=== PATIENT | male | born 1930 | race Hispanic/Latino ===

== ENCOUNTER 2017-10-14 19:28 | Emergency (ER) | payer MEDICARE ==
[2017-10-14 19:34] VITALS: BMI 31.3
[2017-10-14 19:59] VITALS: BP 98/59; PULSE 87; RESP 18; TEMP 98.4
--- NOTE | 2017-10-14 20:02 | ED PDOC ---
Arrival/HPI - General Historian: Patient - History of Present Illness Time/Duration: < week Symptom Course: Unchanged Activities at Onset: Light Context: Walking - General Chief Complaint: Altered Mental Status Time Seen by Provider: 10/14/17 19:31 - History of Present Illness Narrative History of Present Illness (Text): 10/14/17 19:58 This is a 87 year old male with PMH of HT, dyslipidemia, alcohol abuse, depression, alzheimer's, dementia, and severe aortic stenosis presenting to the ER by ambulance for AMS. Patient is confused at this time and cannot provide a history. Patient denies and complaints or pain at this time. Will attempt to contact son. (Danay Ji) Past Medical History - Provider Review Nursing Documentation Reviewed: Yes - Infectious Disease Hx of Infectious Diseases: None - Tetanus Immunization Tetanus Immunization: Unknown - Cardiac Hx Hypertension: Yes - HEENT Hx HEENT Disorder: Yes (wears glasses) - Hematological/Oncological Hx Anemia: Yes (normocytic) - Musculoskeletal/Rheumatological Hx Musculoskeletal Disorders: Yes Hx Arthritis: Yes Hx Degenerative Joint Disease: Yes Hx Falls: No Hx Unsteady Gait: Yes - Genitourinary/Gynecological Hx Incontinence: Yes - Psychiatric Hx Psychophysiologic Disorder: Yes Hx Depression: Yes Hx Substance Use: No - Surgical History Hx Cholecystectomy: Yes Family/Social History - Physician Review Nursing Documentation Reviewed: Yes Family/Social History: Unknown Family HX Smoking Status: Smoker Currrent Status Unknown Hx Alcohol Use: Yes Hx Substance Use: No Allergies/Home Meds Allergies/Adverse Reactions: Allergies No Known Allergies Allergy (Verified 10/14/17 19:39) Review of Systems - Physician Review All systems were reviewed & negative as marked: Yes - Review of Systems Constitutional: Normal. absent: Fevers Eyes: Normal ENT: Normal Respiratory: Normal. absent: SOB, Cough Cardiovascular: Normal. absent: Chest Pain Gastrointestinal: Normal Genitourinary Male: Normal Musculoskeletal: Normal Skin: Normal Neurological: Normal. absent: Headache, Dizziness Endocrine: Normal Physical Exam Vital Signs Reviewed: Yes Temperature: Afebrile Blood Pressure: Normal Pulse: Regular Respiratory Rate: Normal Appearance: Positive for: Well-Appearing, Non-Toxic, Comfortable Pain Distress: None Mental Status: Positive for: Confused. No: Alert and Oriented X 3 Finger Stick Blood Glucose: 84 - Systems Exam Head: Present: Atraumatic, Normocephalic Pupils: Present: PERRL Extroacular Muscles: Present: EOMI Conjunctiva: Present: Normal Mouth: Present: Moist Mucous Membranes Neck: Present: Normal Range of Motion Respiratory/Chest: Present: Clear to Auscultation, Good Air Exchange. No: Respiratory Distress, Accessory Muscle Use Cardiovascular: Present: Regular Rate and Rhythm, Normal S1, S2. No: Murmurs Abdomen: No: Tenderness, Distention, Peritoneal Signs Back: Present: Normal Inspection Upper Extremity: Present: Normal Inspection. No: Cyanosis, Edema Lower Extremity: Present: Normal Inspection. No: Edema Neurological: Present: Motor Func Grossly Intact, Normal Sensory Function Skin: Present: Warm, Dry, Normal Color. No: Rashes Psychiatric: Present: Alert, Normal Concentration. No: Oriented x 3, Normal Insight Vital Signs Temp Pulse Resp BP Pulse Ox 10/14/17 19:57 98.4 F 87 18 98/59 L 100 Medical Decision Making ED Course and Treatment: Impression: Pt seen and evaluated with health care / medical job titles. Aware and agree with HPI, clinical findings, plan, and management. Pt, whose past medical history includes hypertension, dyslipidemia, alcohol abuse, depression, ALzheimer's dementia, and severe aortic stenosis, presented for altered mental status. Plan: -- EKG -- Labs -- Reassess and disposition (Ivan Hummel) 10/14/17 20:03 Impression: This is a 87 year old male with PMH significant for alzheimer's and dementia presenting to the ED via ambulance for AMS. Plan: -CBC, CMP -EKG Progress: 10/14/17 21:45 Son came, states patient is at his baseline. Will take home. (Danay Ji) - Lab Interpretations Lab Results: 10/14/17 20:08 10/14/17 20:08 Lab Results 10/14/17 20:08: Sodium 139, Potassium 4.8, Chloride 104, Carbon Dioxide 26, Anion Gap 14, BUN 40 H, Creatinine 1.0, Est GFR ( Amer) > 60, Est GFR ( Non-Af Amer) > 60, Random Glucose 90, Calcium 9.1, Total Bilirubin 0.7, AST 30, ALT 31, Alkaline Phosphatase 45, Total Protein 7.1, Albumin 3.9, Globulin 3.2, Albumin/Globulin Ratio 1.2 10/14/17 20:08: WBC 8.4 D, RBC 3.96, Hgb 11.8 L, Hct 34.5 L, MCV 87.1, MCH 29.8 , MCHC 34.2, RDW 14.3, Plt Count 137, MPV 10.4, Gran % 71.0 H, Lymph % (Auto) 21.5 L, [place] % (Auto) 6.0, Eos % (Auto) 1.3 L, Baso % (Auto) 0.2, Gran # 5.95, Lymph # (Auto) 1.8, [place] # (Auto) 0.5, Eos # (Auto) 0.1, Baso # (Auto) 0.02 - PA / TRIM CREW SUPERVISOR / Resident Statement MD/DO has reviewed & agrees with the documentation as recorded. MD/DO has examined the patient and agrees with the treatment plan. Disposition/Present on Arrival - Present on Arrival Any Indicators Present on Arrival: Yes History of DVT/PE: No History of Uncontrolled Diabetes: No Urinary Catheter: Yes History of Decub. Ulcer: No History Surgical Site Infection Following: None - Disposition Have Diagnosis and Disposition been Completed?: Yes Disposition Time: 22:00 Patient Plan: Discharge - Disposition Diagnosis: Dementia Disposition: HOME/ ROUTINE Patient Problems: Current Active Problems Problem Status Onset Dementia Acute Condition: FAIR Discharge Instructions (ExitCare): Dementia (Including Alzheimer Disease) Referrals: Rito Menezes [Primary Care Provider] - Follow up with primary Forms: [employer] (Mongolian)
[2017-10-14 20:21] LABS: BASO # 0.02 K/mm3 (0.0-2.0); BASO % 0.2 % (0.0-3.0); EOS # 0.1 (0.0-0.7); EOS % 1.3 % (1.5-5.0); GRAN # 5.95 (1.4-6.5); HEMOGLOBIN 11.8 g/dL (14.0-18.0); LYMPH # 1.8 (1.2-3.4); LYMPH % 21.5 % (22.0-35.0); MEAN CELL VOLUME 87.1 fl (80.0-105.0); MEAN CORPUSCULAR HEMOGLOBIN 29.8 pg (25.0-35.0); MEAN CORPUSCULAR HGB CONC 34.2 g/dl (31.0-37.0); MEAN PLATELET VOLUME 10.4 fl (7.0-11.0); MONO # 0.5 (0.1-0.6); RBC 3.96 10^6/uL (3.5-6.1); RED CELL DISTRIBUTION WIDTH 14.3 % (11.5-14.5); WHITE BLOOD COUNT 8.4 10^3/ul (4.5-11.0)
[2017-10-14 20:27] LABS: ALB/GLOB RATIO 1.2 (1.1-1.8); ALBUMIN 3.9 g/dL (3.0-4.8); ALT/SGPT 31 U/L (7-56); AST/SGOT 30 U/L (17-59); BLOOD UREA NITROGEN 40 mg/dL (7-21); CALCIUM 9.1 mg/dL (8.4-10.5); GFR AFRICAN-AMERICAN > 60; GFR NON-AFRICAN AMERICAN > 60
[2017-10-14 22:17] VITALS: O2SAT 99
--- NOTE | 2017-10-15 08:29 | CARD ---
APPROVED REPORT EKG Measurement Heart [id number] MA [id number] <Conclusion> Sinus rhythm with 1st degree AV block with 1 premature supraventricular complex No change
== END 2017-10-14 22:16 | disposition home or self-care (01) ==
LOC: ED 19:28
DX: F02.80 Dementia in other diseases classified elsewhere, unspecified severity, without behavioral disturbance, psychotic disturbance, mood disturbance, and anxiety (principal); G30.9 Alzheimer's disease, unspecified; E78.5 Hyperlipidemia, unspecified; I10 Essential (primary) hypertension

== ENCOUNTER 2017-12-26 22:02 | Inpatient (IN) | payer MEDICARE ==
--- NOTE | 2017-12-26 22:36 | ED PDOC ---
Arrival/HPI <Franko Del Castillo - Last Filed: 12/27/17 00:05> - General Historian: Patient <Debbie De La Garza - Last Filed: 12/27/17 02:19> - General Time Seen by Provider: 12/26/17 22:32 - History of Present Illness Narrative History of Present Illness (Text): 12/26/17 22:33 87yo male with pmhx of hypertension, dyslipdemia, alcohol abuse, depression, Alzheimer's, dementia, severe aortic stenosis who was bib the EMS for near syncope. Patient states he suddenly became dizzy while walking and fell backwards, hitting his posterior head on the ground. States a couple nearby called EMS. Denies LOC. Denies any current somatic pain, focal weakness, back pain, nausea, vomiting, visual changes, headache, chest pain, SOB, any other complaint. (Debbie De La Garza A) Past Medical History - Provider Review Nursing Documentation Reviewed: Yes - Infectious Disease Hx of Infectious Diseases: None - Tetanus Immunization Tetanus Immunization: Unknown - Cardiac Hx Hypertension: Yes - HEENT Hx HEENT Disorder: Yes (wears glasses) - Hematological/Oncological Hx Anemia: Yes (normocytic) - Musculoskeletal/Rheumatological Hx Musculoskeletal Disorders: Yes Hx Arthritis: Yes Hx Degenerative Joint Disease: Yes Hx Falls: No Hx Unsteady Gait: Yes - Genitourinary/Gynecological Hx Incontinence: Yes - Psychiatric Hx Psychophysiologic Disorder: Yes Hx Depression: Yes Hx Substance Use: No - Surgical History Hx Cholecystectomy: Yes <Debbie De La Garza - Last Filed: 12/27/17 02:19> Family/Social History - Physician Review Nursing Documentation Reviewed: Yes Family/Social History: Unknown Family HX Smoking Status: Smoker Currrent Status Unknown Hx Alcohol Use: Yes Hx Substance Use: No <Debbie De La Garza A - Last Filed: 12/27/17 02:19> Allergies/Home Meds <Franko Del Castillo - Last Filed: 12/27/17 00:05> <Debbie De La Garza A - Last Filed: 12/27/17 02:19> Allergies/Adverse Reactions: Allergies No Known Allergies Allergy (Verified 10/14/17 19:39) Review of Systems - Physician Review All systems were reviewed & negative as marked: Yes - Review of Systems Constitutional: Normal Eyes: Normal ENT: Normal Respiratory: Normal Cardiovascular: Normal Gastrointestinal: Normal Genitourinary Male: Normal Musculoskeletal: Normal Skin: Normal Neurological: Other (syncope) Endocrine: Normal Hemo/Lymphatic: Normal Psychiatric: Normal <Debbie De La Garza - Last Filed: 12/27/17 02:19> Physical Exam Vital Signs Reviewed: Yes Temperature: Afebrile Blood Pressure: Normal Pulse: Regular Respiratory Rate: Normal Appearance: Positive for: Well-Appearing, Non-Toxic, Comfortable Pain Distress: None Mental Status: Positive for: Alert and Oriented X 3 - Systems Exam Head: Present: Atraumatic, Normocephalic Pupils: Present: PERRL Extroacular Muscles: Present: EOMI Conjunctiva: Present: Normal Mouth: Present: Moist Mucous Membranes Neck: Present: Normal Range of Motion Respiratory/Chest: Present: Clear to Auscultation, Good Air Exchange. No: Respiratory Distress, Accessory Muscle Use Cardiovascular: Present: Regular Rate and Rhythm, Normal S1, S2. No: Murmurs Abdomen: No: Tenderness, Distention, Peritoneal Signs Back: Present: Normal Inspection Upper Extremity: Present: Normal Inspection. No: Cyanosis, Edema Lower Extremity: Present: Normal Inspection. No: Edema Neurological: Present: GCS=15, CN II-XII Intact, Speech Normal, Motor Func Grossly Intact, Normal Sensory Function, Normal Cerebellar Funct, Norm Deep Tendon Reflexes, Memory Normal, Normal 2Pt Descrimination, Other (No focal neurological deficit) Skin: Present: Warm, Dry, Normal Color. No: Rashes Psychiatric: Present: Alert, Oriented x 3, Normal Insight, Normal Concentration <Debbie De La Garza A - Last Filed: 12/27/17 02:19> Vital Signs Temp Pulse Resp BP Pulse Ox 12/27/17 01:04 98.4 F 97 H 18 141/74 99 12/26/17 22:10 98.5 F 77 18 103/49 L 96 Medical Decision Making <Franko Del Castillo - Last Filed: 12/27/17 00:05> <Debbie De La Garza - Last Filed: 12/27/17 02:19> ED Course and Treatment: 12/27/17 02:02 87yo male bib EMS for near syncopal episode. Pt was neurologically intact in ED. small contusion noted on the posterior scalp. Labs EKG Head CT CXR Lab was nonspecific. Pt will be admitted for possible carotid US and MRI. Head CT IMPRESSION: No evidence of acute intracranial hemorrhage. No midline shift or hydrocephalus. Age-appropriate atrophy. Areas of diminished density in the periventricular and subcortical white matter bilaterally, nonspecific however likely represent chronic small vessel ischemic change. Result and plan was DW the pt and he agreed Case was DW Dr. Ruvalcaba and pt was admitted to his service. He requested Dr. Brice and Alvaro consult. (Debbie De La Garza) - Lab Interpretations Lab Results: 12/27/17 00:08 12/27/17 00:08 Lab Results 12/27/17 00:08: Sodium 138, Potassium 4.3, Chloride 101, Carbon Dioxide 27, Anion Gap 13, BUN 31 H, Creatinine 1.0, Est GFR ( Amer) > 60, Est GFR ( Non-Af Amer) > 60, Random Glucose 90, Calcium 9.2, Magnesium 2.2, Total Bilirubin 1.0, AST 28, ALT 20, Alkaline Phosphatase 63, Lactate Dehydrogenase 431, Total Creatine Kinase 127, Troponin I < 0.01 D, Total Protein 7.5, Albumin 4.1, Globulin 3.4, Albumin/Globulin Ratio 1.2 12/27/17 00:08: PT 14.2 H, INR 1.24, APTT 33.1 12/27/17 00:08: WBC 7.9, RBC 3.94, Hgb 11.9 L, Hct 35.8 L, MCV 90.9 D, MCH 30.2 , MCHC 33.2, RDW 14.2, Plt Count 117 L, MPV 9.9, Gran % 78.9 H, Lymph % (Auto) 11.3 L, [place] % (Auto) 8.7 H, Eos % (Auto) 1.0 L, Baso % (Auto) 0.1, Gran # 6.20 , Lymph # (Auto) 0.9 L, [place] # (Auto) 0.7 H, Eos # (Auto) 0.1, Baso # (Auto) 0.01 - RAD Interpretation Radiology Orders: 12/26/17 23:40 HEAD W/O CONTRAST [CT] Stat CHEST ONE VIEW [RAD] Stat - PA / ROUTE SALES SPECIALIST / Resident Statement / has reviewed & agrees with the documentation as recorded. / has examined the patient and agrees with the treatment plan. <Franko Del Castillo - Last Filed: 12/27/17 00:05> Disposition/Present on Arrival <Franko Del Castillo - Last Filed: 12/27/17 00:05> - Present on Arrival Any Indicators Present on Arrival: No History of DVT/PE: No History of Uncontrolled Diabetes: No Urinary Catheter: Yes History Surgical Site Infection Following: None - Disposition Have Diagnosis and Disposition been Completed?: Yes Disposition Time: 02:00 Patient Plan: Admission <Debbie De La Garza - Last Filed: 12/27/17 02:19> - Disposition Diagnosis: Near syncope Disposition: HOSPITALIZED Patient Problems: Current Active Problems Problem Status Onset Near syncope Acute Condition: STABLE
[2017-12-26 22:41] VITALS: BMI 27.0
[2017-12-27 00:42] LABS: BASO # 0.01 K/mm3 (0.0-2.0); BASO % 0.1 % (0.0-3.0); EOS # 0.1 (0.0-0.7); GRAN # 6.2 (1.4-6.5); GRAN % 78.9 % (50.0-68.0); HEMOGLOBIN 11.9 g/dL (14.0-18.0); LYMPH # 0.9 (1.2-3.4); LYMPH % 11.3 % (22.0-35.0); MEAN CORPUSCULAR HEMOGLOBIN 30.2 pg (25.0-35.0); MEAN CORPUSCULAR HGB CONC 33.2 g/dl (31.0-37.0); MEAN PLATELET VOLUME 9.9 fl (7.0-11.0); MONO # 0.7 (0.1-0.6); MONO % 8.7 % (1.0-6.0); RBC 3.94 10^6/uL (3.5-6.1); RED CELL DISTRIBUTION WIDTH 14.2 % (11.5-14.5); WHITE BLOOD COUNT 7.9 10^3/ul (4.5-11.0)
[2017-12-27 00:46] LABS: INR 1.24; PARTIAL THROMBOPLASTIN TIME 33.1 Seconds (25.1-36.5); PROTHROMBIN TIME 14.2 SECONDS (9.4-12.5)
[2017-12-27 00:47] LABS: ALB/GLOB RATIO 1.2 (1.1-1.8); ALBUMIN 4.1 g/dL (3.0-4.8); ALT/SGPT 20 U/L (7-56); AST/SGOT 28 U/L (17-59); BLOOD UREA NITROGEN 31 mg/dL (7-21); CALCIUM 9.2 mg/dL (8.4-10.5); GFR NON-AFRICAN AMERICAN > 60; MEAN CELL VOLUME 90.9 fl (80.0-105.0)
[2017-12-27 00:58] LABS: TROPONIN I < 0.01 ng/mL
--- NOTE | 2017-12-27 03:02 | CP.PCM.HP ---
<Jose Moran - Last Filed: 12/27/17 03:40> History of Present Illness - History of Present Illness History of Present Illness: Jose Moran DO PGY-1, H&P for Dr. Ruvalcaba CC: syncopal episode, head trauma This is a 87-year-old male with past medical history of severe aortic stenosis, hypertension, dyslipidemia, alcohol abuse, depression, Alzheimer's dementia, who was brought in [facility] due to a syncopal episode. Patient is a poor historian, as he is pleasantly demented. As per triage note, pt was found on the [place] [address] in [place]. Patient reports that he fell backwards while walking with a Woman earlier tonight. Patient states that he felt dizzy prior to the fall, as if he was spinning. Patient denies fever, chills, chest pain, shortness of breath, abdominal pain, nausea, vomiting, diarrhea, weakness, numbness or tingling. ROS is limited as patient is an unreliable historian and often tangential when answering questions. PMD: MELI PMH: severe aortic stenosis, hypertension, dyslipidemia, alcohol abuse, depression, Alzheimers disease, rheumatic heart disease as a child PSH: unable to be provided by pt Medications: as per MAR Allergies: NKDA Family history: patient is unable to answer this question Social history: patient states that he lives at home alone in [place], does not drink alcohol anymore. Unable to answer further questions reliably. Present on Admission - Present on Admission Any Indicators Present on Admission: No Review of Systems - Review of Systems Systems not reviewed;Unavailable: Uncooperative (pleasantly demented) All systems: reviewed and no additional remarkable complaints except (as per HPI ) Past Patient History - Infectious Disease Hx of Infectious Diseases: None - Tetanus Immunizations Tetanus Immunization: Unknown - Past Medical History & Family History Past Medical History?: Yes - Past Social History Smoking Status: Smoker Currrent Status Unknown - CARDIAC Hx Hypertension: Yes - PULMONARY Hx Respiratory Disorders: No - NEUROLOGICAL Hx Neurological Disorder: No - HEENT Hx HEENT Problems: Yes (wears glasses) - RENAL Hx Chronic Kidney Disease: No - ENDOCRINE/METABOLIC Hx Endocrine Disorders: No - HEMATOLOGICAL/ONCOLOGICAL Hx Anemia: Yes (normocytic) - INTEGUMENTARY Hx Dermatological Problems: No - MUSCULOSKELETAL/RHEUMATOLOGICAL Hx Musculoskeletal Disorders: Yes Hx Arthritis: Yes Hx Degenerative Joint Disease: Yes Hx Falls: No Hx Unsteady Gait: Yes - GASTROINTESTINAL Hx Gastrointestinal Disorders: No - GENITOURINARY/GYNECOLOGICAL Hx Incontinence: Yes - PSYCHIATRIC Hx Psychophysiologic Disorder: Yes Hx Depression: Yes Hx Substance Use: No - SURGICAL HISTORY Hx Cholecystectomy: Yes Meds Allergies/Adverse Reactions: Allergies Allergy/AdvReac Type Severity Reaction Status Date / Time No Known Allergies Allergy Verified 10/14/17 19:39 Physical Exam - Constitutional Appears: Well, No Acute Distress Additional comments: (+) pleasantly demented - Head Exam Additional comments: (+) tender, erythematous, 2 cm by 2 cm hematoma to posterior scalp, with superficial abrasion, (-) deformity, (-) active bleeding - Eye Exam Eye Exam: EOMI Additional comments: (+) right pupil is sluggish - ENT Exam ENT Exam: Mucous Membranes Dry - Neck Exam Neck exam: Positive for: Normal Inspection Additional comments: (-) bruit - Respiratory Exam Respiratory Exam: Clear to Auscultation Bilateral. absent: Rales, Rhonchi, Wheezes, Respiratory Distress - Cardiovascular Exam Cardiovascular Exam: REGULAR RHYTHM, Systolic Murmur (3/6 systolic murmur heard loudest at the aortic valve, 3/6 systolic murmur heard at the mitral valve) Additional comments: (+) 3+ bilateral radial pulses - GI/Abdominal Exam GI & Abdominal Exam: Normal Bowel Sounds, Soft. absent: Distended, Firm, Hernia , Rigid, Tenderness - Extremities Exam Extremities exam: Positive for: pedal edema ((+) 1+ pitting edema bilateral lower extremities), pedal pulses present (2+ DPs). Negative for: calf tenderness - Back Exam Back exam: NORMAL INSPECTION - Neurological Exam Neurological exam: Alert ((+) oriented to person and place, but not time. ), CN II-XII Intact ((+) unable to assess sensory CN5 as pt is pleasantly demented; GCS 15) Additional comments: (+) 5/5 strength in bilateral upper and lower extremities - Psychiatric Exam Psychiatric exam: Normal Affect, Normal Mood - Skin Skin Exam: Intact, Normal Color, Warm Results - Vital Signs Recent Vital Signs: Last Vital Signs Temp 98.4 F 12/27/17 01:04 Pulse 97 H 12/27/17 01:04 Resp 18 12/27/17 01:04 BP 141/74 12/27/17 01:04 Pulse Ox 99 12/27/17 01:04 - Labs Result Diagrams: 12/27/17 00:08 12/27/17 00:08 Labs: Laboratory Results - last 24 hr 12/27/17 12/27/17 12/27/17 00:08 00:08 00:08 WBC 7.9 RBC 3.94 Hgb 11.9 L Hct 35.8 L MCV 90.9 D MCH 30.2 MCHC 33.2 RDW 14.2 Plt Count 117 L MPV 9.9 Gran % 78.9 H Lymph % (Auto) 11.3 L [place] % (Auto) 8.7 H Eos % (Auto) 1.0 L Baso % (Auto) 0.1 Gran # 6.20 Lymph # (Auto) 0.9 L [place] # (Auto) 0.7 H Eos # (Auto) 0.1 Baso # (Auto) 0.01 PT 14.2 H INR 1.24 APTT 33.1 Sodium 138 Potassium 4.3 Chloride 101 Carbon Dioxide 27 Anion Gap 13 BUN 31 H Creatinine 1.0 Est GFR ( Amer) > 60 Est GFR (Non-Af Amer) > 60 Random Glucose 90 Calcium 9.2 Magnesium 2.2 Total Bilirubin 1.0 AST 28 ALT 20 Alkaline Phosphatase 63 Lactate Dehydrogenase 431 Total Creatine Kinase 127 Troponin I < 0.01 D Total Protein 7.5 Albumin 4.1 Globulin 3.4 Albumin/Globulin Ratio 1.2 Assessment & Plan - Assessment and Plan (Free Text) Assessment: This is a 87-year-old male with past medical history of severe aortic stenosis, hypertension, dyslipidemia, alcohol abuse, depression, Alzheimer's dementia, who was brought in [facility] due to a syncopal episode. Plan: Syncope; likely due to severe aortic stenosis - Head CT shows No evidence of acute intracranial hemorrhage. No midline shift or hydrocephalus. Age-appropriate atrophy. Areas of diminished density in the periventricular and subcortical white matter bilaterally, nonspecific however likely represent chronic small vessel ischemic change. - troponin is negative x 1 - BNP is normal - will get carotid doppler to evaluate for atherosclerotic vessels due to history of htn, dyslipidemia - will get echocardiogram to evaluate valvular abnormalities - orthostatic vital signs - Cardiology consulted, recs appreciated - Neurology consulted, recs appreciated - fall precautions Alzheimer's dementia - continue home Namenda, Aricept - licensed social worker consulted - PT/OT Hx of Depression - continue home Prozac Hx of BPH - continue home Flomax - UA is pending PPX/Diet - Protonix for GI, SCDs for DVT - HHD Case was reviewed and discussed with attending physician, Dr. Ruvalcaba <Gaurav Ruvalcaba U - Last Filed: 12/29/17 13:58> Results - Vital Signs Recent Vital Signs: Last Vital Signs Temp 98.7 F 12/29/17 12:00 Pulse 61 12/29/17 12:00 Resp 19 12/29/17 12:00 BP 100/59 L 12/29/17 12:00 Pulse Ox 95 12/28/17 16:58 - Labs Result Diagrams: 12/28/17 05:30 12/28/17 05:30 Attending/Attestation - Attestation I have personally seen and examined this patient.: Yes I have fully participated in the care of the patient.: Yes I have reviewed all pertinent clinical information: Yes Notes (Text): Please see/read my dictated notes.
[2017-12-27] MEDS: Sodium Chloride 0.9% 1,000 ML IV SCH ×2 (05:54→20:25)
[2017-12-27] MEDS: Pantoprazole 40 mg EC Tab PO SCH (05:54)
[2017-12-27 06:29] LABS: BASO # 0.01 K/mm3 (0.0-2.0); BASO % 0.1 % (0.0-3.0); EOS # 0.1 (0.0-0.7); EOS % 1.2 % (1.5-5.0); GRAN # 5.41 (1.4-6.5); GRAN % 69.4 % (50.0-68.0); HEMOGLOBIN 11.6 g/dL (14.0-18.0); LYMPH # 1.5 (1.2-3.4); LYMPH % 18.7 % (22.0-35.0); MEAN CELL VOLUME 90.2 fl (80.0-105.0); MEAN CORPUSCULAR HEMOGLOBIN 29.9 pg (25.0-35.0); MEAN CORPUSCULAR HGB CONC 33.1 g/dl (31.0-37.0); MEAN PLATELET VOLUME 9.9 fl (7.0-11.0); MONO # 0.8 (0.1-0.6); MONO % 10.6 % (1.0-6.0); RBC 3.88 10^6/uL (3.5-6.1); RED CELL DISTRIBUTION WIDTH 14.1 % (11.5-14.5); WHITE BLOOD COUNT 7.8 10^3/ul (4.5-11.0)
[2017-12-27 06:51] LABS: ALB/GLOB RATIO 1.2 (1.1-1.8); ALBUMIN 3.8 g/dL (3.0-4.8); ALT/SGPT 18 U/L (7-56); AST/SGOT 35 U/L (17-59); BLOOD UREA NITROGEN 27 mg/dL (7-21); CALCIUM 8.9 mg/dL (8.4-10.5); GFR NON-AFRICAN AMERICAN > 60
[2017-12-27 07:48] LABS: FREE T4 0.96 ng/dL (0.78-2.19); T4 5.8 ug/dL (5.5-11.0)
[2017-12-27] MEDS: Ergocalciferol 50,000 Intl Units Cap PO SCH (08:00)
--- NOTE | 2017-12-27 08:13 | CT ---
Date of service: 12/27/2017 PROCEDURE: CT HEAD WITHOUT CONTRAST. HISTORY: syncope COMPARISON: 02/08/2016 TECHNIQUE: Axial computed tomography images were obtained through the head/brain without intravenous contrast. Radiation dose: Total exam DLP = 859 mGy-cm. This CT exam was performed using one or more of the following dose reduction techniques: Automated exposure control, adjustment of the mA and/or kV according to patient size, and/or use of iterative reconstruction technique. FINDINGS: HEMORRHAGE: No intracranial hemorrhage. BRAIN: No mass effect or edema. There is moderate atrophy. Chronic microvascular changes are seen VENTRICLES: Unremarkable. No hydrocephalus. CALVARIUM: Unremarkable. PARANASAL SINUSES: Unremarkable as visualized. No significant inflammatory changes. MASTOID AIR CELLS: Unremarkable as visualized. No inflammatory changes. OTHER FINDINGS: The report concurs with the preliminary [facility] report IMPRESSION: No acute findings
--- NOTE | 2017-12-27 08:48 | RAD ---
Date of service: 12/27/2017 PROCEDURE: CHEST RADIOGRAPH, 1 VIEW HISTORY: admission COMPARISON: 02/11/2016. FINDINGS: LUNGS: The lungs are well inflated and clear. PLEURA: No pneumothorax or pleural fluid seen. CARDIOVASCULAR: Normal. OSSEOUS STRUCTURES: No significant abnormalities. VISUALIZED UPPER ABDOMEN: Normal. OTHER FINDINGS: None. IMPRESSION: No active pulmonary disease.
[2017-12-27] MEDS ORDERED: Lactobacillus Acidophilus 500 MU Cap PO SCH (10:00)
--- NOTE | 2017-12-27 10:31 | CON ---
DATE: 12/27/2017 CARDIOLOGY CONSULTATION HISTORY: The patient is an 87-year-old male who had a syncopal episode. The patient does not recall much of it. The patient's past medical history includes a history of documented aortic stenosis, which the family decided not to pursue catheterization and possible TAVR. During the previous hospitalization, the patient had marked anemia, which he was treated. The patient denies chest pain, denies shortness of breath now. SOCIAL HISTORY: The patient is a former smoker, which stopped years ago. No diabetes mellitus. No hypertension. REVIEW OF SYSTEMS: A 14-point review of systems is reviewed in detail. He denies angina, denies shortness of breath. Denies edema in THE lower extremities. No dizziness noted. PHYSICAL EXAMINATION: VITAL SIGNS: Blood pressure is 136/73, the heart rate is in the 60s with atrial fibrillation. NECK: Negative JVD. LUNGS: Without rales. HEART: Reveals S1 and S2 with a III/ systolic ejection murmur. EXTREMITIES: Without edema. EKG shows atrial fibrillation with nonspecific ST-T changes. LABORATORY DATA: Hemoglobin is 11.6. Chemistries: BUN and creatinine are unremarkable. Troponin is negative x1. Cholesterol is 115. IMPRESSION: 1. Syncope. 2. Critical aortic stenosis. 3. History of anemia. 4. Questionable gastrointestinal bleed in the past. PLAN: Given these findings, we will repeat an echocardiogram. I have called the patient's family (son) to re-look at the possibility of TAVR, especially given the fact that the patient is now symptomatic from his aortic stenosis. Deion John MD
[2017-12-27] MEDS: Enoxaparin 40 mg Syringe SC SCH (12:09)
[2017-12-27] MEDS: Cholecalciferol 1,000 INTLU TAB PO SCH (12:11)
[2017-12-27] MEDS: POLYETHYLENE GLYCOL 3350 17 GM/Dose PACKET PO SCH ×2 (12:11→17:54)
--- NOTE | 2017-12-27 12:22 | US ---
PROCEDURE: Bilateral carotid artery duplex ultrasound HISTORY: Carotid stenosis syncope PHYSICIAN(S): Deion Harris MD. TECHNIQUE: Duplex sonography and color-flow Doppler were used to evaluate the carotid bifurcations and limited segments of the vertebral arteries bilaterally. FINDINGS: There is mild to moderate focal heterogeneous echogenic plaque noted at the carotid bifurcations bilaterally. The peak systolic velocity in the proximal right internal carotid artery is 41 cm/sec. This corresponds to a 20 to 39% proximal right ICA stenosis. Normal systolic velocities are noted in the proximal right external carotid artery. There is blunted antegrade flow in the right vertebral artery. The peak systolic velocity in the proximal left internal carotid artery is 45 cm/sec. This corresponds to a 20 to 39% proximal left ICA stenosis. Normal systolic velocities are noted in the proximal left external carotid artery. There is antegrade flow in the left vertebral artery. IMPRESSION: 1. Bilateral 20-39% proximal ICA stenoses. 2. Antegrade flow in both vertebral arteries.
--- NOTE | 2017-12-27 12:48 | HP ---
HISTORY OF PRESENT ILLNESS: The patient is an 87-year-old male who presented to the emergency room. According to the triage notes, the patient presented to the emergency room in the late night hours of 12/26/2017, brought into the emergency room by the [facility] ambulance. The patient was found by the EMS. The patient was found on [address] in [place] on the floor. According to the triage note, the patient states that he lost his balance and fell, but did not report loss of consciousness, but on our investigation today and taking history, the patient stated that he did lose consciousness and developed a lump on back of the head. According to the EMS reports, the patient was found to be confused and the patient was stating that tomorrow's Thanksgiving" and the patient was found to be confused. According to the ER staff evaluation and ER physician evaluation, the patient stated that he became dizzy while walking, fell backward hitting the back of his head and the people on the street called EMS. But the patient did report to us that he did lose consciousness. CODE STATUS: Full code. LIVING WILL/ADVANCE DIRECTIVE: None. ALLERGIES: NONE. Height is 5 feet 8 inches. Weight is 178. BMI is 27. HOME MEDICATIONS: Flomax 0.4 mg at bedtime, MiraLax 17 g at bedtime, Protonix 40 mg daily, ProAmatine 5 mg twice a day, Namenda 5 mg daily, Bacid 1 capsule twice a day, Prozac 10 mg daily, Aricept 5 mg at bedtime, vitamin D 2000 international units daily. SOCIAL HISTORY: Reported by the [employer] as positive for alcohol use. Questionable former smoker. OCCUPATIONAL HISTORY: Disabled male. SOCIAL HISTORY: Positive former smoker. Positive for alcohol. PAST MEDICAL AND SURGICAL HISTORY: History of dementia, history of hypertension, history of hyperlipidemia, history of questionable depression, history of gastrointestinal bleeding, history of cholecystectomy, history of degenerative joint disease, history of alcohol abuse, history of former smoker, history of arthritis, history of gait dysfunction, history of anemia, dyslipidemia. The patient's past medical history is significant for massive lower gastrointestinal bleeding with acute blood loss anemia and hypotension, history of poor compliance, history of uyfqds-oa-qfwrvknr aortic stenosis, history of Alzheimer's and vascular dementia, history of constipation, history of systemic inflammatory response syndrome, history of urinary retention with possible bladder outlet obstruction, history of behavioral disturbances secondary to dementia, history of hypovitaminosis D, history of packed red blood cell transfusion, history of major neurocognitive impairment, history of cognitive impairment and memory dysfunction with mixed Alzheimer's and multi-infarct dementia, history of methicillin-sensitive coagulase-negative Staphylococcus bacteremia, history of lower gastrointestinal bleeding and hemorrhage with bleeding hemorrhoids, history of fecal impaction, retention, stasis and constipation, history of rectal stercoral ulcers, history of bilateral hydronephrosis with urinary retention, history of acute kidney injury, history of multiple large-mouthed diverticulosis of the sigmoid and descending colon, history of non-thrombosed external hemorrhoids, history of electrolyte abnormalities with hyponatremia, hypophosphatemia, hypomagnesemia, hypokalemia, history of iron-deficiency anemia, history of protein malnutrition and hypoalbuminemia, history of concentric left ventricular hypertrophy with septal hypokinesis, history of pulmonary hypertension with right ventricular systolic pressure of 47 mmHg, history of borderline right ventricular hypertrophy with dilated right ventricle, history of moderately calcified aortic valve, history of moderate aortic regurgitation, history of deconditioning, 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, history of rectosigmoid colon active bleeding, history of small vessel ischemic disease of the brain and the microvascular ischemic disease of the brain with cerebral cortical atrophy of the brain, history of acute blood loss anemia with severe symptomatic anemia secondary to massive lower gastrointestinal bleeding, history of episodic confusion, history of severe symptomatic hyponatremia, history of hypertensive cardiovascular disease, history of tricuspid regurgitation, history of colonoscopy showing a large-mouthed diverticulosis of sigmoid and descending colon, history of solitary nonbleeding stercoral distal rectal ulcer, history of dhdyud-yc-oncisdxy aortic stenosis and aortic regurgitation with moderately calcified aortic valve, history of depression, history of alcohol and nicotine dependence, history of questionable bladder outlet obstruction with urinary retention and distended urinary bladder, history of colonic fecal stasis and rectal fecal impaction, history of hypotension. PHYSICAL EXAMINATION: GENERAL: The patient was seen and examined. The patient is seen lying in the bed in room 262, bed 2. VITAL SIGNS: T-max 98.5-98.4. Telemetry shows sinus rhythm, heart rate 97, 67, 69, 67, blood pressure 136/73, 141/74, respiration 18-19, O2 sat 97%. HEADL Normocephalic, atraumatic. HEENT examination shows pinkish pale conjunctivae. Anicteric sclerae. No oropharyngeal lesion. No neck rigidity. CHEST: Kyphosis. LUNGS: Shows no rales, crackles or wheezing. CARDIOVASCULAR: Shows S1, S2, regular rhythm. Positive systolic murmur at left sternal border, left second intercostal space and right second intercostal space. ABDOMEN: Soft. Positive bowel sound. No hepatosplenomegaly noted. GENITALIA: Male. RECTAL: Deferred. EXTREMITIES: Shows no pitting edema, no calf tenderness, No Homans' sign. NEUROLOGIC: The patient is alert, awake, oriented to the place, to his name and disoriented to year, date, month. The patient is able to follow simple command. Gait examination is not tested. VASCULAR: Palpable pulses. CRANIAL NERVES: Limited. MUSCULOSKELETAL: Shows a body mass index of 27. DIAGNOSTICS: CBC shows hemoglobin/hematocrit of 11.6/35 and 11.9/35.8, platelets 117-112,000. Granulocytes 79%. Chemistry significant for BUN of 27 and 31, LFTs and troponin is negative. Cholesterol is 115. Thyroid panel is negative.. PT/PTT is 14.2/33.1. IMAGING: EKG report, ER evaluation noted. The patient had a CT of the chest and a chest x-ray done, the results were reviewed. The patient had an EKG done in the emergency room which was reviewed. The patient was seen and evaluated in the emergency room by the ER physician and the medical billing coder. The patient was advised to be admitted to [facility]. IMPRESSION AND PLAN: 1. Status post syncope, etiology undetermined. 2. Status post fall. 3. Gcoxgv-kz-zqsflaqg aortic stenosis. 4. Questionable second-degree atrioventricular block, exact type undetermined. 5. Age-indeterminate inferior infarct. 6. Advanced dementia. 7. Cerebral cortical atrophy of the brain. 8. Chronic microvascular ischemic disease of the brain. 9. Syncope probably secondary to lqemdo-yq-wjualedp aortic stenosis. 10. History of hypotension. 11. History of questionable prostatic hypertrophy with possible bladder outlet obstruction and urinary retention and prostatic hypertrophy. 12. History of constipation. 13. History of dementia. 14. History of depression. 15. History of hypovitaminosis D. PLAN: At this time, the patient will be admitted to [facility].. The patient has been admitted to telemetry. The patient is put on neuro checks.. The patient has been ordered hemoglobin A1c, lipid panel, magnesium, B12, folate. Repeat CMP, LFTs, magnesium, phosphorus, Lyme titer, manual platelet CBC ordered. Consultation, Neurology and Cardiology. TCU evaluation ordered. Lyme titer, RPR ordered. Patient's Aricept is increased to 10 mg daily from 5 mg. The patient is on Bacid 1 capsule twice a day, Colace 100 mg 3 times a day. Bacid will be discontinued. The patient is on Drisdol 50,000 weekly, Ecotrin 81 mg daily, Flomax 0.4 mg daily, Lipitor 40 mg daily, Lovenox 40 subcu daily, MiraLax 17 g twice a day, Namenda increased to 5 mg twice a day from 5 mg once a day. The patient is on ProAmatine 5 mg twice a day, Protonix 40 mg daily, Prozac 10 mg daily, IV fluid has been ordered, Tylenol p.r.n., Zofran 4 mg IV every 4 hours p.r.n. has been ordered. At present, the patient will be continued on the above therapeutic intervention. The patient has been ordered. Neurology, Cardiology evaluation. The patient has been ordered carotid Doppler, MRI, MRA of the brain, echocardiogram, EEG has been ordered. The patient has been ordered seizure precautions. Occupational therapy, physical therapy, SCDs, JACY stockings, out of bed ordered. At present, the patient will be continued on the above treatment plan. At present, the patient's case was discussed with Cardiology. Cardiology has attempted to contact the family regarding evaluation of the syncope and possible need for cardiac catheterization as the patient has cmjnit-zc-xzhewxkp aortic stenosis which needs further investigation as the patient has been admitted with syncopal episode. At present. we will await for further evaluation and recommendation. The patient is admitted to 262, bed 2. The patient's further management will be dependent upon the patient's clinical condition, hemodynamic status and as per the patient response to therapeutic intervention as per the patient's diagnostic test results and as per recommendation by all the physicians involved in the care of the patient. Dictated and electronically signed, not read. Gaurav Ruvalcaba MD [facility] # [id number] VERA
[2017-12-27 13:34] LABS: FOLATE 16.9 ng/mL
--- NOTE | 2017-12-27 13:53 | CARD ---
APPROVED REPORT Date of service: 12/27/2017 EXAM: Two-dimensional and M-mode echocardiogram with Doppler and color Doppler. INDICATION Aortic Valve Disease Syncope 2D DIMENSIONS Left Atrium (2D)4.3 (1.6-4.0cm)IVSd1.3 (0.7-1.1cm) LVDd5.3 (3.9-5.9cm)LVOT Diameter2.0 (1.8-2.4cm) PWd1.3 (0.7-1.1cm)LVDs3.6 (2.5-4.0cm) FS (%) 31.9 %LVEF (%)59.5 (>50%) M-Mode DIMENSIONS Aortic Root3.90 (2.2-3.7cm)Aortic Cusp Exc.0.70 (1.5-2.0cm) Aortic Valve AoV Peak Oigbfpca791.0cm/sAoV VTI91.9cmAO Peak GR.58mmHg LVOT Peak Dyxmfrys37.2cm/sLVOT VTI20.50cmAO Mean GR.33mmHg LIA (VMAX)0.09kh8LZD (VTI)0.70cm2 Mitral Valve E/A ratio0.0 TDI E/Lateral E'0.0E/Medial E'0.0 Tricuspid Valve TR Peak Twslovkw652rm/sRAP HWMGIMVT30rnJnRS Peak Gr.26mmHg XMEV95nePs LEFT VENTRICLE There is moderate concentric left ventricular hypertrophy. RIGHT VENTRICLE The right ventricle is normal size. ATRIA The left atrium is mildly dilated. The right atrium size is normal. AORTIC VALVE The aortic valve is calcified and displays decreased opening. There is mild aortic regurgitation. There is moderate to severe valvular aortic stenosis. MITRAL VALVE The mitral valve is calcified but opens well. TRICUSPID VALVE The tricuspid valve leaflets are thickened , but open well. There is mild tricuspid regurgitation. There is no pulmonary hypertension. PULMONIC VALVE The pulmonic valve is not well visualized. <Conclusion> LVH with good LV function Critical AoV stenosis Dilated LA Mild AI and TR No pulmonary hypertension
--- NOTE | 2017-12-27 18:09 | CON ---
DATE: 12/27/2017 NEUROLOGY CONSULTATION CHIEF COMPLAINT: Fall, near syncope. HISTORY OF PRESENT ILLNESS: This is an 87-year-old man with past medical history of dementia, moderate cognitive impairment, on Namenda and Aricept, history of hypertension, history of hyperlipidemia, history of degenerative arthritis, cholecystectomy, former smoker who presented to the ER because the patient was found in [address] on the floor in [place]. According to the triage note, the patient states that he lost his balance and fell, but did not report any loss of consciousness. But on taking further history, the patient stated lose consciousness and develop lump on the back of his head. Patient is alert and oriented to person and place, not much of month or year. Recall after 5 minutes is 0/3. Poor attention span. Slow thought process. He was slightly dizzy and when he was walking, he fell backwards and hit his head. His CAT scan of the head showed no acute intracranial abnormalities, chronic ischemic changes. His carotid Doppler showed 20%-39% proximal ICA stenosis and antegrade flow in the vertebral arteries. Echocardiogram shows severe critical aortic stenosis and does have a 3/6 ejection systolic murmur in the aortic area, radiating to carotids. Cardiology is on board. Currently moves all extremities equally. He is deconditioned as well. He has poxnisbl-wh-assieo cognitive impairment. HOME MEDICATIONS: Reviewed by nurse per reconciliation sheet. PAST MEDICAL HISTORY: As above. SOCIAL HISTORY: No illicit drug use, smoking, or EtOH abuse. He was a former smoker. REVIEW OF SYSTEMS: A 14-point review of systems is negative except in the HPI. PHYSICAL EXAMINATION: GENERAL: Patient is sitting up in bed, in no acute distress. VITAL SIGNS: Temperature 98.6, pulse rate 67 , blood pressure 136/73, respiratory rate 19, O2 saturation 97% via room air. HEENT: Atraumatic, normocephalic. PERRLA. Extraocular muscles intact. NECK: Supple. No JVD. No adenopathy noted. LUNGS: Clear to auscultation. No adventitious sounds. HEART: S1, S2. Regular rate and rhythm. Positive systolic murmur in the left sternal border, left second intercostal space and right intercostal space. ABDOMEN: Soft, nontender and nondistended. Bowel sounds are present. EXTREMITIES: No clubbing. No cyanosis. Peripheral pulses are 2+ felt bilaterally. NEUROLOGIC: Patient is alert and oriented to person, place and year. Recall after 5 minutes is 0/3. Poor attention span and slow thought process. Has poor judgement and poor insight. Cannot do proverbs. Cannot spell the word world backwards. Speech is fluent without any errors. Cranial nerves II through XII intact. Motor exam: Slightly increased tone throughout. Moves all extremities equally. No pronator seen. No tremors seen. Sensory: Decreased light touch and pinprick up to the calves bilaterally. Decreased vibration of the toes. DTRs are 2+ throughout, 1 at both knees and ankles. Coordination: Kpfbxb-ci-wegw intact. No dysmetria noted. LABORATORY DATA: Sodium is 139, potassium is 4, chloride 102, carbon dioxide 26, BUN of 27, creatinine 0.9. Random glucose of 83. ASSESSMENT AND PLAN: His syncopal event etiology is undetermined but his dizziness is more likely secondary to severe critical aortic stenosis. His confusion is most likely secondary to mncezvve-op-gyvret cognitive impairment and I feel that he lacks some competency also to the decision making regarding his necessity for aortic valve placement for his critical aortic stenosis. His carotid Doppler showed 20%-39% proximal internal carotid artery stenosis with antegrade flow in the vertebral arteries. There is no motor weakness besides deconditioned state on neurology exam. At this time, we will recommend; 1. Cardiology followup in regards to his severe critical aortic stenosis and possible recommendation for aortic valve replacement. 2. Recommend Psychiatric consult for evaluation and competency. 3. Continue Namenda 10 mg daily and Aricept 10 mg p.o. at bedtime. for cognitive impairment. Recommend attention and concentration exercises. 4. Monitor electrolytes and correct accordingly. 5. Orthostatic vital signs and continue present medical management. Physical therapy and Occupational therapy evaluation. Yayo Thompson MD
[2017-12-27 21:17] LABS: LYME IGM NEGATIVE (NEGATIVE)
[2017-12-27 21:20] LABS: LYME IGG NEGATIVE (NEGATIVE)
--- NOTE | 2017-12-27 21:29 | CARD ---
APPROVED REPORT Date of service: 12/26/2017 EKG Measurement Heart [id number] <Conclusion> Sinus rhythm with 1st degree AV block with premature supraventricular complexes Abnormal ECG
[2017-12-27] MEDS ORDERED: POLYETHYLENE GLYCOL 3350 17 GM/Dose PACKET PO SCH (22:00)
[2017-12-27 23:31] LABS: URINE BILIRUBIN NEGATIVE (NEGATIVE); URINE BLOOD TRACE-INTACT (NEGATIVE); URINE GLUCOSE (UA) NEGATIVE (NEGATIVE); URINE LEUKOCYTE ESTERASE MODERATE Leu/uL (NEGATIVE); URINE PROTEIN NEGATIVE mg/dL (<30 mg/dL)
[2017-12-27 23:33] LABS: URINE APPEARANCE SL CLOUDY (CLEAR); URINE COLOR YELLOW (YELLOW)
[2017-12-27 23:54] LABS: URINE BACTERIA MANY (NEG); URINE EPITHELIAL CELLS 0 - 2 /hpf (0-5); URINE RBC 0 - 2 /hpf (0-2); URINE WBC 15 - 20 /hpf (0-6)
[2017-12-28 00:02] LABS: BARBITURATES, UR NEGATIVE (NEGATIVE); BENZODIAZEPINES, UR NEGATIVE (NEGATIVE); OPIATES, UR NEGATIVE (NEGATIVE); PHENCYCLIDINE, UR NEGATIVE (NEGATIVE)
[2017-12-28] MEDS: Pantoprazole 40 mg EC Tab PO SCH (06:08)
[2017-12-28 06:30] LABS: BASO # 0.01 K/mm3 (0.0-2.0); BASO % 0.1 % (0.0-3.0); EOS # 0.1 (0.0-0.7); EOS % 1.1 % (1.5-5.0); GRAN # 5.64 (1.4-6.5); GRAN % 72.1 % (50.0-68.0); LYMPH # 1.1 (1.2-3.4); LYMPH % 14.2 % (22.0-35.0); MEAN CELL VOLUME 89.9 fl (80.0-105.0); MEAN CORPUSCULAR HEMOGLOBIN 29.6 pg (25.0-35.0); MEAN PLATELET VOLUME 10.2 fl (7.0-11.0); MONO % 12.5 % (1.0-6.0); RBC 4.05 10^6/uL (3.5-6.1); WHITE BLOOD COUNT 7.8 10^3/ul (4.5-11.0)
[2017-12-28 07:13] LABS: ALB/GLOB RATIO 1.1 (1.1-1.8); ALBUMIN 3.6 g/dL (3.0-4.8); ALT/SGPT 21 U/L (7-56); AST/SGOT 28 U/L (17-59); BILIRUBIN,DIRECT 0.1 mg/dL (0.0-0.4); BLOOD UREA NITROGEN 17 mg/dL (7-21); CALCIUM 8.9 mg/dL (8.4-10.5); GFR NON-AFRICAN AMERICAN > 60
[2017-12-28] MEDS: cefTRIAXone 1 gm 1 GM/100 ML BAG IVPB SCH (11:01)
[2017-12-28] MEDS: POLYETHYLENE GLYCOL 3350 17 GM/Dose PACKET PO SCH ×2 (11:02→17:52)
[2017-12-28] MEDS: Cholecalciferol 1,000 INTLU TAB PO SCH (11:02)
[2017-12-28] MEDS: Enoxaparin 40 mg Syringe SC SCH (11:02)
--- NOTE | 2017-12-28 11:06 | CP.PCM.PN ---
<Aakash Rodgers - Last Filed: 12/28/17 17:04> Subjective - Date & Time of Evaluation Date of Evaluation: 12/28/17 Time of Evaluation: 09:26 - Subjective Subjective: Aakash Rodgers PGY2 IM Progress Note for Dr. Ruvalcaba Patient was seen and examined at bedside. A friend is visiting him. The patient states that overnight he had an episode of urinary incontinence. There were no other overnight events. The patient remains altered, but is at baseline of dementia. He endorses no other complaints. Objective - Vital Signs/Intake and Output Vital Signs (last 24 hours): Temp Pulse Resp BP Pulse Ox 98.5 F 63 18 124/66 96 12/28/17 06:00 12/28/17 06:00 12/28/17 06:00 12/28/17 06:00 12/28/17 06:00 Intake and Output: 12/28/17 12/28/17 06:59 18:59 Intake Total 840 0 Output Total 200 Balance 840 -200 - Medications Medications: Current Medications Acetaminophen (Tylenol 325mg Tab) 650 mg PO Q6 PRN PRN Reason: TEMP>=99.5F Acetaminophen (Tylenol 650 Mg Supp) 650 mg RC Q6H PRN PRN Reason: TEMP>=99.5F Aspirin (Ecotrin) 81 mg PO DAILY [facility] Last Admin: 12/27/17 12:11 Dose: 81 mg Atorvastatin Calcium (Lipitor) 40 mg PO DIN [facility] Last Admin: 12/27/17 17:52 Dose: 40 mg Cholecalciferol (Vitamin D) 2,000 intlu PO DAILY [facility] Last Admin: 12/27/17 12:11 Dose: 2,000 intlu Docusate Sodium (Colace) 100 mg PO TID [facility] Last Admin: 12/27/17 17:52 Dose: 100 mg Donepezil HCl (Aricept) 10 mg PO HS [facility] Last Admin: 12/27/17 21:01 Dose: 10 mg Enoxaparin Sodium (Lovenox) 40 mg SC DAILY [facility] PRN Reason: Protocol Last Admin: 12/27/17 12:09 Dose: 40 mg Ergocalciferol (Drisdol 50,000 Intl Units Cap) 1 cap PO Q7D [facility] Last Admin: 12/27/17 08:00 Dose: 1 cap Fluoxetine HCl (Prozac) 10 mg PO DAILY [facility] Last Admin: 12/27/17 12:11 Dose: 10 mg Ceftriaxone Sodium (Rocephin 1 Gram Ivpb) 1 gm in 100 mls @ 100 mls/hr IVPB DAILY [facility] PRN Reason: Protocol Memantine (Namenda) 5 mg PO BID [facility] Last Admin: 12/27/17 17:54 Dose: 5 mg Ondansetron HCl (Zofran Inj) 4 mg IVP Q4H PRN PRN Reason: Nausea/Vomiting Pantoprazole Sodium (Protonix Ec Tab) 40 mg PO 0630 [facility] Last Admin: 12/28/17 06:08 Dose: 40 mg Polyethylene Glycol (Miralax) 17 gm PO BID [facility] Last Admin: 12/27/17 17:54 Dose: 17 gm Tamsulosin HCl (Flomax) 0.4 mg PO HS [facility] Last Admin: 12/27/17 21:01 Dose: 0.4 mg - Labs Labs: 12/28/17 05:30 12/28/17 05:30 PT 14.2 SECONDS (9.4-12.5) H 12/27/17 00:08 INR 1.24 12/27/17 00:08 APTT 33.1 Seconds (25.1-36.5) 12/27/17 00:08 - Constitutional Appears: Well, Non-toxic, No Acute Distress - Head Exam Head Exam: NORMAL INSPECTION, NORMOCEPHALIC. absent: ATRAUMATIC - Eye Exam Eye Exam: EOMI, Normal appearance - ENT Exam ENT Exam: Mucous Membranes Dry - Neck Exam Neck Exam: Normal Inspection - Respiratory Exam Respiratory Exam: NORMAL BREATHING PATTERN. absent: Rales, Rhonchi, Wheezes - Cardiovascular Exam Cardiovascular Exam: RRR, +S1, +S2, Murmur - GI/Abdominal Exam GI & Abdominal Exam: Soft. absent: Distended, Tenderness Additional comments: no bladder distention noted - Extremities Exam Extremities Exam: Normal Inspection. absent: Pedal Edema, Tenderness - Back Exam Back Exam: NORMAL INSPECTION - Neurological Exam Neurological Exam: Altered, Awake - Psychiatric Exam Psychiatric exam: Normal Mood - Skin Skin Exam: Warm Assessment and Plan - Assessment and Plan (Free Text) Assessment: 87-year-old male with past medical history of severe aortic stenosis, hypertension, dyslipidemia, alcohol abuse, depression, Alzheimer's dementia, who BIBA due to a syncopal episode. Syncope likely due to symptomatic severe aortic stenosis. Cardiology is following the case and making recommendations. UA also positive for leukocyte esterase with WBCs. Urinary incontinence could be multifactorial due to baseline dementia and likely BPH. Plan: Syncope; likely due to severe aortic stenosis - Cardiology consulted, recommending TAVR strongly due critical AV stenosis, family still deciding - MRI brain and MRA head pending - Neurology consulted, recs appreciated - fall precautions Alzheimer's dementia - increased dose of home Namenda, Aricept - social media strategist consulted - PT/OT Hx of Depression - continue home Prozac Hx of BPH - continue home Flomax - Given UA results, ucx ordered and started empirically on Rocephin - bladder scan > 300cc; ellis catheter ordered PPX/Diet - Protonix for GI, SCDs for DVT - HHD Case was reviewed and discussed with attending physician, Dr. Ruvalcaba <Gaurav Ruvalcaba - Last Filed: 12/29/17 13:58> Objective - Vital Signs/Intake and Output Vital Signs (last 24 hours): Temp Pulse Resp BP Pulse Ox 98.7 F 61 19 100/59 L 95 12/29/17 12:00 12/29/17 12:00 12/29/17 12:00 12/29/17 12:00 12/28/17 16:58 Intake and Output: 12/29/17 12/29/17 06:59 18:59 Intake Total 0 Output Total 500 Balance -500 - Medications Medications: Current Medications Acetaminophen (Tylenol 325mg Tab) 650 mg PO Q6 PRN PRN Reason: TEMP>=99.5F Acetaminophen (Tylenol 650 Mg Supp) 650 mg RC Q6H PRN PRN Reason: TEMP>=99.5F Aspirin (Ecotrin) 81 mg PO DAILY [facility] Last Admin: 12/29/17 10:08 Dose: 81 mg Atorvastatin Calcium (Lipitor) 40 mg PO DIN [facility] Last Admin: 12/28/17 17:52 Dose: 40 mg Cholecalciferol (Vitamin D) 2,000 intlu PO DAILY [facility] Last Admin: 12/29/17 10:08 Dose: 2,000 intlu Docusate Sodium (Colace) 100 mg PO TID [facility] Last Admin: 12/29/17 10:07 Dose: 100 mg Donepezil HCl (Aricept) 10 mg PO HS [facility] Last Admin: 12/28/17 22:29 Dose: 10 mg Enoxaparin Sodium (Lovenox) 40 mg SC DAILY [facility] PRN Reason: Protocol Last Admin: 12/29/17 10:08 Dose: 40 mg Ergocalciferol (Drisdol 50,000 Intl Units Cap) 1 cap PO Q7D [facility] Last Admin: 12/27/17 08:00 Dose: 1 cap Fluoxetine HCl (Prozac) 10 mg PO DAILY [facility] Last Admin: 12/29/17 10:07 Dose: 10 mg Ceftriaxone Sodium (Rocephin 1 Gram Ivpb) 1 gm in 100 mls @ 100 mls/hr IVPB DAILY [facility] PRN Reason: Protocol Last Admin: 12/29/17 10:19 Dose: 100 mls/hr Memantine (Namenda) 5 mg PO BID [facility] Last Admin: 12/29/17 10:07 Dose: 5 mg Ondansetron HCl (Zofran Inj) 4 mg IVP Q4H PRN PRN Reason: Nausea/Vomiting Pantoprazole Sodium (Protonix Ec Tab) 40 mg PO 0630 [facility] Last Admin: 12/29/17 05:53 Dose: 40 mg Polyethylene Glycol (Miralax) 17 gm PO BID [facility] Last Admin: 12/29/17 10:08 Dose: 17 gm Tamsulosin HCl (Flomax) 0.4 mg PO [facility] Last Admin: 12/28/17 22:29 Dose: 0.4 mg - Labs Labs: PT 14.2 SECONDS (9.4-12.5) H 12/27/17 00:08 INR 1.24 12/27/17 00:08 APTT 33.1 Seconds (25.1-36.5) 12/27/17 00:08 Attending/Attestation - Attestation I have personally seen and examined this patient.: Yes I have fully participated in the care of the patient.: Yes I have reviewed all pertinent clinical information, including history, physical exam and plan: Yes Notes (Text): Please see/read my dictated notes.
--- NOTE | 2017-12-28 13:25 | PN ---
Copied To: Deion John MD Attending MD: Deion John MD DATE: 12/28/2017 CARDIOLOGY FOLLOWUP SUBJECTIVE: The patient is sitting in bed without shortness of breath, without chest pain. PHYSICAL EXAMINATION: VITAL SIGNS: Blood pressure is 124/66, heart rates in the 60s. NECK: Negative JVD. LUNGS: Without rales. HEART: Reveals a 3/6 systolic ejection murmur. EXTREMITIES: Without edema. LABORATORY DATA: Hemoglobin is 12. Chemistries: BUN and creatinine are unremarkable. IMPRESSION: 1. Syncope. 2. Critical aortic stenosis. 3. Mild pulmonary hypertension. 4. Questionable history of gastrointestinal bleed in the past. Given these findings, the patient's syncope is secondary to his critical aortic stenosis. I had a discussion with the son yesterday as well an extensive discussion with the patient and son today. The son has been able to thoroughly investigate and educate himself on TAVR. I have had a discussion with the patient and son about the probability and risk of repeat syncope, dyspnea, CHF as well as sudden with aortic stenosis. I have offered them TAVR for his aortic valve replacement. At this time, they are unable to make a decision and we will not proceed with any invasive procedure at this time. There is no other therapy for critical aortic stenosis other than TAVR at this time. Deion John MD
--- NOTE | 2017-12-28 23:30 | PN ---
DATE: 12/28/2017 SUBJECTIVE: The patient is in room 262, bed 1. Overnight nurse's notes were reviewed. PHYSICAL EXAMINATION: VITAL SIGNS: T-max 98.6. Telemetry shows sinus rhythm, heart rate 69, 82, 65, 73; blood pressure 108/64, 105/67, 124/66, 144/82; respirations 18; O2 sat 95%. The patient was seen and examined by Cardiology, Neurology, and Psychiatry. The patient's MRI is still pending. IMPRESSION: 1. Syncope, etiology undetermined. 2. Dementia. 3. Disorientation. 4. Confabulation and confusion. 5. Severe to critical aortic stenosis. 6. Alzheimer dementia. 7. Hypertension. 8. Mild normocytic anemia and mild thrombocytopenia with granulocytosis. 9. Mild prerenal kidney injury (resolved). 10. Microscopic hematuria, pyuria, bacteriuria. 11. Bilateral 20%-39% proximal internal carotid artery stenosis. 12. Left ventricular ejection fraction of 59%. 13. Concentric left ventricular hypertrophy. 14. Pgmprpga-mr-rgfmzy valvular aortic stenosis with critical aortic stenosis with decreased aortic valve opening and calcified aortic valve. 15. Mild aortic regurgitation. 16. Mitral valve calcification. 17. Mild tricuspid regurgitation. 18. Ofoeiqzu-xg-gadame cognitive impairment. 19. Lack of competency. 1. Status post syncope, etiology undetermined. 2. Status post fall. 3. Pitbpr-et-riiyltkh aortic stenosis. 4. Questionable second-degree atrioventricular block, exact type undetermined. 5. Age-indeterminate inferior infarct. 6. Advanced dementia. 7. Cerebral cortical atrophy of the brain. 8. Chronic microvascular ischemic disease of the brain. 9. Syncope probably secondary to pygqhf-ht-ipqsmxfx aortic stenosis. 10. History of hypotension. 11. History of questionable prostatic hypertrophy with possible bladder outlet obstruction and urinary retention and prostatic hypertrophy. 12. History of constipation. 13. History of dementia. 14. History of depression. 15. History of hypovitaminosis D. PLAN: At this time, the patient seen by Cardiology who has discussed the patient's condition with the patient's son and also had an extensive discussion with the patient and the patient's son. The patient and the patient's son were explained about the complications and consequences of wwykdr-dk-xpxqgitg aortic stenosis including syncope, leading sudden etc. The patient and the patient's son were offered the treatment option for the treatment of critical aortic stenosis including the TAVR. The patient and the patient's son were unable to make that decision about treatment options as per Cardiology. At present, the patient is to be continued on telemetry. Current consultation: Cardiology, Neurology, Psychiatry. Current medications: Aricept 10 mg at bedtime, Colace 100 mg three times a day, Drisdol 50,000 weekly, Ecotrin 81 mg daily, Flomax 0.4 mg daily, Lipitor 40 mg daily, Lovenox 40 mg subcu daily, MiraLax 17 g twice a day, Namenda 5 mg twice a day, Protonix 40 mg daily, Prozac 10 mg daily. The patient is started on Rocephin 1 g IV daily for possible urinary tract infection. Urine culture ordered. Tylenol p.r.n., vitamin D3 2000 International Units daily, Zofran 4 mg IV every 4 hours p.r.n. MRI, MRA of the brain pending. EEG pending. Heart-healthy diet ordered. Out of bed ordered. Neuro checks, occupational therapy, physical therapy, speech therapy all ordered. The patient was noted by the speech therapy to have moderate receptive and fluid expressive aphasia. At present, the patient will be continued on above therapeutic intervention with close followup. Dictated and electronically signed, not read. Gaurav Ruvalcaba MD MTDKarl
--- NOTE | 2017-12-29 04:22 | CON ---
DATE: 12/28/2017 HISTORY OF PRESENT ILLNESS: In short, the patient is an 87-year-old male with reported history of Alzheimer's dementia, possible delirium. The patient had major medical issues including severe aortic stenosis, hypertension, dyslipidemia, history of alcohol abuse as per medical team. The patient was admitted on the medical site, status post syncopal episode. Psych consultation was called for evaluation of capacity to make decisions for himself. The patient was seen and examined. The patient was oriented only to self. The patient knows that he is in the hospital but had no clue what is the hospital name. The patient had no idea what year, month and date it is. The patient's majority of the interview was confabulating, referring this communications writer as "woman of the day." The patient has difficulty to stay focused and concentrate during the interview. The patient was not able to repeat 3 objects right after this communications writer offered the patient to memorize the 3 objects. Within 1 minute of recall, the patient was not able to recall none of the objects. The patient had constructive apraxia. The patient was not able to draw a clock and the patient was drawing something on the hospital sheet. The patient denied being depressed. The patient had no idea was he ever depressed in his life but denied any thoughts of killing himself or others. The patient has no idea why Prozac was ordered by medical team. The patient was able to remember that his uncle and he was upset over that. The patient does not want to point anyone to make decision for himself as of now. As per report, the patient had a relative as well as son, but the patient said to this communications writer that he is not giving permission to talk to nobody and he will address that issue through the counter stacker. No meaningful conversation possible. Vital signs are stable. Temperature 98.6, pulse is 79, blood pressure 105/69, respirations 18, oxygen saturation is 96. Medications reviewed. Tylenol, aspirin, Lipitor. The patient is on Rocephin, vitamin D, Colace, Aricept, Lovenox, Drisdol, Prozac 10 mg daily, Zofran, MiraLax and Flomax. Labs reviewed. Hemoglobin and hematocrit 12 and 36.4. Coagulation reviewed. Chemistry reviewed. Urinalysis reviewed. Leukocyte esterase moderate. Toxicology negative for any substances. Serology pending. Medical records reviewed. As per the records, the patient was seen by Dr. Mccormack in 02/2016. Impression was mixed Alzheimer's and vascular dementia and back then, the patient was offered to be followed up with Dr. Mccormack as outpatient. Back then, the patient was alert and oriented, but the patient already had dementia 2 years back. MENTAL STATUS EXAMINATION: As this communications writer described above, the patient presented to be alert. The patient was oriented only to self. Intermittent eye contact. Mood described as "you are woman of the day." The patient was answered with random statements which is not related to the questions being asked. Thought process circumstantial and tangential. Thought content, the patient had difficulty to stay focused and concentrate. Mildly paranoid. The patient denies hearing voices or seeing things. Insight and judgment seems to be impaired. Impulses are well controlled. The patient seems to be comfortable. As per staff, the patient is compliant with the medication, has episodes of irritability but no aggression. 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 This communications writer cannot exclude that the patient's presentation was complicated with delirium. The patient has no basic understanding of his diagnosis as well as offered procedures as well as discharge planning. The patient lacks capacity to make decisions for his medical issues as well as disposition as of now. PLAN: Continue current management. Continue current medication. As of now, the patient lacks capacity to point power of contract attorney because the patient has altered mental status. Family should be involved. Family should be educated about guardianship process by surgical services tech. No agitation, no aggression. Discussed with Dr. Ruvalcaba. Should you have any questions, give me a call back. No acute psychiatric issues. This communications writer will sign off. Neurology needs to be involved, but it is up to the medical team. Thank you very much for letting me participate in care of your patient. Selin Garcia MD VERA
[2017-12-29] MEDS: Pantoprazole 40 mg EC Tab PO SCH (05:53)
--- NOTE | 2017-12-29 09:10 | PCM.EEG ---
Electroencephalogram Report - Electroencephalogram Report Procedure Date: 12/28/17 Interpretation: Clinical Information: Dementia and seizures. Technical Information: This was a 21 -channel EEG, 1-channel EKG routine EEG performed using an [employer] machine. Electrodes were applied using the 10/20 international placement system. EEG Detail: During active states, the EEG contained symmetric 10-20 Hz,20-30 uV activity seen bi-frontally. . During resting wakefulness there was a symmetric posterior dominant rhythm at 7.5 Hz, 30-50 uV , which was reactive to eye opening and closing. . Drowsiness was associated with fragmentation of the posterior dominant rhythm and with slow roving eye movements. There was intermittent bi frontal slowing. Hyperventilation was performed and there were no changes in the record. Photic stimulation was performed and there were no changes on the record. Interictal activity; none. Focal abnormality; none. ECG was associated with a normal sinus rhythm. Impression: This is an abnormal EEG record that demonstrate the presence of a mild non specific diffuse disturbance of cortical activity, this is keeping with a diffuse soto matter dysfunction, these findings are not specific.
[2017-12-29] MEDS: Cholecalciferol 1,000 INTLU TAB PO SCH (10:08)
[2017-12-29] MEDS: Enoxaparin 40 mg Syringe SC SCH (10:08)
[2017-12-29] MEDS: POLYETHYLENE GLYCOL 3350 17 GM/Dose PACKET PO SCH ×2 (10:08→17:10)
[2017-12-29] MEDS: cefTRIAXone 1 gm 1 GM/100 ML BAG IVPB SCH (10:19)
[2017-12-29 11:16] LABS: 23 KD (IGG) BAND Reactive
--- NOTE | 2017-12-29 11:57 | CP.PCM.PN ---
Subjective - Date & Time of Evaluation Date of Evaluation: 12/29/17 Time of Evaluation: 10:00 - Subjective Subjective: COVERING DR. LEYVA Awake,alert, no distress Reason for consultation and follow up: Cardiac evaluation of syncopal episode, history of severe aortic stenosis Seen and examined by me and Dr. Bennett Objective - Vital Signs/Intake and Output Vital Signs (last 24 hours): Temp Pulse Resp BP Pulse Ox 98.9 F 65 18 108/64 95 12/29/17 06:00 12/29/17 06:00 12/29/17 00:01 12/28/17 16:58 12/28/17 16:58 Intake and Output: 12/29/17 12/29/17 06:59 18:59 Intake Total 0 Output Total 500 Balance -500 - Medications Medications: Current Medications Acetaminophen (Tylenol 325mg Tab) 650 mg PO Q6 PRN PRN Reason: TEMP>=99.5F Acetaminophen (Tylenol 650 Mg Supp) 650 mg RC Q6H PRN PRN Reason: TEMP>=99.5F Aspirin (Ecotrin) 81 mg PO DAILY [facility] Last Admin: 12/29/17 10:08 Dose: 81 mg Atorvastatin Calcium (Lipitor) 40 mg PO DIN [facility] Last Admin: 12/28/17 17:52 Dose: 40 mg Cholecalciferol (Vitamin D) 2,000 intlu PO DAILY [facility] Last Admin: 12/29/17 10:08 Dose: 2,000 intlu Docusate Sodium (Colace) 100 mg PO TID [facility] Last Admin: 12/29/17 10:07 Dose: 100 mg Donepezil HCl (Aricept) 10 mg PO HS [facility] Last Admin: 12/28/17 22:29 Dose: 10 mg Enoxaparin Sodium (Lovenox) 40 mg SC DAILY [facility] PRN Reason: Protocol Last Admin: 12/29/17 10:08 Dose: 40 mg Ergocalciferol (Drisdol 50,000 Intl Units Cap) 1 cap PO Q7D [facility] Last Admin: 12/27/17 08:00 Dose: 1 cap Fluoxetine HCl (Prozac) 10 mg PO DAILY [facility] Last Admin: 12/29/17 10:07 Dose: 10 mg Ceftriaxone Sodium (Rocephin 1 Gram Ivpb) 1 gm in 100 mls @ 100 mls/hr IVPB DAILY [facility] PRN Reason: Protocol Last Admin: 12/29/17 10:19 Dose: 100 mls/hr Memantine (Namenda) 5 mg PO BID [facility] Last Admin: 12/29/17 10:07 Dose: 5 mg Ondansetron HCl (Zofran Inj) 4 mg IVP Q4H PRN PRN Reason: Nausea/Vomiting Pantoprazole Sodium (Protonix Ec Tab) 40 mg PO 0630 [facility] Last Admin: 12/29/17 05:53 Dose: 40 mg Polyethylene Glycol (Miralax) 17 gm PO BID [facility] Last Admin: 12/29/17 10:08 Dose: 17 gm Tamsulosin HCl (Flomax) 0.4 mg PO HS [facility] Last Admin: 12/28/17 22:29 Dose: 0.4 mg - Labs Labs: PT 14.2 SECONDS (9.4-12.5) H 12/27/17 00:08 INR 1.24 12/27/17 00:08 APTT 33.1 Seconds (25.1-36.5) 12/27/17 00:08 - Constitutional Appears: No Acute Distress - Eye Exam Eye Exam: Normal appearance - ENT Exam ENT Exam: Mucous Membranes Moist - Respiratory Exam Respiratory Exam: Clear to Ausculation Bilateral, NORMAL BREATHING PATTERN - Cardiovascular Exam Cardiovascular Exam: +S1, +S2 - GI/Abdominal Exam GI & Abdominal Exam: Soft, Normal Bowel Sounds - Exam Additional comments: ellis catheter - Extremities Exam Extremities Exam: Normal Capillary Refill - Neurological Exam Neurological Exam: Alert, Awake - Skin Skin Exam: Dry, Warm Assessment and Plan - Assessment and Plan (Free Text) Assessment: An 87 year old male who was brought to the ER due to syncopal episode, post fall. History of severe aortic stenosis, hypertension, dyslipidemia, alcohol abuse, depression, Alzheimer's dementia. Syncopal episode due to severe aortic stenosis. Dr. Leyva discussed with family TAVR. Family undecided. Plan: Denies chest pain, no dizziness Telemetry NSR 60's Heart rate stable Blood pressure controlled Continue telemetry, monitor arrythmias Awaiting decision of family about TAVR procedure Further recommendation during hospital course Continue current treatment Continue current medications Will follow up Plan and treatment discussed with Dr. Bennett
--- NOTE | 2017-12-30 01:01 | PN ---
DATE: 12/29/2017 SUBJECTIVE: The patient is seen lying in the bed in room 262, bed 1. The patient is alert, awake, responsive, confused, disoriented. PHYSICAL EXAMINATION: VITAL SIGNS: T-max 98.7. Telemetry shows sinus rhythm, heart rate 61, 77, 60, 73; blood pressure is 108/64, 105/67, 124/66. Respirations 19, O2 sat is 96% to 95%. HEAD: Normocephalic, atraumatic. HEENT: Shows pink conjunctivae. Anicteric sclerae. No oropharyngeal lesion. No neck rigidity. CHEST: Kyphosis. LUNGS: Shows no rales, crackles or wheezing. CARDIOVASCULAR: S1, S2. Positive systolic murmur, left second intercostal space, left sternal border. ABDOMEN: Soft. Positive bowel sounds. GENITALIA: Male. RECTAL: Deferred. EXTREMITIES: Shows no pitting edema, no calf tenderness, no Homans' sign. NEUROLOGIC: The patient is alert, awake, oriented x1. The patient is episodically confused, disoriented to place, year, date, month. IMPRESSION AND PLAN: 1. Syncope, etiology undetermined. 2. Delirium. 3. Pbexku-ya-jkcdqsve aortic stenosis. 4. Hyperlipidemia. 5. History of alcohol use. 6. Chronic atrial fibrillation. 7. Constructive apraxia. 8. Circumstantial tangential thought process. 9. Mild paranoia. 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 11. Neurosis. 12. 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 13. Calcified aortic valve with ettmur-em-gcsoquqr aortic stenosis. 14. Mildly dilated left atrium. 15. Mild aortic regurgitation. 16. Mild tricuspid regurgitation. 17. Calcified mitral valve. 18. Abnormal EEG with nonspecific diffuse disturbance of cortical activity with diffuse soto matter dysfunction. 19. Normocytic anemia. 20. Granulocytosis. 21. Prerenal kidney injury. 22. Hypotension. 23. Constipation. 24. Dementia. 25. Hypovitaminosis D. 26. Prostatic hypertrophy. 27. Questionable urinary tract infection. 1. Syncope, etiology undetermined. 2. Dementia. 3. Disorientation. 4. Confabulation and confusion. 5. Severe to critical aortic stenosis. 6. Alzheimer dementia. 7. Hypertension. 8. Mild normocytic anemia and mild thrombocytopenia with granulocytosis. 9. Mild prerenal kidney injury (resolved). 10. Microscopic hematuria, pyuria, bacteriuria. 11. Bilateral 20%-39% proximal internal carotid artery stenosis. 12. Left ventricular ejection fraction of 59%. 13. Concentric left ventricular hypertrophy. 14. Tfoofiev-kb-dlmwqt valvular aortic stenosis with critical aortic stenosis with decreased aortic valve opening and calcified aortic valve. 15. Mild aortic regurgitation. 16. Mitral valve calcification. 17. Mild tricuspid regurgitation. 18. Chyjloni-be-ovwqjn cognitive impairment. 19. Lack of competency. 1. Status post syncope, etiology undetermined. 2. Status post fall. 3. Thlvyv-fl-iaurlsti aortic stenosis. 4. Questionable second-degree atrioventricular block, exact type undetermined. 5. Age-indeterminate inferior infarct. 6. Advanced dementia. 7. Cerebral cortical atrophy of the brain. 8. Chronic microvascular ischemic disease of the brain. 9. Syncope probably secondary to yrrcpv-gz-quhhdjih aortic stenosis. 10. History of hypotension. 11. History of questionable prostatic hypertrophy with possible bladder outlet obstruction and urinary retention and prostatic hypertrophy. 12. History of constipation. 13. History of dementia. 14. History of depression. 15. History of hypovitaminosis D. The patient's MRI, MRA of the brain is still pending. The patient seen by Cardiology, Neurology, Psychiatry, their recommendations noted. The patient is seen by rn social work. The patient was evaluated by Psychiatry. Recommendation is appointment of legal guardianship, as the patient does not have any capacity. The case is referred to family for legal guardianship through [employer]. CURRENT MEDICATIONS: Aricept 10 mg at bedtime; Colace 100 mg three times a day; Drisdol 50;000 units weekly; Ecotrin 81 mg daily; Flomax 0.4 daily; Lipitor 40 daily; Lovenox 40 subcu daily; MiraLax 17 g twice a day; Namenda 5 mg twice a day; Protonix 40 mg daily; Prozac 10 mg daily; Rocephin 1 g IV daily; Tylenol 650 p.r.n. every 6 hours; vitamin D3 2000 international units daily, which will be stopped as the patient is already on weekly vitamin D supplementation. The patient is on Zofran 4 mg IV every 4 hours p.r.n. At this time due to the patient's medical condition and neurological status, and psychiatric evaluation, the patient and the family needs to arrange for legal guardianship for further management and treatment options and further medical care. The patient is seen by physical therapist, their recommendation was that the patient refused because the patient is confused and the patient refused therapy. At this time, the patient will also be considered to be resumption of his midodrine, which he was taking at home, which will be resumed. Dictated and electronically signed, not read. Gaurav Ruvalcaba MD MTDD
[2017-12-30] MEDS: Pantoprazole 40 mg EC Tab PO SCH (05:48)
--- NOTE | 2017-12-30 08:22 | CP.PCM.PN ---
Subjective - Date & Time of Evaluation Date of Evaluation: 12/30/17 Time of Evaluation: 06:05 - Subjective Subjective: COVERING DR. LEYVA Lying in bed,Awake,alert, no distress Reason for consultation and follow up: Cardiac evaluation of syncopal episode, history of severe aortic stenosis Seen and examined by me and Dr. Bennett Objective - Vital Signs/Intake and Output Vital Signs (last 24 hours): Temp Pulse Resp BP Pulse Ox 97.3 F L 61 18 118/66 96 12/30/17 00:01 12/30/17 00:01 12/30/17 00:01 12/30/17 00:01 12/30/17 00:01 Intake and Output: 12/30/17 12/30/17 06:59 18:59 Intake Total 440 Output Total 900 Balance -460 - Medications Medications: Current Medications Acetaminophen (Tylenol 325mg Tab) 650 mg PO Q6 PRN PRN Reason: TEMP>=99.5F Acetaminophen (Tylenol 650 Mg Supp) 650 mg RC Q6H PRN PRN Reason: TEMP>=99.5F Aspirin (Ecotrin) 81 mg PO DAILY [facility] Last Admin: 12/29/17 10:08 Dose: 81 mg Atorvastatin Calcium (Lipitor) 40 mg PO DIN [facility] Last Admin: 12/29/17 17:10 Dose: 40 mg Docusate Sodium (Colace) 100 mg PO TID [facility] Last Admin: 12/29/17 17:09 Dose: 100 mg Donepezil HCl (Aricept) 10 mg PO HS [facility] Last Admin: 12/29/17 22:07 Dose: 10 mg Enoxaparin Sodium (Lovenox) 40 mg SC DAILY [facility] PRN Reason: Protocol Last Admin: 12/29/17 10:08 Dose: 40 mg Ergocalciferol (Drisdol 50,000 Intl Units Cap) 1 cap PO Q7D [facility] Last Admin: 12/27/17 08:00 Dose: 1 cap Fluoxetine HCl (Prozac) 10 mg PO DAILY [facility] Last Admin: 12/29/17 10:07 Dose: 10 mg Ceftriaxone Sodium (Rocephin 1 Gram Ivpb) 1 gm in 100 mls @ 100 mls/hr IVPB DAILY [facility] PRN Reason: Protocol Last Admin: 12/29/17 10:19 Dose: 100 mls/hr Memantine (Namenda) 5 mg PO BID [facility] Last Admin: 12/29/17 17:09 Dose: 5 mg Midodrine (Proamatine) 2.5 mg PO TID [facility] Last Admin: 12/29/17 18:37 Dose: 2.5 mg Ondansetron HCl (Zofran Inj) 4 mg IVP Q4H PRN PRN Reason: Nausea/Vomiting Pantoprazole Sodium (Protonix Ec Tab) 40 mg PO 0630 [facility] Last Admin: 12/30/17 05:48 Dose: 40 mg Polyethylene Glycol (Miralax) 17 gm PO BID [facility] Last Admin: 12/29/17 17:10 Dose: 17 gm Tamsulosin HCl (Flomax) 0.4 mg PO HS [facility] Last Admin: 12/29/17 22:07 Dose: 0.4 mg - Labs Labs: PT 14.2 SECONDS (9.4-12.5) H 12/27/17 00:08 INR 1.24 12/27/17 00:08 APTT 33.1 Seconds (25.1-36.5) 12/27/17 00:08 - Constitutional Appears: No Acute Distress - Eye Exam Eye Exam: Normal appearance - ENT Exam ENT Exam: Mucous Membranes Moist - Respiratory Exam Respiratory Exam: Clear to Ausculation Bilateral, NORMAL BREATHING PATTERN - Cardiovascular Exam Cardiovascular Exam: +S1, +S2 Additional comments: NSR 1st degree block 60's-Telemetry - GI/Abdominal Exam GI & Abdominal Exam: Soft, Normal Bowel Sounds - Exam Additional comments: ellis catheter - Extremities Exam Extremities Exam: Normal Capillary Refill - Neurological Exam Neurological Exam: Alert, Awake Additional comments: confuse - Skin Skin Exam: Dry, Warm Assessment and Plan - Assessment and Plan (Free Text) Assessment: An 87 year old male who was brought to the ER due to syncopal episode, post fall. History of severe aortic stenosis, hypertension, dyslipidemia, alcohol abuse, depression, Alzheimer's dementia. Syncopal episode due to severe aortic stenosis. Dr. Leyva discussed with family TAVR. Family undecided. Clinically stable, confuse. Plan: Awake,alert,but confuse, with remote telesitter monitor Denies chest pain, no dizziness Telemetry NSR 60's 1st degree block Blood pressure controlled Continue telemetry, monitor arrythmias Awaiting decision of family about TAVR procedure Further recommendation pending family decision regarding TAVR Continue current treatment Continue current medications Will follow up Plan and treatment discussed with Dr. Bennett
[2017-12-30] MEDS: cefTRIAXone 1 gm 1 GM/100 ML BAG IVPB SCH (10:29)
[2017-12-30] MEDS: POLYETHYLENE GLYCOL 3350 17 GM/Dose PACKET PO SCH ×2 (10:30→17:50)
[2017-12-30] MEDS: Enoxaparin 40 mg Syringe SC SCH (10:30)
--- NOTE | 2017-12-31 02:09 | PN ---
DATE: 12/30/2017 SUBJECTIVE: The patient is seen lying in the bed in room 262, bed 1. The patient is lying in the bed. Patient is alert, awake, responsive, oriented to person and place, and disoriented to year, date, month, time. Disoriented to other areas of neurological examination. Telemetry shows sinus rhythm with intermittent first-degree AV block. PHYSICAL EXAMINATION: VITAL SIGNS: Blood pressure 135/78, 118/66, 102/66, 100/59, 108/64; respiration 18 to 20; O2 sat 96%. HEENT: Head examination, normocephalic, atraumatic. HEENT examination shows pinkish conjunctivae. Anicteric sclerae. No oropharyngeal lesion. No neck rigidity. CHEST: Kyphosis. LUNGS: Examination shows no rales, crackles or wheezing. CARDIOVASCULAR: S1, S2, regular rhythm. Positive systolic murmur at left second intercostal space, left sternal border. ABDOMEN: Soft. Positive bowel sound. GENITALIA: Male. Positive Cleveland catheter. EXTREMITIES: Shows no pitting, no calf tenderness, no Homans' sign. NEUROLOGICALLY: As mentioned above. IMPRESSION: 1. Syncope. 2. Severe to critical aortic stenosis. 3. Vascular and Alzheimer's dementia. 4. Chronic atrial fibrillation. 5. History of hypotension. 6. Transient hypertension. 7. Normocytic anemia. 8. Granulocytosis. 9. Transient thrombocytopenia probably secondary to alcohol use. 10. Deconditioning. 11. Microscopic hematuria, pyuria, bacteriuria with negative urine culture. 12. Bilateral 20% to 39% proximal internal carotid artery stenosis. 13. Left ventricular ejection fraction of 60%. 14. Moderate concentric left ventricular hypertrophy. 15. Severe to critical aortic valve stenosis with mild aortic regurgitation. 16. Questionable voiding dysfunction. 17. Dementia. 18. Constipation. 19. Hypovitaminosis D. 20. Prostatic hypertrophy. 21. History of depression. 22. Receptive and fluent expressive aphasia. 1. Syncope, etiology undetermined. 2. Delirium. 3. Nzsyzi-nd-udvzuwrr aortic stenosis. 4. Hyperlipidemia. 5. History of alcohol use. 6. Chronic atrial fibrillation. 7. Constructive apraxia. 8. Circumstantial tangential thought process. 9. Mild paranoia. 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 11. Neurosis. 12. 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 13. Calcified aortic valve with rexmai-fk-oktylshs aortic stenosis. 14. Mildly dilated left atrium. 15. Mild aortic regurgitation. 16. Mild tricuspid regurgitation. 17. Calcified mitral valve. 18. Abnormal EEG with nonspecific diffuse disturbance of cortical activity with diffuse soto matter dysfunction. 19. Normocytic anemia. 20. Granulocytosis. 21. Prerenal kidney injury. 22. Hypotension. 23. Constipation. 24. Dementia. 25. Hypovitaminosis D. 26. Prostatic hypertrophy. 27. Questionable urinary tract infection. 1. Syncope, etiology undetermined. 2. Dementia. 3. Disorientation. 4. Confabulation and confusion. 5. Severe to critical aortic stenosis. 6. Alzheimer dementia. 7. Hypertension. 8. Mild normocytic anemia and mild thrombocytopenia with granulocytosis. 9. Mild prerenal kidney injury (resolved). 10. Microscopic hematuria, pyuria, bacteriuria. 11. Bilateral 20%-39% proximal internal carotid artery stenosis. 12. Left ventricular ejection fraction of 59%. 13. Concentric left ventricular hypertrophy. 14. Argkppyw-nw-wkvhkg valvular aortic stenosis with critical aortic stenosis with decreased aortic valve opening and calcified aortic valve. 15. Mild aortic regurgitation. 16. Mitral valve calcification. 17. Mild tricuspid regurgitation. 18. Vzojdkwo-eq-etrliv cognitive impairment. 19. Lack of competency. 1. Status post syncope, etiology undetermined. 2. Status post fall. 3. Mcxknb-xj-cutxctia aortic stenosis. 4. Questionable second-degree atrioventricular block, exact type undetermined. 5. Age-indeterminate inferior infarct. 6. Advanced dementia. 7. Cerebral cortical atrophy of the brain. 8. Chronic microvascular ischemic disease of the brain. 9. Syncope probably secondary to zumwaq-im-drwvjgja aortic stenosis. 10. History of hypotension. 11. History of questionable prostatic hypertrophy with possible bladder outlet obstruction and urinary retention and prostatic hypertrophy. 12. History of constipation. 13. History of dementia. 14. History of depression. 15. History of hypovitaminosis D. PLAN: At this time, the patient's telemetry has been discontinued. The patient has been ordered voiding trial and discontinuation of the Cleveland. CURRENT CONSULTATIONS: Cardiology, Neurology, Psychiatry. CURRENT MEDICATIONS: Aricept 10 mg at bedtime, Colace 100 mg three times a day, Drisdol 50,000 units weekly, Ecotrin 81 mg daily, Flomax 0.4 mg, Lipitor 40 mg daily, Lovenox 40 mg subcu daily, MiraLax 17 g twice a day, Namenda 5 mg twice a day, ProAmatine 2.5 three times a day, Protonix 40 mg daily, Prozac 10 mg daily, Rocephin 1 g IV daily which will be discontinued after today's dose if urine culture is negative, Tylenol p.r.n., Zofran 4 mg IV every 4 p.r.n. The patient's MRI and MRA of the brain pending. Plan at this time, the patient will be attempted to remove the Cleveland as the patient was in urinary retention few days ago with retention of more than almost 400 mL. We will try a voiding trial. The patient has been ordered out of bed, JACY stockings, physical therapy, occupational therapy, ambulation therapy, speech therapy. Dictated and electronically signed, not read. Gaurav Ruvalcaba MD MTDD
[2017-12-31] MEDS: Pantoprazole 40 mg EC Tab PO SCH (05:30)
--- NOTE | 2017-12-31 08:45 | PN ---
DATE: 12/29/2017 Addendum to the progress note which has been already done by Zeinab Acosta APN. LOCATION: The patient in room 262, bed 1. This is a progress note addendum on behalf of Dr. John whom I am covering. SUBJECTIVE: The patient admitted with syncope from the severe critical aortic stenosis. The patient is now lying flat in bed without any dizziness, chest pain, shortness of breath, or palpitation. I had extensive discussion with Dr. John and the patient's son as well and the patient offered TAVR therapy and they are still thinking about it. They are not sure whether they want to do at this moment or not. They are still in the process of thinking and in the meantime, the patient is on aspirin 81 mg daily, Lovenox 40 mg subcutaneously daily, atorvastatin 40 daily, and Protonix 40 daily. PLAN: Waiting for the patient to communicate to . In the meantime, we will continue present therapy. Mellisa Bennett MD
--- NOTE | 2017-12-31 08:55 | PN ---
DATE: 12/30/2017 Addendum on progress note, which is already dictated today by Zeinab Acosta APN. LOCATION: The patient is in room 262, bed 1. The patient is conscious, alert and today he says that he is attending for valve replacement, but I saw Dr. Ruvalcaba's notes that the patient sometime is confused and Dr. Ruvalcaba has mentioned about the family guardianship. So, in the meantime, clinically, the patient is not complaining any chest pain, shortness of breath or palpitation. We will continue present therapy and Dr. John will be following the patient from tomorrow. The patient is already on aspirin 81 mg daily, Lovenox 40 subcu daily, Namenda 5 mg b.i.d., midodrine 2.5 mg t.i.d., Protonix 40 daily. Mellisa Bennett MD
[2017-12-31] MEDS: Enoxaparin 40 mg Syringe SC SCH (10:18)
[2017-12-31] MEDS: POLYETHYLENE GLYCOL 3350 17 GM/Dose PACKET PO SCH ×2 (10:18→17:25)
[2017-12-31] MEDS: cefTRIAXone 1 gm 1 GM/100 ML BAG IVPB SCH (10:20)
--- NOTE | 2017-12-31 10:33 | MRI ---
Date of service: 12/31/2017 PROCEDURE: MRI BRAIN WITHOUT CONTRAST HISTORY: SYNCOPE COMPARISON: Comparison made with concurrent MRA brain as well as prior CT scan brain 12/27/2017. TECHNIQUE: Multiplanar, multisequence MR images of the brain were obtained without intravenous contrast enhancement. Note that this study is limited by motion artifact. FINDINGS: HEMORRHAGE: No acute parenchymal, subarachnoid nor extra-axial hemorrhage. No evidence of hemosiderin deposition identified on gradient echo weighted sequence. DWI: No evidence of an acute or early subacute infarction seen on diffusion imaging. BRAIN PARENCHYMA: Mild to moderate diffuse/confluent chronic periventricular white matter ischemic changes are seen extending peripherally into the deep and subcortical white matter both cerebral hemispheres. In addition, there are a few scattered chronic bilateral basal nuclei lacunar type infarcts at minor brainstem ischemic changes. Moderate generalized volume loss. VENTRICLES: No obstructive hydrocephalus. Re demonstrated is a cavum septum pellucidum and vergae. CRANIUM: Unremarkable. ORBITS: Changes of bilateral cataract surgery. Findings consistent with mild bilateral exophthalmos however correlation with ophthalmologic examination recommended PARANASAL SINUSES/MASTOIDS: Clear VASCULAR SYSTEM: Visualized major vascular flow voids at skull base patent. OTHER FINDINGS: None. IMPRESSION: Limited motion degraded study. No evidence of acute intracranial hemorrhage or infarction. Moderate chronic white matter ischemic changes. Additionally, there are a few scattered chronic appearing bilateral basal nuclei lacunar type infarcts and minor brainstem ischemic changes.. Moderate generalized volume loss. Findings consistent with mild bilateral exophthalmos however correlation with ophthalmologic examination recommended
--- NOTE | 2017-12-31 15:43 | MRI ---
Date of service: 2017-12-31 09:36:50 PROCEDURE: Magnetic Resonance Angiography Brain HISTORY: SYNCOPE COMPARISON: None available. TECHNIQUE: 3D time of flight MR angiography of the intracranial arteries was performed. Rotating maximum intensity projection images were generated. FINDINGS: INTERNAL CAROTID ARTERIES: Unremarkable. The skull base, petrous, cavernous and supraclinoid segments are bilaterally widely patient. ANTERIOR CEREBRAL ARTERIES: No evidence of occlusion. A1 and A2 segments are patent. Smaller distal branches unremarkable, as visualized. MIDDLE CEREBRAL ARTERIES: No evidence of occlusion. Mild irregular narrowing of the distal right M1 segment which could be secondary to some mild atherosclerotic disease with exacerbated by slow flow.. M2 segments are patent. Perisylvian branches grossly symmetric. POSTERIOR CIRCULATION: Basilar Artery: Unremarkable. Distal Vertebral Arteries: There is asymmetry of the distal vertebral arteries left-sided which is larger in caliber/more dominant than the right side.. Posterior Cerebral Arteries: Unremarkable. Posterior Inferior Cerebellar Arteries: Unremarkable. 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 Followup CTA of the brain recommended for further evaluation. OTHER FINDINGS: None. 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 Followup CTA of the brain recommended for further evaluation. No evidence of occlusion. There appears to be mild irregular narrowing of the distal right M1 segment possibly due to atherosclerotic disease. Dominant distal left vertebral artery.
--- NOTE | 2017-12-31 16:27 | PN ---
DATE: 12/31/2017 CARDIOLOGY FOLLOWUP SUBJECTIVE: The patient is awake, alert without shortness of breath at rest. PHYSICAL EXAMINATION: VITAL SIGNS: Blood pressure is 110/69, heart rate is in the 70s. NECK: Negative JVD. LUNGS: Without rales. HEART: Reveals S1, S2 with III/ systolic ejection murmur. EXTREMITIES: Without edema. LABORATORY DATA: Hemoglobin is 12. BUN and creatinine unremarkable. The glucose is 128. IMPRESSION: 1. Status post syncope. 2. Critical aortic stenosis. 3. Mild pulmonary hypertension. 4. Borderline diabetes mellitus. PLAN: Given these findings, the patient and his son still are not willing to undergo TAVR. They understand the high probability of recurrence of his symptoms and the poor prognosis with untreated aortic stenosis. Deion John MD
--- NOTE | 2017-12-31 22:12 | CP.PCM.PN ---
<Jose Guadalupe Garibay R - Last Filed: 12/31/17 22:09> Subjective - Date & Time of Evaluation Date of Evaluation: 12/31/17 Time of Evaluation: 10:00 - Subjective Subjective: PGY-[address] Ruvalcaba No acute events noted overnight. Patient resting in chair watching TV in no distress. Had trouble finding words at times. Stated his family will be in later. Was confused as to why he was in the hospital. Objective - Vital Signs/Intake and Output Vital Signs (last 24 hours): Temp Pulse Resp BP Pulse Ox 97.8 F 71 20 110/69 96 12/31/17 14:00 12/31/17 14:00 12/31/17 14:00 12/31/17 14:00 12/31/17 14:00 Intake and Output: 12/31/17 01/01/18 18:59 06:59 Intake Total 600 Output Total 2 Balance 598 - Medications Medications: Current Medications Acetaminophen (Tylenol 325mg Tab) 650 mg PO Q6 PRN PRN Reason: TEMP>=99.5F Acetaminophen (Tylenol 650 Mg Supp) 650 mg RC Q6H PRN PRN Reason: TEMP>=99.5F Aspirin (Ecotrin) 81 mg PO DAILY [facility] Last Admin: 12/31/17 10:17 Dose: 81 mg Atorvastatin Calcium (Lipitor) 40 mg PO DIN [facility] Last Admin: 12/31/17 17:25 Dose: 40 mg Docusate Sodium (Colace) 100 mg PO TID [facility] Last Admin: 12/31/17 17:33 Dose: Not Given Donepezil HCl (Aricept) 10 mg PO HS [facility] Last Admin: 12/31/17 21:42 Dose: 10 mg Enoxaparin Sodium (Lovenox) 40 mg SC DAILY [facility] PRN Reason: Protocol Last Admin: 12/31/17 10:18 Dose: 40 mg Ergocalciferol (Drisdol 50,000 Intl Units Cap) 1 cap PO Q7D [facility] Last Admin: 12/27/17 08:00 Dose: 1 cap Fluoxetine HCl (Prozac) 10 mg PO DAILY [facility] Last Admin: 12/31/17 10:20 Dose: 10 mg Memantine (Namenda) 5 mg PO BID [facility] Last Admin: 12/31/17 17:26 Dose: 5 mg Midodrine (Proamatine) 2.5 mg PO TID [facility] Last Admin: 12/31/17 17:13 Dose: Not Given Ondansetron HCl (Zofran Inj) 4 mg IVP Q4H PRN PRN Reason: Nausea/Vomiting Pantoprazole Sodium (Protonix Ec Tab) 40 mg PO 0630 [facility] Last Admin: 12/31/17 05:30 Dose: 40 mg Polyethylene Glycol (Miralax) 17 gm PO BID [facility] Last Admin: 12/31/17 17:25 Dose: 17 gm Tamsulosin HCl (Flomax) 0.4 mg PO HS [facility] Last Admin: 12/31/17 21:42 Dose: 0.4 mg - Labs Labs: PT 14.2 SECONDS (9.4-12.5) H 12/27/17 00:08 INR 1.24 12/27/17 00:08 APTT 33.1 Seconds (25.1-36.5) 12/27/17 00:08 - Additional Findings Additional findings: - Constitutional Appears: Well, Non-toxic, No Acute Distress - Head Exam Head Exam: NORMAL INSPECTION, NORMOCEPHALIC. absent: ATRAUMATIC - Eye Exam Eye Exam: EOMI, Normal appearance - ENT Exam ENT Exam: Mucous Membranes Dry - Neck Exam Neck Exam: Normal Inspection - Respiratory Exam Respiratory Exam: NORMAL BREATHING PATTERN. absent: Rales, Rhonchi, Wheezes - Cardiovascular Exam Cardiovascular Exam: RRR, +S1, +S2, Murmur - GI/Abdominal Exam GI & Abdominal Exam: Soft. absent: Distended, Tenderness Additional comments: no bladder distention noted - Extremities Exam Extremities Exam: Normal Inspection. absent: Pedal Edema, Tenderness - Back Exam Back Exam: NORMAL INSPECTION - Neurological Exam Neurological Exam: Altered, Awake - Psychiatric Exam Psychiatric exam: Normal Mood - Skin Skin Exam: Warm Assessment and Plan - Assessment and Plan (Free Text) Plan: 87-year-old male with past medical history of severe aortic stenosis, hypertension, dyslipidemia, alcohol abuse, depression, Alzheimer's dementia, who BIBA due to a syncopal episode. Syncope likely due to symptomatic severe aortic stenosis. Cardiology is following the case and making recommendations. UA also positive for leukocyte esterase with WBCs. Urinary incontinence could be multifactorial due to baseline dementia and likely BPH. Syncope; likely due to severe aortic stenosis - Cardiology consulted, recommending TAVR strongly due critical AV stenosis, family still deciding - MRI brain and MRA head pending - Neurology consulted, recs appreciated - fall precautions Alzheimer's dementia - increased dose of home Namenda, Aricept - addiction social worker consulted - PT/OT Hx of Depression - continue home Prozac Hx of BPH - continue home Flomax - Given UA results, ucx ordered and started empirically on Rocephin - bladder scan > 300cc; ellis catheter ordered PPX/Diet - Protonix for GI, SCDs for DVT - HHD Case was reviewed and discussed with attending physician, Dr. Ruvalcaba <Gaurav Ruvalcaba - Last Filed: 01/08/18 22:07> Objective - Vital Signs/Intake and Output Vital Signs (last 24 hours): Temp Pulse Resp BP Pulse Ox 97.7 F 58 L 18 128/62 93 L 01/04/18 18:26 01/04/18 18:26 01/04/18 18:26 01/04/18 18:26 01/03/18 21:42 - Labs Labs: 01/04/18 06:20 01/04/18 06:20 PT 13.9 SECONDS (9.4-12.5) H 01/04/18 06:20 INR 1.20 01/04/18 06:20 APTT 32.1 Seconds (25.1-36.5) 01/04/18 06:20 Attending/Attestation - Attestation I have personally seen and examined this patient.: Yes I have fully participated in the care of the patient.: Yes I have reviewed all pertinent clinical information, including history, physical exam and plan: Yes Notes (Text): Please see/read my dictated notes.
--- NOTE | 2018-01-01 02:45 | PN ---
DATE: 12/31/2017 SUBJECTIVE: The patient is now seen in room 567, bed 1. The patient is out of bed to chair today. The patient is alert. The patient is alert, awake, responsive, oriented to person, disoriented to year, date, month. The patient's overnight nurse's notes were reviewed. The patient was not reported to have any constipation but positive bowel movement. The patient's [place] catheter was removed after voiding trial. PHYSICAL EXAMINATION: VITAL SIGNS: T-max 98.5; pulse 65, 64; blood pressure 125/65, 113/75; respiration 19 to 20; O2 sat 96 to 97%. LABORATORY DATA: Blood, urine cultures negative. The patient's MRI and MRA of the brain is finally done, EEG is finally done. The patient seen by Cardiology. The patient and the patient's family has declined TAVR. IMPRESSION: 1. Status post syncope. 2. Cruuxa-pt-ygcfimid aortic stenosis. 3. Syncope. 4. Vascular and Alzheimer's dementia. 5. Mild irregular narrowing of the distal right M1 segment secondary to atherosclerotic disease. 6. Asymmetrical distal vertebral artery, left side larger than the right. 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 8. Chronic microvascular ischemic disease of the brain, of the subcortical white matter and bilateral cerebral hemisphere. 9. Bilateral basal nuclear lacunar infarct and brainstem ischemic changes. 10. Cerebral cortical atrophy of the brain. 11. Bilateral cataract surgery. 12. Mild bilateral exophthalmos. 13. Diffuse cerebral cortical activity on the EEG with diffuse soto matter dysfunction. 1. Syncope. 2. Severe to critical aortic stenosis. 3. Vascular and Alzheimer's dementia. 4. Chronic atrial fibrillation. 5. History of hypotension. 6. Transient hypertension. 7. Normocytic anemia. 8. Granulocytosis. 9. Transient thrombocytopenia probably secondary to alcohol use. 10. Deconditioning. 11. Microscopic hematuria, pyuria, bacteriuria with negative urine culture. 12. Bilateral 20% to 39% proximal internal carotid artery stenosis. 13. Left ventricular ejection fraction of 60%. 14. Moderate concentric left ventricular hypertrophy. 15. Severe to critical aortic valve stenosis with mild aortic regurgitation. 16. Questionable voiding dysfunction. 17. Dementia. 18. Constipation. 19. Hypovitaminosis D. 20. Prostatic hypertrophy. 21. History of depression. 22. Receptive and fluent expressive aphasia. 1. Syncope, etiology undetermined. 2. Delirium. 3. Ymowgx-hw-ggzxesiv aortic stenosis. 4. Hyperlipidemia. 5. History of alcohol use. 6. Chronic atrial fibrillation. 7. Constructive apraxia. 8. Circumstantial tangential thought process. 9. Mild paranoia. 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 11. Neurosis. 12. 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 13. Calcified aortic valve with iuijip-rq-zxkeerma aortic stenosis. 14. Mildly dilated left atrium. 15. Mild aortic regurgitation. 16. Mild tricuspid regurgitation. 17. Calcified mitral valve. 18. Abnormal EEG with nonspecific diffuse disturbance of cortical activity with diffuse soto matter dysfunction. 19. Normocytic anemia. 20. Granulocytosis. 21. Prerenal kidney injury. 22. Hypotension. 23. Constipation. 24. Dementia. 25. Hypovitaminosis D. 26. Prostatic hypertrophy. 27. Questionable urinary tract infection. 1. Syncope, etiology undetermined. 2. Dementia. 3. Disorientation. 4. Confabulation and confusion. 5. Severe to critical aortic stenosis. 6. Alzheimer dementia. 7. Hypertension. 8. Mild normocytic anemia and mild thrombocytopenia with granulocytosis. 9. Mild prerenal kidney injury (resolved). 10. Microscopic hematuria, pyuria, bacteriuria. 11. Bilateral 20%-39% proximal internal carotid artery stenosis. 12. Left ventricular ejection fraction of 59%. 13. Concentric left ventricular hypertrophy. 14. Vyrhfhsm-ys-mragjf valvular aortic stenosis with critical aortic stenosis with decreased aortic valve opening and calcified aortic valve. 15. Mild aortic regurgitation. 16. Mitral valve calcification. 17. Mild tricuspid regurgitation. 18. Twyeztfb-qv-dqskky cognitive impairment. 19. Lack of competency. 1. Status post syncope, etiology undetermined. 2. Status post fall. 3. Raxhkx-mq-ghxafdpf aortic stenosis. 4. Questionable second-degree atrioventricular block, exact type undetermined. 5. Age-indeterminate inferior infarct. 6. Advanced dementia. 7. Cerebral cortical atrophy of the brain. 8. Chronic microvascular ischemic disease of the brain. 9. Syncope probably secondary to wspabq-sd-ckkptkow aortic stenosis. 10. History of hypotension. 11. History of questionable prostatic hypertrophy with possible bladder outlet obstruction and urinary retention and prostatic hypertrophy. 12. History of constipation. 13. History of dementia. 14. History of depression. 15. History of hypovitaminosis D. PLAN: The patient at present is continued on present care. The patient's case was referred to the patient's advocate regarding legal guardianship appointment. As the patient does not have a POA and healthcare proxy. The patient's case was referred to Unit Secretary who are in contact with the patient's son at present regarding the legal guardianship arrangement. CURRENT MEDICATIONS: Aricept 10 mg at bedtime, Colace 100 mg three times a day, Drisdol 50,000 weekly, aspirin 81 mg daily, Flomax 0.4 mg daily, Lipitor 40 mg daily, Lovenox 40 mg subcu daily, MiraLax 17 g twice a day, Namenda 5 mg twice a day, ProAmatine 2.5 three times a day, Protonix 40 mg daily, Prozac 10 mg daily, Tylenol p.r.n., Zofran 4 mg IV every 4 p.r.n. Dictated and electronically signed, not read. Gaurav Ruvalcaba MD MTDD
[2018-01-01] MEDS: Enoxaparin 40 mg Syringe SC SCH (10:44)
[2018-01-01] MEDS: POLYETHYLENE GLYCOL 3350 17 GM/Dose PACKET PO SCH ×2 (10:44→17:36)
--- NOTE | 2018-01-01 11:01 | US ---
Date of service: 01/01/2018 HISTORY: EXOPTHALMOS?? TECHNIQUE: Sonographic evaluation of the thyroid gland. COMPARISON: Not available FINDINGS: RIGHT LOBE: Measures 4.9 x 1.5 x 2.0 . Cm. Heterogeneous echotexture. Normal flow. Nodules: lower pole hypoechoic solid nodule, 2 x 3 x 3 mm. Lower pole isoechoic solid nodule, 4 x 7 x 7 mm. LEFT LOBE: Measures 3.7 x 1.5 x 2.2 cm. Heterogeneous echotexture. Normal flow. Nodules: Mid left lobe hypoechoic solid nodule, 3 x 4 x 5 mm. ISTHMUS: Measures 0.4 cm. Normal echotexture and flow. Nodules: None OTHER FINDINGS: None . IMPRESSION: Multinodular thyroid. No suspicious masses.
--- NOTE | 2018-01-01 11:38 | PN ---
DATE: 01/01/2018 CARDIOLOGY FOLLOWUP SUBJECTIVE: The patient is without shortness of breath at rest. PHYSICAL EXAMINATION: VITAL SIGNS: Blood pressure is 138/74, the heart rate is in the 60s. NECK: Negative JVD. LUNGS: Without rales. HEART: Reveals a III/ systolic ejection murmur. EXTREMITIES: Without edema. LABORATORY DATA: Laboratories were not drawn. IMPRESSION: 1. Critical aortic stenosis. 2. Status post syncope. 3. Mild pulmonary hypertension. 4. Borderline diabetes mellitus. PLAN: Given these findings, the patient and family do not want any intervention relative to his aortic stenosis. We will need to care for his blood pressure carefully given his critical aortic stenosis. They understand the poor implications to their decision. Deion John MD
[2018-01-01] MEDS: Pantoprazole 40 mg EC Tab PO SCH (13:50)
--- NOTE | 2018-01-01 14:52 | CT ---
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 TECHNIQUE: Initial noncontrast head CT was performed. Subsequently, CT angiogram of the head and neck were performed after the intravenous administration of 80 mL of Omnipaque 350. Contiguous 1.5mm thick images were obtained in the axial plane of the neck. 2-D coronal and sagittal MPR images were obtained. Imaging postprocessing was performed with 3-D images also obtained. A delayed contrast head CT was also obtained. This CT exam was performed using one or more of the following dose reduction techniques: Automated exposure control, adjustment of the mA and/or kV according to patient size, and/or use of iterative reconstruction technique. Contrast dose: 150 mL Omnipaque 350 Radiation dose: Total exam DLP = 1057.80 mGy-cm. FINDINGS: HEAD: Right: The intracranial internal carotid artery, and anterior and middle cerebral arteries are widely patent. 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 Left: The intracranial internal carotid artery, and anterior and middle cerebral arteries are widely patent. There is a 4 mm saccular aneurysm at the MCA bifurcation. There is a 3 mm focal dilatation in the distal A1 segment at its junction with the ACOM. Posterior circulation: The visualized intracranial vertebral arteries, basilar artery and posterior cerebral arteries are widely patent. There is no endoluminal filling defect to suggest thrombus. NECK: There is a three vessel aortic arch. There is no stenosis at the origins of the great vessels at the level of the aortic arch. There are coarse atherosclerotic calcifications in the carotid bulbs and proximal internal carotid arteries without evidence for hemodynamically significant stenosis. Right Carotid: On the right, the common carotid, internal carotid and external carotid arteries are widely patent. There is no hemodynamically significant stenosis in the internal carotid artery by NASCET criteria. Left Carotid: On the left, the common carotid, internal carotid and external carotid arteries are widely patent. There is no hemodynamically significant stenosis in the internal carotid artery by NASCET criteria. The vertebral arteries are widely patent. The right vertebral artery is hypoplastic, an anatomic variant. IMPRESSION: 1. 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 3 mm focal dilatation in the left distal A1 segment at its junction to the ACOM also suspicious for an aneurysm. 2. No evidence of endoluminal thrombus,occlusion or definite significant stenosis in the intracranial arteries. 3. No evidence of hemodynamically significant stenosis in the internal carotid arteries. 4. Patent bilateral vertebral arteries.
--- NOTE | 2018-01-01 22:33 | PN ---
DATE: 01/01/2018 SUBJECTIVE: The patient was seen in room 567, bed 1. The patient is seen sitting up in the bed having breakfast. The patient is alert, awake, oriented x1 to 2. The patient does not appear to be in any distress. Overnight nurse's notes were reviewed. The patient was found to be confused. PHYSICAL EXAMINATION: VITAL SIGNS: T-max 97.8; pulse 71, 68; blood pressure 110/69, 138/74; respirations 20; O2 sat 97%. HEENT: Head: Examination normocephalic, atraumatic. HEENT examination shows pink conjunctivae. Anicteric sclerae. No oropharyngeal lesion. No neck rigidity. CHEST: Kyphosis. LUNGS: Examination shows no rales, crackles or wheezing. CARDIOVASCULAR: S1, S2, regular rhythm. Positive systolic murmur at left second intercostal space, left sternal border. ABDOMEN: Soft. Positive bowel sounds. GENITALIA: Male. Rectal examination is deferred. [place] is removed. EXTREMITIES: Shows no pitting edema, no calf tenderness, no Homans' sign. NEUROLOGIC: The patient is alert, awake, oriented x1 to 2. Motor strength is 5/5. The patient is able to follow simple commands, able to move upper and lower extremities without assistance. Gait examination could not be tested. VASCULAR: Palpable pulses. DIAGNOSTIC DATA: Patient's thyroid ultrasound and CTA of the head and neck was reviewed. The results were reviewed. IMPRESSION: 1. Syncope. 2. Npkxhc-sf-simzyseb aortic stenosis. 3. 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 4. Left middle cerebral artery 4 mm saccular aneurysm at the bifurcation with a 3 mm focal dilatation in the distal A1 segment at its junction with the anterior communicating artery. 5. 5 mm saccular aneurysm at the right middle cerebral artery bifurcation and 4-mm saccular aneurysm at the left middle cerebral artery bifurcation with 3 mm focal dilatation in the left distal A1 segment at its junction to the anterior communicating artery suspicious for aneurysm. 6. Heterogeneous thyroid texture with multinodular subcentimeter thyroid nodule and multinodular thyroid. 7. Severe advanced vascular versus Alzheimer's dementia. 8. Abnormal EEG with nonspecific diffuse disturbance of the cortical activity with diffuse soto matter dysfunction. 9. History of hypotension. 10. Normocytic anemia. 11. Mild aortic and tricuspid regurgitation. 12. Concentric left ventricular hypertrophy with left ventricular ejection fraction of 60%. 13. Receptive and fluent expressive aphasia with history of advanced vascular and Alzheimer's dementia. 14. History of alcohol abuse. 1. Status post syncope. 2. Adnzff-hk-ygscegdv aortic stenosis. 3. Syncope. 4. Vascular and Alzheimer's dementia. 5. Mild irregular narrowing of the distal right M1 segment secondary to atherosclerotic disease. 6. Asymmetrical distal vertebral artery, left side larger than the right. 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 8. Chronic microvascular ischemic disease of the brain, of the subcortical white matter and bilateral cerebral hemisphere. 9. Bilateral basal nuclear lacunar infarct and brainstem ischemic changes. 10. Cerebral cortical atrophy of the brain. 11. Bilateral cataract surgery. 12. Mild bilateral exophthalmos. 13. Diffuse cerebral cortical activity on the EEG with diffuse soto matter dysfunction. 1. Syncope. 2. Severe to critical aortic stenosis. 3. Vascular and Alzheimer's dementia. 4. Chronic atrial fibrillation. 5. History of hypotension. 6. Transient hypertension. 7. Normocytic anemia. 8. Granulocytosis. 9. Transient thrombocytopenia probably secondary to alcohol use. 10. Deconditioning. 11. Microscopic hematuria, pyuria, bacteriuria with negative urine culture. 12. Bilateral 20% to 39% proximal internal carotid artery stenosis. 13. Left ventricular ejection fraction of 60%. 14. Moderate concentric left ventricular hypertrophy. 15. Severe to critical aortic valve stenosis with mild aortic regurgitation. 16. Questionable voiding dysfunction. 17. Dementia. 18. Constipation. 19. Hypovitaminosis D. 20. Prostatic hypertrophy. 21. History of depression. 22. Receptive and fluent expressive aphasia. 1. Syncope, etiology undetermined. 2. Delirium. 3. Piefgm-ev-rtjmxnam aortic stenosis. 4. Hyperlipidemia. 5. History of alcohol use. 6. Chronic atrial fibrillation. 7. Constructive apraxia. 8. Circumstantial tangential thought process. 9. Mild paranoia. 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 11. Neurosis. 12. 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 13. Calcified aortic valve with xpqmcj-nv-tqfzjykh aortic stenosis. 14. Mildly dilated left atrium. 15. Mild aortic regurgitation. 16. Mild tricuspid regurgitation. 17. Calcified mitral valve. 18. Abnormal EEG with nonspecific diffuse disturbance of cortical activity with diffuse soto matter dysfunction. 19. Normocytic anemia. 20. Granulocytosis. 21. Prerenal kidney injury. 22. Hypotension. 23. Constipation. 24. Dementia. 25. Hypovitaminosis D. 26. Prostatic hypertrophy. 27. Questionable urinary tract infection. 1. Syncope, etiology undetermined. 2. Dementia. 3. Disorientation. 4. Confabulation and confusion. 5. Severe to critical aortic stenosis. 6. Alzheimer dementia. 7. Hypertension. 8. Mild normocytic anemia and mild thrombocytopenia with granulocytosis. 9. Mild prerenal kidney injury (resolved). 10. Microscopic hematuria, pyuria, bacteriuria. 11. Bilateral 20%-39% proximal internal carotid artery stenosis. 12. Left ventricular ejection fraction of 59%. 13. Concentric left ventricular hypertrophy. 14. Vdazocwn-lz-titbwv valvular aortic stenosis with critical aortic stenosis with decreased aortic valve opening and calcified aortic valve. 15. Mild aortic regurgitation. 16. Mitral valve calcification. 17. Mild tricuspid regurgitation. 18. Ixxucerm-xs-dtwvno cognitive impairment. 19. Lack of competency. 1. Status post syncope, etiology undetermined. 2. Status post fall. 3. Pglfxk-ll-fredlzim aortic stenosis. 4. Questionable second-degree atrioventricular block, exact type undetermined. 5. Age-indeterminate inferior infarct. 6. Advanced dementia. 7. Cerebral cortical atrophy of the brain. 8. Chronic microvascular ischemic disease of the brain. 9. Syncope probably secondary to eyusem-tj-sjsjnjhr aortic stenosis. 10. History of hypotension. 11. History of questionable prostatic hypertrophy with possible bladder outlet obstruction and urinary retention and prostatic hypertrophy. 12. History of constipation. 13. History of dementia. 14. History of depression. 15. History of hypovitaminosis D. PLAN: At this time, the patient's case is referred to [employer] for legal guardianship issues. The patient's son has been contacted by the [employer]. The patient's current medications are Aricept 10 mg at bedtime, Colace 100 mg three times a day, Drisdol 50,000 weekly, Ecotrin 81 mg daily, Flomax 0.4 mg daily, Lipitor 40 mg daily, Lovenox 40 mg subcu daily, MiraLax 17 g twice a day, Namenda 5 mg twice a day, midodrine 2.5 three times a day, Protonix 40 mg daily, Prozac 10 mg daily, Tylenol p.r.n., Zofran 4 IV every 4 p.r.n. At present, the patient will be continued on above therapeutic intervention. We are awaiting for the patient's legal guardianship. The patient was seen by Physical Therapy. Recommend continue PT home with services. The patient seen by speech language pathologist, their recommendations were noted. The patient was recommended speech and language evaluation for moderate receptive and fluent expressive aphasia. The patient will be continued on out of bed to chair, JACY stockings, SCDs. Dictated and electronically signed, not read. Gaurav Ruvalcaba MD [facility]
[2018-01-02] MEDS: Enoxaparin 40 mg Syringe SC SCH (11:05)
[2018-01-02] MEDS: POLYETHYLENE GLYCOL 3350 17 GM/Dose PACKET PO SCH ×2 (11:05→17:24)
[2018-01-02] MEDS: Pantoprazole 40 mg EC Tab PO SCH (11:07)
--- NOTE | 2018-01-02 23:55 | PN ---
DATE: 01/02/2018 SUBJECTIVE: The patient is seen in room 567 bed 1. The patient is lying in the bed, being cleaned up by the PCP. Patient is alert, awake, oriented x1. Overnight nurse's notes were reviewed. The patient was found to be comfortable without any distress. No behavior disorders were noted, but the patient was found to be confused and AAO x1 to 2. PHYSICAL EXAMINATION: VITAL SIGNS: In the last 24 hours, T-max 98.8; pulse 68, 71; blood pressure 104/63, 153/80, 107/82; respirations 18 to 20, O2 sat 95% to 96%. HEAD: Normocephalic, atraumatic. HEENT: Shows pink conjunctivae. Anicteric sclerae. No oropharyngeal lesion. NECK: No neck rigidity. CHEST: Kyphosis. LUNGS: Shows no rales, crackles or wheezing. CARDIOVASCULAR: S1, S2, regular rhythm. Positive systolic murmur at left sternal border, left second intercostal space and right second intercostal space. ABDOMEN: Soft. Protuberant. Positive bowel sounds. GENITALIA: Male. RECTAL: Deferred. EXTREMITIES: Shows no pitting edema, no calf tenderness, No Homans' sign. NEUROLOGIC: The patient is alert, awake, oriented x1. MUSCULOSKELETAL: Shows a body mass index of 25.8. DIAGNOSTICS: None from today. The patient's all diagnostics were reviewed. I have requested reevaluation by Neurology for aneurysm evaluation, which I have not seen a Neurology followup after that. IMPRESSION AND PLAN: 1. Syncope. 2. Zzbhxe-xx-jljetrem aortic stenosis. 3. Vascular and Alzheimer's dementia. 4. Transient hypertension with history of hypotension. 5. Alcohol dependence. 6. Normocytic anemia with granulocytosis. 7. Mild prerenal kidney injury. 8. Microscopic hematuria, pyuria, bacteriuria. 9. Deconditioning. 10. Heterogeneous echotexture thyroid gland with multi nodular thyroid without suspicious masses. 11. A 5-mm saccular aneurysm at the right middle cerebral artery bifurcation and 4-mm saccular aneurysm at the left middle cerebral artery bifurcation and 3-mm focal dilatation in the left distal A1 segment at its junction to the anterior communicating artery, suspicious for aneurysm. 12. Abnormal electroencephalogram with presence of nonspecific diffuse disturbance of cortical activity with diffuse soto matter dysfunction. 13. Receptive and fluent expressive aphasia. 1. Syncope. 2. Nxxcqy-fr-tgtmelto aortic stenosis. 3. 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 4. Left middle cerebral artery 4 mm saccular aneurysm at the bifurcation with a 3 mm focal dilatation in the distal A1 segment at its junction with the anterior communicating artery. 5. 5 mm saccular aneurysm at the right middle cerebral artery bifurcation and 4-mm saccular aneurysm at the left middle cerebral artery bifurcation with 3 mm focal dilatation in the left distal A1 segment at its junction to the anterior communicating artery suspicious for aneurysm. 6. Heterogeneous thyroid texture with multinodular subcentimeter thyroid nodule and multinodular thyroid. 7. Severe advanced vascular versus Alzheimer's dementia. 8. Abnormal EEG with nonspecific diffuse disturbance of the cortical activity with diffuse soto matter dysfunction. 9. History of hypotension. 10. Normocytic anemia. 11. Mild aortic and tricuspid regurgitation. 12. Concentric left ventricular hypertrophy with left ventricular ejection fraction of 60%. 13. Receptive and fluent expressive aphasia with history of advanced vascular and Alzheimer's dementia. 14. History of alcohol abuse. 1. Status post syncope. 2. Wxxvmq-wl-stzklyea aortic stenosis. 3. Syncope. 4. Vascular and Alzheimer's dementia. 5. Mild irregular narrowing of the distal right M1 segment secondary to atherosclerotic disease. 6. Asymmetrical distal vertebral artery, left side larger than the right. 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 8. Chronic microvascular ischemic disease of the brain, of the subcortical white matter and bilateral cerebral hemisphere. 9. Bilateral basal nuclear lacunar infarct and brainstem ischemic changes. 10. Cerebral cortical atrophy of the brain. 11. Bilateral cataract surgery. 12. Mild bilateral exophthalmos. 13. Diffuse cerebral cortical activity on the EEG with diffuse soto matter dysfunction. 1. Syncope. 2. Severe to critical aortic stenosis. 3. Vascular and Alzheimer's dementia. 4. Chronic atrial fibrillation. 5. History of hypotension. 6. Transient hypertension. 7. Normocytic anemia. 8. Granulocytosis. 9. Transient thrombocytopenia probably secondary to alcohol use. 10. Deconditioning. 11. Microscopic hematuria, pyuria, bacteriuria with negative urine culture. 12. Bilateral 20% to 39% proximal internal carotid artery stenosis. 13. Left ventricular ejection fraction of 60%. 14. Moderate concentric left ventricular hypertrophy. 15. Severe to critical aortic valve stenosis with mild aortic regurgitation. 16. Questionable voiding dysfunction. 17. Dementia. 18. Constipation. 19. Hypovitaminosis D. 20. Prostatic hypertrophy. 21. History of depression. 22. Receptive and fluent expressive aphasia. 1. Syncope, etiology undetermined. 2. Delirium. 3. Sicnho-mb-empsiuji aortic stenosis. 4. Hyperlipidemia. 5. History of alcohol use. 6. Chronic atrial fibrillation. 7. Constructive apraxia. 8. Circumstantial tangential thought process. 9. Mild paranoia. 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 11. Neurosis. 12. 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 13. Calcified aortic valve with wvitcx-tv-tuawtoht aortic stenosis. 14. Mildly dilated left atrium. 15. Mild aortic regurgitation. 16. Mild tricuspid regurgitation. 17. Calcified mitral valve. 18. Abnormal EEG with nonspecific diffuse disturbance of cortical activity with diffuse soto matter dysfunction. 19. Normocytic anemia. 20. Granulocytosis. 21. Prerenal kidney injury. 22. Hypotension. 23. Constipation. 24. Dementia. 25. Hypovitaminosis D. 26. Prostatic hypertrophy. 27. Questionable urinary tract infection. 1. Syncope, etiology undetermined. 2. Dementia. 3. Disorientation. 4. Confabulation and confusion. 5. Severe to critical aortic stenosis. 6. Alzheimer dementia. 7. Hypertension. 8. Mild normocytic anemia and mild thrombocytopenia with granulocytosis. 9. Mild prerenal kidney injury (resolved). 10. Microscopic hematuria, pyuria, bacteriuria. 11. Bilateral 20%-39% proximal internal carotid artery stenosis. 12. Left ventricular ejection fraction of 59%. 13. Concentric left ventricular hypertrophy. 14. Qoifplue-le-hpdchf valvular aortic stenosis with critical aortic stenosis with decreased aortic valve opening and calcified aortic valve. 15. Mild aortic regurgitation. 16. Mitral valve calcification. 17. Mild tricuspid regurgitation. 18. Yxjawuqa-sz-yfkmyz cognitive impairment. 19. Lack of competency. 1. Status post syncope, etiology undetermined. 2. Status post fall. 3. Zatahn-zv-posrrzzz aortic stenosis. 4. Questionable second-degree atrioventricular block, exact type undetermined. 5. Age-indeterminate inferior infarct. 6. Advanced dementia. 7. Cerebral cortical atrophy of the brain. 8. Chronic microvascular ischemic disease of the brain. 9. Syncope probably secondary to spykct-xd-kwragirg aortic stenosis. 10. History of hypotension. 11. History of questionable prostatic hypertrophy with possible bladder outlet obstruction and urinary retention and prostatic hypertrophy. 12. History of constipation. 13. History of dementia. 14. History of depression. 15. History of hypovitaminosis D. PLAN: At this time, the patient's family has been in contact with the Manager regarding the patient's management, treatment plan. The patient's son has been in contact with the social services manager case management as I have advised the patient's son to contact Social Service for further the patient's other issues assistance. According to the message I received from the medical fee clerk, the patient's son is agreeable for the patient to proceed with TAVR. The patient's family including the son is in the process of completing power of ip technology transactions attorney proxy versus legal guardianship issues. At present, the patient will be continued with other treatment options. The patient's son has stated that they would like to proceed with TAVR after discussing with Cardiology. CURRENT MEDICATIONS: Aricept 10 mg at bedtime, Colace 100 mg three times a day, Drisdol 50,000 weekly, Ecotrin 81 mg daily, Flomax 0.4 mg daily, Lipitor 40 mg daily, Lovenox 40 mg subcu daily, MiraLax 17 g twice a day, Namenda 5 mg twice a day, ProAmatine 2.5 mg three times a day, Protonix 40 mg daily, Prozac 10 mg daily, Tylenol 650 every 6 p.r.n., Zofran 4 mg IV every 4 p.r.n. The patient will continue to be monitored as above. The patient has been seen by physical therapist, recommend home with services. Dictated and electronically signed, not read. Gaurav Ruvalcaba MD [facility]
[2018-01-03 08:13] VITALS: RESP 18
[2018-01-03] MEDS: Enoxaparin 40 mg Syringe SC SCH (09:36)
[2018-01-03] MEDS: POLYETHYLENE GLYCOL 3350 17 GM/Dose PACKET PO SCH ×2 (09:36→17:09)
[2018-01-03] MEDS: Ergocalciferol 50,000 Intl Units Cap PO SCH (09:37)
--- NOTE | 2018-01-03 14:19 | PN ---
DATE: 01/02/2018 CARDIOLOGY FOLLOWUP SUBJECTIVE: The patient after extensive discussion and thought with his son, has decided that they want to pursue therapy for his aortic stenosis. OBJECTIVE: VITAL SIGNS: Currently, the blood pressure is 143/87, heart rate is in the 60s. NECK: Negative JVD. LUNGS: Without rales. HEART: S1, S2 with a 3/6 systolic ejection murmur. EXTREMITIES: Without edema. DATA: Hemoglobin is 12. BUN and creatinine are unremarkable. IMPRESSION: 1. Syncope. 2. Critical aortic stenosis. 3. History of hypertension. 4. Mild pulmonary hypertension. 5. Borderline diabetes mellitus. Given these findings, I have discussed with the patient about the need for cardiac catheterization to rule out coronary artery disease and to measure his aortic valve. Once we are able to do that, we will make arrangements for transfer for potential TAVR. Deion John MD
[2018-01-03 21:42] VITALS: O2SAT 93
--- NOTE | 2018-01-04 01:14 | PN ---
DATE: 01/03/2018 SUBJECTIVE: The patient is seen lying in the bed in room 567, bed 1. The patient is comfortable. The patient is alert, awake, oriented x1. The patient's overnight nurse's notes were reviewed. No adverse events were documented. PHYSICAL EXAMINATION: VITAL SIGNS: T-max 98.7; heart rate 68, 74, 86; blood pressure 98/60, 140/87, 122/78; respiration 18-20; O2 sat 95%-98%. HEENT: Head: Normocephalic, atraumatic. HEENT examination shows pink conjunctivae. Anicteric sclerae. No oropharyngeal lesion. No neck rigidity. CHEST: Symmetrical. LUNGS: Examination shows no rales, crackles or wheezing. CARDIOVASCULAR: S1, S2, regular rhythm. Positive systolic murmur at left second intercostal space, left sternal border. ABDOMEN: Soft, protuberant. Positive bowel sounds. Hepatosplenomegaly. GENITALIA: Male. RECTAL: Examination is deferred. EXTREMITIES: Shows no pitting edema, no calf tenderness, no Homans' sign. NEUROLOGIC: The patient is alert, awake, oriented x1. Motor strength is 5/5 in upper and lower extremities. Gait examination not tested. Cranial nerves II-XII intact and limited. VASCULAR: Palpable pulses. DIAGNOSTICS: None from today. IMPRESSION: 1. Syncope. 2. Daaeuh-ju-drdeigri aortic stenosis. 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 5. History of hypotension. 6. Severe vascular and Alzheimer's dementia. 7. Encephalopathy. 8. Dementia. 9. Prostatic hypertrophy. 10. History of alcohol use and dependence. 11. Status post fall. 1. Syncope. 2. Piiexx-im-nliccaya aortic stenosis. 3. Vascular and Alzheimer's dementia. 4. Transient hypertension with history of hypotension. 5. Alcohol dependence. 6. Normocytic anemia with granulocytosis. 7. Mild prerenal kidney injury. 8. Microscopic hematuria, pyuria, bacteriuria. 9. Deconditioning. 10. Heterogeneous echotexture thyroid gland with multi nodular thyroid without suspicious masses. 11. A 5-mm saccular aneurysm at the right middle cerebral artery bifurcation and 4-mm saccular aneurysm at the left middle cerebral artery bifurcation and 3-mm focal dilatation in the left distal A1 segment at its junction to the anterior communicating artery, suspicious for aneurysm. 12. Abnormal electroencephalogram with presence of nonspecific diffuse disturbance of cortical activity with diffuse soto matter dysfunction. 13. Receptive and fluent expressive aphasia. 1. Syncope. 2. Tpylyu-op-ldayyiwj aortic stenosis. 3. 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 4. Left middle cerebral artery 4 mm saccular aneurysm at the bifurcation with a 3 mm focal dilatation in the distal A1 segment at its junction with the anterior communicating artery. 5. 5 mm saccular aneurysm at the right middle cerebral artery bifurcation and 4-mm saccular aneurysm at the left middle cerebral artery bifurcation with 3 mm focal dilatation in the left distal A1 segment at its junction to the anterior communicating artery suspicious for aneurysm. 6. Heterogeneous thyroid texture with multinodular subcentimeter thyroid nodule and multinodular thyroid. 7. Severe advanced vascular versus Alzheimer's dementia. 8. Abnormal EEG with nonspecific diffuse disturbance of the cortical activity with diffuse soto matter dysfunction. 9. History of hypotension. 10. Normocytic anemia. 11. Mild aortic and tricuspid regurgitation. 12. Concentric left ventricular hypertrophy with left ventricular ejection fraction of 60%. 13. Receptive and fluent expressive aphasia with history of advanced vascular and Alzheimer's dementia. 14. History of alcohol abuse. 1. Status post syncope. 2. Ngfxnf-gc-mdsigdua aortic stenosis. 3. Syncope. 4. Vascular and Alzheimer's dementia. 5. Mild irregular narrowing of the distal right M1 segment secondary to atherosclerotic disease. 6. Asymmetrical distal vertebral artery, left side larger than the right. 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 8. Chronic microvascular ischemic disease of the brain, of the subcortical white matter and bilateral cerebral hemisphere. 9. Bilateral basal nuclear lacunar infarct and brainstem ischemic changes. 10. Cerebral cortical atrophy of the brain. 11. Bilateral cataract surgery. 12. Mild bilateral exophthalmos. 13. Diffuse cerebral cortical activity on the EEG with diffuse soto matter dysfunction. 1. Syncope. 2. Severe to critical aortic stenosis. 3. Vascular and Alzheimer's dementia. 4. Chronic atrial fibrillation. 5. History of hypotension. 6. Transient hypertension. 7. Normocytic anemia. 8. Granulocytosis. 9. Transient thrombocytopenia probably secondary to alcohol use. 10. Deconditioning. 11. Microscopic hematuria, pyuria, bacteriuria with negative urine culture. 12. Bilateral 20% to 39% proximal internal carotid artery stenosis. 13. Left ventricular ejection fraction of 60%. 14. Moderate concentric left ventricular hypertrophy. 15. Severe to critical aortic valve stenosis with mild aortic regurgitation. 16. Questionable voiding dysfunction. 17. Dementia. 18. Constipation. 19. Hypovitaminosis D. 20. Prostatic hypertrophy. 21. History of depression. 22. Receptive and fluent expressive aphasia. 1. Syncope, etiology undetermined. 2. Delirium. 3. Xzsfji-oc-dpfgkmid aortic stenosis. 4. Hyperlipidemia. 5. History of alcohol use. 6. Chronic atrial fibrillation. 7. Constructive apraxia. 8. Circumstantial tangential thought process. 9. Mild paranoia. 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 11. Neurosis. 12. 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 13. Calcified aortic valve with xjxoft-mt-jdewnjmh aortic stenosis. 14. Mildly dilated left atrium. 15. Mild aortic regurgitation. 16. Mild tricuspid regurgitation. 17. Calcified mitral valve. 18. Abnormal EEG with nonspecific diffuse disturbance of cortical activity with diffuse soto matter dysfunction. 19. Normocytic anemia. 20. Granulocytosis. 21. Prerenal kidney injury. 22. Hypotension. 23. Constipation. 24. Dementia. 25. Hypovitaminosis D. 26. Prostatic hypertrophy. 27. Questionable urinary tract infection. 1. Syncope, etiology undetermined. 2. Dementia. 3. Disorientation. 4. Confabulation and confusion. 5. Severe to critical aortic stenosis. 6. Alzheimer dementia. 7. Hypertension. 8. Mild normocytic anemia and mild thrombocytopenia with granulocytosis. 9. Mild prerenal kidney injury (resolved). 10. Microscopic hematuria, pyuria, bacteriuria. 11. Bilateral 20%-39% proximal internal carotid artery stenosis. 12. Left ventricular ejection fraction of 59%. 13. Concentric left ventricular hypertrophy. 14. Cwnjuzik-lx-aedkdc valvular aortic stenosis with critical aortic stenosis with decreased aortic valve opening and calcified aortic valve. 15. Mild aortic regurgitation. 16. Mitral valve calcification. 17. Mild tricuspid regurgitation. 18. Zzamzhts-bz-bjnvff cognitive impairment. 19. Lack of competency. 1. Status post syncope, etiology undetermined. 2. Status post fall. 3. Qooyrq-qf-bunessdt aortic stenosis. 4. Questionable second-degree atrioventricular block, exact type undetermined. 5. Age-indeterminate inferior infarct. 6. Advanced dementia. 7. Cerebral cortical atrophy of the brain. 8. Chronic microvascular ischemic disease of the brain. 9. Syncope probably secondary to uaopxk-tl-relqurvd aortic stenosis. 10. History of hypotension. 11. History of questionable prostatic hypertrophy with possible bladder outlet obstruction and urinary retention and prostatic hypertrophy. 12. History of constipation. 13. History of dementia. 14. History of depression. 15. History of hypovitaminosis D. PLAN: At this time, the patient is still awaiting legal guardianship process. The patient's family wishes the patient to proceed with TAVR. The decision about that has not been finalized. We are awaiting further evaluation and recommendation by Cardiology if the family is ready and wishes to proceed with the TAVR which they initially declined. At this time, the patient will be continued to be treated with medications and interventions as per the MAR and as per multiple recruiting operations consultant followups. In view of the patient's multiple comorbidities and declining neurological and medical condition, at present it seems that the patient requires 24x7 supervision with activities of daily living which has been explained to the patient's son on my last conversation with the patient's son. I have also advised the patient's son to contact [employer], Case Management for discharge planning options. Dictated and electronically signed, not read. Gaurav Ruvalcaba MD MTDKarl
[2018-01-04] MEDS: Pantoprazole 40 mg EC Tab PO SCH (05:29)
[2018-01-04 07:07] LABS: HEMOGLOBIN 11.4 g/dL (14.0-18.0); MEAN CELL VOLUME 90.4 fl (80.0-105.0); MEAN CORPUSCULAR HEMOGLOBIN 29.5 pg (25.0-35.0); MEAN CORPUSCULAR HGB CONC 32.7 g/dl (31.0-37.0); MEAN PLATELET VOLUME 10.2 fl (7.0-11.0); RBC 3.86 10^6/uL (3.5-6.1); RED CELL DISTRIBUTION WIDTH 14.1 % (11.5-14.5); WHITE BLOOD COUNT 7.3 10^3/ul (4.5-11.0)
[2018-01-04 07:09] LABS: INR 1.2; PARTIAL THROMBOPLASTIN TIME 32.1 Seconds (25.1-36.5); PROTHROMBIN TIME 13.9 SECONDS (9.4-12.5)
[2018-01-04 07:30] LABS: ALB/GLOB RATIO 1.1 (1.1-1.8); ALBUMIN 3.4 g/dL (3.0-4.8); ALT/SGPT 21 U/L (7-56); AST/SGOT 22 U/L (17-59); BLOOD UREA NITROGEN 27 mg/dL (7-21); CALCIUM 8.9 mg/dL (8.4-10.5); GFR NON-AFRICAN AMERICAN > 60
[2018-01-04] MEDS ORDERED: Lidocaine PF 2% (5 ml) Inj (For Cardiac Arrhy) ONE (07:33)
[2018-01-04] MEDS ORDERED: Phenylephrine 10 mg/ml Inj ONE (07:33)
[2018-01-04] MEDS ORDERED: Iohexol 350mgl/ml 50 ML ONE (07:34)
[2018-01-04] MEDS ORDERED: Iodixanol 320 MG/ML 100 ML BOTTLE IV ONE (07:34)
[2018-01-04] MEDS ORDERED: Nitroglycerin 50mg in D5W 0 MG/0 ML BOTTLE IV ONE (07:35)
[2018-01-04] MEDS ORDERED: Iodixanol 320 MG/ML 200 ML BOTTLE IV ONE (07:35)
[2018-01-04] MEDS ORDERED: Heparin 2,000 ML IV ONE (07:36)
[2018-01-04] MEDS ORDERED: Midazolam 2 MG/2 ML VIAL ONE ×2 (08:14→08:40)
[2018-01-04] MEDS ORDERED: Sodium Chloride 0.9% 1,000 ML IV SCH (09:45)
[2018-01-04] MEDS: POLYETHYLENE GLYCOL 3350 17 GM/Dose PACKET PO SCH ×2 (10:59→18:10)
[2018-01-04] MEDS: Enoxaparin 40 mg Syringe SC SCH (10:59)
--- NOTE | 2018-01-04 12:48 | CARDCATH ---
PROCEDURE DATE: 01/04/2018 HISTORY: The patient is an 87-year-old male who presents with recurrent syncope. He was diagnosed with aortic stenosis several months ago in which the patient had refused any therapy. He presented with another episode of syncope. After extensive discussion with the patient and family, they are agreeable to potential TAVR as therapy for his aortic valve. PROCEDURE: The right and left heart catheterization with coronary arteriography, left ventriculogram and supra-aortic valvular injection. The right femoral artery was cannulated with a 6-Macanese sheath. The right femoral vein was cannulated with a 7-Macanese sheath. There were no complications. I performed moderate sedation, which included the presence of an independent trained observer that assisted in monitoring the patient's level of consciousness and physiologic status. After administration of Versed and fentanyl, my intra-service time was 30 minutes. The findings on catheterization revealed right atrial mean pressure of less than 5. The pulmonary artery pressure was 22/4 mmHg. The PA pressure was not measured. Simultaneous LV and aortic pressure revealed a peak gradient of 37 mmHg. Angiographic studies included supra-aortic valvular injection which revealed 2-3+ aortic insufficiency. The ascending aorta was dilated. The patient had a left dominant circulation. The RCA was a small vessel with mild intimal irregularities without significant stenosis. The left main artery was unremarkable. The LAD and diagonal vessels revealed diffuse atherosclerosis without critical lesions. The circumflex artery was a dominant vessel and revealed diffuse atherosclerosis without critical lesions. The Mynx system was used to close the right femoral artery. The manual compression was used to obtain hemostasis in the right femoral vein. The patient tolerated the procedure well. In summary, the procedure revealed critical aortic stenosis with combined aortic insufficiency. Normal LV function with an EF of 60%. The left dominant coronary artery disease with diffuse intimal irregularities without critical lesions. Given these findings, we will refer the patient to [facility] for TAVR of the aortic valve. Deion John MD
[2018-01-04 18:27] VITALS: BP 128/62; PULSE 58; TEMP 97.7
--- NOTE | 2018-01-04 21:59 | DS ---
FINAL PROGRESS NOTE AND DISCHARGE SUMMARY DATE: 01/04/2018 SUBJECTIVE: The patient was seen today in room 274, bed 1. The patient is seen after undergoing cardiac catheterization. The patient is on bedrest at present. The patient is alert, awake, responsive. The patient is on bedrest right now. PHYSICAL EXAMINATION: VITAL SIGNS: T-max 97.8. Telemetry shows sinus rhythm with first-degree AV block; heart rate 73, 68, 74; blood pressure is 128/55, 142/71, 147/61; respiration 18; O2 sat was noted to be 99%, 95%, 98%, 99%. HEENT: Head: Normocephalic, atraumatic. HEENT examination shows pink conjunctivae. Anicteric sclerae. No oropharyngeal lesion. No neck rigidity. CHEST: Kyphosis. LUNGS: Examination shows no rales, crackles or wheezing. CARDIOVASCULAR: S1, S2. Positive systolic murmur at left second intercostal space, right second intercostal space, left sternal border. ABDOMEN: Soft, slightly protuberant. No palpable hepatomegaly noted. No organomegaly noted. GENITALIA: Male. RECTAL: Examination is deferred. EXTREMITIES: Showed no pitting edema, no calf tenderness, no Homans' sign. The patient has a right groin dressing and Angio-Seal. Pulses at present are palpable of the right and left lower extremities. MUSCULOSKELETAL: Examination shows a body mass index of 26. Gait examination is not tested as the patient is lying bedrest post cardiac cath. DIAGNOSTICS: 01/04, WBC 7.2, hemoglobin/hematocrit 11.4/35, platelets 143. PT/PTT 13.9/32.1. Sodium 138, potassium 4.3, chloride 102, CO2 29, BUN 27, creatinine 0.8, GFR greater than 60, glucose 92, calcium 8.9, phosphorus 3.9, magnesium 2.1. LFTs are normal. The patient underwent a cardiac catheterization, report of which was reviewed. FINAL IMPRESSIONND PLAN & DISCHARGE DIAGNOSES: 1. Syncope. 2. Critical aortic stenosis. 3. 2 to 3+ aortic regurgitation. 4. Intimal irregularities of the right coronary artery, left anterior descending artery and diagonal vessel and diffuse atherosclerosis of the left circumflex artery. 5. Critical aortic stenosis with combined aortic regurgitation with left ventricular ejection fraction of 60%. 6. History of hypotension. 7. First-degree AV block. 8. History of alcohol use. 9. Normocytic anemia. 10. Transient thrombocytopenia secondary to alcoholism. 11. Granulocytosis. 12. Vascular and Alzheimer's dementia. 13. Microscopic hematuria, pyuria, bacteriuria with negative urine culture. 14. Multinodular thyroid gland without suspicious masses and heterogeneous thyroid echoes texture. 15. 5-mm saccular aneurysm of the right middle cerebral artery bifurcation and 4-mm saccular aneurysm at the left middle cerebral artery bifurcation with 3 mm focal dilatation of the left distal A1 segment at its junction to the anterior communicating suspicious for aneurysm. 16. Status post fall. 17. Microvascular ischemic disease of the brain extending peripherally into the deep and subcortical white matter of bilateral cerebral hemisphere with chronic bilateral basal nuclear lacunar infarct with brainstem ischemic changes. 18. Cerebral cortical atrophy of the brain. 19. Bilateral cataract surgery. 20. Questionable bilateral exophthalmos. 21. Abnormal EEG with presence of mild nonspecific diffuse disturbance of cortical activity with diffuse soto matter dysfunction. 1. Syncope. 2. Kkngxt-fp-mgmsyonp aortic stenosis. 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 5. History of hypotension. 6. Severe vascular and Alzheimer's dementia. 7. Encephalopathy. 8. Dementia. 9. Prostatic hypertrophy. 10. History of alcohol use and dependence. 11. Status post fall. 1. Syncope. 2. Tzchfb-tu-axuzkrba aortic stenosis. 3. Vascular and Alzheimer's dementia. 4. Transient hypertension with history of hypotension. 5. Alcohol dependence. 6. Normocytic anemia with granulocytosis. 7. Mild prerenal kidney injury. 8. Microscopic hematuria, pyuria, bacteriuria. 9. Deconditioning. 10. Heterogeneous echotexture thyroid gland with multi nodular thyroid without suspicious masses. 11. A 5-mm saccular aneurysm at the right middle cerebral artery bifurcation and 4-mm saccular aneurysm at the left middle cerebral artery bifurcation and 3-mm focal dilatation in the left distal A1 segment at its junction to the anterior communicating artery, suspicious for aneurysm. 12. Abnormal electroencephalogram with presence of nonspecific diffuse disturbance of cortical activity with diffuse soto matter dysfunction. 13. Receptive and fluent expressive aphasia. 1. Syncope. 2. Bdlleq-yy-zlhjegzx aortic stenosis. 3. 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 4. Left middle cerebral artery 4 mm saccular aneurysm at the bifurcation with a 3 mm focal dilatation in the distal A1 segment at its junction with the anterior communicating artery. 5. 5 mm saccular aneurysm at the right middle cerebral artery bifurcation and 4-mm saccular aneurysm at the left middle cerebral artery bifurcation with 3 mm focal dilatation in the left distal A1 segment at its junction to the anterior communicating artery suspicious for aneurysm. 6. Heterogeneous thyroid texture with multinodular subcentimeter thyroid nodule and multinodular thyroid. 7. Severe advanced vascular versus Alzheimer's dementia. 8. Abnormal EEG with nonspecific diffuse disturbance of the cortical activity with diffuse soto matter dysfunction. 9. History of hypotension. 10. Normocytic anemia. 11. Mild aortic and tricuspid regurgitation. 12. Concentric left ventricular hypertrophy with left ventricular ejection fraction of 60%. 13. Receptive and fluent expressive aphasia with history of advanced vascular and Alzheimer's dementia. 14. History of alcohol abuse. 1. Status post syncope. 2. [place]edool-il-bjxvknco aortic stenosis. 3. Syncope. 4. Vascular and Alzheimer's dementia. 5. Mild irregular narrowing of the distal right M1 segment secondary to atherosclerotic disease. 6. Asymmetrical distal vertebral artery, left side larger than the right. 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 8. Chronic microvascular ischemic disease of the brain, of the subcortical white matter and bilateral cerebral hemisphere. 9. Bilateral basal nuclear lacunar infarct and brainstem ischemic changes. 10. Cerebral cortical atrophy of the brain. 11. Bilateral cataract surgery. 12. Mild bilateral exophthalmos. 13. Diffuse cerebral cortical activity on the EEG with diffuse soto matter dysfunction. 1. Syncope. 2. Severe to critical aortic stenosis. 3. Vascular and Alzheimer's dementia. 4. Chronic atrial fibrillation. 5. History of hypotension. 6. Transient hypertension. 7. Normocytic anemia. 8. Granulocytosis. 9. Transient thrombocytopenia probably secondary to alcohol use. 10. Deconditioning. 11. Microscopic hematuria, pyuria, bacteriuria with negative urine culture. 12. Bilateral 20% to 39% proximal internal carotid artery stenosis. 13. Left ventricular ejection fraction of 60%. 14. Moderate concentric left ventricular hypertrophy. 15. Severe to critical aortic valve stenosis with mild aortic regurgitation. 16. Questionable voiding dysfunction. 17. Dementia. 18. Constipation. 19. Hypovitaminosis D. 20. Prostatic hypertrophy. 21. History of depression. 22. Receptive and fluent expressive aphasia. 1. Syncope, etiology undetermined. 2. Delirium. 3. Chvvln-bz-awmpkfhi aortic stenosis. 4. Hyperlipidemia. 5. History of alcohol use. 6. Chronic atrial fibrillation. 7. Constructive apraxia. 8. Circumstantial tangential thought process. 9. Mild paranoia. 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 11. Neurosis. 12. 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 13. Calcified aortic valve with ewpljb-er-bqdnobvw aortic stenosis. 14. Mildly dilated left atrium. 15. Mild aortic regurgitation. 16. Mild tricuspid regurgitation. 17. Calcified mitral valve. 18. Abnormal EEG with nonspecific diffuse disturbance of cortical activity with diffuse soto matter dysfunction. 19. Normocytic anemia. 20. Granulocytosis. 21. Prerenal kidney injury. 22. Hypotension. 23. Constipation. 24. Dementia. 25. Hypovitaminosis D. 26. Prostatic hypertrophy. 27. Questionable urinary tract infection. 1. Syncope, etiology undetermined. 2. Dementia. 3. Disorientation. 4. Confabulation and confusion. 5. Severe to critical aortic stenosis. 6. Alzheimer dementia. 7. Hypertension. 8. Mild normocytic anemia and mild thrombocytopenia with granulocytosis. 9. Mild prerenal kidney injury (resolved). 10. Microscopic hematuria, pyuria, bacteriuria. 11. Bilateral 20%-39% proximal internal carotid artery stenosis. 12. Left ventricular ejection fraction of 59%. 13. Concentric left ventricular hypertrophy. 14. Majjapdy-ri-bscxef valvular aortic stenosis with critical aortic stenosis with decreased aortic valve opening and calcified aortic valve. 15. Mild aortic regurgitation. 16. Mitral valve calcification. 17. Mild tricuspid regurgitation. 18. Iqfqxkil-bw-zfsdlk cognitive impairment. 19. Lack of competency. 1. Status post syncope, etiology undetermined. 2. Status post fall. 3. Qttisp-ft-oijzdswq aortic stenosis. 4. Questionable second-degree atrioventricular block, exact type undetermined. 5. Age-indeterminate inferior infarct. 6. Advanced dementia. 7. Cerebral cortical atrophy of the brain. 8. Chronic microvascular ischemic disease of the brain. 9. Syncope probably secondary to rscvrk-tq-hoyynvrj aortic stenosis. 10. History of hypotension. 11. History of questionable prostatic hypertrophy with possible bladder outlet obstruction and urinary retention and prostatic hypertrophy. 12. History of constipation. 13. History of dementia. 14. History of depression. 15. History of hypovitaminosis D. PLAN: At this time, the patient is seen by inspector toys. The recommendation is that the patient will be transferred to [facility] for TAVR of the aortic valve. The patient's son was notified and the family was updated by the inspector toys regarding further treatment plan and transfer of the patient to [facility] to Dr. Warren's service. At present, the patient will be observed on telemetry post cardiac catheterization. Current medications are; Aricept 10 mg at bedtime, Colace 100 mg three times a day, Drisdol 50,000 weekly, Ecotrin 81 mg daily, Flomax 0.4 mg daily, Lipitor 40 mg daily, Lovenox 40 mg subcu daily, MiraLax 17 g twice a day, Namenda 5 mg twice a day, ProAmatine 2.5 three times a day, Protonix 40 mg daily, Prozac 10 mg daily, Tylenol 650 mg p.o. suppository every 6 p.r.n., Zofran 4 mg IV every 4 p.r.n. At present, the patient is to be continued on telemetry for post cardiac catheterizationmonitoring. The patient is awaiting transfer to [facility] for TAVR under Dr. Warren's service. PATIENT TRANSFERRED/DISCHARGED TO [facility] IN [place] PER NURSE NOTES. Dictated and electronically signed, not read. Gaurav Ruvalcaba MD VERA
== END 2018-01-04 20:29 | disposition short-term general hospital (02) | DRG 307 ==
LOC: ED 22:02 → ERH 12-27 02:00 → 2RNO 12-27 02:57 → OBSVTOIN 12-28 16:09 → 5RNO 12-30 23:01 → 2RSO 01-04 09:40
PROVIDERS: ADMIT Internal Medicine; ATTEND Internal Medicine
PROC: 0T9B70Z Drainage of Bladder with Drainage Device, Via Natural or Artificial Opening (ICD-10-PCS; principal; 2017-12-29)
DX: I35.0 Nonrheumatic aortic (valve) stenosis (principal); R47.01 Aphasia; N39.0 Urinary tract infection, site not specified; N13.8 Other obstructive and reflux uropathy; G30.9 Alzheimer's disease, unspecified; F02.80 Dementia in other diseases classified elsewhere, unspecified severity, without behavioral disturbance, psychotic disturbance, mood disturbance, and anxiety; F01.50 Vascular dementia, unspecified severity, without behavioral disturbance, psychotic disturbance, mood disturbance, and anxiety; I07.1 Rheumatic tricuspid insufficiency; I44.0 Atrioventricular block, first degree; I48.2 Chronic atrial fibrillation; I11.9 Hypertensive heart disease without heart failure; S09.90XA Unspecified injury of head, initial encounter; I27.20 Pulmonary hypertension, unspecified; I67.1 Cerebral aneurysm, nonruptured; D69.59 Other secondary thrombocytopenia; F10.20 Alcohol dependence, uncomplicated; I65.23 Occlusion and stenosis of bilateral carotid arteries; R31.29 Other microscopic hematuria; E78.5 Hyperlipidemia, unspecified; K59.00 Constipation, unspecified; E55.9 Vitamin D deficiency, unspecified; E04.2 Nontoxic multinodular goiter; D64.9 Anemia, unspecified; H05.20 Unspecified exophthalmos; I44.1 Atrioventricular block, second degree; N40.1 Benign prostatic hyperplasia with lower urinary tract symptoms; R33.8 Other retention of urine; R73.03 Prediabetes; F32.9 Major depressive disorder, single episode, unspecified; W01.0XXA Fall on same level from slipping, tripping and stumbling without subsequent striking against object, initial encounter; Y93.01 Activity, walking, marching and hiking; Y92.480 Sidewalk as the place of occurrence of the external cause; Z79.82 Long term (current) use of aspirin; Z87.891 Personal history of nicotine dependence; Z79.899 Other long term (current) drug therapy

== ENCOUNTER 2018-04-11 14:06 | Outpatient (CLI) | payer MEDICARE | END 2018-04-11 14:07 | disposition home or self-care (01) | LOC: RAD 14:06 ==

== ENCOUNTER 2018-04-15 12:47 | Outpatient (CLI) | payer MEDICARE | END 2018-04-15 12:48 | disposition home or self-care (01) | LOC: CARDIO 12:47 ==

== ENCOUNTER 2018-05-23 18:23 | Inpatient (IN) | payer MEDICARE ==
[2018-05-23 18:26] VITALS: BMI 23.5
--- NOTE | 2018-05-23 19:40 | ED PDOC ---
Arrival/HPI - General Chief Complaint: Trauma Time Seen by Provider: 05/23/18 19:10 Historian: Family EM Caveat: Dementia - History of Present Illness Narrative History of Present Illness (Text): 05/23/18 19:25 Patient is a 87 year old male whose past medical history includes hyperlipidemia, who presents to the Emergency department s/p fall. Patient has a history of dementia with baseline confusion and is noncompliant with his medications. Patient lives by himself, and comes in from his home reportedly found on the floor by his son. it is unclear how the patient got to the floor. Pt is baseline demented and unable to provide further history. Son is at bedside and made patient DNI and DNR. Patient denies fevers or complaints of pain. Limited HPI and ROS due to patient's dementia. 05/23/18 22:37 Past Medical History - Provider Review Nursing Documentation Reviewed: Yes - Infectious Disease Hx of Infectious Diseases: None - Tetanus Immunization Tetanus Immunization: Unknown - Cardiac Hx Cardiac Disorders: Yes (severe stenosis;) Hx Atrial Fibrillation: Yes Hx Hypertension: Yes Hx Hypotension: Yes Other/Comment: S/P TAVR. 2nd Degree AV block. Severe Aortic stenosis s/p TAVR - Pulmonary Hx Respiratory Disorders: No - Neurological Hx Alzheimer's Disease: Yes Hx Dementia: Yes Other/Comment: Aneurysm - HEENT Hx HEENT Disorder: Yes (wears glasses) Hx Deafness: Yes ([place]) - Renal Hx Renal Disorder: No - Endocrine/Metabolic Hx Endocrine Disorders: No - Hematological/Oncological Hx Anemia: Yes (normocytic) - Integumentary Hx Dermatological Disorder: No - Musculoskeletal/Rheumatological Hx Arthritis: Yes Other/Comment: H/O Falls - Gastrointestinal Hx Gastrointestinal Disorders: No - Genitourinary/Gynecological Hx Incontinence: Yes - Psychiatric Hx Psychophysiologic Disorder: Yes Hx Depression: Yes Hx Substance Use: No Other/Comment: H/O ETOH USE - Surgical History Hx Cholecystectomy: Yes Other/Comment: TAVR in 2018 - Anesthesia Hx Anesthesia: Yes Hx Anesthesia Reactions: No Hx Malignant Hyperthermia: No Family/Social History - Physician Review Nursing Documentation Reviewed: Yes Family/Social History: No Known Family HX Smoking Status: Smoker Currrent Status Unknown Hx Alcohol Use: Yes Hx Substance Use: No Allergies/Home Meds Allergies/Adverse Reactions: Allergies No Known Allergies Allergy (Verified 10/14/17 19:39) Home Medications: Home Meds Medication Instructions Recorded Confirmed RX: Aspirin [Aspirin Chewable] 1 tab PO DAILY 05/23/18 05/23/18 RX: Atorvastatin [Lipitor] 1 tab PO HS 05/23/18 05/23/18 RX: Memantine [Namenda] 10 mg PO DAILY 05/23/18 05/23/18 RX: Midodrine [Proamatine] 2.5 mg PO TID 05/23/18 05/23/18 Solifenacin Succinate [Vesicare] 1 tab PO DAILY 05/23/18 05/23/18 Review of Systems - Review of Systems Systems not reviewed;Unavailable: Dementia Constitutional: absent: Fevers Gastrointestinal: absent: Abdominal Pain Physical Exam Vital Signs Reviewed: Yes Vital Signs Temp Pulse Resp BP Pulse Ox 05/23/18 18:24 97.1 F L 101 H 17 122/72 98 Temperature: Afebrile Blood Pressure: Normal Pulse: Tachycardic Respiratory Rate: Normal Appearance: Positive for: Ill-Appearing (chronically) Mental Status: Positive for: Confused Finger Stick Blood Glucose: 95 - Systems Exam Head: Present: Atraumatic, Normocephalic Pupils: Present: PERRL Extroacular Muscles: Present: EOMI Conjunctiva: Present: Normal Mouth: Present: Moist Mucous Membranes Neck: Present: Normal Range of Motion Respiratory/Chest: Present: Clear to Auscultation, Good Air Exchange. No: Respiratory Distress, Accessory Muscle Use Cardiovascular: Present: Regular Rate and Rhythm, Normal S1, S2. No: Murmurs Abdomen: No: Tenderness, Distention, Peritoneal Signs Back: Present: Normal Inspection Upper Extremity: Present: Normal Inspection. No: Cyanosis, Edema Lower Extremity: Present: Normal Inspection. No: Edema Neurological: Present: GCS=15, CN II-XII Intact, Speech Normal Skin: Present: Warm, Dry, Normal Color. No: Rashes Psychiatric: Present: Alert, Oriented x 3, Normal Insight, Normal Concentration Medical Decision Making ED Course and Treatment: 05/23/18 19:42 Impression: 87 year old male who is brought to the Emergency department for evaluation after being found on the floor at his home. ro rhabdo infectious cardiac etiology Differential Diagnosis included but are not limited to: Plan: -- Head CT without contrast -- Pelvis X-ray -- EKG -- Cardiac enzymes -- Blood work -- Labs -- Chest X-ray -- Urinalsysis -- Reassess and disposition Prior Visits: Notes and results from previous visits were reviewed. Progress Notes: 05/23/18 19:23 noted new lbbb, Discussed case with who states patient is not a code heart candidate at this time, scarbossa neg 05/23/18 21:59 CT Abdomen and Pelvis without IV contrast CLINICAL HISTORY: LEUKOCYTOSIS / AMS TECHNIQUE: Axial computed tomography images of the abdomen and pelvis without intravenous contrast. 859.26 mGy-cm CONTRAST: Without COMPARISON: None provided. FINDINGS: LUNG BASES: There is air space opacity at the inferior right middle lobe with air bronchograms most consistent with early pneumonic infiltrate. There is also scattered atelectasis near both bases. 4.5 cm. The heart is borderline in size. LIVER: Unremarkable. GALLBLADDER AND BILE DUCTS: The gallbladder is surgically absent. PANCREAS: The pancreas is atrophic and slightly fatty replaced. SPLEEN: Unremarkable. ADRENAL GLANDS: Unremarkable. KIDNEYS, URETERS, AND BLADDER: Mild parapelvic cysts of the left kidney. Bladder is decompressed. STOMACH AND BOWEL: Stomach is decompressed. There is fecal impaction at the rectum measuring 9 cm in greatest dimension on series 2, image 84. There is moderate diverticulosis without evidence for acute diverticulitis. APPENDIX: Normal appendix. PERITONEUM: No pneumoperitoneum. No ascites. LYMPH NODES: No lymphadenopathy. REPRODUCTIVE: Unremarkable as visualized. VASCULATURE: There is a prosthetic aortic valve or aortic valve repair present. There is coronary artery calcification. 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 Descending aorta at the same level measures 3.3 cm. Aortic root measures 4.5 cm. The abdominal aorta is densely atherosclerotic and tortuous without aneurysm. BONES: There are severe multilevel degenerative spine changes. IMPRESSION: 1. There is air space opacity at the inferior right middle lobe with air bronchograms most consistent with early pneumonic infiltrate. 2. 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 Descending aorta at the same level measures 3.3 cm. Aortic root measures 4.5 cm. 3. There is fecal impaction at the rectum measuring 9 cm in greatest dimension on series 2, image 84. 4. There are severe multilevel degenerative spine changes. 5. The abdominal aorta is densely atherosclerotic and tortuous without aneurysm. 6. There is moderate diverticulosis without evidence for acute diverticulitis. 05/23/18 22:00 CT Head without Intravenous Contrast. CLINICAL HISTORY: FALL TECHNIQUE: Axial computed tomography images of the head/brain without intravenous contrast. 1733.69 mGy-cm COMPARISON: None provided. FINDINGS: BRAIN There is moderate periventricular, deep and subcortical white matter hypodensity bilaterally, compatible with moderate microvascular angiopathy. No evidence of intracranial hemorrhage. VENTRICLES: There is moderate prominence of ventricles and sulci compatible with moderate atrophy. ORBITS: The orbits are unremarkable. SINUSES AND MASTOIDS: The paranasal sinuses and mastoid air cells are clear. BONES: No evidence for displaced calvarial fracture. SOFT TISSUES: Extracranial soft tissues appear unremarkable. MISCELLANEOUS: The study is somewhat limited by motion artifact despite multiple attempts at scanning. No convincing evidence for acute territorial infarction. IMPRESSION: 1. The study is somewhat limited by motion artifact despite multiple attempts at scanning. 2. There is moderate prominence of ventricles and sulci compatible with moderate atrophy. 3. There is moderate periventricular, deep and subcortical white matter hypodensity bilaterally, compatible with moderate microvascular angiopathy. 4. No convincing evidence for acute territorial infarction. 5. No evidence of intracranial hemorrhage. 6. No evidence for displaced calvarial fracture. 7. Extracranial soft tissues appear unremarkable. 05/23/18 22:[address] head neg. noted prerenal azotemia, ivf iniated. suspect dehyrdation. cxr neg. mimnimal bnp elevation, clincally dehydrated. accpeted dr arana. - Lab Interpretations I have reviewed the lab results: Yes - RAD Interpretation Radiology Orders: 05/23/18 19:17 CHEST PORTABLE [RAD] Stat 05/23/18 19:18 HEAD W/O CONTRAST [CT] Stat PELVIS ONE VIEW [RAD] Stat - EKG Interpretation EKG Interpretation (Text): 05/23/18 19:21 EKG shows sinus tachycardia at 101 BPM with LBBB. Interpreted by me. Interpreted by ED Physician: Yes Type: 12 lead EKG - Scribe Statement The provider has reviewed the documentation as recorded by the Richaibangie Ambrocio Provider Scribe Attestation: All medical record entries made by the Scribe were at my direction and personally dictated by me. I have reviewed the chart and agree that the record accurately reflects my personal performance of the history, physical exam, medical decision making, and the department course for this patient. I have also personally directed, reviewed, and agree with the discharge instructions and disposition. Disposition/Present on Arrival - Present on Arrival Any Indicators Present on Arrival: No History of DVT/PE: No History of Uncontrolled Diabetes: No Urinary Catheter: No History of Decub. Ulcer: No History Surgical Site Infection Following: None - Disposition Have Diagnosis and Disposition been Completed?: Yes Diagnosis: Fall, Left bundle branch block, Dehydration, UTI (urinary tract infection), Pneumonia Disposition: HOSPITALIZED Disposition Time: 21:00 Condition: FAIR
[2018-05-23 19:43] LABS: BASO # 0.02 K/mm3 (0.0-2.0); BASO % 0.1 % (0.0-3.0); EOS % 0.3 % (1.5-5.0); HEMOGLOBIN 16.5 g/dL (14.0-18.0); LYMPH # 0.9 (1.2-3.4); LYMPH % 6.4 % (22.0-35.0); MEAN CELL VOLUME 88.1 fl (80.0-105.0); MEAN CORPUSCULAR HEMOGLOBIN 29.8 pg (25.0-35.0); MEAN CORPUSCULAR HGB CONC 33.9 g/dl (31.0-37.0); MEAN PLATELET VOLUME 10.9 fl (7.0-11.0); MONO # 1.3 (0.1-0.6); MONO % 9.6 % (1.0-6.0); RBC 5.53 10^6/uL (3.5-6.1); RED CELL DISTRIBUTION WIDTH 14.4 % (11.5-14.5); WHITE BLOOD COUNT 13.7 10^3/uL (4.5-11.0)
[2018-05-23 19:51] LABS: INR 1.31; PROTHROMBIN TIME 14.5 SECONDS (9.4-12.5)
[2018-05-23 19:58] LABS: ALBUMIN 4.2 g/dL (3.0-4.8); ALT/SGPT 43 U/L (7-56); AST/SGOT 80 U/L (17-59); BLOOD UREA NITROGEN 92 mg/dL (7-21); GFR NON-AFRICAN AMERICAN 52
[2018-05-23 19:59] LABS: URINE BILIRUBIN SMALL (NEGATIVE); URINE BLOOD MODERATE (NEGATIVE); URINE GLUCOSE (UA) NEGATIVE (NEGATIVE); URINE LEUKOCYTE ESTERASE MODERATE Leu/uL (NEGATIVE); URINE PROTEIN 30 mg/dL (<30 mg/dL)
[2018-05-23 20:01] LABS: URINE COLOR LIGHT BROWN (YELLOW)
[2018-05-23 20:02] LABS: URINE APPEARANCE CLOUDY (CLEAR)
[2018-05-23] MEDS ORDERED: cefTRIAXone 1 gm 1 GM/100 ML BAG IVPB STA (20:03)
[2018-05-23 20:07] LABS: URINE BACTERIA LARGE /hpf; URINE RBC TNTC /hpf (0-2); URINE WBC TNTC /hpf (0-6)
[2018-05-23 20:08] LABS: URINE AMORPHOUS SEDIMENT MODERATE /hpf
[2018-05-23 20:09] LABS: B-TYPE NATRIURETIC PEPTIDE 1210 pg/mL (0-450); TROPONIN I 0.05 ng/mL
[2018-05-23 20:23] LABS: CK MB% 1.7 % (2.5-3.0); CK-MB 7.9 ng/mL (0.0-3.6)
[2018-05-23] MEDS ORDERED: Azithromycin 500MG/NS 250ml 500 MG/250 ML BAG IVPB STA (21:48)
[2018-05-23] MEDS ORDERED: Sodium Chloride 0.9% 1,000 ML IV STA (22:04)
--- NOTE | 2018-05-23 22:30 | CP.PCM.HP ---
History of Present Illness - History of Present Illness History of Present Illness: Resident History & Physical for Dr. Ruvalcaba Patient is an 87 year old male with past medical history of aortic stenosis, HTN, dyslipidemia, Alzheimer's dementia, BPH, alcohol abuse, depression, rheumatic heart disease as a child presenting s/p fall. History was obtained from prior records as patient is a poor historian due to dementia. Patient lives alone and was found on the floor by his son who brought him to the ED. Patient was recently admitted in 12/2017 s/p syncope, underwent cardiac cath, and was ahuja bsequently transferred to [facility] for TAVR. Currently, patient awakens in response to tactile stimuli but does not follow commands and does not respond to verbal questioning. PMH: aortic stenosis, HTN, dyslipidemia, Alzheimer's dementia, BPH, alcohol abuse, depression, rheumatic heart disease as a child PSH: TAVR, bilateral cataracts, cholecystectomy SHx: previous alcohol and tobacco use Allergies: NKDA PMD: Dr. Ruvalcaba Present on Admission - Present on Admission Any Indicators Present on Admission: Yes Decubitus Ulcer Present: Yes Decubitus Ulcer Location: right hip Review of Systems - Review of Systems Systems not reviewed;Unavailable: Dementia Past Patient History - Infectious Disease Hx of Infectious Diseases: None - Tetanus Immunizations Tetanus Immunization: Unknown - Past Medical History & Family History Past Medical History?: Yes - Past Social History Smoking Status: Smoker Currrent Status Unknown - CARDIAC Hx Cardiac Disorders: Yes (severe stenosis;) Hx Atrial Fibrillation: Yes Hx Hypertension: Yes Hx Hypotension: Yes Other/Comment: S/P TAVR. 2nd Degree AV block. Severe Aortic stenosis s/p TAVR - PULMONARY Hx Respiratory Disorders: No - NEUROLOGICAL Hx Alzheimer's Disease: Yes Hx Dementia: Yes Other/Comment: Aneurysm - HEENT Hx HEENT Problems: Yes (wears glasses) Hx Deafness: Yes ([place]) - RENAL Hx Chronic Kidney Disease: No - ENDOCRINE/METABOLIC Hx Endocrine Disorders: No - HEMATOLOGICAL/ONCOLOGICAL Hx Anemia: Yes (normocytic) - INTEGUMENTARY Hx Dermatological Problems: No - MUSCULOSKELETAL/RHEUMATOLOGICAL Hx Arthritis: Yes Other/Comment: H/O Falls - GASTROINTESTINAL Hx Gastrointestinal Disorders: No - GENITOURINARY/GYNECOLOGICAL Hx Incontinence: Yes - PSYCHIATRIC Hx Psychophysiologic Disorder: Yes Hx Depression: Yes Hx Substance Use: No Other/Comment: H/O ETOH USE - SURGICAL HISTORY Hx Cholecystectomy: Yes Other/Comment: TAVR in 2018 - ANESTHESIA Hx Anesthesia: Yes Hx Anesthesia Reactions: No Hx Malignant Hyperthermia: No Meds Allergies/Adverse Reactions: Allergies Allergy/AdvReac Type Severity Reaction Status Date / Time No Known Allergies Allergy Verified 10/14/17 19:39 Physical Exam - Constitutional Appears: Non-toxic, No Acute Distress, Unkempt, Chronically Ill - Head Exam Head Exam: ATRAUMATIC, NORMOCEPHALIC - Eye Exam Eye Exam: EOMI, Normal appearance, PERRL - ENT Exam ENT Exam: Mucous Membranes Moist Additional comments: dried blood noted around nares - Respiratory Exam Respiratory Exam: Clear to Auscultation Bilateral. absent: Accessory Muscle Use, Rales, Rhonchi, Wheezes, Respiratory Distress - Cardiovascular Exam Cardiovascular Exam: RRR, +S1, +S2 - GI/Abdominal Exam GI & Abdominal Exam: Normal Bowel Sounds, Soft. absent: Distended, Rebound, Rigid, Tenderness - Extremities Exam Additional comments: unstageable decubitus ulcer on right hip - Neurological Exam Additional comments: Unable to assess - Skin Skin Exam: Dry, Warm Results - Vital Signs Recent Vital Signs: Last Vital Signs Temp 98.6 F 05/23/18 19:46 Pulse 103 H 05/23/18 21:27 Resp 18 05/23/18 21:27 BP 95/60 L 05/23/18 21:27 Pulse Ox 98 05/23/18 21:27 - Labs Result Diagrams: 05/23/18 19:30 05/23/18 19:30 Labs: Laboratory Results - last 24 hr 05/23/18 05/23/18 05/23/18 19:30 19:30 19:30 WBC 13.7 H RBC 5.53 Hgb 16.5 D Hct 48.7 MCV 88.1 MCH 29.8 MCHC 33.9 RDW 14.4 Plt Count 157 MPV 10.9 Neut % (Auto) 83.6 H Lymph % (Auto) 6.4 L [place] % (Auto) 9.6 H Eos % (Auto) 0.3 L Baso % (Auto) 0.1 Lymph # (Auto) 0.9 L [place] # (Auto) 1.3 H Eos # (Auto) 0.0 Baso # (Auto) 0.02 Absolute Neuts (auto) 11.48 H PT 14.5 H INR 1.31 APTT 33.0 Sodium 141 Potassium 4.4 Chloride 105 Carbon Dioxide 28 Anion Gap 13 BUN 92 H Creatinine 1.3 Est GFR ( Amer) > 60 Est GFR (Non-Af Amer) 52 Random Glucose 123 H Calcium 10.0 Magnesium 2.6 H Total Bilirubin 1.5 H AST 80 H D ALT 43 Alkaline Phosphatase 87 Lactate Dehydrogenase 791 H Total Creatine Kinase 469 H CK-MB (CK-2) 7.9 H CK-MB (CK-2) % 1.7 L Troponin I 0.05 D NT-Pro-B Natriuret Pep 1210 H Total Protein 8.3 Albumin 4.2 Globulin 4.1 Albumin/Globulin Ratio 1.0 L Urine Color Urine Appearance Urine pH Ur Specific [place] Urine Protein Urine Glucose (UA) Urine Ketones Urine Blood Urine Nitrate Urine Bilirubin Urine Urobilinogen Ur Leukocyte Esterase Urine RBC Urine WBC Amorphous Sediment Urine Bacteria Urine Other 05/23/18 19:45 WBC RBC Hgb Hct MCV MCH MCHC RDW Plt Count MPV Neut % (Auto) Lymph % (Auto) [place] % (Auto) Eos % (Auto) Baso % (Auto) Lymph # (Auto) [place] # (Auto) Eos # (Auto) Baso # (Auto) Absolute Neuts (auto) PT INR APTT Sodium Potassium Chloride Carbon Dioxide Anion Gap BUN Creatinine Est GFR ( Amer) Est GFR (Non-Af Amer) Random Glucose Calcium Magnesium Total Bilirubin AST ALT Alkaline Phosphatase Lactate Dehydrogenase Total Creatine Kinase CK-MB (CK-2) CK-MB (CK-2) % Troponin I NT-Pro-B Natriuret Pep Total Protein Albumin Globulin Albumin/Globulin Ratio Urine Color Light brown Urine Appearance Cloudy Urine pH 6.0 Ur Specific [place] >= 1.030 Urine Protein 30 H Urine Glucose (UA) Negative Urine Ketones Negative Urine Blood Moderate H Urine Nitrate Negative Urine Bilirubin Small H Urine Urobilinogen 1.0 H Ur Leukocyte Esterase Moderate H Urine RBC Tntc H Urine WBC Tntc H Amorphous Sediment Moderate Urine Bacteria Large Urine Other Uyeast Assessment & Plan - Assessment and Plan (Free Text) Assessment: Patient is an 87 year old male with past medical history of aortic stenosis, HTN, dyslipidemia, Alzheimer's dementia, BPH, alcohol abuse, depression, rheumatic heart disease as a child presenting s/p fall. Plan: s/p fall - CT head shows no intracranial hemorrhage, moderate atrophy - followup MRI brain and MRA head, pelvis x-ray - fall precautions Pneumonia - CT abd/pelvis shows right middle lobe infiltrates - afebrile, positive leukocytosis - Rocephin 1 gm IV daily - Azithromycin 250 gm IV daily - NS @ 100 ccs/hr - ID consulted. Appreciate recs. - blood cultures - followup CT chest Urinary tract infection - UA shows positive leukocyte esterase, Tntc WBC, large bacteria - Rocephin 1 gm IV daily - urine culture Left bundle branch block - Troponins Q6H - EKG in AM - ECHO from 04/2018 shows LVEF 55% - repeat ECHO - Cardiology consulted. Appreciate recs. Decubitus ulcer - wound care - Surgery consulted. Appreciate recs. Alzheimer's dementia - continue home Aricept and Memantine - Neurochecks PPX - Protonix Case discussed with Dr. Peg Boucher PGY-1 - Date & Time Date: 05/23/18 Time: 22:30
[2018-05-23] MEDS: Sodium Chloride 0.9% 1,000 ML IV SCH (22:50)
[2018-05-24 01:57] LABS: TROPONIN I 0.04 ng/mL
[2018-05-24 02:30] LABS: CK MB% 1.7 % (2.5-3.0); CK-MB 5.8 ng/mL (0.0-3.6)
--- NOTE | 2018-05-24 05:49 | CP.PCM.CON ---
History of Present Illness - History of Present Illness History of Present Illness: General Surgery Consult Note for Dr. Burch This is a 87M with a PMH of aortic stenosis, HTN, dyslipidemia, Alzheimer's dementia, BPH, alcohol abuse, depression, rheumatic heart disease who presented because he was found down by his son. The pt is a poor historian and unable to provide meaningful history. Further imaging showed no signs of intracranial injury UA showed signs of UTI. PMH: aortic stenosis, HTN, dyslipidemia, Alzheimer's dementia, BPH, alcohol abuse, depression, rheumatic heart disease as a child PSH: TAVR, bilateral cataracts, cholecystectomy SHx: previous alcohol and tobacco use Allergies: NKDA Review of Systems - Review of Systems Systems not reviewed;Unavailable: Dementia Past Patient History - Infectious Disease Hx of Infectious Diseases: None - Tetanus Immunizations Tetanus Immunization: Unknown - Past Medical History & Family History Past Medical History?: Yes - Past Social History Smoking Status: Smoker Currrent Status Unknown - CARDIAC Hx Cardiac Disorders: Yes (severe stenosis;) Hx Atrial Fibrillation: Yes Hx Hypertension: Yes Hx Hypotension: Yes Other/Comment: S/P TAVR. 2nd Degree AV block. Severe Aortic stenosis s/p TAVR - PULMONARY Hx Respiratory Disorders: No - NEUROLOGICAL Hx Alzheimer's Disease: Yes Hx Dementia: Yes Other/Comment: Aneurysm - HEENT Hx HEENT Problems: Yes (wears glasses) Hx Deafness: Yes ([place]) - RENAL Hx Chronic Kidney Disease: No - ENDOCRINE/METABOLIC Hx Endocrine Disorders: No - HEMATOLOGICAL/ONCOLOGICAL Hx Anemia: Yes (normocytic) - INTEGUMENTARY Hx Dermatological Problems: No - MUSCULOSKELETAL/RHEUMATOLOGICAL Hx Arthritis: Yes Other/Comment: H/O Falls - GASTROINTESTINAL Hx Gastrointestinal Disorders: No - GENITOURINARY/GYNECOLOGICAL Hx Incontinence: Yes - PSYCHIATRIC Hx Psychophysiologic Disorder: Yes Hx Depression: Yes Hx Substance Use: No Other/Comment: H/O ETOH USE - SURGICAL HISTORY Hx Cholecystectomy: Yes Other/Comment: TAVR in 2018 - ANESTHESIA Hx Anesthesia: Yes Hx Anesthesia Reactions: No Hx Malignant Hyperthermia: No Meds Allergies/Adverse Reactions: Allergies Allergy/AdvReac Type Severity Reaction Status Date / Time No Known Allergies Allergy Verified 10/14/17 19:39 - Medications Medications: Current Medications Aspirin (Aspirin Chewable) 81 mg PO DAILY TANIYA Donepezil HCl (Aricept) 5 mg PO HS TANIYA Fluoxetine HCl (Prozac) 10 mg PO DAILY TANIYA Sodium Chloride (Sodium Chloride 0.9%) 1,000 mls @ 100 mls/hr IV .Q10H TANIYA Last Admin: 05/23/18 22:50 Dose: 100 mls/hr Ceftriaxone Sodium (Rocephin 1 Gram Ivpb) 1 gm in 100 mls @ 100 mls/hr IVPB DAILY TANIYA; Protocol Azithromycin 250 mg/ Sodium (Chloride) 250 mls @ 167 mls/hr IVPB DAILY TANIYA; Protocol Memantine (Namenda) 10 mg PO DAILY TANIYA Midodrine (Proamatine) 2.5 mg PO TID TANIYA Solifenacin Succinate [Vesicare] (Home Med) 1 tab PO DAILY TANIYA Pantoprazole Sodium (Protonix Ec Tab) 40 mg PO 0600 TANIYA Tamsulosin HCl (Flomax) 0.4 mg PO HS [facility] Physical Exam - Constitutional Appears: Non-toxic, No Acute Distress - Head Exam Head Exam: ATRAUMATIC, NORMAL INSPECTION - ENT Exam ENT Exam: Mucous Membranes Moist - Respiratory Exam Respiratory Exam: NORMAL BREATHING PATTERN - Cardiovascular Exam Cardiovascular Exam: +S1, +S2 - GI/Abdominal Exam GI & Abdominal Exam: Soft. absent: Rebound, Rigid, Tenderness - Back Exam Additional comments: Decubitus ulcer with eschar Results - Vital Signs Recent Vital Signs: Last Vital Signs Temp 98.6 F 05/24/18 00:43 Pulse 83 05/24/18 01:39 Resp 20 05/24/18 01:39 BP 96/53 L 05/24/18 00:43 Pulse Ox 98 05/24/18 00:43 - Labs Result Diagrams: 05/24/18 06:50 05/23/18 19:30 Labs: Laboratory Results - last 24 hr 05/23/18 05/23/18 05/23/18 19:30 19:30 19:30 WBC 13.7 H RBC 5.53 Hgb 16.5 D Hct 48.7 MCV 88.1 MCH 29.8 MCHC 33.9 RDW 14.4 Plt Count 157 MPV 10.9 Neut % (Auto) 83.6 H Lymph % (Auto) 6.4 L [place] % (Auto) 9.6 H Eos % (Auto) 0.3 L Baso % (Auto) 0.1 Lymph # (Auto) 0.9 L [place] # (Auto) 1.3 H Eos # (Auto) 0.0 Baso # (Auto) 0.02 Absolute Neuts (auto) 11.48 H PT 14.5 H INR 1.31 APTT 33.0 Sodium 141 Potassium 4.4 Chloride 105 Carbon Dioxide 28 Anion Gap 13 BUN 92 H Creatinine 1.3 Est GFR ( Amer) > 60 Est GFR (Non-Af Amer) 52 Random Glucose 123 H Calcium 10.0 Magnesium 2.6 H Total Bilirubin 1.5 H AST 80 H D ALT 43 Alkaline Phosphatase 87 Lactate Dehydrogenase 791 H Total Creatine Kinase 469 H CK-MB (CK-2) 7.9 H CK-MB (CK-2) % 1.7 L Troponin I 0.05 D NT-Pro-B Natriuret Pep 1210 H Total Protein 8.3 Albumin 4.2 Globulin 4.1 Albumin/Globulin Ratio 1.0 L Urine Color Urine Appearance Urine pH Ur Specific [place] Urine Protein Urine Glucose (UA) Urine Ketones Urine Blood Urine Nitrate Urine Bilirubin Urine Urobilinogen Ur Leukocyte Esterase Urine RBC Urine WBC Amorphous Sediment Urine Bacteria Urine Other 05/23/18 05/24/18 19:45 01:25 WBC RBC Hgb Hct MCV MCH MCHC RDW Plt Count MPV Neut % (Auto) Lymph % (Auto) [place] % (Auto) Eos % (Auto) Baso % (Auto) Lymph # (Auto) [place] # (Auto) Eos # (Auto) Baso # (Auto) Absolute Neuts (auto) PT INR APTT Sodium Potassium Chloride Carbon Dioxide Anion Gap BUN Creatinine Est GFR ( Amer) Est GFR (Non-Af Amer) Random Glucose Calcium Magnesium Total Bilirubin AST ALT Alkaline Phosphatase Lactate Dehydrogenase Total Creatine Kinase 342 H CK-MB (CK-2) 5.8 H CK-MB (CK-2) % 1.7 L Troponin I 0.04 NT-Pro-B Natriuret Pep Total Protein Albumin Globulin Albumin/Globulin Ratio Urine Color Light brown Urine Appearance Cloudy Urine pH 6.0 Ur Specific [place] >= 1.030 Urine Protein 30 H Urine Glucose (UA) Negative Urine Ketones Negative Urine Blood Moderate H Urine Nitrate Negative Urine Bilirubin Small H Urine Urobilinogen 1.0 H Ur Leukocyte Esterase Moderate H Urine RBC Tntc H Urine WBC Tntc H Amorphous Sediment Moderate Urine Bacteria Large Urine Other Uyeast Assessment & Plan - Assessment and Plan (Free Text) Assessment: 87M with Right hip and elbow pressure ulcers Frequent position changes for pressure offloading Silvadene to the elbow and superior hip ulcer santyl to the inferior right hip ulcer Further recs per Dr. Marcin Barrett PGY3
--- NOTE | 2018-05-24 07:09 | CT ---
Date of service: 05/23/2018 PROCEDURE: CT HEAD WITHOUT CONTRAST. HISTORY: fall COMPARISON: Comparison is made to the previous study dated 12/27/2017 TECHNIQUE: Axial computed tomography images were obtained through the head/brain without intravenous contrast. Radiation dose: Total exam DLP = 1733.69 mGy-cm. This CT exam was performed using one or more of the following dose reduction techniques: Automated exposure control, adjustment of the mA and/or kV according to patient size, and/or use of iterative reconstruction technique. FINDINGS: The study is suboptimal degraded by motion artifacts. HEMORRHAGE: No intracranial hemorrhage. BRAIN: No mass effect or edema. Moderate atrophy and masl-ea-axnxmurz chronic microvascular white matter ischemic changes are again noted. VENTRICLES: No evidence of significant hydrocephalus. 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 CALVARIUM: Unremarkable. PARANASAL SINUSES: Unremarkable as visualized. No significant inflammatory changes. MASTOID AIR CELLS: Unremarkable as visualized. No inflammatory changes. OTHER FINDINGS: None. IMPRESSION: Suboptimal study degraded by motion artifacts. No evidence of acute intracranial hemorrhage intracranial collection mass effect or midline shift. Moderate atrophy and evxz-kv-tfyexcjr chronic microvascular white matter ischemic disease. Preliminary report was submitted by [facility] Radiology contains concordant findings.
[2018-05-24 07:16] LABS: HEMOGLOBIN 13.1 g/dL (14.0-18.0); MEAN CELL VOLUME 87.9 fl (80.0-105.0); MEAN CORPUSCULAR HEMOGLOBIN 28.7 pg (25.0-35.0); MEAN CORPUSCULAR HGB CONC 32.7 g/dl (31.0-37.0); MEAN PLATELET VOLUME 10.6 fl (7.0-11.0); RBC 4.56 10^6/uL (3.5-6.1); RED CELL DISTRIBUTION WIDTH 14.6 % (11.5-14.5); WHITE BLOOD COUNT 13.2 10^3/uL (4.5-11.0)
[2018-05-24 07:39] LABS: TROPONIN I 0.04 ng/mL
[2018-05-24 07:53] LABS: ALBUMIN 3.3 g/dL (3.0-4.8); ALT/SGPT 44 U/L (7-56); AST/SGOT 66 U/L (17-59); BLOOD UREA NITROGEN 93 mg/dL (7-21); CALCIUM 8.7 mg/dL (8.4-10.5); GFR NON-AFRICAN AMERICAN 58
[2018-05-24] MEDS: Pantoprazole 40 mg EC Tab PO SCH (08:00)
[2018-05-24 08:13] LABS: CK-MB 4.2 ng/mL (0.0-3.6)
--- NOTE | 2018-05-24 08:37 | CT ---
Date of service: 05/23/2018 PROCEDURE: CT Abdomen and Pelvis without intravenous contrast HISTORY: leukocytosis/ams COMPARISON: Comparison is made to the previous study dated 02/08/2016 TECHNIQUE: Axial and reformatted coronal and sagittal CT images of the abdomen and pelvis were obtained without IV or oral contrast administration.. Contrast dose: 0 Radiation dose: Total exam DLP = 859.26 mGy-cm. This CT exam was performed using one or more of the following dose reduction techniques: Automated exposure control, adjustment of the mA and/or kV according to patient size, and/or use of iterative reconstruction technique. FINDINGS: LOWER THORAX: The patient is status post aortic valve repair and possible stent insertion at aortic root. There is mild dilatation of aortic root and ascending thoracic aorta noted. The main pulmonary artery is also mildly enlarged. The heart is mildly enlarged. No evidence of pericardial effusion. No evidence of pleural effusion. LIVER: Unremarkable. No gross lesion or ductal dilatation. GALLBLADDER AND BILE DUCTS: Status post cholecystectomy. PANCREAS: Unremarkable. No gross lesion or ductal dilatation. SPLEEN: Unremarkable. ADRENALS: Small nodule noted at the left adrenal gland. The right adrenal gland is grossly unremarkable. KIDNEYS AND URETERS: Unremarkable. No hydronephrosis. No solid mass. There are small cyst seen in the left kidney. VASCULATURE: Unremarkable. No aortic aneurysm. Diffuse heavy atherosclerotic calcification in the abdominal aorta and iliac arteries. BOWEL: Gzru-xf-xhwlggzk constipation is noted more prominent in the rectum. No obstruction. No gross mural thickening. Colonic diverticulosis are noted without evidence of diverticulitis. APPENDIX: No evidence of appendicitis PERITONEUM: Unremarkable. No free fluid. No free air. LYMPH NODES: Unremarkable. No enlarged lymph nodes. BLADDER: There is a 8 millimeter nonobstructing calculus at left low lower aspect of the bladder noted. There is adjacent linear calcification likely in the bladder wall also seen in the left aspect of the bladder. Chuv-ec-glqkxgbq circumferential urinary bladder wall thickening. REPRODUCTIVE: The prostate is enlarged contains foci of calcification. BONES: No evidence of destructive bony lesion OTHER FINDINGS: None. IMPRESSION: Suspicious for urinary bladder stone measures 8 millimeter. Adjacent linear calcification may represent urinary bladder wall calcification. Mdsx-cv-cneddwla urinary bladder wall thickening. Enlarged prostate. Additional findings in lower chest and in the abdomen as discussed above. Preliminary report was submitted by [facility] Radiology contains concordant findings.
[2018-05-24 08:58] LABS: CK-MB 4.1 ng/mL (0.0-3.6)
--- NOTE | 2018-05-24 09:17 | CARD ---
APPROVED REPORT Date of service: 05/23/2018 EKG Measurement Heart [id number] <Conclusion> Sinus rhythm with frequent supraventricular complexes Left bundle branch block Abnormal ECG
[2018-05-24] MEDS: Sodium Chloride 0.9% 1,000 ML IV SCH (09:33)
[2018-05-24] MEDS: SOLIFENACIN SUCCINATE PO SCH (09:56)
[2018-05-24] MEDS ORDERED: cefTRIAXone 1 gm 1 GM/100 ML BAG IVPB SCH (10:00)
--- NOTE | 2018-05-24 10:05 | CT ---
Date of service: 05/24/2018 PROCEDURE: CT Chest without contrast HISTORY: pneumonia COMPARISON: Comparison is made to the previous CT of the abdomen and pelvis dated 05/23/2018 TECHNIQUE: Contiguous axial images were obtained through the chest without intravenous contrast enhancement. Sagittal and coronal reconstructions were performed. Radiation dose: Total exam DLP = 589.13 mGy-cm. This CT exam was performed using one or more of the following dose reduction techniques: Automated exposure control, adjustment of the mA and/or kV according to patient size, and/or use of iterative reconstruction technique. FINDINGS: LUNGS: There is airspace consolidation noted at the right middle lobe suspicious for possible pneumonia. The other etiology is not totally excluded. Jcel-nd-pudxdbnj pulmonary vascular congestion is noted. MEDIASTINUM: The thoracic aorta is mildly dilated. The main ascending thoracic aorta transverse diameter is 4.8 centimeter. Descending thoracic aorta measures 3.5 centimeter in the transverse diameter.. The heart is mildly enlarged. There is metallic stent seen at the aortic valve and root of the aorta. No evidence of pericardial effusion. The main pulmonary artery is mildly enlarged. No lymphadenopathy. There is diffuse esophageal mucosal thickening noted. Foci of atherosclerotic calcification at the aortic arch and descending thoracic aorta are noted. PLEURA: No evidence of significant pleural effusion. Possible pleural thickening noted at the right chest. BONES: No fracture. No destructive lesion. 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 UPPER ABDOMEN: No evidence of acute pathology. OTHER FINDINGS: There is heterogeneous low-attenuation fluid collection versus low-attenuation mass contains fluid component noted medial to the right humeral head adjacent to the right glenohumeral joint measures 5.4 x 4.6 centimeter. Further evaluation by other modality is suggested. IMPRESSION: Airspace consolidation at the right middle lobe may represent pneumonia. Other etiology including small obstructing neoplasm is not totally excluded. Follow-up reassessment after 1-3 months is recommended. Cardiomegaly and mild pulmonary vascular congestion. Mild aneurysmal dilatation of the ascending thoracic aorta. 5.4 x 4.6 centimeter low-attenuation mass versus complex fluid collection noted medial to the right humeral head and glenohumeral joint of uncertain etiology. Further evaluation by other modality is recommended Preliminary report was submitted by [facility] Radiology contains concordant findings.
--- NOTE | 2018-05-24 10:14 | RAD ---
Date of service: 05/23/2018 PROCEDURE: Radiographs of the pelvis. HISTORY: fall COMPARISON: None. FINDINGS: BONES: Pelvic Bones: Unremarkable. Hips: Moderate osteoarthritic degenerative changes JOINTS: Sacroiliac Joints: Arthritic degenerative changes Pubic Symphysis: Mild arthritic changes OTHER FINDINGS: There are small metallic structure overlying the lower pelvis likely represent prostate seeds jxnd-as-vdmutdzq constipation in the rectum is noted. Moderate to severe degenerative changes at the lower spine IMPRESSION: No evidence of acute fracture or dislocation. Moderate osteoarthritic degenerative changes.
--- NOTE | 2018-05-24 10:15 | RAD ---
Date of service: 05/23/2018 HISTORY: fall COMPARISON: Comparison is made with 04/11/2018 FINDINGS: LUNGS: Linear opacities at the lung bases are noted likely atelectasis. Otherwise no significant interval changes. PLEURA: No significant pleural effusion identified, no pneumothorax apparent. CARDIOVASCULAR: No aortic atherosclerotic calcification present. Normal cardiac size. No pulmonary vascular congestion. OSSEOUS STRUCTURES: No significant abnormalities. VISUALIZED UPPER ABDOMEN: Normal. OTHER FINDINGS: None. IMPRESSION: Small linear opacities at the lung bases more prominent on the right likely represent atelectasis. Otherwise no significant interval changes.
--- NOTE | 2018-05-24 12:18 | MRI ---
Date of service: 05/24/2018 PROCEDURE: MRI BRAIN WITHOUT CONTRAST HISTORY: dementia/stroke. Evaluate for severe COMPARISON: Comparison is made with the previous study dated 12/31/2017 TECHNIQUE: Multiplanar, multisequence MR images of the brain were obtained without intravenous contrast enhancement. FINDINGS: HEMORRHAGE: None DWI: There is approximately 5 millimeter focus of diffusion restriction at the right cerebellum and 5 millimeter focus of diffusion restriction at the right coronal radiata suspicious for lacunar infarcts. BRAIN PARENCHYMA: No mass effect or edema. Atrophy and chronic microvascular white matter ischemic changes are again noted. VENTRICLES: Unremarkable. No hydrocephalus. CRANIUM: Unremarkable. ORBITS: Grossly unremarkable. PARANASAL SINUSES/MASTOIDS: Clear VASCULAR SYSTEM: Skull base flow voids intact. OTHER FINDINGS: None. IMPRESSION: Limited study degraded by motion artifacts. Lacunar infarcts noted at right cerebellum and right centrum semiovale/ coronal radiata likely acute. Moderate volume loss and moderate chronic microvascular white matter ischemic disease again noted.
--- NOTE | 2018-05-24 12:24 | MRI ---
Date of service: 05/24/2018 PROCEDURE: Magnetic Resonance Angiography Brain HISTORY: RO stroke/AMS COMPARISON: Comparison is made to the previous study dated 12/31/2017 TECHNIQUE: 3D time of flight MR angiography of the intracranial arteries was performed. Rotating maximum intensity projection images were generated. FINDINGS: INTERNAL CAROTID ARTERIES: No evidence of focal stenosis or occlusion. The skull base, petrous, cavernous and supraclinoid segments are bilaterally widely patient. ANTERIOR CEREBRAL ARTERIES: Unremarkable. A1 and A2 segments are widely patent. Smaller distal branches unremarkable, as visualized. MIDDLE CEREBRAL ARTERIES: Again noted is approximately 3 millimeter focal outpouching at the level of the left MCA trifurcation may represent small aneurysm. M1 and M2 segments are widely patent. Perisylvian branches grossly symmetric. POSTERIOR CIRCULATION: Basilar Artery: Unremarkable. Distal Vertebral Arteries: The distal right vertebral artery is small in size. Posterior Cerebral Arteries: Unremarkable. Posterior Inferior Cerebellar Arteries: Unremarkable. ANEURYSM/ VASCULAR MALFORMATIONS: None. OTHER FINDINGS: None. IMPRESSION: No significant interval changes noted since the prior study dated 12/31/2017 as discussed above.
[2018-05-24] MEDS: Dextrose 5%/0.9% NS 1,000 ML IV SCH (12:46)
[2018-05-24] MEDS: POLYETHYLENE GLYCOL 3350 17 GM/Dose PACKET PO SCH (13:07)
--- NOTE | 2018-05-24 13:08 | CARD ---
APPROVED REPORT Date of service: 05/24/2018 EXAM: Two-dimensional and M-mode echocardiogram with Doppler and color Doppler. INDICATION Aortic Valve Disease 2D DIMENSIONS IVSd1.4 (0.7-1.1cm)LVDd4.2 (3.9-5.9cm) LVOT Diameter1.9 (1.8-2.4cm)PWd1.3 (0.7-1.1cm) LVDs3.1 (2.5-4.0cm)FS (%) 27.0 % LVEF (%)52.9 (>50%) M-Mode DIMENSIONS Aortic Root2.00 (2.2-3.7cm)Aortic Cusp Exc.0.70 (1.5-2.0cm) Aortic Valve AoV Peak Khfsqwyd454.0cm/sAoV VTI39.7cmAO Peak GR.24mmHg LVOT Peak Nrqudepg72.7cm/sLVOT VTI14.90cmAO Mean GR.10mmHg LIA (VMAX)0.99bx5MGE (VTI)1.07cm2 Mitral Valve E/A ratio0.0 TDI E/Lateral E'0.0E/Medial E'0.0 Tricuspid Valve TR Peak Shlxqjxy744mo/sRAP SCDQLGTB98spXuCA Peak Gr.22mmHg [id number] LEFT VENTRICLE The left ventricle is normal size. There is mild concentric left ventricular hypertrophy. The left ventricular function is normal. The left ventricular ejection fraction is within the normal range. There is normal LV segmental wall motion. RIGHT VENTRICLE The right ventricle is normal size. The right ventricular systolic function is normal. ATRIA The left atrium size is normal. The right atrium size is normal. The interatrial septum is intact with no evidence for an atrial septal defect. AORTIC VALVE The aortic valve is not well visualized. No aortic regurgitation is present. There is mild valvular aortic stenosis. MITRAL VALVE Mitral annular calcification is mild. TRICUSPID VALVE The tricuspid valve is normal in structure. There is mild to moderate tricuspid regurgitation. PULMONIC VALVE The pulmonic valve is not well visualized. GREAT VESSELS The aortic root is normal in size. The IVC is normal in size and collapses >50% with inspiration. PERICARDIAL EFFUSION There is no pleural effusion. There is no pericardial effusion. <Conclusion> Technically limited study. Chamber sizes appear within normal limits. Mild concentric LVH. Normal LV systolic function. Aortic valve not well visualzied but appears to have mild to moderate stenosis. Mild to moderate TR.
[2018-05-24] MEDS: Azithromycin 250 MG in Sodium Chloride 0.9% 250 ML IVPB SCH (13:09)
--- NOTE | 2018-05-24 13:36 | MRI ---
Date of service: 05/24/2018 PROCEDURE: MR Angiography of the neck without contrast HISTORY: RO stroke/AMS COMPARISON: None available. TECHNIQUE: 3D Evoh-ft-aecgvf angiography of the neck was performed. Rotating maximum intensity projection images of the cervical carotid and vertebral arteries were generated. The origins of the common carotid arteries were not visualized, which is a limitation inherent to the non-contrast time of flight technique. FINDINGS: RIGHT CAROTID ARTERIES: Common Carotid Artery: Normal. Carotid Bifurcation: Normal. Internal Carotid Artery:Normal. External Carotid Artery (proximal branches): Normal. LEFT CAROTID ARTERIES: Common Carotid Artery: Normal. Carotid Bifurcation: Normal. Internal Carotid Artery:Normal. External Carotid Artery (proximal branches): Normal. VERTEBRAL ARTERIES: Right Vertebral Artery: The right vertebral artery is small in size Left Vertebral Artery: The left vertebral artery is dominant OTHER FINDINGS: None. IMPRESSION: No MRA evidence of focal critical stenosis in the common and internal carotid arteries at the neck. Small size right vertebral artery and dominant left vertebral artery noted.
--- NOTE | 2018-05-24 13:38 | CON ---
DATE OF CONSULTATION: 05/24/2018 HISTORY: The patient is an 87-year-old male, who was found on the floor. PAST MEDICAL HISTORY: His past medical history is notable for critical aortic stenosis, for which he underwent TAVR and NBI. In addition, the patient's past medical history also includes a history of dementia, hypercholesterolemia, and is on multiple medications including midodrine for hypotension. He is on multiple medications for prostate enlargement. Currently, the patient is in bed, feeling weak and hungry. No other history is obtainable. PHYSICAL EXAMINATION: VITAL SIGNS: Blood pressure 135/74, the heart rate is in the 90s. NECK: Negative JVD. LUNGS: Decreased breath sounds without rales. CARDIAC: Heart rate reveals 1/6 systolic ejection murmur. EXTREMITIES: Without edema. LABORATORY DATA: EKG shows a left bundle-branch block. Hemoglobin is 13.1, BUN is 93, creatinine is 1.2. IMPRESSION: 1. Marked prerenal azotemia consistent with dehydration. 2. History of aortic stenosis. 3. Status post transcatheter aortic valve replacements. 4. Mild rhabdo. 5. History of unremarkable coronary arteries. 7. History of dementia. PLAN: Given these findings, the patient will need aggressive IV hydration. We will continue on telemetry for the next 24 hours. Deion John MD
--- NOTE | 2018-05-24 13:39 | PN ---
DATE: 05/24/2018 SUBJECTIVE: The patient was admitted, brought in with confused state. The patient had been on the floor for some couple of days. He has a severe abrasion on the right side of the chest and the pelvic area with deep wound. The patient also has past history of dementia, benign prostatic hyperplasia, atherosclerotic heart disease. The patient has also been treated for overactive bladder. The patient seen this morning, he is confused, but seems to be awake and the wounds are being dressed daily to combat the infection. PHYSICAL EXAMINATION VITAL SIGNS: Pulse is 89, blood pressure 116/79, respirations are 19 per minute and the patient's O2 saturation is 94% on 2 liters of oxygen. HEENT: The patient's examination of the head is normocephalic. The carotid pulses are present. HEART: Normal sinus rhythm. S1 and S2, present. LUNGS: Clinically clear. ABDOMEN: Soft. Liver and spleen not palpable. CENTRAL NERVOUS SYSTEM: The patient is demented, had no focal neurological deficit. MEDICATIONS: The patient's medications consist of Aricept 5 mg daily. The patient is on azithromycin 250 mg IV daily, Namenda 10 mg daily, ProAmatine for postural hypotension, pantoprazole 40 mg daily, the patient is on Prozac 10 mg daily, Rocephin 1 g every 24 hours. The patient is also on overactive bladder once daily. The patient is on heart healthy diet. LABORATORY DATA: The blood work done in the hospital shows the patient's hemoglobin is 13.1 and white count is 13,000. His chemistry; the BUN is 92 and creatinine is 1.3. The patient's creatine kinase level was elevated. The patient has been on the floor. He has elevated CPK based on the patient has muscular trauma. The patient's BUN is elevated with dehydration. His blood sugar is within normal range. His list of medications as mentioned. We will follow up. Wesley Campuzano MD
--- NOTE | 2018-05-24 14:55 | CP.PCM.PN ---
Subjective - Date & Time of Evaluation Date of Evaluation: 05/24/18 Time of Evaluation: 07:00 - Subjective Subjective: PGY-[address] Ruvalcaba Pt is easily awaken. follow simple command. (+) pain on hip wounds when turn him Objective - Vital Signs/Intake and Output Vital Signs (last 24 hours): Temp Pulse Resp BP Pulse Ox 97.4 F L 102 H 19 135/74 94 L 05/24/18 12:00 05/24/18 12:00 05/24/18 12:00 05/24/18 12:00 05/24/18 06:00 Intake and Output: 05/24/18 05/24/18 06:59 18:59 Intake Total 0 Balance 0 - Medications Medications: Current Medications Aspirin (Aspirin Chewable) 81 mg PO DAILY [facility] Last Admin: 05/24/18 09:53 Dose: Not Given Docusate Sodium (Colace) 100 mg PO BID [facility] Last Admin: 05/24/18 13:08 Dose: Not Given Donepezil HCl (Aricept) 5 mg PO [facility] Fluoxetine HCl (Prozac) 10 mg PO DAILY [facility] Last Admin: 05/24/18 09:55 Dose: Not Given Ceftriaxone Sodium (Rocephin 1 Gram Ivpb) 1 gm in 100 mls @ 100 mls/hr IVPB DAILY [facility]; Protocol Last Admin: 05/24/18 09:34 Dose: 100 mls/hr Azithromycin 250 mg/ Sodium (Chloride) 250 mls @ 167 mls/hr IVPB DAILY [facility]; Protocol Last Admin: 05/24/18 13:09 Dose: 167 mls/hr Dextrose/Sodium Chloride (Dextrose 5%/0.9% Ns 1000 Ml) 1,000 mls @ 75 mls/hr IV .[id number] [facility] Last Admin: 05/24/18 12:46 Dose: 75 mls/hr Insulin Human Regular (Humulin R Low) 0 units SC ACHS [facility]; Protocol Memantine (Namenda) 10 mg PO DAILY [facility] Last Admin: 05/24/18 09:54 Dose: Not Given Midodrine (Proamatine) 2.5 mg PO TID [facility] Last Admin: 05/24/18 13:53 Dose: Not Given Solifenacin Succinate [Vesicare] (Home Med) 1 tab PO DAILY [facility] Last Admin: 05/24/18 09:56 Dose: Not Given Pantoprazole Sodium (Protonix Ec Tab) 40 mg PO 0600 [facility] Last Admin: 05/24/18 08:00 Dose: Not Given Polyethylene Glycol (Miralax) 17 gm PO DAILY [facility] Last Admin: 05/24/18 13:07 Dose: Not Given Tamsulosin HCl (Flomax) 0.4 mg PO HS [facility] - Labs Labs: 05/24/18 06:50 05/24/18 06:50 PT 14.5 SECONDS (9.4-12.5) H 05/23/18 19:30 INR 1.31 05/23/18 19:30 APTT 33.0 Seconds (26.9-38.3) 05/23/18 19:30 - Constitutional Appears: Chronically Ill - Head Exam Head Exam: ATRAUMATIC, NORMAL INSPECTION, NORMOCEPHALIC - Eye Exam Eye Exam: EOMI, Normal appearance, PERRL. absent: Scleral icterus Pupil Exam: NORMAL ACCOMODATION - ENT Exam ENT Exam: Mucous Membranes Dry - Neck Exam Additional comments: supple - Respiratory Exam Respiratory Exam: Clear to Ausculation Bilateral. absent: Decreased Breath Sounds, Rales, Rhonchi, Wheezes - Cardiovascular Exam Cardiovascular Exam: REGULAR RHYTHM, +S1, +S2, Murmur - GI/Abdominal Exam GI & Abdominal Exam: Soft, Normal Bowel Sounds. absent: Tenderness - Extremities Exam Extremities Exam: Normal Capillary Refill. absent: Calf Tenderness, Pedal Edema - Neurological Exam Neurological Exam: Awake. absent: Oriented x3 - Psychiatric Exam Psychiatric exam: Flat Affect - Skin Skin Exam: Dry, Warm Additional comments: Pressure ulcers at R shoulder, R flank, R hip, R ankle Assessment and Plan - Assessment and Plan (Free Text) Plan: Mr Mcdonough, 87M, with PMHx Alzheimer dementia, aortic stenosis s/p TAVR (Winter 2017), HTN/HLD, Hx GI bleed in 2016, alcohol abuse, depression, rheumatic heart disease as a child presenting s/p fall and found on the ground. He has altered mental status likely due to the acute cerebellar stroke vs multiple sources of infection. Per Son, after discharge from rehab 2 months ago, pt became more forgetful, neglectful in self-care, and not motivated to get out of the house. His baseline mentation was AAOx3. Alter mental status R/o central vs infectious causes Baseline Mentation AAOx3 - HHD/finely chopped, per speech therapist, aspiration precaution, D5/NS@75 - neural check - CT head shows no intracranial hemorrhage, moderate atrophy [ ] EEG Acute stroke, lacuna infarct - Neck MRA - no critical stenose. small R vertebral artery. 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 Already on daily AsA 81. PT/OT - ASA, plavix, lipitor 40 Sespsis likely from HCAP vs post-obstructive pneumonia due to lung tumor vs UTI vs skin Ulcers - CT abd/pelvis shows 1. right middle lobe infiltrates 2. Questionable tumor in lung. Follow up in 1-3 months 3. 5cm x 5cm mass in R humeral head/glenohumeral joint - UA shows positive leukocyte esterase, Tntc WBC, large bacteria - afebrile, positive leukocytosis - Rocephin/Azithromycin pending ID rec - follow on procacl/sputum cx/blood/urine cultures s/p fall - CT head shows no intracranial hemorrhage, moderate atrophy - fall precautions - CK trending down to 200s. Continue gentle IVF Azotemia with BUN 90s, Hb stable/likely from elevated Creatine kinase due to pressure ulcres or fall and dehydration. Not likely rhabdomyolysis [ ] Stool hemeoccult - trend H&H New onset Left bundle branch block R/O ACS - Troponins 0.04-0.05 x 3 - Serial EKG - ECHO from 04/2018: LVEF 55% - ECHO 05/24/18: Normal LVEF 53% - Cardiology consult Decubitus ulcer and shoulder/sacral/heel - wound care - podiatry consult - Surgery consulted. - air mattress, turn q2h, multipodus boots Alzheimer's dementia - continue home Aricept and Memantine PPX - Protonix Disposition Plan - son, Franko Mcdonough, , main caregiver - [facility] VS home with services Consult: Alvaro Jo, Marcin, Marilynn
--- NOTE | 2018-05-24 16:13 | CON ---
DATE: 05/24/2018 NEUROLOGY CONSULTATION CHIEF COMPLAINT: Status post fall. HISTORY OF PRESENT ILLNESS: The patient's history is obtained from medical records prior due to the patient's poor due to of dementia. The patient lives alone, was found on the floor by son. He has a past medical history of aortic stenosis, status post TAVR, hypertension, dyslipidemia, Alzheimer's type dementia, BPH, alcohol abuse, depression, rheumatic heart disease as child, presents with status post fall who was found on the floor by his son and since the patient lives alone, he was brought to the ER. He was awake at that time, currently he is following simple commands and is cognitively impaired. He had a MRI of the brain which showed small scattered acute lacunar infracts in the right cerebellum and the right centrum semiovale, it is most likely secondary to diffuse atherosclerotic disease. Given his past medical history, his head MRA and neck MRA are unremarkable for anything acute. He follows simple commands and moves all extremities. He is very deconditioned. He is on Aricept and Namenda for dementia. He has low systolic and diastolic blood pressures, he is on midodrine 2.5 mg p.o. three times a day. PAST MEDICAL HISTORY: As above. SOCIAL HISTORY: No illicit drug, smoking or EtOH abuse. REVIEW OF SYSTEMS: A 12-point review of system is negative except as per HPI. FAMILY HISTORY: Noncontributory. MEDICATIONS: Reviewed by nurse reconciliation sheet. ALLERGIES: NO KNOWN DRUG ALLERGIES. LABORATORY DATA: Sodium 144, potassium 3.8, chloride 113, carbon dioxide 22, BUN of 92, creatinine 1.2, random glucose of 98. PHYSICAL EXAMINATION: GENERAL: The patient was seen up in bed, demented, and in no acute distress. VITAL SIGNS: Temperature of 97.4, pulse rate of 89, blood pressure 116/79, and respiratory rate 18. HEENT: Atraumatic and normocephalic. PERRLA. Extraocular muscles intact. NECK: Supple. No JVD. No adenopathy noted. LUNGS: Clear to auscultation. No adventitious sounds. HEART: S1 and S2, normal rate and rhythm. No murmur, rubs, or gallops. ABDOMEN: Soft and nontender. Normoactive bowel sounds present. EXTREMITIES: No clubbing and no cyanosis. Peripheral pulses are 2+ bilaterally. NEUROLOGIC: The patient is alert and oriented to person and place, not much to month and year. Recall after 5 minutes is 0/3. Poor attention span. Slow thought process. Cannot calculate or do proverbs. Cannot clock. Speech is hypophonic, but no aphasia noted. Cranial nerves II through XII are intact. Motor exam; moves all extremities equally. No pronator drift seen. Sensory exam; diffused light touch, pinprick, proprioception and vibration are intact. Decreased vibration of the toes. DTRs are 2+ throughout and at both knees and ankles. Coordination; [id number] is intact. No dysmetria noted. Gaits are deferred for now. IMPRESSION: Status post fall and transient confusional state secondary to transient cerebral hypoperfusion to the brain, superimposed underlying the acute small lacunar infracts in right cerebellum and right centrum semiovale secondary to diffuse atherosclerotic disease given his underlying medical conditions. RECOMMENDATIONS: At this time I do recommend; 1. Aspirin 81 mg, Plavix 75 mg Lipitor 40 mg for stroke prevention. 2. Keep his systolic blood pressure between 130s-140s and diastolic in 70s-80s. 3. Delirium precautions. 4. Thiamin 100 mg p.o. daily and frequent orientation throughout the day. PT/OT in subacute rehab. Continue Namenda and Aricept for underlying dementia. Thank you for this consult. Yayo Thompson MD
[2018-05-24] MEDS: Cefepime 1gm in NS 100ml 1 GM/100 ML BAG IVPB SCH ×2 (17:18→21:40)
[2018-05-24] MEDS: Insulin Reg-LOW-Coverage SC SCH ×2 (17:21→23:45)
[2018-05-24 17:45] LABS: VENOUS BLOOD GAS BASE EXCESS -2.2 mmol/L (0.0-2.0); VENOUS BLOOD GAS PO2 52 mm/Hg (30-55); VENOUS BLOOD PH 7.36 (7.32-7.43)
[2018-05-24 18:53] LABS: HDL CHOLESTEROL 28 mg/dL (29-60)
[2018-05-24 19:04] LABS: LDL CHOLESTEROL 67 mg/dL (0-129)
[2018-05-24 21:30] LABS: HEMOGLOBIN 13.5 g/dL (14.0-18.0)
[2018-05-25] MEDS: Pantoprazole 40 mg EC Tab PO SCH (05:13)
[2018-05-25] MEDS: Cefepime 1gm in NS 100ml 1 GM/100 ML BAG IVPB SCH ×3 (05:13→21:45)
[2018-05-25] MEDS: Dextrose 5%/0.9% NS 1,000 ML IV SCH ×2 (05:14→19:51)
[2018-05-25] MEDS ORDERED: SODIUM CHLORIDE 0.9% IVPB ONE (06:05)
[2018-05-25] MEDS ORDERED: VANCOMYCIN IVPB ONE (06:05)
--- NOTE | 2018-05-25 07:47 | CARD ---
APPROVED REPORT Date of service: 05/24/2018 EKG Measurement Heart [id number] <Conclusion> Sinus rhythm with marked sinus arrhythmia with 1st degree AV block with premature supraventricular complexes Incomplete left bundle branch block ST & T wave abnormality, consider lateral ischemia Abnormal ECG
[2018-05-25 08:36] LABS: MEAN CELL VOLUME 90.1 fl (80.0-105.0); MEAN CORPUSCULAR HEMOGLOBIN 28.8 pg (25.0-35.0); MEAN PLATELET VOLUME 10.7 fl (7.0-11.0); RBC 4.16 10^6/uL (3.5-6.1); WHITE BLOOD COUNT 10.7 10^3/uL (4.5-11.0)
[2018-05-25 08:56] LABS: ALB/GLOB RATIO 0.9 (1.1-1.8); ALBUMIN 3.1 g/dL (3.0-4.8); ALT/SGPT 43 U/L (7-56); AST/SGOT 46 U/L (17-59); BLOOD UREA NITROGEN 80 mg/dL (7-21); CALCIUM 8.7 mg/dL (8.4-10.5); GFR NON-AFRICAN AMERICAN 58
--- NOTE | 2018-05-25 09:57 | CP.PCM.CON ---
<DmitryYessy - Last Filed: 05/25/18 09:57> History of Present Illness - History of Present Illness History of Present Illness: Podiatry Consult Note: Dr. Vidal 87M patient, with PMHx, seen and evaluated for R anterior ankle abrasion. Patient resting comfortably and in NAD. Unable to obtain history secondary to dementia. History obtained from chart. PMH: aortic stenosis, HTN, dyslipidemia, Alzheimer's dementia, BPH, alcohol abuse, depression, rheumatic heart disease as a child PSH: TAVR, bilateral cataracts, cholecystectomy SHx: previous alcohol and tobacco use Allergies: NKDA PMD: Dr. Ruvalcaba Review of Systems - Review of Systems Review of Systems: As per HPI Past Patient History - Infectious Disease Hx of Infectious Diseases: None - Tetanus Immunizations Tetanus Immunization: Unknown - Past Medical History & Family History Past Medical History?: Yes - Past Social History Smoking Status: Smoker Currrent Status Unknown - CARDIAC Hx Cardiac Disorders: Yes Hx Hypertension: Yes - PULMONARY Hx Respiratory Disorders: No - NEUROLOGICAL Hx Alzheimer's Disease: Yes Hx Dementia: Yes Other/Comment: Aneurysm - HEENT Hx HEENT Problems: Yes (wears glasses) Hx Deafness: Yes ([place]) - RENAL Hx Chronic Kidney Disease: No - ENDOCRINE/METABOLIC Hx Endocrine Disorders: No - HEMATOLOGICAL/ONCOLOGICAL Hx Anemia: Yes (normocytic) - INTEGUMENTARY Hx Dermatological Problems: No - MUSCULOSKELETAL/RHEUMATOLOGICAL Hx Arthritis: Yes Other/Comment: H/O Falls - GASTROINTESTINAL Hx Gastrointestinal Disorders: No - GENITOURINARY/GYNECOLOGICAL Hx Incontinence: Yes - PSYCHIATRIC Hx Psychophysiologic Disorder: Yes Hx Depression: Yes Hx Substance Use: No Other/Comment: H/O ETOH USE - SURGICAL HISTORY Hx Cholecystectomy: Yes Other/Comment: TAVR in 2018 - ANESTHESIA Hx Anesthesia: Yes Hx Anesthesia Reactions: No Hx Malignant Hyperthermia: No Meds Allergies/Adverse Reactions: Allergies Allergy/AdvReac Type Severity Reaction Status Date / Time No Known Allergies Allergy Verified 10/14/17 19:39 - Medications Medications: Current Medications Acetaminophen (Tylenol 325mg Tab) 650 mg PO Q6 PRN PRN Reason: TEMP>=99.5F Acetaminophen (Tylenol 650 Mg Supp) 650 mg RC Q6H PRN PRN Reason: TEMP>=99.5F Acetylcysteine (Acetylcysteine 20%) 4 ml IH [id number] [facility] Aspirin (Aspirin Chewable) 81 mg PO DAILY [facility] Last Admin: 05/24/18 09:53 Dose: Not Given Atorvastatin Calcium (Lipitor) 40 mg PO DIN [facility] Last Admin: 05/24/18 17:19 Dose: 40 mg Clopidogrel Bisulfate (Plavix) 75 mg PO DAILY [facility] Last Admin: 05/24/18 17:20 Dose: 75 mg Docusate Sodium (Colace) 100 mg PO BID [facility] Last Admin: 05/24/18 17:20 Dose: 100 mg Donepezil HCl (Aricept) 5 mg PO HS [facility] Last Admin: 05/24/18 21:40 Dose: 5 mg Enoxaparin Sodium (Lovenox) 40 mg SC DAILY [facility]; Protocol Fluoxetine HCl (Prozac) 10 mg PO DAILY [facility] Last Admin: 05/24/18 09:55 Dose: Not Given Azithromycin 250 mg/ Sodium (Chloride) 250 mls @ 167 mls/hr IVPB DAILY [facility]; Protocol Last Admin: 05/24/18 13:09 Dose: 167 mls/hr Dextrose/Sodium Chloride (Dextrose 5%/0.9% Ns 1000 Ml) 1,000 mls @ 75 mls/hr IV .[id number] [facility] Last Admin: 05/25/18 05:14 Dose: 75 mls/hr Cefepime HCl (Maxipime 1gm) 1 gm in 100 mls @ 100 mls/hr IVPB Q8 [facility]; Protocol Last Admin: 05/25/18 05:13 Dose: 100 mls/hr Potassium Chloride (Potassium Chloride 20 Meq/100 Ml) 20 meq in 100 mls @ 50 mls/hr IVPB Q2H [facility] Stop: 05/25/18 13:14 Insulin Human Regular (Humulin R Low) 0 units SC ACHS [facility]; Protocol Last Admin: 05/24/18 23:45 Dose: Not Given Levalbuterol HCl (Xopenex) 0.63 mg IH [id number] [facility] Memantine (Namenda) 10 mg PO DAILY [facility] Last Admin: 05/24/18 09:54 Dose: Not Given Metoprolol Tartrate (Lopressor) 25 mg PO BID [facility] Midodrine (Proamatine) 2.5 mg PO TID [facility] Last Admin: 05/24/18 17:19 Dose: 2.5 mg Solifenacin Succinate [Vesicare] (Home Med) 1 tab PO DAILY [facility] Last Admin: 05/24/18 09:56 Dose: Not Given Ondansetron HCl (Zofran Inj) 4 mg IVP Q4H PRN PRN Reason: Nausea/Vomiting Pantoprazole Sodium (Protonix Ec Tab) 40 mg PO 0600 [facility] Last Admin: 05/25/18 05:13 Dose: 40 mg Pantoprazole Sodium (Protonix Ec Tab) 40 mg PO 0600 [facility] Polyethylene Glycol (Miralax) 17 gm PO DAILY [facility] Last Admin: 05/24/18 13:07 Dose: Not Given Tamsulosin HCl (Flomax) 0.4 mg PO HS [facility] Last Admin: 05/24/18 21:40 Dose: 0.4 mg Physical Exam - Constitutional Appears: Non-toxic, No Acute Distress - Head Exam Head Exam: ATRAUMATIC, NORMOCEPHALIC - Extremities Exam Additional comments: LLE focused exam: Vascular: DP/PT 1/4, TG warm to warm, CFT < 3 seconds, no edema appreciated Ortho: No tenderness to palpation of b/l lower extremities, no pain with calf compression Neuro: Gross and protective sensation intact Derm: Small superficial abrasion appreciated to the L anterior lateral ankle, no drainage, no malodor, no purulence, no clinical signs of infection Results - Vital Signs Recent Vital Signs: Last Vital Signs Temp 100 F H 05/25/18 06:00 Pulse 92 H 05/25/18 06:00 Resp 20 05/25/18 06:00 BP 126/90 05/25/18 06:00 Pulse Ox 95 05/25/18 06:00 - Labs Result Diagrams: 05/25/18 08:26 05/25/18 08:26 Labs: Laboratory Results - last 24 hr 05/24/18 05/24/18 05/24/18 13:00 17:39 19:30 WBC RBC Hgb Hct MCV MCH MCHC RDW Plt Count MPV pO2 52 VBG pH 7.36 VBG pCO2 41.0 VBG HCO3 23.2 VBG Total CO2 24.5 VBG O2 Sat (Calc) 87.9 H VBG Base Excess -2.2 L VBG Potassium 3.4 L Sodium 149.0 H Chloride 113.0 H Glucose 98 Lactate 1.8 FiO2 21.0 Potassium Carbon Dioxide Anion Gap BUN Creatinine Est GFR ( Amer) Est GFR (Non-Af Amer) Random Glucose Calcium Phosphorus Magnesium Total Bilirubin AST ALT Alkaline Phosphatase Total Creatine Kinase Total Protein Albumin Globulin Albumin/Globulin Ratio Triglycerides 61 Cholesterol 103 L LDL Cholesterol Direct 67 HDL Cholesterol 28 L Venous Blood Potassium 3.4 L Influenza Typ A,B (EIA) Negative for flu a/b 05/24/18 05/24/18 05/25/18 21:20 21:20 01:07 WBC RBC Hgb 13.5 L Hct 40.7 L MCV MCH MCHC RDW Plt Count MPV pO2 VBG pH VBG pCO2 VBG HCO3 VBG Total CO2 VBG O2 Sat (Calc) VBG Base Excess VBG Potassium Sodium Chloride Glucose Lactate FiO2 Potassium Carbon Dioxide Anion Gap BUN Creatinine Est GFR ( Amer) Est GFR (Non-Af Amer) Random Glucose Calcium Phosphorus Magnesium Total Bilirubin AST ALT Alkaline Phosphatase Total Creatine Kinase 191 153 Total Protein Albumin Globulin Albumin/Globulin Ratio Triglycerides Cholesterol LDL Cholesterol Direct HDL Cholesterol Venous Blood Potassium Influenza Typ A,B (EIA) 05/25/18 05/25/18 08:26 08:26 WBC 10.7 RBC 4.16 Hgb 12.0 L Hct 37.5 L MCV 90.1 MCH 28.8 MCHC 32.0 RDW 15.0 H Plt Count 120 MPV 10.7 pO2 VBG pH VBG pCO2 VBG HCO3 VBG Total CO2 VBG O2 Sat (Calc) VBG Base Excess VBG Potassium Sodium 148 Chloride 122 H Glucose Lactate FiO2 Potassium 3.3 L Carbon Dioxide 21 Anion Gap 9 L BUN 80 H Creatinine 1.2 Est GFR ( Amer) > 60 Est GFR (Non-Af Amer) 58 Random Glucose 126 H Calcium 8.7 Phosphorus 3.0 Magnesium 2.7 H Total Bilirubin 1.0 AST 46 ALT 43 Alkaline Phosphatase 72 Total Creatine Kinase Total Protein 6.6 Albumin 3.1 Globulin 3.5 Albumin/Globulin Ratio 0.9 L Triglycerides Cholesterol LDL Cholesterol Direct HDL Cholesterol Venous Blood Potassium Influenza Typ A,B (EIA) Assessment & Plan - Assessment and Plan (Free Text) Assessment: 87M patient, with PMHx, seen and evaluated for R anterior ankle abrasion and elongated/dystrophic nails Plan: Patient seen and evaluated with Dr. Vidal Labs, chart, vitals reviewed; 100F, WBC 10.7 Nails debrided x10 with a large nail nipper without incident DSD applied to R anterior ankle abrasion Bactroban ordered, to be applied with dressing changes Multipodus boots ordered Will continue to follow Thank you for the consult - Date & Time Date: 05/25/18 Time: 09:58 <Lan Vidal - Last Filed: 05/27/18 09:04> Meds - Medications Medications: Current Medications Acetaminophen (Tylenol 325mg Tab) 650 mg PO Q6 PRN PRN Reason: TEMP>=99.5F Acetaminophen (Tylenol 650 Mg Supp) 650 mg RC Q6H PRN PRN Reason: TEMP>=99.5F Acetylcysteine (Acetylcysteine 20%) 4 ml IH [id number] [facility] Last Admin: 05/27/18 07:26 Dose: 4 ml Aspirin (Aspirin Chewable) 81 mg PO DAILY [facility] Last Admin: 05/26/18 09:49 Dose: 81 mg Atorvastatin Calcium (Lipitor) 40 mg PO DIN [facility] Last Admin: 05/26/18 18:38 Dose: 40 mg Clopidogrel Bisulfate (Plavix) 75 mg PO DAILY [facility] Last Admin: 05/26/18 09:49 Dose: 75 mg Donepezil HCl (Aricept) 10 mg PO HS [facility] Last Admin: 05/26/18 21:40 Dose: 10 mg Fluoxetine HCl (Prozac) 10 mg PO DAILY [facility] Last Admin: 05/26/18 09:49 Dose: 10 mg Azithromycin 250 mg/ Sodium (Chloride) 250 mls @ 167 mls/hr IVPB DAILY [facility]; Protocol Last Admin: 05/26/18 14:11 Dose: 167 mls/hr Cefepime HCl (Maxipime 1gm) 1 gm in 100 mls @ 100 mls/hr IVPB Q8 [facility]; Protocol Last Admin: 05/27/18 05:47 Dose: 100 mls/hr Fluconazole (Diflucan Iv 200 Mg/100 Ml Ns) 100 mls @ 100 mls/hr IVPB DAILY [facility]; Protocol Last Admin: 05/26/18 09:39 Dose: 100 mls/hr Dextrose/Sodium Chloride (Dextrose 5%/0.45% Ns 1000 Ml) 1,000 mls @ 100 mls/hr IV .Q10H [facility] Last Admin: 05/27/18 05:47 Dose: 100 mls/hr Levalbuterol HCl (Xopenex) 0.63 mg IH [id number] [facility] Last Admin: 05/27/18 07:26 Dose: 0.63 mg Memantine (Namenda) 10 mg PO BID [facility] Last Admin: 05/26/18 18:39 Dose: 10 mg Metoprolol Tartrate (Lopressor) 25 mg PO BID [facility] Last Admin: 05/26/18 18:40 Dose: Not Given Midodrine (Proamatine) 2.5 mg PO TID [facility] Last Admin: 05/26/18 18:39 Dose: 2.5 mg Mupirocin (Bactroban Ointment) 0 gm NS BID [facility] Stop: 05/31/18 18:01 Last Admin: 05/26/18 18:57 Dose: 1 applic Solifenacin Succinate [Vesicare] (Home Med) 1 tab PO DAILY [facility] Last Admin: 05/26/18 12:01 Dose: Not Given Ondansetron HCl (Zofran Inj) 4 mg IVP Q4H PRN PRN Reason: Nausea/Vomiting Pantoprazole Sodium (Protonix Ec Tab) 40 mg PO 0600 [facility] Last Admin: 05/27/18 05:47 Dose: 40 mg Tamsulosin HCl (Flomax) 0.4 mg PO HS [facility] Last Admin: 05/26/18 21:40 Dose: 0.4 mg Thiamine HCl (Vitamin B1 Tab) 100 mg PO DAILY [facility] Last Admin: 05/26/18 09:49 Dose: 100 mg Vancomycin HCl (Vancocin 25 Mg/Ml (Oral Use)) 250 mg PO QID [facility]; Protocol Last Admin: 05/26/18 21:47 Dose: 250 mg Results - Vital Signs Recent Vital Signs: Last Vital Signs Temp 98.3 F 05/27/18 06:00 Pulse 71 05/27/18 06:00 Resp 19 05/27/18 06:00 BP 110/78 05/27/18 06:00 Pulse Ox 95 05/27/18 06:00 - Labs Result Diagrams: 05/27/18 07:35 05/27/18 07:35 Labs: Laboratory Results - last 24 hr 05/26/18 05/26/18 05/27/18 06:00 07:00 07:35 WBC 7.2 RBC 3.49 L Hgb 9.9 L Hct 31.4 L MCV 90.0 MCH 28.4 MCHC 31.5 RDW 14.6 H Plt Count 87 L Manual Plt Count 105 L MPV 9.9 Sodium Potassium Chloride Carbon Dioxide Anion Gap BUN Creatinine Est GFR ( Amer) Est GFR (Non-Af Amer) Random Glucose Hemoglobin A1c 5.5 Calcium Phosphorus Magnesium Total Bilirubin Direct Bilirubin AST ALT Alkaline Phosphatase Total Protein Albumin Globulin Albumin/Globulin Ratio 05/27/18 07:35 WBC RBC Hgb Hct MCV MCH MCHC RDW Plt Count Manual Plt Count MPV Sodium 142 Potassium 3.8 Chloride 114 H Carbon Dioxide 25 Anion Gap 6 L BUN 29 H Creatinine 0.8 Est GFR ( Amer) > 60 Est GFR (Non-Af Amer) > 60 Random Glucose 91 Hemoglobin A1c Calcium 8.2 L Phosphorus 2.6 Magnesium 1.9 Total Bilirubin 0.4 Direct Bilirubin 0.1 AST 31 ALT 35 Alkaline Phosphatase 57 Total Protein 5.6 L Albumin 2.6 L Globulin 3.0 Albumin/Globulin Ratio 0.9 L Attending/Attestation - Attestation I have personally seen and examined this patient.: Yes I have fully participated in the care of the patient.: Yes I have reviewed all pertinent clinical information: Yes
[2018-05-25] MEDS: Azithromycin 250 MG in Sodium Chloride 0.9% 250 ML IVPB SCH (10:41)
[2018-05-25] MEDS: Enoxaparin 40 mg Syringe SC SCH (10:41)
[2018-05-25] MEDS: POLYETHYLENE GLYCOL 3350 17 GM/Dose PACKET PO SCH (10:49)
[2018-05-25] MEDS: Insulin Reg-LOW-Coverage SC SCH ×4 (10:50→21:23)
[2018-05-25] MEDS: SOLIFENACIN SUCCINATE PO SCH (10:53)
--- NOTE | 2018-05-25 12:03 | CP.PCM.CON ---
History of Present Illness - History of Present Illness History of Present Illness: 87 year old male with PMH of HTN, dyslipidemia, depression, dementia, BPH, history of rheumatic hear disease, S/P aortic valve replacement was brought in to [facility] because of a fall and was apparently found by a family member on the floor at home. He was then brought to the ED for further evaluation. On initial work up, the patient was noted to have right middle lobe infiltrate on CT chest, and urine culture is showing gram negative bacilli. The patient is sleepy but arousable, had low grade fever overnight, no cough, no abdominal pain but full review of systems is difficult to obtain because of the patient's dementia. Infectious diseases consult is requested to further evaluate and manage. Review of Systems - Review of Systems All systems: reviewed and no additional remarkable complaints except (as per HPI) Past Patient History - Infectious Disease Hx of Infectious Diseases: None - Tetanus Immunizations Tetanus Immunization: Unknown - Past Medical History & Family History Past Medical History?: Yes - Past Social History Smoking Status: Smoker Currrent Status Unknown - CARDIAC Hx Cardiac Disorders: Yes Hx Hypertension: Yes - PULMONARY Hx Respiratory Disorders: No - NEUROLOGICAL Hx Alzheimer's Disease: Yes Hx Dementia: Yes Other/Comment: Aneurysm - HEENT Hx HEENT Problems: Yes (wears glasses) Hx Deafness: Yes ([place]) - RENAL Hx Chronic Kidney Disease: No - ENDOCRINE/METABOLIC Hx Endocrine Disorders: No - HEMATOLOGICAL/ONCOLOGICAL Hx Anemia: Yes (normocytic) - INTEGUMENTARY Hx Dermatological Problems: No - MUSCULOSKELETAL/RHEUMATOLOGICAL Hx Arthritis: Yes Other/Comment: H/O Falls - GASTROINTESTINAL Hx Gastrointestinal Disorders: No - GENITOURINARY/GYNECOLOGICAL Hx Incontinence: Yes - PSYCHIATRIC Hx Psychophysiologic Disorder: Yes Hx Depression: Yes Hx Substance Use: No Other/Comment: H/O ETOH USE - SURGICAL HISTORY Hx Cholecystectomy: Yes Other/Comment: TAVR in 2018 - ANESTHESIA Hx Anesthesia: Yes Hx Anesthesia Reactions: No Hx Malignant Hyperthermia: No Meds Allergies/Adverse Reactions: Allergies Allergy/AdvReac Type Severity Reaction Status Date / Time No Known Allergies Allergy Verified 10/14/17 19:39 - Medications Medications: Current Medications Aspirin (Aspirin Chewable) 81 mg PO DAILY [facility] Last Admin: 05/24/18 09:53 Dose: Not Given Atorvastatin Calcium (Lipitor) 40 mg PO DIN [facility] Last Admin: 05/24/18 17:19 Dose: 40 mg Clopidogrel Bisulfate (Plavix) 75 mg PO DAILY [facility] Last Admin: 05/24/18 17:20 Dose: 75 mg Docusate Sodium (Colace) 100 mg PO BID [facility] Last Admin: 05/24/18 17:20 Dose: 100 mg Donepezil HCl (Aricept) 5 mg PO HS [facility] Last Admin: 05/24/18 21:40 Dose: 5 mg Fluoxetine HCl (Prozac) 10 mg PO DAILY [facility] Last Admin: 05/24/18 09:55 Dose: Not Given Azithromycin 250 mg/ Sodium (Chloride) 250 mls @ 167 mls/hr IVPB DAILY [facility]; Protocol Last Admin: 05/24/18 13:09 Dose: 167 mls/hr Dextrose/Sodium Chloride (Dextrose 5%/0.9% Ns 1000 Ml) 1,000 mls @ 75 mls/hr IV .[id number] [facility] Last Admin: 05/25/18 05:14 Dose: 75 mls/hr Cefepime HCl (Maxipime 1gm) 1 gm in 100 mls @ 100 mls/hr IVPB Q8 [facility]; Protocol Last Admin: 05/25/18 05:13 Dose: 100 mls/hr Insulin Human Regular (Humulin R Low) 0 units SC ACHS [facility]; Protocol Last Admin: 05/24/18 23:45 Dose: Not Given Memantine (Namenda) 10 mg PO DAILY [facility] Last Admin: 05/24/18 09:54 Dose: Not Given Midodrine (Proamatine) 2.5 mg PO TID [facility] Last Admin: 05/24/18 17:19 Dose: 2.5 mg Solifenacin Succinate [Vesicare] (Home Med) 1 tab PO DAILY [facility] Last Admin: 05/24/18 09:56 Dose: Not Given Pantoprazole Sodium (Protonix Ec Tab) 40 mg PO 0600 [facility] Last Admin: 05/25/18 05:13 Dose: 40 mg Polyethylene Glycol (Miralax) 17 gm PO DAILY [facility] Last Admin: 05/24/18 13:07 Dose: Not Given Tamsulosin HCl (Flomax) 0.4 mg PO HS [facility] Last Admin: 05/24/18 21:40 Dose: 0.4 mg Physical Exam - Constitutional Appears: Non-toxic, Chronically Ill - Head Exam Head Exam: NORMAL INSPECTION - Respiratory Exam Respiratory Exam: Decreased Breath Sounds - Cardiovascular Exam Cardiovascular Exam: +S1, +S2 - GI/Abdominal Exam GI & Abdominal Exam: Soft. absent: Tenderness Results - Vital Signs Recent Vital Signs: Last Vital Signs Temp 97.8 F 05/25/18 00:01 Pulse 92 H 05/25/18 01:26 Resp 20 05/25/18 00:01 BP 122/85 05/25/18 00:01 Pulse Ox 97 05/25/18 00:01 - Labs Result Diagrams: 05/25/18 08:26 05/25/18 08:26 Labs: Laboratory Results - last 24 hr 05/24/18 05/24/18 05/24/18 06:50 06:50 08:00 WBC 13.2 H RBC 4.56 Hgb 13.1 L D Hct 40.1 L MCV 87.9 MCH 28.7 MCHC 32.7 RDW 14.6 H Plt Count 137 MPV 10.6 pO2 VBG pH VBG pCO2 VBG HCO3 VBG Total CO2 VBG O2 Sat (Calc) VBG Base Excess VBG Potassium Glucose Lactate FiO2 Sodium 144 Potassium 3.8 Chloride 113 H Carbon Dioxide 22 Anion Gap 12 BUN 93 H Creatinine 1.2 Est GFR ( Amer) > 60 Est GFR (Non-Af Amer) 58 Random Glucose 98 Calcium 8.7 Phosphorus 4.3 Magnesium 2.5 H Total Bilirubin 1.1 AST 66 H ALT 44 Alkaline Phosphatase 74 Total Creatine Kinase 255 H 246 H CK-MB (CK-2) 4.2 H 4.1 H CK-MB (CK-2) % Cancelled Cancelled Troponin I 0.04 Total Protein 6.8 Albumin 3.3 Globulin 3.4 Albumin/Globulin Ratio 1.0 L Triglycerides Cholesterol LDL Cholesterol Direct HDL Cholesterol Venous Blood Potassium Influenza Typ A,B (EIA) 05/24/18 05/24/18 05/24/18 13:00 17:39 19:30 WBC RBC Hgb Hct MCV MCH MCHC RDW Plt Count MPV pO2 52 VBG pH 7.36 VBG pCO2 41.0 VBG HCO3 23.2 VBG Total CO2 24.5 VBG O2 Sat (Calc) 87.9 H VBG Base Excess -2.2 L VBG Potassium 3.4 L Glucose 98 Lactate 1.8 FiO2 21.0 Sodium 149.0 H Potassium Chloride 113.0 H Carbon Dioxide Anion Gap BUN Creatinine Est GFR ( Amer) Est GFR (Non-Af Amer) Random Glucose Calcium Phosphorus Magnesium Total Bilirubin AST ALT Alkaline Phosphatase Total Creatine Kinase CK-MB (CK-2) CK-MB (CK-2) % Troponin I Total Protein Albumin Globulin Albumin/Globulin Ratio Triglycerides 61 Cholesterol 103 L LDL Cholesterol Direct 67 HDL Cholesterol 28 L Venous Blood Potassium 3.4 L Influenza Typ A,B (EIA) Negative for flu a/b 05/24/18 05/24/18 05/25/18 21:20 21:20 01:07 WBC RBC Hgb 13.5 L Hct 40.7 L MCV MCH MCHC RDW Plt Count MPV pO2 VBG pH VBG pCO2 VBG HCO3 VBG Total CO2 VBG O2 Sat (Calc) VBG Base Excess VBG Potassium Glucose Lactate FiO2 Sodium Potassium Chloride Carbon Dioxide Anion Gap BUN Creatinine Est GFR ( Amer) Est GFR (Non-Af Amer) Random Glucose Calcium Phosphorus Magnesium Total Bilirubin AST ALT Alkaline Phosphatase Total Creatine Kinase 191 153 CK-MB (CK-2) CK-MB (CK-2) % Troponin I Total Protein Albumin Globulin Albumin/Globulin Ratio Triglycerides Cholesterol LDL Cholesterol Direct HDL Cholesterol Venous Blood Potassium Influenza Typ A,B (EIA) Assessment & Plan - Assessment and Plan (Free Text) Plan: Assessment Right middle lobe HCAP UTI with gram negative bacilli in this patient with BPH history of rectal bleeding history of methicillin-sensitive coagulase negative staph bacteremia HTN dyslipidemia depression dementia BPH history of rheumatic hear disease S/P aortic valve replacement Plan gave a dose of IV Vancomycin and started Cefepime and Zithromax pending blood cx, identification and sensitivities of the GNB in the urine, PCT; reviewed CT chest, abdomen and pelvis - RML infiltrate noted, as well as urinary bladder wall thickening will monitor clinically
--- NOTE | 2018-05-25 12:51 | PN ---
DATE: 05/25/2018 CARDIOLOGY FOLLOWUP SUBJECTIVE: The patient is comfortable, lying flat in bed. PHYSICAL EXAMINATION VITAL SIGNS: Blood pressure 126/90 and heart rates in the 90s. NECK: Negative JVD. LUNGS: Without rales. HEART: Reveals S1 and S2, a 2/6 systolic ejection murmur. LABORATORY DATA: BUN and creatinine is 80 and 1.2. Hemoglobin is 12.0. IMPRESSION: 1. Prerenal azotemia. 2. Dehydration. 3. Status post syncope. 4. History of aortic valve replacement with transcatheter aortic valve replacement. 5. Mild rhabdomyolysis. 6. History of severe dementia. Given these findings, we will continue IV hydration. 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 Deion John MD
[2018-05-25] MEDS: Levalbuterol 0.63 MG/3 ML Inhal Soln UD IH SCH ×3 (14:13→21:00)
[2018-05-25] MEDS: Acetylcysteine 20% Inhal Soln (4ml) IH SCH ×3 (14:13→21:00)
[2018-05-25] MEDS: Mupirocin 2% Ointment 15 GM TUBE TOP SCH (18:04)
--- NOTE | 2018-05-25 20:04 | CARD ---
APPROVED REPORT Date of service: 05/25/2018 EKG Measurement Heart [id number] <Conclusion> Sinus rhythm with 1st degree AV block with occasional premature ventricular complexes and fusion complexes Inferior infarct, age undetermined Anteroseptal infarct, age undetermined T wave abnormality, consider lateral ischemia Abnormal ECG
--- NOTE | 2018-05-25 21:48 | PN ---
DATE: 05/25/2018 SUBJECTIVE: The patient is seen lying in the bed in room 262 bed one 262, bed 1. The patient overnight nurse's notes were reviewed.. The patient was found to be alert, awake, responsive, confused, disoriented. The patient slept well. PHYSICAL EXAMINATION: VITAL SIGNS: T-max 100 degrees Fahrenheit. Telemetry monitoring. Telemetry shows sinus rhythm with PVCs. Heart rate in 70s. Yesterday's blood pressure was 96/53 3 times, then the patient's most of the blood pressure is around 120s to 130s systolic, diastolic in 70s, 80s and 90s, respiration 18, O2 sat 93%, 95%, 97%. INTAKE AND OUTPUT: Output not documented correctly. HEENT: Head is normocephalic, atraumatic. HEENT examination shows pinkish pale conjunctivae. Anicteric sclerae. No oropharyngeal lesion. Questionable soft carotid bruit. CHEST: Kyphosis. LUNGS: Shows no audible crackle, rales or wheezing. Occasion upper lung field rhonchi. CARDIOVASCULAR: S1, S2, regular rhythm. Positive systolic murmur at left sternal border, left second intercostal space, right second intercostal space. ABDOMEN: Soft. Positive bowel sounds. GENITALIA: Male. RECTAL: Deferred. EXTREMITIES: Shows positive SCDs. No pitting edema, no calf numbness, no Homans' sign. MUSCULOSKELETAL: Shows a body mass index of 26. NEUROLOGIC: The patient is alert, awake, responsive, confused, disoriented, but follow simple command. Gait examination not tested. DIAGNOSTICS : On 05/25/2018, WBC count has resolved, hemoglobin/hematocrit 12.0, 37.5, WBC 10.7, platelets 120. Abnormal chemistry shows potassium 3.3, BUN is 80, creatinine 1.2, GFR greater than 60, glucose 118 and 126, calcium 8.7, phosphorus 3.0, magnesium 2.7. LFTs are normal. CPK has come down to 153 from 469. Urinalysis, stool occult blood negative. Urinalysis, moderate leukocyte, moderate blood, large bacteria, yeast. Stool occult blood was negative. Influenza serology is negative. Urine cultures is showing gram-negative bryan, identification sensitivity pending. MRI, MRA of the neck, MRA of the head, MRI of the brain, CT of the chest, CT abdomen and pelvis, pelvic x-rays, all reviewed. EKG and echocardiogram result was reviewed. IMPRESSION: 1. Questionable status post unwitnessed fall versus unwitnessed syncope. 2. Acute rhabdomyolysis. 3. Low-grade fever. 4. Gram-negative bryan urinary tract infection. 5. Tachycardia. 6. Hypoxemia. 7. Advanced dementia. 8. Delirium. 9. Leukocytosis with granulocytosis. 10. Normocytic anemia. 11. Hypokalemia. 12. Acute prerenal kidney injury. 13. Hyperglycemia. 14. Mild rhabdomyolysis with elevated CPK (resolving). 15. Transaminitis. 16. Gram-negative bryan urinary tract infection with proteinuria, microscopic hematuria, bilirubinuria, pyuria, bacteriuria and funguria. 17. Gait dysfunction. 18. Decondition. 19. Small right vertebral artery and dominant left vertebral artery. 20. A 3-mm left MCA trifurcation small aneurysm. 21. History of severe aortic stenosis status post transcatheter aortic valve replacement. 22. Questionable acute lacunar infarcts with 5-mm focus of diffusion restriction at the right cerebellum and right mckeon radiata. 23. Questionable suspicious acute lacunar infarct of the right cerebellum and mckeon radiata. 24. Cerebral cortical atrophy of the brain. 25. Microvascular ischemic disease of the brain. 26. Moderate chronic microvascular ischemic disease of the brain. 27. Poor personal hygiene. 28. Right middle lobe pneumonia and consolidation. 29. Questionable pulmonary vascular congestion. 30. Dilated thoracic aorta. 31. A 4.8 cm ascending thoracic aortic diameter with 3.5 cm descending thoracic aortic diameter. 32. Cardiomegaly. 33. Status post transcatheter aortic valve replacement. 34. Mildly enlarged pulmonary artery. 35. Diffuse esophageal mucosal thickening. 36. Aortic arch atherosclerotic calcification and descending atherosclerotic calcification. 37. Right-sided pleural thickening. 38. 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 39. Right humeral head and right glenohumeral joint, heterogeneous low attenuation fluid collection verses low attenuation mass containing fluid complement. 40. Cardiomegaly. 41. Cholecystectomy. 42. Left adrenal gland nodule. 43. Left renal cyst. 44. Diffuse atherosclerotic abdominal aortic and iliac artery calcification. 45. Constipation with fecal stasis. 46. Colonic diverticulosis without diverticulitis. 47. Left nonobstructing nephrolithiasis. 48. Urinary bladder wall thickening. 49. Prostatomegaly. 50. Osteoarthritis of the hips and the sacroiliac joint and pubic symphysis. 51. Questionable possible prostate seed implant. 52. Severe degenerative joint disease of the spine. 53. Cerebral cortical atrophy of the brain and microvascular ischemic disease of the brain. 54. Anteroseptal inferior infarct. 55. Left axis deviation. 56. Lateral ischemic changes. 57. Transient left bundle-branch block. 58. Incomplete left bundle-branch block and new left bundle branch block. 59. Left ventricular ejection fraction of 53% with concentric left ventricular hypertrophy. 60. Mild valvular aortic stenosis. 61. Mild mitral annular calcification. 62. Moderate tricuspid regurgitation with right ventricular systolic pressure of 32 mmHg. 63. History of syncope and history of alcohol use in the past. 64. Right middle lobe healthcare-associated pneumonia. 65. Right anterior ankle aberration and elongated dystrophic toenails. 66. Poor personal hygiene. 67. Transient confusional state secondary to transient cerebral hypoperfusion. 68. 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 69. Dehydration and hypovolemia with severe prerenal kidney injury. 70. Right hip and elbow pressure ulcers. 71. History of poor compliance and noncompliance. 72. Prostatic hypertrophy. 73. History of hyperlipidemia. 74. History of hypotension. 75. History of depression. PLAN: At this time, the patient has been ordered serial labs. Stool Clostridium difficile was sent today. CURRENT CONSULTATIONS: 1. Infectious Disease. 2. Neurology. 3. Cardiology. 4. Surgery. 5. Podiatry. TCU evaluation ordered. The patient is currently on Mucomyst nebulizer and Xopenex nebulizer every 6 hours. The patient is on chest PT. The patient's Aricept has been increased to 10 mg at bedtime, aspirin 81 mg daily Colace 100 mg twice a day, Diflucan 200 mg IV daily, Flomax 0.4 mg at bedtime. The patient is on Lipitor 40 mg daily. The patient has been placed on fingerstick sliding scale coverage. We will order a hemoglobin A1c for the morning. In addition, the patient has been ordered Lipitor 40 daily, Lopressor 25 mg twice a day, Lovenox 40 mg subcutaneously daily, Maxipime 1 g IV every 8, MiraLax will be increased to 17 g b.i.d. He is currently on Namenda 10 mg daily which is an old dose. The patient has been recently in the office. Namenda has been increased to 10 mg twice a day and dose will be corrected. In addition, the patient is on Plavix 75 mg daily. As per Neurology recommendation, the patient is on ProAmatine 2.5 mg three times a day, Protonix 40 mg daily, Prozac 10 mg daily, VESIcare 1 tablet daily 5 mg, Tylenol p.o. suppository every 6 p.r.n. The patient was given a dose of vancomycin [address] Schmitt. The patient received a dose of Zithromax IV, Zofran four IV every 4. Chest PT, oxygen 2 liters has been ordered. EEG has been ordered, results pending. Heart-healthy diet. Neuro checks. Out of bed to chair, physical therapy, occupational therapy all ordered. The patient's overall prognosis is guarded to poor secondary to multiple active comorbidities and acute decline in the medical condition. Dictated and electronically signed, not read. Gaurav Ruvalcaba MD
[2018-05-26] MEDS: Levalbuterol 0.63 MG/3 ML Inhal Soln UD IH SCH ×4 (02:30→20:12)
[2018-05-26] MEDS: Acetylcysteine 20% Inhal Soln (4ml) IH SCH ×4 (02:30→20:12)
[2018-05-26] MEDS: Dextrose 5%/0.9% NS 1,000 ML IV SCH (04:45)
[2018-05-26] MEDS: Cefepime 1gm in NS 100ml 1 GM/100 ML BAG IVPB SCH ×3 (05:56→21:40)
[2018-05-26] MEDS: Pantoprazole 40 mg EC Tab PO SCH (05:57)
[2018-05-26 07:00] LABS: HEMOGLOBIN 10.9 g/dL (14.0-18.0); MEAN CELL VOLUME 92.5 fl (80.0-105.0); MEAN CORPUSCULAR HEMOGLOBIN 28.2 pg (25.0-35.0); MEAN CORPUSCULAR HGB CONC 30.5 g/dl (31.0-37.0); MEAN PLATELET VOLUME 10.7 fl (7.0-11.0); RBC 3.86 10^6/uL (3.5-6.1); RED CELL DISTRIBUTION WIDTH 15.3 % (11.5-14.5); WHITE BLOOD COUNT 8.7 10^3/uL (4.5-11.0)
[2018-05-26 07:52] LABS: ALB/GLOB RATIO 0.9 (1.1-1.8); ALBUMIN 2.9 g/dL (3.0-4.8); ALT/SGPT 41 U/L (7-56); AST/SGOT 33 U/L (17-59); BILIRUBIN,DIRECT 0.1 mg/dL (0.0-0.4); BLOOD UREA NITROGEN 53 mg/dL (7-21); CALCIUM 8.7 mg/dL (8.4-10.5); GFR NON-AFRICAN AMERICAN > 60
[2018-05-26] MEDS ORDERED: Potassium Phosphate 15 MMOLE in Dextrose 5% In Water 250 ML IVPB ONE (09:04)
[2018-05-26] MEDS: Fluconazole IV 200mg/100 ml NS 100 ML IVPB SCH (09:39)
[2018-05-26] MEDS: Dextrose 5%/0.45% NS 1,000 ML IV SCH ×2 (09:44→19:30)
[2018-05-26] MEDS: Azithromycin 250 MG in Sodium Chloride 0.9% 250 ML IVPB SCH ×2 (09:47→14:11)
[2018-05-26] MEDS ORDERED: POLYETHYLENE GLYCOL 3350 17 GM/Dose PACKET PO SCH (10:00)
[2018-05-26] MEDS: Insulin Reg-LOW-Coverage SC SCH ×2 (10:05→12:04)
--- NOTE | 2018-05-26 11:23 | CP.PCM.PN ---
Subjective - Date & Time of Evaluation Date of Evaluation: 05/26/18 Time of Evaluation: 10:45 - Subjective Subjective: Not in distress, no fevers. Objective - Vital Signs/Intake and Output Vital Signs (last 24 hours): Temp Pulse Resp BP Pulse Ox 100 F H 91 H 20 121/74 95 05/25/18 06:00 05/25/18 10:50 05/25/18 06:00 05/25/18 10:50 05/25/18 06:00 Intake and Output: 05/25/18 05/25/18 06:59 18:59 Intake Total 960 Balance 960 - Medications Medications: Current Medications Acetaminophen (Tylenol 325mg Tab) 650 mg PO Q6 PRN PRN Reason: TEMP>=99.5F Acetaminophen (Tylenol 650 Mg Supp) 650 mg RC Q6H PRN PRN Reason: TEMP>=99.5F Acetylcysteine (Acetylcysteine 20%) 4 ml IH [id number] [facility] Aspirin (Aspirin Chewable) 81 mg PO DAILY [facility] Last Admin: 05/25/18 10:52 Dose: 81 mg Atorvastatin Calcium (Lipitor) 40 mg PO DIN [facility] Last Admin: 05/24/18 17:19 Dose: 40 mg Clopidogrel Bisulfate (Plavix) 75 mg PO DAILY [facility] Last Admin: 05/25/18 10:49 Dose: 75 mg Docusate Sodium (Colace) 100 mg PO BID [facility] Last Admin: 05/25/18 10:49 Dose: 100 mg Donepezil HCl (Aricept) 5 mg PO HS [facility] Last Admin: 05/24/18 21:40 Dose: 5 mg Enoxaparin Sodium (Lovenox) 40 mg SC DAILY [facility]; Protocol Last Admin: 05/25/18 10:41 Dose: 40 mg Fluoxetine HCl (Prozac) 10 mg PO DAILY [facility] Last Admin: 05/25/18 10:50 Dose: 10 mg Azithromycin 250 mg/ Sodium (Chloride) 250 mls @ 167 mls/hr IVPB DAILY [facility]; Protocol Last Admin: 05/25/18 10:41 Dose: 167 mls/hr Dextrose/Sodium Chloride (Dextrose 5%/0.9% Ns 1000 Ml) 1,000 mls @ 75 mls/hr IV [id number] [facility] Last Admin: 05/25/18 05:14 Dose: 75 mls/hr Cefepime HCl (Maxipime 1gm) 1 gm in 100 mls @ 100 mls/hr IVPB Q8 [facility]; Protocol Last Admin: 05/25/18 05:13 Dose: 100 mls/hr Potassium Chloride (Potassium Chloride 20 Meq/100 Ml) 20 meq in 100 mls @ 50 mls/hr IVPB Q2H [facility] Stop: 05/25/18 13:14 Last Admin: 05/25/18 10:40 Dose: 50 mls/hr Insulin Human Regular (Humulin R Low) 0 units SC ACHS [facility]; Protocol Last Admin: 05/25/18 10:50 Dose: Not Given Levalbuterol HCl (Xopenex) 0.63 mg IH [id number] [facility] Memantine (Namenda) 10 mg PO DAILY [facility] Last Admin: 05/25/18 10:51 Dose: 10 mg Metoprolol Tartrate (Lopressor) 25 mg PO BID [facility] Last Admin: 05/25/18 10:50 Dose: 25 mg Midodrine (Proamatine) 2.5 mg PO TID [facility] Last Admin: 05/25/18 10:50 Dose: 2.5 mg Mupirocin (Bactroban Ointment) 1 gm TOP BID [facility] Solifenacin Succinate [Vesicare] (Home Med) 1 tab PO DAILY [facility] Last Admin: 05/25/18 10:53 Dose: Not Given Ondansetron HCl (Zofran Inj) 4 mg IVP Q4H PRN PRN Reason: Nausea/Vomiting Pantoprazole Sodium (Protonix Ec Tab) 40 mg PO 0600 [facility] Last Admin: 05/25/18 05:13 Dose: 40 mg Pantoprazole Sodium (Protonix Ec Tab) 40 mg PO 0600 [facility] Polyethylene Glycol (Miralax) 17 gm PO DAILY [facility] Last Admin: 05/25/18 10:49 Dose: 17 gm Tamsulosin HCl (Flomax) 0.4 mg PO HS [facility] Last Admin: 05/24/18 21:40 Dose: 0.4 mg - Labs Labs: 05/25/18 08:26 05/25/18 08:26 PT 14.5 SECONDS (9.4-12.5) H 05/23/18 19:30 INR 1.31 05/23/18 19:30 APTT 33.0 Seconds (26.9-38.3) 05/23/18 19:30 - Constitutional Appears: Chronically Ill - Head Exam Head Exam: NORMAL INSPECTION - Respiratory Exam Respiratory Exam: Decreased Breath Sounds - Cardiovascular Exam Cardiovascular Exam: +S1, +S2 - GI/Abdominal Exam GI & Abdominal Exam: Soft. absent: Tenderness Assessment and Plan - Assessment and Plan (Free Text) Plan: Assessment Right middle lobe HCAP UTI with E. coli in this patient with BPH history of rectal bleeding history of methicillin-sensitive coagulase negative staph bacteremia HTN dyslipidemia depression dementia BPH history of rheumatic hear disease S/P aortic valve replacement Plan gave a dose of IV Vancomycin and continue Cefepime and Zithromax day 2 pending final blood cx, PCT; reviewed CT chest, abdomen and pelvis - RML infiltrate noted, as well as urinary bladder wall thickening will continue to monitor clinically
[2018-05-26] MEDS: SOLIFENACIN SUCCINATE PO SCH (12:01)
[2018-05-26] MEDS: Mupirocin 2% Ointment 15 GM TUBE TOP SCH (12:07)
[2018-05-26] MEDS: Enoxaparin 40 mg Syringe SC SCH (12:08)
--- NOTE | 2018-05-26 14:06 | PN ---
DATE: 05/26/[address] Deion John. SUBJECTIVE: The patient is confused, but present does not appear to be in any distress. PHYSICAL EXAMINATION: VITAL SIGNS: Blood pressure 110/68, heart rate 67, temperature 97.6, respirations 20. HEENT: Pale conjunctivae. CHEST: Clear. HEART: S1 and S2 regular. EXTREMITIES: No edema. EKG reveals sinus rhythm first degree AV block, inferior infract of indeterminate age, anteroseptal infarct of indeterminate age, T wave abnormality consider lateral ischemia. Echocardiograph study revealed mild concentric LVH with normal ejection fraction, uncs-hv-[id number] aortic stenosis and vate-[id number]-rygciwaq tricuspid insufficiency. Brain MRI limit study. Lacunar infracts noted at right cerebellum and right centrum seen overly, mckeon radiata lightly acute. Moderate volume loss. LABORATORY DATA: SMA-7 sodium 149, potassium 3.6, chloride 121, CO2 of 24, glucose 103, BUN 56, creatinine 1.0. Today's hemoglobin and hematocrit 10.3 and 35.7, white count 8.7, and platelet count 100. ASSESSMENT: 1. Acute lacunar infarct involving the right cerebellum and right centrum semiovale/mckeon radiata. 2. Prerenal azotemia. 3. Anemia. 4. Status post transcatheter aortic valve replacement. 5. Syncopal episode. 6. Escherichia coli urinary tract infection. RECOMMENDATIONS: Continue aspirin 81 mg once a day, Zithromax 250 mg intravenously daily, 100 mL a hour, Diflucan 100 mg intravenously daily, Lipitor 40 mg once a day, Lopressor 25 mg twice a day, Lovenox 40 mg subcutaneously once a day, Maxipime 1 g intravenously every 8 hours, Plavix 75 mg once a day, potassium phosphate intravenous placement, ProAmatine 2.5 mg three times a day, thiamin 100 mg daily. Cesar Carlson MD
[2018-05-26] MEDS: Vancomycin 25 MG/ML PO SCH ×3 (14:22→21:47)
--- NOTE | 2018-05-26 15:18 | CT ---
Date of service: 05/26/2018 PROCEDURE: CT of the right shoulder. HISTORY: RIGHT SHOULDER COMPARISON: None available. TECHNIQUE: Contiguous axial images of the right shoulder were obtained. Coronal and sagittal reformats were generated. Radiation dose: Total exam DLP = 257.4 mGy-cm. This CT exam was performed using one or more of the following dose reduction techniques: Automated exposure control, adjustment of the mA and/or kV according to patient size, and/or use of iterative reconstruction technique. FINDINGS: BONES: The current study reveals no evidence of acute displaced fracture nor dislocation. The right humeral head is appropriately located with respect to the acetabulum. 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 Additionally, there are mild degenerative changes of the right acromioclavicular joint with small elliptical shaped corticated bony density located along the superior margin of the AC joint. There is also a relatively large bilobed somewhat peanut shaped soft tissue fluid collection (which measures approximately 8 cm x 3.7 cm anterior and medial to the right humeral head and proximal humerus with Hounsfield units ranging from mid teens to low 20s.. This may be intramuscular in location subjacent to the right deltoid muscle extending medially into the axillary region. Collectively the collection probably represents old posttraumatic sequela such as a chronic hematoma. Follow-up MRI could be performed to further characterize this fluid collection. SOFT TISSUES: Vascular calcifications involving the axillary and probably some of the distal right subclavian arteries. IMPRESSION: No evidence of acute displaced fracture nor dislocation.. 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 large bilobed somewhat peanut shaped soft tissue fluid collection (which measures approximately 8 cm x 3.7 cm anterior and medial to the right humeral head and proximal humerus with Hounsfield units ranging from mid teens to low 20s.. This appears to be intramuscular in location subjacent to the right deltoid muscle and extending medially into the axillary region. Findings probably represents old posttraumatic sequela such as a chronic hematoma. Follow-up MRI could be performed to further characterize this fluid collection.
[2018-05-26] MEDS: Mupirocin 2% Ointment 15 GM TUBE NS SCH (18:57)
[2018-05-27] MEDS: Acetylcysteine 20% Inhal Soln (4ml) IH SCH ×4 (02:38→20:20)
[2018-05-27] MEDS: Levalbuterol 0.63 MG/3 ML Inhal Soln UD IH SCH ×4 (02:38→20:20)
[2018-05-27] MEDS: Pantoprazole 40 mg EC Tab PO SCH (05:47)
[2018-05-27] MEDS: Dextrose 5%/0.45% NS 1,000 ML IV SCH ×2 (05:47→16:13)
[2018-05-27] MEDS: Cefepime 1gm in NS 100ml 1 GM/100 ML BAG IVPB SCH ×3 (05:47→22:23)
[2018-05-27 07:46] LABS: HEMOGLOBIN 9.9 g/dL (14.0-18.0); MEAN CORPUSCULAR HEMOGLOBIN 28.4 pg (25.0-35.0); MEAN CORPUSCULAR HGB CONC 31.5 g/dl (31.0-37.0); MEAN PLATELET VOLUME 9.9 fl (7.0-11.0); RBC 3.49 10^6/uL (3.5-6.1); RED CELL DISTRIBUTION WIDTH 14.6 % (11.5-14.5); WHITE BLOOD COUNT 7.2 10^3/uL (4.5-11.0)
[2018-05-27 08:05] LABS: ALB/GLOB RATIO 0.9 (1.1-1.8); ALBUMIN 2.6 g/dL (3.0-4.8); ALT/SGPT 35 U/L (7-56); AST/SGOT 31 U/L (17-59); BILIRUBIN,DIRECT 0.1 mg/dL (0.0-0.4); BLOOD UREA NITROGEN 29 mg/dL (7-21); CALCIUM 8.2 mg/dL (8.4-10.5); GFR NON-AFRICAN AMERICAN > 60
--- NOTE | 2018-05-27 08:17 | CP.PCM.PN ---
Subjective - Date & Time of Evaluation Date of Evaluation: 05/27/18 Time of Evaluation: 08:15 - Subjective Subjective: PGY-[address] Ruvalcaba Afebile overnight. No acute event reported by RN Objective - Vital Signs/Intake and Output Vital Signs (last 24 hours): Temp Pulse Resp BP Pulse Ox 98.3 F 71 19 110/78 95 05/27/18 06:00 05/27/18 06:00 05/27/18 06:00 05/27/18 06:00 05/27/18 06:00 Intake and Output: 05/27/18 05/27/18 06:59 18:59 Intake Total 240 Balance 240 - Medications Medications: Current Medications Acetaminophen (Tylenol 325mg Tab) 650 mg PO Q6 PRN PRN Reason: TEMP>=99.5F Acetaminophen (Tylenol 650 Mg Supp) 650 mg RC Q6H PRN PRN Reason: TEMP>=99.5F Acetylcysteine (Acetylcysteine 20%) 4 ml IH [id number] [facility] Last Admin: 05/27/18 07:26 Dose: 4 ml Aspirin (Aspirin Chewable) 81 mg PO DAILY [facility] Last Admin: 05/26/18 09:49 Dose: 81 mg Atorvastatin Calcium (Lipitor) 40 mg PO DIN [facility] Last Admin: 05/26/18 18:38 Dose: 40 mg Clopidogrel Bisulfate (Plavix) 75 mg PO DAILY [facility] Last Admin: 05/26/18 09:49 Dose: 75 mg Donepezil HCl (Aricept) 10 mg PO HS [facility] Last Admin: 05/26/18 21:40 Dose: 10 mg Enoxaparin Sodium (Lovenox) 40 mg SC DAILY [facility]; Protocol Last Admin: 05/26/18 12:08 Dose: 40 mg Fluoxetine HCl (Prozac) 10 mg PO DAILY [facility] Last Admin: 05/26/18 09:49 Dose: 10 mg Azithromycin 250 mg/ Sodium (Chloride) 250 mls @ 167 mls/hr IVPB DAILY [facility]; Protocol Last Admin: 05/26/18 14:11 Dose: 167 mls/hr Cefepime HCl (Maxipime 1gm) 1 gm in 100 mls @ 100 mls/hr IVPB Q8 [facility]; Protocol Last Admin: 05/27/18 05:47 Dose: 100 mls/hr Fluconazole (Diflucan Iv 200 Mg/100 Ml Ns) 100 mls @ 100 mls/hr IVPB DAILY [facility]; Protocol Last Admin: 05/26/18 09:39 Dose: 100 mls/hr Dextrose/Sodium Chloride (Dextrose 5%/0.45% Ns 1000 Ml) 1,000 mls @ 100 mls/hr IV .Q10H [facility] Last Admin: 05/27/18 05:47 Dose: 100 mls/hr Levalbuterol HCl (Xopenex) 0.63 mg IH [id number] [facility] Last Admin: 05/27/18 07:26 Dose: 0.63 mg Memantine (Namenda) 10 mg PO BID [facility] Last Admin: 05/26/18 18:39 Dose: 10 mg Metoprolol Tartrate (Lopressor) 25 mg PO BID [facility] Last Admin: 05/26/18 18:40 Dose: Not Given Midodrine (Proamatine) 2.5 mg PO TID [facility] Last Admin: 05/26/18 18:39 Dose: 2.5 mg Mupirocin (Bactroban Ointment) 0 gm NS BID [facility] Stop: 05/31/18 18:01 Last Admin: 05/26/18 18:57 Dose: 1 applic Solifenacin Succinate [Vesicare] (Home Med) 1 tab PO DAILY [facility] Last Admin: 05/26/18 12:01 Dose: Not Given Ondansetron HCl (Zofran Inj) 4 mg IVP Q4H PRN PRN Reason: Nausea/Vomiting Pantoprazole Sodium (Protonix Ec Tab) 40 mg PO 0600 [facility] Last Admin: 05/27/18 05:47 Dose: 40 mg Tamsulosin HCl (Flomax) 0.4 mg PO HS [facility] Last Admin: 05/26/18 21:40 Dose: 0.4 mg Thiamine HCl (Vitamin B1 Tab) 100 mg PO DAILY [facility] Last Admin: 05/26/18 09:49 Dose: 100 mg Vancomycin HCl (Vancocin 25 Mg/Ml (Oral Use)) 250 mg PO QID [facility]; Protocol Last Admin: 05/26/18 21:47 Dose: 250 mg - Labs Labs: 05/27/18 07:35 05/27/18 07:35 PT 14.5 SECONDS (9.4-12.5) H 05/23/18 19:30 INR 1.31 05/23/18 19:30 APTT 33.0 Seconds (26.9-38.3) 05/23/18 19:30 - Constitutional Appears: In Acute Distress - Head Exam Head Exam: ATRAUMATIC, NORMAL INSPECTION, NORMOCEPHALIC - Eye Exam Eye Exam: EOMI, Normal appearance, PERRL. absent: Scleral icterus Pupil Exam: NORMAL ACCOMODATION - ENT Exam ENT Exam: Mucous Membranes Moist - Neck Exam Additional comments: supple - Respiratory Exam Respiratory Exam: Decreased Breath Sounds (b/l lung bases), Clear to Ausculation Bilateral, NORMAL BREATHING PATTERN - Cardiovascular Exam Cardiovascular Exam: +S1, +S2, Murmur - GI/Abdominal Exam GI & Abdominal Exam: Soft, Normal Bowel Sounds - Extremities Exam Extremities Exam: Pedal Edema Additional comments: RUE wound, non draining, w dressing - Back Exam Back Exam: absent: CVA tenderness (L), CVA tenderness (R) - Neurological Exam Neurological Exam: Alert, Awake - Psychiatric Exam Psychiatric exam: Normal Affect, Normal Mood - Skin Skin Exam: Dry, Warm Assessment and Plan - Assessment and Plan (Free Text) Plan: Mr Mcdonough, 87M, with PMHx Alzheimer dementia, aortic stenosis s/p TAVR (Winter 2017), HTN/HLD, Hx GI bleed in 2016, alcohol abuse, depression, rheumatic heart disease as a child presenting s/p fall and found on the ground. He has altered mental status likely due to the acute cerebellar stroke vs multiple sources of infection. Per Son, after discharge from rehab 2 months ago, pt became more forgetful, neglectful in self-care, and not motivated to get out of the house. His baseline mentation was AAOx3. Alter mental status R/o central vs infectious causes Baseline Mentation AAOx3 - HHD/finely chopped, per speech therapist, aspiration precaution, D5/NS@75 - neural check/EEG - CT head shows no intracranial hemorrhage, moderate atrophy Acute stroke, lacuna infarct - Neck MRA - no critical stenose. small R vertebral artery. 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 Already on daily AsA 81. PT/OT - ASA, plavix, lipitor 40 Sespsis from HCAP (RML) vs UTI (E coli) vs Questionable C.diff colitis thrombocytopenia likely due to sepsis Chronic fe def anemia, nomocytic - stable at baseline (Hb9) - CT abd/pelvis shows 1. right middle lobe infiltrates 2. Questionable tumor in lung. Follow up in 1-3 months 3. 5cm x 5cm mass in R humeral head/glenohumeral joint - Cefepime/Azithromycin (day 3) Continue IV vanco, since MRSA screen positive - Vanco PO (day 2) for C diff s/p fall - CT head shows no intracranial hemorrhage, moderate atrophy - fall precautions - CK trending down to 150s. Continue gentle IVF Azotemia with BUN 90s, Hb stable/likely from elevated Creatine kinase due to pressure ulcres or fall and dehydration. Not likely rhabdomyolysis - Stool hemeoccult neg - trend H&H, down-trending to 9.9 New onset Left bundle branch block R/O ACS - Troponins 0.04-0.05 x 3 - Serial EKG - ECHO from 04/2018: LVEF 55% - ECHO 05/24/18: Normal LVEF 53% - Cardiology consult Decubitus ulcer and shoulder/sacral/heel - wound care; podiatry consult; No plan for surgery; air mattress, turn q2h, multipodus boots Alzheimer's dementia - continue home Aricept and Memantine PPX - Protonix Disposition Plan - sonFranko, , main caregiver - Family request [facility] - DNR/DNI Consult: Alvaro Jo Simpson, [place]
--- NOTE | 2018-05-27 08:28 | CP.PCM.CON ---
History of Present Illness - History of Present Illness History of Present Illness: ortho consult for Dr. Griffin. 87 M with a history of dementia, who sustained an unwitnessed fall. History is limited due to patient's dementia. Patient denies any fall. Patient denies any pain. Ortho consult for finding on CT scan of right shoulder. Past Patient History - Infectious Disease Hx of Infectious Diseases: None - Tetanus Immunizations Tetanus Immunization: Unknown - Past Medical History & Family History Past Medical History?: Yes - Past Social History Smoking Status: Smoker Currrent Status Unknown - CARDIAC Hx Cardiac Disorders: Yes Hx Hypercholesterolemia: Yes (HLD,) - PULMONARY Hx Respiratory Disorders: No - NEUROLOGICAL Hx Alzheimer's Disease: Yes Hx Dementia: Yes Other/Comment: Aneurysm - HEENT Hx HEENT Problems: Yes (wears glasses) Hx Deafness: Yes ([place]) - RENAL Hx Chronic Kidney Disease: No - ENDOCRINE/METABOLIC Hx Endocrine Disorders: No - HEMATOLOGICAL/ONCOLOGICAL Hx Anemia: Yes (normocytic) - INTEGUMENTARY Hx Dermatological Problems: No - MUSCULOSKELETAL/RHEUMATOLOGICAL Hx Arthritis: Yes Other/Comment: H/O Falls - GASTROINTESTINAL Hx Gastrointestinal Disorders: No - GENITOURINARY/GYNECOLOGICAL Hx Incontinence: Yes - PSYCHIATRIC Hx Psychophysiologic Disorder: Yes Hx Depression: Yes Hx Substance Use: No Other/Comment: H/O ETOH USE - SURGICAL HISTORY Hx Cholecystectomy: Yes Other/Comment: DAVIDR in 2018 - ANESTHESIA Hx Anesthesia: Yes Hx Anesthesia Reactions: No Hx Malignant Hyperthermia: No Meds Allergies/Adverse Reactions: Allergies Allergy/AdvReac Type Severity Reaction Status Date / Time No Known Allergies Allergy Verified 10/14/17 19:39 - Medications Medications: Current Medications Acetaminophen (Tylenol 325mg Tab) 650 mg PO Q6 PRN PRN Reason: TEMP>=99.5F Acetaminophen (Tylenol 650 Mg Supp) 650 mg RC Q6H PRN PRN Reason: TEMP>=99.5F Acetylcysteine (Acetylcysteine 20%) 4 ml IH [id number] [facility] Last Admin: 05/27/18 07:26 Dose: 4 ml Aspirin (Aspirin Chewable) 81 mg PO DAILY [facility] Last Admin: 05/26/18 09:49 Dose: 81 mg Atorvastatin Calcium (Lipitor) 40 mg PO DIN [facility] Last Admin: 05/26/18 18:38 Dose: 40 mg Clopidogrel Bisulfate (Plavix) 75 mg PO DAILY [facility] Last Admin: 05/26/18 09:49 Dose: 75 mg Donepezil HCl (Aricept) 10 mg PO HS [facility] Last Admin: 05/26/18 21:40 Dose: 10 mg Enoxaparin Sodium (Lovenox) 40 mg SC DAILY [facility]; Protocol Last Admin: 05/26/18 12:08 Dose: 40 mg Fluoxetine HCl (Prozac) 10 mg PO DAILY [facility] Last Admin: 05/26/18 09:49 Dose: 10 mg Azithromycin 250 mg/ Sodium (Chloride) 250 mls @ 167 mls/hr IVPB DAILY [facility]; Protocol Last Admin: 05/26/18 14:11 Dose: 167 mls/hr Cefepime HCl (Maxipime 1gm) 1 gm in 100 mls @ 100 mls/hr IVPB Q8 [facility]; Protocol Last Admin: 05/27/18 05:47 Dose: 100 mls/hr Fluconazole (Diflucan Iv 200 Mg/100 Ml Ns) 100 mls @ 100 mls/hr IVPB DAILY [facility]; Protocol Last Admin: 05/26/18 09:39 Dose: 100 mls/hr Dextrose/Sodium Chloride (Dextrose 5%/0.45% Ns 1000 Ml) 1,000 mls @ 100 mls/hr IV .Q10H [facility] Last Admin: 05/27/18 05:47 Dose: 100 mls/hr Levalbuterol HCl (Xopenex) 0.63 mg IH [id number] [facility] Last Admin: 05/27/18 07:26 Dose: 0.63 mg Memantine (Namenda) 10 mg PO BID [facility] Last Admin: 05/26/18 18:39 Dose: 10 mg Metoprolol Tartrate (Lopressor) 25 mg PO BID [facility] Last Admin: 05/26/18 18:40 Dose: Not Given Midodrine (Proamatine) 2.5 mg PO TID [facility] Last Admin: 05/26/18 18:39 Dose: 2.5 mg Mupirocin (Bactroban Ointment) 0 gm NS BID [facility] Stop: 05/31/18 18:01 Last Admin: 05/26/18 18:57 Dose: 1 applic Solifenacin Succinate [Vesicare] (Home Med) 1 tab PO DAILY [facility] Last Admin: 05/26/18 12:01 Dose: Not Given Ondansetron HCl (Zofran Inj) 4 mg IVP Q4H PRN PRN Reason: Nausea/Vomiting Pantoprazole Sodium (Protonix Ec Tab) 40 mg PO 0600 [facility] Last Admin: 05/27/18 05:47 Dose: 40 mg Tamsulosin HCl (Flomax) 0.4 mg PO HS [facility] Last Admin: 05/26/18 21:40 Dose: 0.4 mg Thiamine HCl (Vitamin B1 Tab) 100 mg PO DAILY [facility] Last Admin: 05/26/18 09:49 Dose: 100 mg Vancomycin HCl (Vancocin 25 Mg/Ml (Oral Use)) 250 mg PO QID [facility]; Protocol Last Admin: 05/26/18 21:47 Dose: 250 mg Physical Exam - Constitutional Appears: No Acute Distress, Chronically Ill - Head Exam Head Exam: ATRAUMATIC - Respiratory Exam Respiratory Exam: NORMAL BREATHING PATTERN - Extremities Exam Additional comments: Patient seen and examined with Dr. Griffin. On examination, this is an elderly male who is in no apparent distress. Patient is alert awake, sitting up in bed. Examination is limited due to patient's dementia. Examination of the right shou lder, there is no obvious swelling or deformity. Patient does have multiple abrasions of the right upper extremity, that are clean and intact. There is no drainage. No signs of cellulitis. Patient does perform minimal active range of forward flexion. Patient does not demonstrate any pain with passive range of forward flexion to about 120 degrees of the shoulder. No obvious areas of tenderness to palpation. Patient has good strategic planning manager strength. He has good cap refill. Neurological exam is limited, but grossly is neurovascularly intact distally Results - Vital Signs Recent Vital Signs: Last Vital Signs Temp 98.3 F 05/27/18 06:00 Pulse 71 05/27/18 06:00 Resp 19 05/27/18 06:00 BP 110/78 05/27/18 06:00 Pulse Ox 95 05/27/18 06:00 - Labs Result Diagrams: 05/27/18 07:35 05/27/18 07:35 Labs: Laboratory Results - last 24 hr 05/26/18 05/26/18 05/27/18 06:00 07:00 07:35 WBC 7.2 RBC 3.49 L Hgb 9.9 L Hct 31.4 L MCV 90.0 MCH 28.4 MCHC 31.5 RDW 14.6 H Plt Count 87 L Manual Plt Count 105 L MPV 9.9 Sodium Potassium Chloride Carbon Dioxide Anion Gap BUN Creatinine Est GFR ( Amer) Est GFR (Non-Af Amer) Random Glucose Hemoglobin A1c 5.5 Calcium Phosphorus Magnesium Total Bilirubin Direct Bilirubin AST ALT Alkaline Phosphatase Total Protein Albumin Globulin Albumin/Globulin Ratio 05/27/18 07:35 WBC RBC Hgb Hct MCV MCH MCHC RDW Plt Count Manual Plt Count MPV Sodium 142 Potassium 3.8 Chloride 114 H Carbon Dioxide 25 Anion Gap 6 L BUN 29 H Creatinine 0.8 Est GFR ( Amer) > 60 Est GFR (Non-Af Amer) > 60 Random Glucose 91 Hemoglobin A1c Calcium 8.2 L Phosphorus 2.6 Magnesium 1.9 Total Bilirubin 0.4 Direct Bilirubin 0.1 AST 31 ALT 35 Alkaline Phosphatase 57 Total Protein 5.6 L Albumin 2.6 L Globulin 3.0 Albumin/Globulin Ratio 0.9 L - Impressions Impression: Date of service: 05/26/2018 PROCEDURE: CT of the right shoulder. HISTORY: RIGHT SHOULDER COMPARISON: None available. TECHNIQUE: Contiguous axial images of the right shoulder were obtained. Coronal and sagittal reformats were generated. Radiation dose: Total exam DLP = 257.4 mGy-cm. This CT exam was performed using one or more of the following dose reduction techniques: Automated exposure control, adjustment of the mA and/or kV according to patient size, and/or use of iterative reconstruction technique. FINDINGS: BONES: The current study reveals no evidence of acute displaced fracture nor dislocation. The right humeral head is appropriately located with respect to the acetabulum. 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 Additionally, there are mild degen erative changes of the right acromioclavicular joint with small elliptical shaped corticated bony density located along the superior margin of the AC joint. There is also a relatively large bilobed somewhat peanut shaped soft tissue fluid collection (which measures approximately 8 cm x 3.7 cm anterior and medial to the right humeral head and proximal humerus with Hounsfield units ranging from mid teens to low 20s.. This may be intramuscular in location subjacent to the right deltoid muscle extending medially into the axillary region. Collectively the collection probably represents old posttraumatic sequela such as a chronic hematoma. Follow-up MRI could be performed to further characterize this fluid collection. SOFT TISSUES: Vascular calcifications involving the axillary and probably some of the distal right subclavian arteries. IMPRESSION: No evidence of acute displaced fracture nor dislocation.. 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 large bilobed somewhat peanut shaped soft tissue fluid collection (which measures approximately 8 cm x 3.7 cm anterior and medial to the right humeral head and proximal humerus with Hounsfield units ranging from mid teens to low 20s.. This appears to be intramuscular in location subjacent to the right deltoid muscle and extending medially into the axillary region. Findings probably represents old posttraumatic sequela such as a chronic hematoma. Follow-up MRI could be performed to further characterize this fluid collection. Assessment & Plan - Assessment and Plan (Free Text) Assessment: CT scan of right shoulder reviewed with Dr. Griffin. No fractures or dislocations noted. Moderate degenerative changes of the AC and GH joint There is a soft tissue fluid collection measuring 8x3.7cm anterior and medial to the humeral head. At this time we will order a MRI of the right shoulder with and without contrast for further evaluation. Continue current medical treatment
--- NOTE | 2018-05-27 08:43 | CP.PCM.PN ---
<Stefan Mcconnell - Last Filed: 05/27/18 12:09> Subjective - Date & Time of Evaluation Date of Evaluation: 05/27/18 Time of Evaluation: 08:41 - Subjective Subjective: Podiatry Consult Note: Dr. Vidal 87 y/o M patient, seen and evaluated for R anterior ankle abrasion. Patient resting comfortably and in NAD. Unable to obtain history secondary to dementia. As per patient chart there was no overnight F/N/V/C/or SOB. Objective - Vital Signs/Intake and Output Vital Signs (last 24 hours): Temp Pulse Resp BP Pulse Ox 98.3 F 71 19 110/78 95 05/27/18 06:00 05/27/18 06:00 05/27/18 06:00 05/27/18 06:00 05/27/18 06:00 Intake and Output: 05/27/18 05/27/18 06:59 18:59 Intake Total 240 Balance 240 - Medications Medications: Current Medications Acetaminophen (Tylenol 325mg Tab) 650 mg PO Q6 PRN PRN Reason: TEMP>=99.5F Acetaminophen (Tylenol 650 Mg Supp) 650 mg RC Q6H PRN PRN Reason: TEMP>=99.5F Acetylcysteine (Acetylcysteine 20%) 4 ml IH [id number] [facility] Last Admin: 05/27/18 07:26 Dose: 4 ml Aspirin (Aspirin Chewable) 81 mg PO DAILY [facility] Last Admin: 05/26/18 09:49 Dose: 81 mg Atorvastatin Calcium (Lipitor) 40 mg PO DIN [facility] Last Admin: 05/26/18 18:38 Dose: 40 mg Clopidogrel Bisulfate (Plavix) 75 mg PO DAILY [facility] Last Admin: 05/26/18 09:49 Dose: 75 mg Donepezil HCl (Aricept) 10 mg PO HS [facility] Last Admin: 05/26/18 21:40 Dose: 10 mg Fluoxetine HCl (Prozac) 10 mg PO DAILY [facility] Last Admin: 05/26/18 09:49 Dose: 10 mg Azithromycin 250 mg/ Sodium (Chloride) 250 mls @ 167 mls/hr IVPB DAILY [facility]; Protocol Last Admin: 05/26/18 14:11 Dose: 167 mls/hr Cefepime HCl (Maxipime 1gm) 1 gm in 100 mls @ 100 mls/hr IVPB Q8 [facility]; Protocol Last Admin: 05/27/18 05:47 Dose: 100 mls/hr Fluconazole (Diflucan Iv 200 Mg/100 Ml Ns) 100 mls @ 100 mls/hr IVPB DAILY [facility]; Protocol Last Admin: 05/26/18 09:39 Dose: 100 mls/hr Dextrose/Sodium Chloride (Dextrose 5%/0.45% Ns 1000 Ml) 1,000 mls @ 100 mls/hr IV .Q10H [facility] Last Admin: 05/27/18 05:47 Dose: 100 mls/hr Levalbuterol HCl (Xopenex) 0.63 mg IH [id number] [facility] Last Admin: 05/27/18 07:26 Dose: 0.63 mg Memantine (Namenda) 10 mg PO BID [facility] Last Admin: 05/26/18 18:39 Dose: 10 mg Metoprolol Tartrate (Lopressor) 25 mg PO BID [facility] Last Admin: 05/26/18 18:40 Dose: Not Given Midodrine (Proamatine) 2.5 mg PO TID [facility] Last Admin: 05/26/18 18:39 Dose: 2.5 mg Mupirocin (Bactroban Ointment) 0 gm NS BID [facility] Stop: 05/31/18 18:01 Last Admin: 05/26/18 18:57 Dose: 1 applic Solifenacin Succinate [Vesicare] (Home Med) 1 tab PO DAILY [facility] Last Admin: 05/26/18 12:01 Dose: Not Given Ondansetron HCl (Zofran Inj) 4 mg IVP Q4H PRN PRN Reason: Nausea/Vomiting Pantoprazole Sodium (Protonix Ec Tab) 40 mg PO 0600 [facility] Last Admin: 05/27/18 05:47 Dose: 40 mg Tamsulosin HCl (Flomax) 0.4 mg PO HS [facility] Last Admin: 05/26/18 21:40 Dose: 0.4 mg Thiamine HCl (Vitamin B1 Tab) 100 mg PO DAILY [facility] Last Admin: 05/26/18 09:49 Dose: 100 mg Vancomycin HCl (Vancocin 25 Mg/Ml (Oral Use)) 250 mg PO QID [facility]; Protocol Last Admin: 05/26/18 21:47 Dose: 250 mg - Labs Labs: 05/27/18 07:35 05/27/18 07:35 PT 14.5 SECONDS (9.4-12.5) H 05/23/18 19:30 INR 1.31 05/23/18 19:30 APTT 33.0 Seconds (26.9-38.3) 05/23/18 19:30 - Constitutional Appears: Well, Non-toxic, No Acute Distress - Head Exam Head Exam: ATRAUMATIC, NORMOCEPHALIC - Extremities Exam Additional comments: LLE focused exam: Vascular: DP/PT 1/4, Temp gradient warm to warm, Cap refill < 3 seconds, no edema appreciated. Neuro: Gross and protective sensation intact. Derm: Small superficial abrasion appreciated to the L anterior lateral ankle covered by dry scab, no drainage, no malodor, no purulence, no clinical signs of infection. MSK: No tenderness to palpation of b/l lower extremities, no pain with calf compression. - Neurological Exam Neurological Exam: Alert, Awake Assessment and Plan - Assessment and Plan (Free Text) Assessment: 87 y/o M patient seen and evaluated for R anterior ankle abrasion. Plan: Patient seen and evaluated Charts, labs and vitals reviewed: Afebrile, WBC 7.2 Optifoam and bactroban applied to R anterior ankle abrasion Continue to apply the bactroban and optifoam to the anterior ankle abrasions on daily bases. Multipodus boots to be worn all the times in bed. Podiatry sign off the patient. Reconsult in case of any podiatry related issues. <Lan Vidal - Last Filed: 05/28/18 09:30> Objective - Vital Signs/Intake and Output Vital Signs (last 24 hours): Temp Pulse Resp BP Pulse Ox 98.6 F 57 L 21 121/62 98 05/28/18 06:00 05/28/18 06:00 05/28/18 06:00 05/28/18 06:00 05/28/18 06:00 Intake and Output: 05/28/18 05/28/18 06:59 18:59 Intake Total 2041 Output Total 2 Balance 2039 - Medications Medications: Current Medications Acetaminophen (Tylenol 325mg Tab) 650 mg PO Q6 PRN PRN Reason: TEMP>=99.5F Acetaminophen (Tylenol 650 Mg Supp) 650 mg RC Q6H PRN PRN Reason: TEMP>=99.5F Acetylcysteine (Acetylcysteine 20%) 4 ml IH [id number] [facility] Last Admin: 05/28/18 07:59 Dose: 4 ml Aspirin (Aspirin Chewable) 81 mg PO DAILY [facility] Last Admin: 05/27/18 09:35 Dose: 81 mg Atorvastatin Calcium (Lipitor) 40 mg PO DIN [facility] Last Admin: 05/27/18 17:49 Dose: 40 mg Azithromycin (Zithromax) 250 mg PO DAILY [facility] Clopidogrel Bisulfate (Plavix) 75 mg PO DAILY [facility] Last Admin: 05/27/18 09:35 Dose: 75 mg Donepezil HCl (Aricept) 10 mg PO HS [facility] Last Admin: 05/27/18 22:24 Dose: 10 mg Fluoxetine HCl (Prozac) 10 mg PO DAILY [facility] Last Admin: 05/27/18 09:35 Dose: 10 mg Cefepime HCl (Maxipime 1gm) 1 gm in 100 mls @ 100 mls/hr IVPB Q8 [facility]; Protocol Last Admin: 05/28/18 06:10 Dose: 100 mls/hr Fluconazole (Diflucan Iv 200 Mg/100 Ml Ns) 100 mls @ 100 mls/hr IVPB DAILY [facility]; Protocol Last Admin: 05/27/18 09:35 Dose: 100 mls/hr Dextrose/Sodium Chloride (Dextrose 5%/0.45% Ns 1000 Ml) 1,000 mls @ 100 mls/hr IV .Q10H [facility] Last Admin: 05/27/18 16:13 Dose: Not Given Vancomycin HCl (Vancomycin 1gm) 1 gm in 250 mls @ 167 mls/hr IVPB Q12H [facility]; Protocol Last Admin: 05/27/18 22:23 Dose: 167 mls/hr Sodium Chloride (Sodium Chloride 0.45%) 1,000 mls @ 70 mls/hr IV .[id number] [facility] Levalbuterol HCl (Xopenex) 0.63 mg IH [id number] [facility] Last Admin: 05/28/18 07:59 Dose: 0.63 mg Memantine (Namenda) 10 mg PO BID [facility] Last Admin: 05/27/18 17:49 Dose: 10 mg Metoprolol Tartrate (Lopressor) 25 mg PO BID [facility] Last Admin: 05/27/18 17:50 Dose: 25 mg Midodrine (Proamatine) 2.5 mg PO TID [facility] Last Admin: 05/27/18 17:49 Dose: Not Given Mupirocin (Bactroban Ointment) 0 gm NS BID [facility] Stop: 05/31/18 18:01 Last Admin: 05/27/18 17:52 Dose: 1 applic Solifenacin Succinate [Vesicare] (Home Med) 1 tab PO DAILY [facility] Last Admin: 05/27/18 09:37 Dose: Not Given Ondansetron HCl (Zofran Inj) 4 mg IVP Q4H PRN PRN Reason: Nausea/Vomiting Pantoprazole Sodium (Protonix Ec Tab) 40 mg PO 0600 [facility] Last Admin: 05/28/18 06:10 Dose: 40 mg Tamsulosin HCl (Flomax) 0.4 mg PO HS [facility] Last Admin: 05/27/18 22:25 Dose: 0.4 mg Thiamine HCl (Vitamin B1 Tab) 100 mg PO DAILY [facility] Last Admin: 05/27/18 09:36 Dose: 100 mg Vancomycin HCl (Vancocin 25 Mg/Ml (Oral Use)) 250 mg PO QID [facility]; Protocol Last Admin: 05/27/18 22:25 Dose: 250 mg - Labs Labs: 05/28/18 07:15 05/28/18 07:15 PT 14.5 SECONDS (9.4-12.5) H 05/23/18 19:30 INR 1.31 05/23/18 19:30 APTT 33.0 Seconds (26.9-38.3) 05/23/18 19:30 Attending/Attestation - Attestation I have personally seen and examined this patient.: Yes I have fully participated in the care of the patient.: Yes I have reviewed all pertinent clinical information, including history, physical exam and plan: Yes
--- NOTE | 2018-05-27 08:51 | PN ---
DATE: 05/26/2018 LOCATION: The patient is seen in room 261, bed 2. SUBJECTIVE: The patient was moved from 273, bed 1 because of C. difficile positive. The patient is seen lying in the bed. The patient is alert, awake, responsive, oriented to person, disoriented to year, date, month and place. Overnight nurse's notes were reviewed. The patient was found to be in no distress. Slept well. OBJECTIVE: VITAL SIGNS: T-max 100 degrees Fahrenheit. Yesterday, telemetry shows sinus rhythm, heart rate 75, 67, 69. Blood pressure 114/75, 110/68, 121/74. Respiration 20. O2 sat 99% on room air. INTAKE AND OUTPUT: Not documented correctly. HEENT: Head is normocephalic and atraumatic. Pinkish pale conjunctivae. Anicteric sclerae. No oropharyngeal lesion. NECK: No neck rigidity. CHEST: Kyphosis. LUNGS: Shows questionable decreased breath sound at the bases, left more than the right. CARDIOVASCULAR: S1 and S2, regular rhythm. Positive systolic murmur left sternal border, right second intercostal space, left second intercostal space. ABDOMEN: Soft. Positive bowel sound. No palpable hepatosplenomegaly. GENITALIA: Male. RECTAL: Examination is deferred. EXTREMITIES: Shows no pitting edema, no calf tenderness, no Homans' sign. NEUROLOGIC: The patient is alert, awake, responsive, oriented to person, disoriented to year, date, and month. The patient is able to follow simple commands and move upper and lower extremities without assistance. Gait examination is not tested. DIAGNOSTIC DATA: On 05/26/2018, hemoglobin/hematocrit 10.9 and 35.7, and platelet 105. Sodium has gone up to 149 from baseline admission sodium of 141, potassium 3.6, chloride 121, CO2 of 24, anion gap 7, BUN has gone down to 53 from admission BUN of 93, creatinine is 1.0, GFR greater than 60, and glucose 103. Hemoglobin A1c 5.5. Calcium 8.7, phosphorus 2.3, magnesium 2.4. LFTs are normal. Albumin is 2.9. Stool occult blood negative. Influenza negative. The patient's urine cultures has Escherichia coli. The patient's MRSA nares is positive. C. difficile antigen is positive, toxin negative. Repeat C. difficile ordered. IMPRESSION AND PLAN: 1. Status post unwitnessed fall and status post questionable possible unwitnessed syncope. 2. Mild rhabdomyolysis with elevated CPK. 3. 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 4. Cerebral cortical atrophy of the brain. 5. Chronic microvascular ischemic disease of the brain. 6. Hypotension. 7. Severe advanced dementia. 8. Leukocytosis with granulocytosis. 9. Thrombocytopenia. 10. Anemia. 11. Hypernatremia. 12. Hypokalemia and hypophosphatemia. 13. Mild hypoalbuminemia. 14. Transient hyperbilirubinemia and transaminitis. 15. Escherichia coli urinary tract infection. 16. Positive methicillin-resistant Staphylococcus aureus nares. 17. Clostridium difficile antigen positive with Clostridium difficile associated diarrhea and Clostridium difficile associated colitis. 18. Gait dysfunction. 19. Deconditioning. 20. Poor personal hygiene. 21. Right acromioclavicular joint degenerative osteoarthritis with narrowing of the joint space with subchondral sclerosis and productive changes of the glenoid and humeral head with right acromioclavicular joint degenerative joint disease with small elliptical shaped corticated bony density. 22. Right humeral head and proximal humerus bilobed soft tissue fluid collection possibly intramuscular location adjacent to the right deltoid muscle extending medially into axillary region. 23. Possible posttraumatic sequelae of the right humerus head and proximal humerus with large bilobed soft tissue fluid collection anterior to medial of the right humeral head and proximal humerus with intramuscular location of the right deltoid muscle extending medially into the axillary region with possible old posttraumatic sequelae versus chronic hematoma. 24. Axillary and distal right subclavian arteries vascular calcification. 25. Left ventricle ejection fraction of 53%. 26. Concentric left ventricular hypertrophy. 27. Moderate aortic stenosis. 28. Moderate tricuspid regurgitation. 29. Concentric left ventricular hypertrophy. 30. Mild valvular aortic stenosis. 31. Mild mitral annular calcification. 32. Moderate tricuspid regurgitation. 33. Age indeterminate anteroseptal infarct. 34. New left bundle-branch block. 35. Age indeterminate inferior anteroseptal infarct and lateral coronary ischemic changes. 36. Left axis deviation. 37. Possible Clostridium difficile colitis. 38. Prostatic hypertrophy. 39. Hyperlipidemia. 40. History of depression. PLAN: At this time, the patient has been ordered repeat labs. Manual platelet count ordered. Stool C. difficile repeat ordered. Current consultation with Infectious Disease, Neurology, Cardiology, Surgery, and Podiatry. TCU evaluation ordered. Current medications, Mucomyst nebulizer 20% 4 mL every 6 hours, Aricept 10 mg at bedtime, Ecotrin 81 mg daily, Bactroban cream to the nares area twice a day. The patient's IV fluid is changed to D5 half normal saline at 100 mL a hour, Diflucan 200 mg IV daily, Flomax 0.4 mg daily, Lipitor 40 mg daily, Lopressor 25 mg twice a day, Lovenox 40 mg subcu daily, cefepime 1 g IV every 8 hours, Namenda 10 mg twice a day, Plavix 75 mg daily, K-Phos rider ordered x1, ProAmatine 2.5 mg three times a day, Protonix 40 mg daily, Prozac 10 mg daily, Vesicare 1 tablet daily, Tylenol p.o. suppository every 6 hours p.r.n., the patient is started on vancomycin 250 mg q.i.d., thiamine 100 mg p.o. daily, Xopenex nebulizer 0.63 mg every 6 hours, Zithromax 250 mg IV daily, Zofran four IV every 4 hours. Chest PT, oxygen nasal cannula, EEG is pending. The patient is on heart-healthy diet, out of bed to chair, physical therapy, occupational therapy ordered. SCDs and JACY stockings ordered. At present, the patient is to be continued on above therapeutic intervention as discussed. The patient has been ordered and Orthopedic consult for evaluation of abnormal CT of the right shoulder. The patient has been requested orthopedic evaluation. At present, the patient will be continued on above therapeutic intervention. The patient has been pushed on C. difficile precautions. Dictated and electronically signed, not read. Gaurav Ruvalcaba MD
[2018-05-27] MEDS: Vancomycin 25 MG/ML PO SCH ×4 (09:35→22:25)
[2018-05-27] MEDS: Fluconazole IV 200mg/100 ml NS 100 ML IVPB SCH (09:35)
[2018-05-27] MEDS: SOLIFENACIN SUCCINATE PO SCH (09:37)
[2018-05-27] MEDS: Mupirocin 2% Ointment 15 GM TUBE NS SCH ×2 (09:40→17:52)
[2018-05-27 10:13] LABS: IRON 32 ug/dL (45-180)
[2018-05-27 10:23] LABS: % IRON SATURATION 15 % (20-55); TOTAL IRON BINDING CAPACITY 207 ug/dL (261-462)
[2018-05-27] MEDS: Azithromycin 250 MG in Sodium Chloride 0.9% 250 ML IVPB SCH (12:25)
--- NOTE | 2018-05-27 12:42 | CP.PCM.PN ---
Subjective - Date & Time of Evaluation Date of Evaluation: 05/27/18 Time of Evaluation: 09:40 - Subjective Subjective: Patient is comfortable in bed, not in distress, no fevers. Objective - Vital Signs/Intake and Output Vital Signs (last 24 hours): Temp Pulse Resp BP Pulse Ox 97.9 F 69 20 110/68 99 05/26/18 06:00 05/26/18 06:00 05/26/18 06:00 05/26/18 06:00 05/26/18 06:00 Intake and Output: 05/26/18 05/26/18 06:59 18:59 Intake Total 1440 1100 Balance 1440 1100 - Medications Medications: Current Medications Acetaminophen (Tylenol 325mg Tab) 650 mg PO Q6 PRN PRN Reason: TEMP>=99.5F Acetaminophen (Tylenol 650 Mg Supp) 650 mg RC Q6H PRN PRN Reason: TEMP>=99.5F Acetylcysteine (Acetylcysteine 20%) 4 ml IH [id number] [facility] Last Admin: 05/26/18 07:44 Dose: 4 ml Aspirin (Aspirin Chewable) 81 mg PO DAILY [facility] Last Admin: 05/26/18 09:49 Dose: 81 mg Atorvastatin Calcium (Lipitor) 40 mg PO DIN [facility] Last Admin: 05/25/18 18:35 Dose: 40 mg Clopidogrel Bisulfate (Plavix) 75 mg PO DAILY [facility] Last Admin: 05/26/18 09:49 Dose: 75 mg Docusate Sodium (Colace) 100 mg PO BID [facility] Last Admin: 05/25/18 18:04 Dose: Not Given Donepezil HCl (Aricept) 10 mg PO HS [facility] Last Admin: 05/25/18 21:45 Dose: 10 mg Enoxaparin Sodium (Lovenox) 40 mg SC DAILY [facility]; Protocol Last Admin: 05/25/18 10:41 Dose: 40 mg Fluoxetine HCl (Prozac) 10 mg PO DAILY [facility] Last Admin: 05/26/18 09:49 Dose: 10 mg Azithromycin 250 mg/ Sodium (Chloride) 250 mls @ 167 mls/hr IVPB DAILY [facility]; Protocol Last Admin: 05/26/18 09:47 Dose: 167 mls/hr Cefepime HCl (Maxipime 1gm) 1 gm in 100 mls @ 100 mls/hr IVPB Q8 [facility]; Protocol Last Admin: 05/26/18 05:56 Dose: 100 mls/hr Fluconazole (Diflucan Iv 200 Mg/100 Ml Ns) 100 mls @ 100 mls/hr IVPB DAILY [facility]; Protocol Last Admin: 05/26/18 09:39 Dose: 100 mls/hr Dextrose/Sodium Chloride (Dextrose 5%/0.45% Ns 1000 Ml) 1,000 mls @ 100 mls/hr IV .Q10H [facility] Last Admin: 05/26/18 09:44 Dose: 100 mls/hr Potassium Phosphate 15 mmole/ (Dextrose) 255 mls @ 42.5 mls/hr IVPB ONCE ONE Stop: 05/26/18 15:03 Insulin Human Regular (Humulin R Low) 0 units SC ACHS [facility]; Protocol Last Admin: 05/26/18 10:05 Dose: Not Given Levalbuterol HCl (Xopenex) 0.63 mg IH [id number] [facility] Last Admin: 05/26/18 07:45 Dose: 0.63 mg Memantine (Namenda) 10 mg PO BID [facility] Last Admin: 05/26/18 09:49 Dose: 10 mg Metoprolol Tartrate (Lopressor) 25 mg PO BID [facility] Last Admin: 05/26/18 10:05 Dose: Not Given Midodrine (Proamatine) 2.5 mg PO TID [facility] Last Admin: 05/26/18 09:54 Dose: 2.5 mg Mupirocin (Bactroban Ointment) 1 gm TOP BID [facility] Last Admin: 05/25/18 18:04 Dose: Not Given Solifenacin Succinate [Vesicare] (Home Med) 1 tab PO DAILY [facility] Last Admin: 05/25/18 10:53 Dose: Not Given Ondansetron HCl (Zofran Inj) 4 mg IVP Q4H PRN PRN Reason: Nausea/Vomiting Pantoprazole Sodium (Protonix Ec Tab) 40 mg PO 0600 [facility] Last Admin: 05/26/18 05:57 Dose: 40 mg Polyethylene Glycol (Miralax) 17 gm PO BID [facility] Tamsulosin HCl (Flomax) 0.4 mg PO HS [facility] Last Admin: 05/25/18 21:45 Dose: 0.4 mg Thiamine HCl (Vitamin B1 Tab) 100 mg PO DAILY [facility] Last Admin: 05/26/18 09:49 Dose: 100 mg - Labs Labs: 02/17/19 06:00 05/26/18 06:00 PT 14.5 SECONDS (9.4-12.5) H 05/23/18 19:30 INR 1.31 05/23/18 19:30 APTT 33.0 Seconds (26.9-38.3) 05/23/18 19:30 - Constitutional Appears: No Acute Distress, Chronically Ill - Head Exam Head Exam: NORMAL INSPECTION - ENT Exam ENT Exam: Mucous Membranes Moist - Respiratory Exam Respiratory Exam: Decreased Breath Sounds - Cardiovascular Exam Cardiovascular Exam: +S1, +S2 - GI/Abdominal Exam GI & Abdominal Exam: Soft. absent: Tenderness Assessment and Plan - Assessment and Plan (Free Text) Plan: Assessment Right middle lobe HCAP UTI with E. coli in this patient with BPH R/ C. diff. associated diarrhea history of rectal bleeding history of methicillin-sensitive coagulase negative staph bacteremia HTN dyslipidemia depression dementia BPH history of rheumatic hear disease S/P aortic valve replacement Plan continue IV Vancomycin (since MRSA screen is positive) and continue Cefepime and Zithromax day 3 pending final blood cx, PCT; reviewed CT chest, abdomen and pelvis - RML infiltrate noted, as well as urinary bladder wall thickening follow up stool for C. diff and patient has been started by PMD on PO Vancomycin (day 2) will continue to monitor clinically
[2018-05-27] MEDS: Vancomycin 1gm in NS 250ml 1 GM/250 ML BAG IVPB SCH ×2 (14:02→22:23)
--- NOTE | 2018-05-27 14:52 | PN ---
DATE: 05/27/2018 SUBJECTIVE: The patient is presently in 261, bed 1. The patient was seen by Orthopedics. MRI of the right shoulder has been ordered by the Orthopedics for evaluation of the abnormal right shoulder CT. Overnight nurse's notes were reviewed. OBJECTIVE: VITAL SIGNS: The patient's vital signs; T-max 98.3. Telemetry shows sinus rhythm, heart rate 63, blood pressure 110/78, respiration 19, O2 sat 95%. GENERAL: The patient is alert, awake, responsive, confused, disoriented to place, year, date, month. Oriented only to person. The patient is able to follow simple commands. Gait examination is not tested. HEENT: Head is normocephalic, atraumatic. Eyes; shows pinkish pale conjunctivae. Anicteric sclerae. No oropharyngeal lesion. Questionable soft carotid bruit. CHEST: Kyphosis. LUNGS: Shows positive rhonchi bilaterally. No audible crackle, rales or wheezing. CARDIOVASCULAR: S1, S2, regular rhythm. Questionable soft systolic murmur left sternal border, right second intercostal space, left second intercostal space. ABDOMEN: Soft. Positive bowel sounds. No palpable hepatosplenomegaly noted. GENITALIA: Male. RECTAL: Deferred. EXTREMITIES: Shows no pitting edema, no calf tenderness, no Homans' sign. NEUROLOGIC: The patient is alert, awake, responsive, oriented to person, disoriented to year, date, month, time. Gait examination is not tested. DIAGNOSTICS: On 05/27/2018; WBC 7.2, hemoglobin/hematocrit has dropped to 9.9/31.4, platelet is 87,000, BUN 29, creatinine 0.8. BUN has come down from 90, total protein 5.6, albumin 2.6. The patient's MRSA nares is positive. C. diff antigen is positive. Urine cultures, E. coli. IMPRESSION: 1. Questionable status post unwitnessed fall versus unwitnessed syncope. 2. Rhabdomyolysis (resolved). 3. Normocytic anemia. 4. Thrombocytopenia. 5. Acute prerenal kidney injury. 6. Mild protein malnutrition and hypoalbuminemia. 7. Methicillin-resistant Staphylococcus aureus nares positive. 8. Clostridium difficile antigen positive and Clostridium difficile associated diarrhea. 9. Escherichia coli urinary tract infection. 10. Questionable healthcare-associated versus community-acquired pneumonia. 11. Severe advanced dementia. 12. History of depression. 13. Abnormal CAT scan of the right shoulder with questionable hematoma versus fluid collection of undetermined etiology. 14. Gait dysfunction. 15. Deconditioning. 16. Poor personal hygiene. 17. History of severe to critical aortic stenosis status post transcatheter aortic valve replacement. PLAN: At this time, the patient has been seen by Orthopedics. MRI of the right shoulder has been ordered by Orthopedics. In addition, hematology consultation has been ordered for anemia and thrombocytopenia. The patient is to be continued on IV fluid hydration. The patient will be continued on p.o. vancomycin for C. diff antigen positive. The patient is on IV antibiotics for E. coli urinary tract infection by Infectious Disease. The patient is to be continued on Bactroban cream to the nares for 5 days MRSA nears positive. The patient has been ordered out of bed to chair, physical therapy, occupational therapy, ambulation therapy, gait training. The patient will be considered for discharge once the patient is off IV antibiotics and cleared by all subspecialty including Cardiology, Neurology, Orthopedic, Infectious Disease. Dictated and electronically signed, not read. Gaurav Ruvalcaba MD
[2018-05-27 17:32] LABS: HEPATITIS B SURFACE AG Negative (NEGATIVE)
[2018-05-27 17:38] LABS: HEPATITIS A IGM NEGATIVE (NEGATIVE); HEPATITIS B CORE AB NEGATIVE (NEGATIVE)
[2018-05-27 17:49] LABS: HEPATITIS C ANTIBODY NEGATIVE (NEGATIVE)
--- NOTE | 2018-05-27 21:27 | CP.PCM.CON ---
History of Present Illness - History of Present Illness History of Present Illness: 87 year old male with a history of Alzheimers dementia, BPH, HTN, HL, alcoholism, presenting s/p fall, found to have pneumonia and UTI, with progressive anemia and thrombocytopenia. The patient is currently confused and I am unable to obtain a history from the patient. Review of his medical records shows he was admitted with a normal hemoglobin and platelet count. I see no overt evidence of blood loss. Past medical, surgical family, social history cannot be obtained from the patient. Allergies: Per documentation [facility] Review of systems cannot be obtained. Past Patient History - Infectious Disease Hx of Infectious Diseases: None - Tetanus Immunizations Tetanus Immunization: Unknown - Past Medical History & Family History Past Medical History?: Yes - Past Social History Smoking Status: Smoker Currrent Status Unknown - CARDIAC Hx Cardiac Disorders: Yes Hx Hypertension: Yes - PULMONARY Hx Respiratory Disorders: No - NEUROLOGICAL Hx Alzheimer's Disease: Yes Hx Dementia: Yes Other/Comment: Aneurysm - HEENT Hx HEENT Problems: Yes (wears glasses) Hx Deafness: Yes (ANVIK) - RENAL Hx Chronic Kidney Disease: No - ENDOCRINE/METABOLIC Hx Endocrine Disorders: No - HEMATOLOGICAL/ONCOLOGICAL Hx Anemia: Yes (normocytic) - INTEGUMENTARY Hx Dermatological Problems: No - MUSCULOSKELETAL/RHEUMATOLOGICAL Hx Arthritis: Yes Other/Comment: H/O Falls - GASTROINTESTINAL Hx Gastrointestinal Disorders: No - GENITOURINARY/GYNECOLOGICAL Hx Incontinence: Yes - PSYCHIATRIC Hx Psychophysiologic Disorder: Yes Hx Depression: Yes Hx Substance Use: No Other/Comment: H/O ETOH USE - SURGICAL HISTORY Hx Cholecystectomy: Yes Other/Comment: TAVR in 2018 - ANESTHESIA Hx Anesthesia: Yes Hx Anesthesia Reactions: No Hx Malignant Hyperthermia: No Meds Allergies/Adverse Reactions: Allergies Allergy/AdvReac Type Severity Reaction Status Date / Time No Known Allergies Allergy Verified 10/14/17 19:39 - Medications Medications: Current Medications Acetaminophen (Tylenol 325mg Tab) 650 mg PO Q6 PRN PRN Reason: TEMP>=99.5F Acetaminophen (Tylenol 650 Mg Supp) 650 mg RC Q6H PRN PRN Reason: TEMP>=99.5F Acetylcysteine (Acetylcysteine 20%) 4 ml IH [id number] [facility] Last Admin: 05/27/18 20:20 Dose: 4 ml Aspirin (Aspirin Chewable) 81 mg PO DAILY [facility] Last Admin: 05/27/18 09:35 Dose: 81 mg Atorvastatin Calcium (Lipitor) 40 mg PO DIN [facility] Last Admin: 05/27/18 17:49 Dose: 40 mg Azithromycin (Zithromax) 250 mg PO DAILY [facility] Clopidogrel Bisulfate (Plavix) 75 mg PO DAILY [facility] Last Admin: 05/27/18 09:35 Dose: 75 mg Donepezil HCl (Aricept) 10 mg PO HS [facility] Last Admin: 05/26/18 21:40 Dose: 10 mg Fluoxetine HCl (Prozac) 10 mg PO DAILY [facility] Last Admin: 05/27/18 09:35 Dose: 10 mg Cefepime HCl (Maxipime 1gm) 1 gm in 100 mls @ 100 mls/hr IVPB Q8 [facility]; Protocol Last Admin: 05/27/18 14:03 Dose: 100 mls/hr Fluconazole (Diflucan Iv 200 Mg/100 Ml Ns) 100 mls @ 100 mls/hr IVPB DAILY [facility]; Protocol Last Admin: 05/27/18 09:35 Dose: 100 mls/hr Dextrose/Sodium Chloride (Dextrose 5%/0.45% Ns 1000 Ml) 1,000 mls @ 100 mls/hr IV .Q10H [facility] Last Admin: 05/27/18 16:13 Dose: Not Given Vancomycin HCl (Vancomycin 1gm) 1 gm in 250 mls @ 167 mls/hr IVPB Q12H [facility]; Protocol Last Admin: 05/27/18 14:02 Dose: 167 mls/hr Iron Sucrose 200 mg/ Sodium (Chloride) 110 mls @ 110 mls/hr IVPB DAILY [facility] Stop: 05/31/18 10:59 Levalbuterol HCl (Xopenex) 0.63 mg IH [id number] [facility] Last Admin: 05/27/18 20:20 Dose: 0.63 mg Memantine (Namenda) 10 mg PO BID [facility] Last Admin: 05/27/18 17:49 Dose: 10 mg Metoprolol Tartrate (Lopressor) 25 mg PO BID [facility] Last Admin: 05/27/18 17:50 Dose: 25 mg Midodrine (Proamatine) 2.5 mg PO TID [facility] Last Admin: 05/27/18 17:49 Dose: Not Given Mupirocin (Bactroban Ointment) 0 gm NS BID [facility] Stop: 05/31/18 18:01 Last Admin: 05/27/18 17:52 Dose: 1 applic Solifenacin Succinate [Vesicare] (Home Med) 1 tab PO DAILY [facility] Last Admin: 05/27/18 09:37 Dose: Not Given Ondansetron HCl (Zofran Inj) 4 mg IVP Q4H PRN PRN Reason: Nausea/Vomiting Pantoprazole Sodium (Protonix Ec Tab) 40 mg PO 0600 [facility] Last Admin: 05/27/18 05:47 Dose: 40 mg Tamsulosin HCl (Flomax) 0.4 mg PO HS [facility] Last Admin: 05/26/18 21:40 Dose: 0.4 mg Thiamine HCl (Vitamin B1 Tab) 100 mg PO DAILY [facility] Last Admin: 05/27/18 09:36 Dose: 100 mg Vancomycin HCl (Vancocin 25 Mg/Ml (Oral Use)) 250 mg PO QID [facility]; Protocol Last Admin: 05/27/18 17:49 Dose: 250 mg Physical Exam - Head Exam Head Exam: ATRAUMATIC - Eye Exam Eye Exam: Normal appearance - ENT Exam ENT Exam: Mucous Membranes Dry - Respiratory Exam Respiratory Exam: Decreased Breath Sounds - Cardiovascular Exam Cardiovascular Exam: +S1, +S2 - GI/Abdominal Exam GI & Abdominal Exam: Normal Bowel Sounds - Neurological Exam Neurological exam: Altered - Psychiatric Exam Psychiatric exam: Flat Affect - Skin Skin Exam: Warm Results - Vital Signs Recent Vital Signs: Last Vital Signs Temp 97.1 F L 05/27/18 18:00 Pulse 69 05/27/18 18:00 Resp 19 05/27/18 18:00 BP 133/81 05/27/18 18:00 Pulse Ox 95 05/27/18 06:00 - Labs Result Diagrams: 05/27/18 07:35 05/27/18 07:35 Labs: Laboratory Results - last 24 hr 05/24/18 05/27/18 05/27/18 21:00 07:35 07:35 WBC 7.2 RBC 3.49 L Hgb 9.9 L Hct 31.4 L MCV 90.0 MCH 28.4 MCHC 31.5 RDW 14.6 H Plt Count 87 L Manual Plt Count 90 L MPV 9.9 Retic Count Sodium 142 Potassium 3.8 Chloride 114 H Carbon Dioxide 25 Anion Gap 6 L BUN 29 H Creatinine 0.8 Est GFR ( Amer) > 60 Est GFR (Non-Af Amer) > 60 Random Glucose 91 Calcium 8.2 L Phosphorus 2.6 Magnesium 1.9 Iron TIBC % Saturation Ferritin Total Bilirubin 0.4 Direct Bilirubin 0.1 AST 31 ALT 35 Alkaline Phosphatase 57 Total Protein 5.6 L Albumin 2.6 L Globulin 3.0 Albumin/Globulin Ratio 0.9 L Hepatitis A IgM Ab Hep Bs Antigen Hep B Core IgM Ab Hepatitis C Antibody Mycoplasma pneumon IgG 4.97 H 05/27/18 05/27/18 05/27/18 09:41 09:41 09:41 WBC RBC Hgb Hct MCV MCH MCHC RDW Plt Count Manual Plt Count MPV Retic Count 0.82 Sodium Potassium Chloride Carbon Dioxide Anion Gap BUN Creatinine Est GFR ( Amer) Est GFR (Non-Af Amer) Random Glucose Calcium Phosphorus Magnesium Iron 32 L TIBC 207 L % Saturation 15 L Ferritin 138.0 Total Bilirubin Direct Bilirubin AST ALT Alkaline Phosphatase Total Protein Albumin Globulin Albumin/Globulin Ratio Hepatitis A IgM Ab Hep Bs Antigen Hep B Core IgM Ab Hepatitis C Antibody Mycoplasma pneumon IgG 05/27/18 09:41 WBC RBC Hgb Hct MCV MCH MCHC RDW Plt Count Manual Plt Count MPV Retic Count Sodium Potassium Chloride Carbon Dioxide Anion Gap BUN Creatinine Est GFR ( Amer) Est GFR (Non-Af Amer) Random Glucose Calcium Phosphorus Magnesium Iron TIBC % Saturation Ferritin Total Bilirubin Direct Bilirubin AST ALT Alkaline Phosphatase Total Protein Albumin Globulin Albumin/Globulin Ratio Hepatitis A IgM Ab Negative Hep Bs Antigen Negative Hep B Core IgM Ab Negative Hepatitis C Antibody Negative Mycoplasma pneumon IgG Assessment & Plan (1) Thrombocytopenia Assessment and Plan: suspect infection related ? medication; if plt count cont. to decline, will send heparin Ab (low suspicion for HIT) HIV sent, will add hepatitis panel Status: Acute (2) Anemia Assessment and Plan: hypoproliferative erythroid response - likely chronic disease from infection no iron deficiency will add B12/folate, FOBT will consider Aranesp in an attempt to decrease transfusion requirement if H/H cont. to decline Thank you for this interesting consult. Status: Acute
[2018-05-28] MEDS: Acetylcysteine 20% Inhal Soln (4ml) IH SCH ×4 (02:15→19:42)
[2018-05-28] MEDS: Levalbuterol 0.63 MG/3 ML Inhal Soln UD IH SCH ×4 (02:16→19:42)
[2018-05-28] MEDS: Pantoprazole 40 mg EC Tab PO SCH (06:10)
[2018-05-28] MEDS: Cefepime 1gm in NS 100ml 1 GM/100 ML BAG IVPB SCH ×3 (06:10→21:21)
[2018-05-28 07:31] LABS: HEMOGLOBIN 10.9 g/dL (14.0-18.0); MEAN CELL VOLUME 88.7 fl (80.0-105.0); MEAN CORPUSCULAR HEMOGLOBIN 28.5 pg (25.0-35.0); MEAN CORPUSCULAR HGB CONC 32.2 g/dl (31.0-37.0); MEAN PLATELET VOLUME 10.4 fl (7.0-11.0); RBC 3.82 10^6/uL (3.5-6.1); RED CELL DISTRIBUTION WIDTH 14.3 % (11.5-14.5); WHITE BLOOD COUNT 6.9 10^3/uL (4.5-11.0)
[2018-05-28 07:44] LABS: ALB/GLOB RATIO 0.9 (1.1-1.8); ALBUMIN 2.8 g/dL (3.0-4.8); ALT/SGPT 34 U/L (7-56); AST/SGOT 37 U/L (17-59); BLOOD UREA NITROGEN 18 mg/dL (7-21); CALCIUM 8.7 mg/dL (8.4-10.5); GFR NON-AFRICAN AMERICAN > 60
[2018-05-28] MEDS: SOLIFENACIN SUCCINATE PO SCH (10:00)
[2018-05-28] MEDS: Sodium Chloride 0.45% 1,000 ML IV SCH (10:15)
[2018-05-28] MEDS: Fluconazole IV 200mg/100 ml NS 100 ML IVPB SCH (10:57)
[2018-05-28] MEDS: Vancomycin 1gm in NS 250ml 1 GM/250 ML BAG IVPB SCH ×2 (10:57→21:20)
[2018-05-28] MEDS: Mupirocin 2% Ointment 15 GM TUBE NS SCH ×2 (10:59→17:22)
[2018-05-28] MEDS: Vancomycin 25 MG/ML PO SCH ×4 (11:00→21:22)
--- NOTE | 2018-05-28 11:14 | CP.PCM.PN ---
Subjective - Date & Time of Evaluation Date of Evaluation: 05/28/18 Time of Evaluation: 11:10 - Subjective Subjective: Pt exam unchanged. Pt had MRI of right shoulder yesterday. Study very limited secondary to motion artifact. Appears to be a homogenous fluid filled structure anteromedial aspect of proximal humerus. Does not appear to be intramuscular. May be inflamed bursa? No obvious fx appreciated. Will discuss with radiologist. Consider CT guided aspiration for diagnostic purposes. Objective - Vital Signs/Intake and Output Vital Signs (last 24 hours): Temp Pulse Resp BP Pulse Ox 98.6 F 57 L 21 121/62 98 05/28/18 06:00 05/28/18 06:00 05/28/18 06:00 05/28/18 06:00 05/28/18 06:00 Intake and Output: 05/28/18 05/28/18 06:59 18:59 Intake Total 2 Output Total 2 Balance 2039 - Medications Medications: Current Medications Acetaminophen (Tylenol 325mg Tab) 650 mg PO Q6 PRN PRN Reason: TEMP>=99.5F Acetaminophen (Tylenol 650 Mg Supp) 650 mg RC Q6H PRN PRN Reason: TEMP>=99.5F Acetylcysteine (Acetylcysteine 20%) 4 ml IH [id number] [facility] Last Admin: 05/28/18 07:59 Dose: 4 ml Aspirin (Aspirin Chewable) 81 mg PO DAILY [facility] Last Admin: 05/27/18 09:35 Dose: 81 mg Atorvastatin Calcium (Lipitor) 40 mg PO DIN [facility] Last Admin: 05/27/18 17:49 Dose: 40 mg Azithromycin (Zithromax) 250 mg PO DAILY [facility] Clopidogrel Bisulfate (Plavix) 75 mg PO DAILY [facility] Last Admin: 05/27/18 09:35 Dose: 75 mg Donepezil HCl (Aricept) 10 mg PO HS [facility] Last Admin: 05/27/18 22:24 Dose: 10 mg Fluoxetine HCl (Prozac) 10 mg PO DAILY [facility] Last Admin: 05/27/18 09:35 Dose: 10 mg Cefepime HCl (Maxipime 1gm) 1 gm in 100 mls @ 100 mls/hr IVPB Q8 [facility]; Protocol Last Admin: 05/28/18 06:10 Dose: 100 mls/hr Fluconazole (Diflucan Iv 200 Mg/100 Ml Ns) 100 mls @ 100 mls/hr IVPB DAILY [facility]; Protocol Last Admin: 05/27/18 09:35 Dose: 100 mls/hr Dextrose/Sodium Chloride (Dextrose 5%/0.45% Ns 1000 Ml) 1,000 mls @ 100 mls/hr IV .Q10H [facility] Last Admin: 05/27/18 16:13 Dose: Not Given Vancomycin HCl (Vancomycin 1gm) 1 gm in 250 mls @ 167 mls/hr IVPB Q12H [facility]; Protocol Last Admin: 05/27/18 22:23 Dose: 167 mls/hr Sodium Chloride (Sodium Chloride 0.45%) 1,000 mls @ 70 mls/hr IV .[id number] [facility] Levalbuterol HCl (Xopenex) 0.63 mg IH [id number] [facility] Last Admin: 05/28/18 07:59 Dose: 0.63 mg Memantine (Namenda) 10 mg PO BID [facility] Last Admin: 05/27/18 17:49 Dose: 10 mg Metoprolol Tartrate (Lopressor) 25 mg PO BID [facility] Last Admin: 05/27/18 17:50 Dose: 25 mg Midodrine (Proamatine) 2.5 mg PO TID [facility] Last Admin: 05/27/18 17:49 Dose: Not Given Mupirocin (Bactroban Ointment) 0 gm NS BID [facility] Stop: 05/31/18 18:01 Last Admin: 05/27/18 17:52 Dose: 1 applic Solifenacin Succinate [Vesicare] (Home Med) 1 tab PO DAILY [facility] Last Admin: 05/27/18 09:37 Dose: Not Given Ondansetron HCl (Zofran Inj) 4 mg IVP Q4H PRN PRN Reason: Nausea/Vomiting Pantoprazole Sodium (Protonix Ec Tab) 40 mg PO 0600 [facility] Last Admin: 05/28/18 06:10 Dose: 40 mg Tamsulosin HCl (Flomax) 0.4 mg PO HS [facility] Last Admin: 05/27/18 22:25 Dose: 0.4 mg Thiamine HCl (Vitamin B1 Tab) 100 mg PO DAILY [facility] Last Admin: 05/27/18 09:36 Dose: 100 mg Vancomycin HCl (Vancocin 25 Mg/Ml (Oral Use)) 250 mg PO QID [facility]; Protocol Last Admin: 05/27/18 22:25 Dose: 250 mg - Labs Labs: 05/28/18 07:15 05/28/18 07:15 PT 14.5 SECONDS (9.4-12.5) H 05/23/18 19:30 INR 1.31 05/23/18 19:30 APTT 33.0 Seconds (26.9-38.3) 05/23/18 19:30
--- NOTE | 2018-05-28 11:25 | MRI ---
Date of service: 05/27/2018 PROCEDURE: MRI of the right shoulder without contrast HISTORY: follow up from CT findings COMPARISON: CT of the shoulder dated 05/26/2018 TECHNIQUE: MRI of the right shoulder was performed in multiple planes using multiple pulse sequences. The study is compromised by severe motion artifact. FINDINGS: There is a large subacromial fluid collection measuring 7.6 cm wide by 2 cm height. There is also a subcoracoid collection measuring 3 x 4.5 cm. The findings are consistent with enlarged fluid-filled bursa. There is no significant joint effusion. Severe degenerative changes are seen in the glenohumeral joint. Degenerative changes are seen in the acromioclavicular joint. The rotator cuff is difficult to assess due to the motion artifact. IMPRESSION: There is a large subacromial fluid collection measuring 7.6 cm wide by 2 cm height. There is also a subcoracoid collection measuring 3 x 4.5 cm. The findings are consistent with enlarged fluid-filled bursa. There is no significant joint effusion.
--- NOTE | 2018-05-28 12:10 | CP.PCM.APN ---
Subjective - Date & Time of Evaluation Date of Evaluation: 05/28/18 Time of Evaluation: 10:30 - Subjective Subjective: pt seen and examind at bedside, pt awake and oriented to person , offers no complaints when questioned Review of Systems - Review of Systems Systems not reviewed;Unavailable: Dementia All systems: reviewed and no additional remarkable complaints except Objective - Vital Signs/Intake and Output Vital Signs (last 24 hours): Temp Pulse Resp BP Pulse Ox 98.6 F 70 21 120/60 98 05/28/18 06:00 05/28/18 10:56 05/28/18 06:00 05/28/18 10:56 05/28/18 06:00 Intake and Output: 05/28/18 05/28/18 06:59 18:59 Intake Total 2041 Output Total 2 Balance 2039 - Medications Medications: Current Medications Acetaminophen (Tylenol 325mg Tab) 650 mg PO Q6 PRN PRN Reason: TEMP>=99.5F Acetaminophen (Tylenol 650 Mg Supp) 650 mg RC Q6H PRN PRN Reason: TEMP>=99.5F Acetylcysteine (Acetylcysteine 20%) 4 ml IH [id number] [facility] Last Admin: 05/28/18 07:59 Dose: 4 ml Aspirin (Aspirin Chewable) 81 mg PO DAILY [facility] Last Admin: 05/28/18 10:57 Dose: 81 mg Atorvastatin Calcium (Lipitor) 40 mg PO DIN [facility] Last Admin: 05/27/18 17:49 Dose: 40 mg Azithromycin (Zithromax) 250 mg PO DAILY [facility] Last Admin: 05/28/18 10:56 Dose: 250 mg Clopidogrel Bisulfate (Plavix) 75 mg PO DAILY [facility] Last Admin: 05/28/18 10:57 Dose: 75 mg Donepezil HCl (Aricept) 10 mg PO HS [facility] Last Admin: 05/27/18 22:24 Dose: 10 mg Fluoxetine HCl (Prozac) 10 mg PO DAILY [facility] Last Admin: 05/28/18 10:57 Dose: 10 mg Cefepime HCl (Maxipime 1gm) 1 gm in 100 mls @ 100 mls/hr IVPB Q8 [facility]; Protocol Last Admin: 05/28/18 06:10 Dose: 100 mls/hr Fluconazole (Diflucan Iv 200 Mg/100 Ml Ns) 100 mls @ 100 mls/hr IVPB DAILY [facility]; Protocol Last Admin: 05/28/18 10:57 Dose: 100 mls/hr Dextrose/Sodium Chloride (Dextrose 5%/0.45% Ns 1000 Ml) 1,000 mls @ 100 mls/hr IV .Q10H [facility] Last Admin: 05/27/18 16:13 Dose: Not Given Vancomycin HCl (Vancomycin 1gm) 1 gm in 250 mls @ 167 mls/hr IVPB Q12H [facility]; Protocol Last Admin: 05/28/18 10:57 Dose: 167 mls/hr Sodium Chloride (Sodium Chloride 0.45%) 1,000 mls @ 70 mls/hr IV .[id number] [facility] Last Admin: 05/28/18 10:15 Dose: 70 mls/hr Levalbuterol HCl (Xopenex) 0.63 mg IH [id number] [facility] Last Admin: 05/28/18 07:59 Dose: 0.63 mg Memantine (Namenda) 10 mg PO BID [facility] Last Admin: 05/28/18 10:56 Dose: 10 mg Metoprolol Tartrate (Lopressor) 25 mg PO BID [facility] Last Admin: 05/28/18 10:56 Dose: 25 mg Midodrine (Proamatine) 2.5 mg PO TID [facility] Last Admin: 05/28/18 10:55 Dose: 2.5 mg Mupirocin (Bactroban Ointment) 0 gm NS BID [facility] Stop: 05/31/18 18:01 Last Admin: 05/28/18 10:59 Dose: 1 applic Solifenacin Succinate [Vesicare] (Home Med) 1 tab PO DAILY [facility] Last Admin: 05/27/18 09:37 Dose: Not Given Ondansetron HCl (Zofran Inj) 4 mg IVP Q4H PRN PRN Reason: Nausea/Vomiting Pantoprazole Sodium (Protonix Ec Tab) 40 mg PO 0600 [facility] Last Admin: 05/28/18 06:10 Dose: 40 mg Tamsulosin HCl (Flomax) 0.4 mg PO HS [facility] Last Admin: 05/27/18 22:25 Dose: 0.4 mg Thiamine HCl (Vitamin B1 Tab) 100 mg PO DAILY [facility] Last Admin: 05/28/18 10:57 Dose: 100 mg Vancomycin HCl (Vancocin 25 Mg/Ml (Oral Use)) 250 mg PO QID [facility]; Protocol Last Admin: 05/28/18 11:00 Dose: 250 mg - Labs Labs: 05/28/18 07:15 05/28/18 07:15 PT 14.5 SECONDS (9.4-12.5) H 05/23/18 19:30 INR 1.31 05/23/18 19:30 APTT 33.0 Seconds (26.9-38.3) 05/23/18 19:30 - Constitutional Appears: No Acute Distress - Head Exam Head Exam: NORMOCEPHALIC - Eye Exam Pupil Exam: NORMAL ACCOMODATION - Neck Exam Neck Exam: Normal Inspection - Respiratory Exam Respiratory Exam: Decreased Breath Sounds, NORMAL BREATHING PATTERN - Cardiovascular Exam Cardiovascular Exam: +S1, +S2 - Extremities Exam Extremities Exam: Normal Inspection - Psychiatric Exam Additional comments: demented amd oriented only to person Assessment and Plan - Assessment and Plan (Free Text) Plan: ITS Impressions Chest X-Ray 05/23/18 19:17 IMPRESSION: Small linear opacities at the lung bases more prominent on the right likely represent atelectasis. Otherwise no significant interval changes. Head CT 05/23/18 19:18 IMPRESSION: Suboptimal study degraded by motion artifacts. No evidence of acute intracranial hemorrhage intracranial collection mass effect or midline shift. Moderate atrophy and [id number] chronic microvascular white matter ischemic disease. Preliminary report was submitted by [facility] contains concordant findings. Pelvis X-Ray 05/23/18 19:18 IMPRESSION: No evidence of acute fracture or dislocation. Moderate osteoarthritic degenerative changes. Abdomen/Pelvis CT 05/23/18 20:10 IMPRESSION: Suspicious for urinary bladder stone measures 8 millimeter. Adjacent linear calcification may represent urinary bladder wall calcification. Mjzk-yi-ixhzchys urinary bladder wall thickening. Enlarged prostate. Additional findings in lower chest and in the abdomen as discussed above. Preliminary report was submitted by [facility] contains concordant findings. Chest CT 05/23/18 22:36 IMPRESSION: Airspace consolidation at the right middle lobe may represent pneumonia. Other etiology including small obstructing neoplasm is not totally excluded. Follow-up reassessment after 1-3 months is recommended. Cardiomegaly and mild pulmonary vascular congestion. Mild aneurysmal dilatation of the ascending thoracic aorta. 5.4 x 4.6 centimeter low-attenuation mass versus complex fluid collection noted medial to the right humeral head and glenohumeral joint of uncertain etiology. Further evaluation by other modality is recommended Preliminary report was submitted by [facility] contains concordant findings. Brain MRI 05/24/18 11:00 IMPRESSION: Limited study degraded by motion artifacts. Lacunar infarcts noted at right cerebellum and right centrum semiovale/ coronal radiata likely acute. Moderate volume loss and moderate chronic microvascular white matter ischemic disease again noted. Head MRA 05/24/18 11:03 IMPRESSION: No significant interval changes noted since the prior study dated 12/31/2017 as discussed above. Neck MRA 05/24/18 11:03 IMPRESSION: No MRA evidence of focal critical stenosis in the common and internal carotid arteries at the neck. Small size right vertebral artery and dominant left vertebral artery noted. Upper Extremity CT 05/25/18 20:43 IMPRESSION: No evidence of acute displaced fracture nor dislocation.. 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 large bilobed somewhat peanut shaped soft tissue fluid collection (which measures approximately 8 cm x 3.7 cm anterior and medial to the right humeral head and proximal humerus with Hounsfield units ranging from mid teens to low 20s.. This appears to be intramuscular in location subjacent to the right deltoid muscle and extending medially into the axillary region. Findings probably represents old posttraumatic sequela such as a chronic hematoma. Follow-up MRI could be performed to further characterize this fluid collection. Shoulder MRI 05/27/18 08:20 IMPRESSION: There is a large subacromial fluid collection measuring 7.6 cm wide by 2 cm height. There is also a subcoracoid collection measuring 3 x 4.5 cm. The findings are consistent with enlarged fluid-filled bursa. There is no significant joint effusion. 87 yr old white male with pmh sig for s/p TAVR, 2nd degree heart block, htn, BPH admitted after fall found to have UTI with Ecoli and right middle lobe pne as well as progressive anemia nd thrombocytopenia now undergoing cardiology, ortho, ID and hematology eval pt also with positive c.dif antigen and MRSA in the nares. pt is currently undergoing eval and treatment and plan for [facility] when medically stable per discussion with interdisciplinary team. will continue to monitor clinically BPCI/TIC - BPCIA/TIC Educated pt/family on BPCIA/CIR/Med to Bed Programs: N/A (pt dememnted , info left) Flyers given, including [facility] Beneficiary letter: Yes Pt/family verbalized understanding & agreed to program: N/A (pt demented)
--- NOTE | 2018-05-28 12:47 | CP.PCM.PN ---
Subjective - Date & Time of Evaluation Date of Evaluation: 05/28/18 Time of Evaluation: 09:10 - Subjective Subjective: Afebrile, not in distress. Objective - Vital Signs/Intake and Output Vital Signs (last 24 hours): Temp Pulse Resp BP Pulse Ox 98.3 F 78 19 93/60 L 95 05/27/18 06:00 05/27/18 09:42 05/27/18 06:00 05/27/18 09:42 05/27/18 06:00 Intake and Output: 05/27/18 05/27/18 06:59 18:59 Intake Total 240 Balance 240 - Medications Medications: Current Medications Acetaminophen (Tylenol 325mg Tab) 650 mg PO Q6 PRN PRN Reason: TEMP>=99.5F Acetaminophen (Tylenol 650 Mg Supp) 650 mg RC Q6H PRN PRN Reason: TEMP>=99.5F Acetylcysteine (Acetylcysteine 20%) 4 ml IH [id number] [facility] Last Admin: 05/27/18 07:26 Dose: 4 ml Aspirin (Aspirin Chewable) 81 mg PO DAILY [facility] Last Admin: 05/27/18 09:35 Dose: 81 mg Atorvastatin Calcium (Lipitor) 40 mg PO DIN [facility] Last Admin: 05/26/18 18:38 Dose: 40 mg Azithromycin (Zithromax) 250 mg PO DAILY [facility] Clopidogrel Bisulfate (Plavix) 75 mg PO DAILY [facility] Last Admin: 05/27/18 09:35 Dose: 75 mg Donepezil HCl (Aricept) 10 mg PO HS [facility] Last Admin: 05/26/18 21:40 Dose: 10 mg Fluoxetine HCl (Prozac) 10 mg PO DAILY [facility] Last Admin: 05/27/18 09:35 Dose: 10 mg Cefepime HCl (Maxipime 1gm) 1 gm in 100 mls @ 100 mls/hr IVPB Q8 [facility]; Protocol Last Admin: 05/27/18 05:47 Dose: 100 mls/hr Fluconazole (Diflucan Iv 200 Mg/100 Ml Ns) 100 mls @ 100 mls/hr IVPB DAILY [facility]; Protocol Last Admin: 05/27/18 09:35 Dose: 100 mls/hr Dextrose/Sodium Chloride (Dextrose 5%/0.45% Ns 1000 Ml) 1,000 mls @ 100 mls/hr IV .Q10H [facility] Last Admin: 05/27/18 05:47 Dose: 100 mls/hr Vancomycin HCl (Vancomycin 1gm) 1 gm in 250 mls @ 167 mls/hr IVPB Q12H [facility]; Protocol Levalbuterol HCl (Xopenex) 0.63 mg IH [id number] [facility] Last Admin: 05/27/18 07:26 Dose: 0.63 mg Memantine (Namenda) 10 mg PO BID [facility] Last Admin: 05/27/18 09:36 Dose: 10 mg Metoprolol Tartrate (Lopressor) 25 mg PO BID [facility] Last Admin: 05/27/18 09:42 Dose: Not Given Midodrine (Proamatine) 2.5 mg PO TID [facility] Last Admin: 05/27/18 09:41 Dose: 2.5 mg Mupirocin (Bactroban Ointment) 0 gm NS BID [facility] Stop: 05/31/18 18:01 Last Admin: 05/27/18 09:40 Dose: 1 applic Solifenacin Succinate [Vesicare] (Home Med) 1 tab PO DAILY [facility] Last Admin: 05/27/18 09:37 Dose: Not Given Ondansetron HCl (Zofran Inj) 4 mg IVP Q4H PRN PRN Reason: Nausea/Vomiting Pantoprazole Sodium (Protonix Ec Tab) 40 mg PO 0600 [facility] Last Admin: 05/27/18 05:47 Dose: 40 mg Tamsulosin HCl (Flomax) 0.4 mg PO HS [facility] Last Admin: 05/26/18 21:40 Dose: 0.4 mg Thiamine HCl (Vitamin B1 Tab) 100 mg PO DAILY [facility] Last Admin: 05/27/18 09:36 Dose: 100 mg Vancomycin HCl (Vancocin 25 Mg/Ml (Oral Use)) 250 mg PO QID [facility]; Protocol Last Admin: 05/27/18 09:35 Dose: 250 mg - Labs Labs: 05/27/18 07:35 05/27/18 07:35 PT 14.5 SECONDS (9.4-12.5) H 05/23/18 19:30 INR 1.31 05/23/18 19:30 APTT 33.0 Seconds (26.9-38.3) 05/23/18 19:30 - Constitutional Appears: Chronically Ill - Head Exam Head Exam: NORMAL INSPECTION - Respiratory Exam Respiratory Exam: Decreased Breath Sounds - Cardiovascular Exam Cardiovascular Exam: +S1, +S2 - GI/Abdominal Exam GI & Abdominal Exam: Soft. absent: Tenderness Assessment and Plan - Assessment and Plan (Free Text) Plan: Assessment Right middle lobe HCAP UTI with E. coli in this patient with BPH C. diff. associated diarrhea history of rectal bleeding history of methicillin-sensitive coagulase negative staph bacteremia HTN dyslipidemia depression dementia BPH history of rheumatic hear disease S/P aortic valve replacement Plan continue IV Vancomycin (since MRSA screen is positive) and continue Cefepime and Zithromax day 4 pending final blood cx, PCT; reviewed CT chest, abdomen and pelvis - RML infiltrate noted, as well as urinary bladder wall thickening - complete 5-7 days stool for C. diff Ag is positive and continue PO Vancomycin (day 3) for 10 days will continue to monitor clinically
[2018-05-28 13:23] LABS: HEPATITIS B SURFACE AG Negative (NEGATIVE)
[2018-05-28 13:30] LABS: HEPATITIS A IGM NEGATIVE (NEGATIVE); HEPATITIS B CORE AB NEGATIVE (NEGATIVE)
[2018-05-28 13:54] LABS: FOLATE 10.6 ng/mL
--- NOTE | 2018-05-28 13:57 | PN ---
DATE: 05/28/2018 SUBJECTIVE: The patient is seen lying in the bed in room 261 bed one. The patient is lying in the bed. Patient is alert, awake, responsive, confused, disoriented. Overnight nurse's notes were reviewed. The patient was seen by Orthopedics yesterday. The patient's MRI of the shoulder was completed. The patient was found to be alert, awake, oriented x1. Disoriented to place, date, time month. The patient's state disoriented, confused. The patient is presently on C diff and MRSA nares precautions. The patient is lying in the bed comfortable. PHYSICAL EXAMINATION: VITAL SIGNS: T-max 98.6. Telemetry monitoring shows sinus rhythm, heart rate 60s and 70s. Blood pressure 121/62, 119/75, 133/81, respiration 18-20, O2 sat 97%. Intake output is not documented correctly. HEENT: Head examination normocephalic, atraumatic. HEENT examination shows pinkish pale conjunctivae. Dry oral mucosa. Positive overgrown eugene. CHEST: Questionable soft carotid bruit. Kyphosis. CARDIOVASCULAR: S1, S2, regular rhythm. Positive systolic murmur left sternal border, right second intercostal space, left second intercostal space. LUNGS: Shows no audible crackle, rales or wheezing. Shows occasional positive rhonchi bilaterally, left more than the right. ABDOMEN: Soft. Positive bowel sound. No palpable hepatosplenomegaly. GENITALIA: Male. RECTAL: Deferred. EXTREMITIES: Shows no pitting edema, no calf tenderness, no Ayah's sign. According to the nurses' notes, the patient has right hip unstageable ulcer in right gluteal area. DIAGNOSTICS: 05/28/2018, WBC 6.9, hemoglobin/hematocrit 10.9/33.9 platelets 87,000, manual platelet pending. CMP, LFTs shows total protein 5.7, albumin 2.8. Stool occult blood negative, hepatitis influenza negative. Mycoplasma IgG is positive. Urine culture, Escherichia coli. MRI of the shoulder is pending. The patient seen by Hematology/Oncology, their recommendations were noted. IMPRESSION AND PLAN: 1. Thrombocytopenia, etiology unclear. 2. Anemia with hypoproliferative erythroid response. 3. Possible anemia of chronic disease. 4. Severe advanced dementia. 5. Right middle lobe healthcare-associated versus community-acquired pneumonia. 6. Escherichia coli urinary tract infection. 7. Clostridium difficile associated diarrhea. 8. History of hypotension. 9. Status post unwitnessed fall versus unwitnessed syncope. 10. Rhabdomyolysis. 11. Right hip gluteal area unstageable pressure ulcer. 12. Gait dysfunction. 13. Deconditioning. 14. Leukocytosis with granulocytosis. 15. Normocytic anemia with decreasing hemoglobin/hematocrit and thrombocytopenia. 16. Acute prerenal kidney injury with BUN of 92. 17. Transient hypernatremia. 18. Hypokalemia. 19. Decreased iron level and decreased iron saturation, decreased total iron binding capacity. 20. Mild protein malnutrition and mild hypoalbuminemia. 21. Status post rhabdomyolysis with elevated CPK. 22. Proteinuria, microscopic hematuria, pyuria, bacteriuria, and funguria with Escherichia coli urinary tract infection. 23. 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 24. Right humeral head and proximal humerus soft tissue fluid collection with intramuscular extension into the right deltoid muscle and axillary region. 25. Axillary and distal right subclavian artery vascular calcification. 26. Acute lacunar infarct of the right cerebellum and right mckeon radiata with diffusion restriction. 27. Poor personal hygiene. 28. Left ventricular ejection fraction of 53%. 29. Concentric left ventricular hypertrophy. 30. Mild valvular aortic stenosis. 31. Mild mitral annular calcification. 32. Moderate tricuspid regurgitation. 33. Not well visualized aortic valve. 34. Moderate aortic stenosis. 35. Age indeterminate anteroseptal inferior infarct. 36. Lateral coronary ischemia. 37. Left bundle-branch block, new. 38. Right middle lobe pneumonia and consolidation. 39. Dilated thoracic aorta with a 4.8 cm ascending thoracic aorta, transverse diameter and descending thoracic aorta 3.5 cm transverse diameter. 40. Cardiomegaly. 41. Status post transcatheter aortic valve replacement. 42. Diffuse esophageal mucosal thickening. 43. Bilateral pleural thickening. 44. 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 45. Normocytic anemia. PLAN: Plan at this time, the patient was seen by Hematology/Oncology. Their recommendations noted. Repeat labs ordered. CONSULTATION: Hematology/Oncology, Infectious Disease, Orthopedics, Neurology, Cardiology, Surgery and Podiatry. CURRENT MEDICATIONS: Mucomyst nebulizer with Xopenex nebulizer, Aricept 10 mg h.s., Ecotrin 81 mg daily, Diflucan 200 mg daily Flomax 0.4 mg daily, IV iron 200 mg daily, Lipitor 40 daily, Lopressor 25 twice a day, cefepime 1 g IV every 8 hours, Namenda 10 mg twice a day, Plavix 75 mg daily, ProAmatine 2.5 three times a day, Protonix 40 mg daily, Prozac 10 mg daily, Vesicare 1 tablet daily, Tylenol p.r.n., p.o. Vancocin 250 daily. The patient is also ordered vancomycin 1 g IV every 12 hours, thiamine 100 mg p.o. daily, Zithromax is changed to 250 p.o. daily, Zofran four IV every 4 hours p.r.n. It appears that the patient's IV fluid has fallen off the MAR, IV fluids will be resumed. The patient has been ordered antiplatelet antibody. The patient has been ordered out of bed to chair, physical therapy, occupational therapy ordered. We will await further recommendation by all the subspecialty involved in the care of the patient. We will order nonpharmacological DVT prophylaxis. Physical therapy, occupational therapy all ordered. The patient's discharge disposition at this time seems to be subacute rehab as per the patient's family's response. The patient seen by the physical therapy, their recommendation is also subacute rehab. The patient needs to be cleared from Infectious Disease regarding IV antibiotic duration and switching over to p.o. antibiotics. That will determine the patient's discharge disposition. Gaurav Ruvalcaba MD
[2018-05-28 14:15] LABS: HEPATITIS C ANTIBODY NEGATIVE (NEGATIVE)
--- NOTE | 2018-05-28 20:33 | CP.PCM.PN ---
Subjective - Date & Time of Evaluation Date of Evaluation: 05/28/18 Time of Evaluation: 13:00 - Subjective Subjective: Appears comfortable Objective - Vital Signs/Intake and Output Vital Signs (last 24 hours): Temp Pulse Resp BP Pulse Ox 97.9 F 60 18 124/76 98 05/28/18 18:00 05/28/18 18:00 05/28/18 18:00 05/28/18 18:00 05/28/18 06:00 Intake and Output: 05/28/18 05/29/18 18:59 06:59 Intake Total 2040 Output Total 0 Balance 2040 - Medications Medications: Current Medications Acetaminophen (Tylenol 325mg Tab) 650 mg PO Q6 PRN PRN Reason: TEMP>=99.5F Acetaminophen (Tylenol 650 Mg Supp) 650 mg RC Q6H PRN PRN Reason: TEMP>=99.5F Acetylcysteine (Acetylcysteine 20%) 4 ml IH [id number] [facility] Last Admin: 05/28/18 19:42 Dose: 4 ml Aspirin (Aspirin Chewable) 81 mg PO DAILY [facility] Last Admin: 05/28/18 10:57 Dose: 81 mg Atorvastatin Calcium (Lipitor) 40 mg PO DIN [facility] Last Admin: 05/28/18 17:16 Dose: 40 mg Azithromycin (Zithromax) 250 mg PO DAILY [facility] Last Admin: 05/28/18 10:56 Dose: 250 mg Clopidogrel Bisulfate (Plavix) 75 mg PO DAILY [facility] Last Admin: 05/28/18 10:57 Dose: 75 mg Donepezil HCl (Aricept) 10 mg PO HS [facility] Last Admin: 05/27/18 22:24 Dose: 10 mg Fluoxetine HCl (Prozac) 10 mg PO DAILY [facility] Last Admin: 05/28/18 10:57 Dose: 10 mg Cefepime HCl (Maxipime 1gm) 1 gm in 100 mls @ 100 mls/hr IVPB Q8 [facility]; Protocol Last Admin: 05/28/18 14:09 Dose: 100 mls/hr Fluconazole (Diflucan Iv 200 Mg/100 Ml Ns) 100 mls @ 100 mls/hr IVPB DAILY [facility]; Protocol Last Admin: 05/28/18 10:57 Dose: 100 mls/hr Dextrose/Sodium Chloride (Dextrose 5%/0.45% Ns 1000 Ml) 1,000 mls @ 100 mls/hr IV .Q10H [facility] Last Admin: 05/27/18 16:13 Dose: Not Given Vancomycin HCl (Vancomycin 1gm) 1 gm in 250 mls @ 167 mls/hr IVPB Q12H [facility]; Protocol Last Admin: 05/28/18 10:57 Dose: 167 mls/hr Sodium Chloride (Sodium Chloride 0.45%) 1,000 mls @ 70 mls/hr IV .[id number] [facility] Last Admin: 05/28/18 10:15 Dose: 70 mls/hr Levalbuterol HCl (Xopenex) 0.63 mg IH [id number] [facility] Last Admin: 05/28/18 19:42 Dose: 0.63 mg Memantine (Namenda) 10 mg PO BID [facility] Last Admin: 05/28/18 17:16 Dose: 10 mg Metoprolol Tartrate (Lopressor) 25 mg PO BID [facility] Last Admin: 05/28/18 17:16 Dose: 25 mg Midodrine (Proamatine) 2.5 mg PO TID [facility] Last Admin: 05/28/18 17:16 Dose: 2.5 mg Mupirocin (Bactroban Ointment) 0 gm NS BID [facility] Stop: 05/31/18 18:01 Last Admin: 05/28/18 17:22 Dose: 1 applic Solifenacin Succinate [Vesicare] (Home Med) 1 tab PO DAILY [facility] Last Admin: 05/28/18 10:00 Dose: Not Given Ondansetron HCl (Zofran Inj) 4 mg IVP Q4H PRN PRN Reason: Nausea/Vomiting Pantoprazole Sodium (Protonix Ec Tab) 40 mg PO 0600 [facility] Last Admin: 05/28/18 06:10 Dose: 40 mg Tamsulosin HCl (Flomax) 0.4 mg PO HS [facility] Last Admin: 05/27/18 22:25 Dose: 0.4 mg Thiamine HCl (Vitamin B1 Tab) 100 mg PO DAILY [facility] Last Admin: 05/28/18 10:57 Dose: 100 mg Vancomycin HCl (Vancocin 25 Mg/Ml (Oral Use)) 250 mg PO QID [facility]; Protocol Last Admin: 05/28/18 17:17 Dose: 250 mg - Labs Labs: 05/28/18 07:15 05/28/18 07:15 PT 14.5 SECONDS (9.4-12.5) H 05/23/18 19:30 INR 1.31 05/23/18 19:30 APTT 33.0 Seconds (26.9-38.3) 05/23/18 19:30 - Head Exam Head Exam: ATRAUMATIC - Eye Exam Eye Exam: Normal appearance - ENT Exam ENT Exam: Mucous Membranes Dry - Respiratory Exam Respiratory Exam: NORMAL BREATHING PATTERN - Cardiovascular Exam Cardiovascular Exam: +S1, +S2 - GI/Abdominal Exam GI & Abdominal Exam: Normal Bowel Sounds Assessment and Plan (1) Thrombocytopenia Assessment & Plan: slightly improved infection related Status: Acute (2) Anemia Assessment & Plan: hypoproliferative erythroid response likely related to chronic disease no iron/b12/folate deficiency, FOBT negative H/H improving with infection treatment Status: Acute
--- NOTE | 2018-05-28 21:03 | PN ---
DATE: 05/28/2018 CARDIOLOGY FOLLOWUP SUBJECTIVE: The patient is comfortable without shortness of breath, without chest pain. PHYSICAL EXAMINATION: VITAL SIGNS: Blood pressure 120/60, heart rate is in the 60s. NECK: Negative JVD. LUNGS: Without rales. HEART: S1, S2 with a 2/6 systolic ejection murmur. EXTREMITIES: Without edema. LABORATORY DATA: Hemoglobin is 10.9, BUN and creatinine unremarkable. Troponin is 0.4. IMPRESSION: 1. Severe dementia. 2. History of transcatheter aortic valve replacement. 3. Anemia. 4. History of syncope. 5. History of cerebrovascular accident. PLAN: Given these findings, the patient is hemodynamically stable. The patient needs extensive care given his marked dementia. Deion John MD
[2018-05-29] MEDS: Acetylcysteine 20% Inhal Soln (4ml) IH SCH ×3 (02:19→13:09)
[2018-05-29] MEDS: Levalbuterol 0.63 MG/3 ML Inhal Soln UD IH SCH ×3 (02:19→13:11)
[2018-05-29] MEDS: Cefepime 1gm in NS 100ml 1 GM/100 ML BAG IVPB SCH ×2 (05:11→13:27)
[2018-05-29] MEDS: Pantoprazole 40 mg EC Tab PO SCH (05:15)
[2018-05-29 06:30] LABS: BASO # 0.02 K/mm3 (0.0-2.0); BASO % 0.3 % (0.0-3.0); EOS # 0.4 (0.0-0.7); EOS % 5.4 % (1.5-5.0); HEMOGLOBIN 10.6 g/dL (14.0-18.0); LYMPH # 1.4 (1.2-3.4); LYMPH % 18.2 % (22.0-35.0); MEAN CELL VOLUME 89.1 fl (80.0-105.0); MEAN CORPUSCULAR HEMOGLOBIN 28.8 pg (25.0-35.0); MEAN CORPUSCULAR HGB CONC 32.3 g/dl (31.0-37.0); MEAN PLATELET VOLUME 10.8 fl (7.0-11.0); MONO # 0.4 (0.1-0.6); MONO % 5.3 % (1.0-6.0); RBC 3.68 10^6/uL (3.5-6.1); RED CELL DISTRIBUTION WIDTH 14.5 % (11.5-14.5); WHITE BLOOD COUNT 7.9 10^3/uL (4.5-11.0)
[2018-05-29 06:42] VITALS: O2SAT 96
[2018-05-29 06:48] LABS: ALB/GLOB RATIO 0.9 (1.1-1.8); ALBUMIN 2.7 g/dL (3.0-4.8); ALT/SGPT 39 U/L (7-56); AST/SGOT 39 U/L (17-59); BLOOD UREA NITROGEN 17 mg/dL (7-21); CALCIUM 8.5 mg/dL (8.4-10.5); GFR NON-AFRICAN AMERICAN > 60
[2018-05-29] MEDS: Dextrose 5%/0.45% NS 1,000 ML IV SCH ×4 (08:36→17:54)
[2018-05-29] MEDS: Fluconazole IV 200mg/100 ml NS 100 ML IVPB SCH (09:23)
[2018-05-29] MEDS: SOLIFENACIN SUCCINATE PO SCH (09:25)
[2018-05-29] MEDS: Vancomycin 25 MG/ML PO SCH ×3 (09:25→17:59)
[2018-05-29] MEDS: Mupirocin 2% Ointment 15 GM TUBE NS SCH ×2 (09:29→17:52)
[2018-05-29] MEDS: Vancomycin 1gm in NS 250ml 1 GM/250 ML BAG IVPB SCH (11:56)
--- NOTE | 2018-05-29 12:07 | CP.PCM.PCO ---
Physician Communication Note - Physician Communication Note Physician Communication Note: ?right shoulder aspiration of hematoma, continue anitibiotics
[2018-05-29 12:13] VITALS: RESP 18
--- NOTE | 2018-05-29 13:22 | CP.PCM.PN ---
Subjective - Date & Time of Evaluation Date of Evaluation: 05/29/18 Time of Evaluation: 08:50 - Subjective Subjective: Comfortable in bed, no fevers. Objective - Vital Signs/Intake and Output Vital Signs (last 24 hours): Temp Pulse Resp BP Pulse Ox 98.6 F 70 21 120/60 98 05/28/18 06:00 05/28/18 10:56 05/28/18 06:00 05/28/18 10:56 05/28/18 06:00 Intake and Output: 05/28/18 05/28/18 06:59 18:59 Intake Total 2041 Output Total 2 Balance 2039 - Medications Medications: Current Medications Acetaminophen (Tylenol 325mg Tab) 650 mg PO Q6 PRN PRN Reason: TEMP>=99.5F Acetaminophen (Tylenol 650 Mg Supp) 650 mg RC Q6H PRN PRN Reason: TEMP>=99.5F Acetylcysteine (Acetylcysteine 20%) 4 ml IH [id number] [facility] Last Admin: 05/28/18 07:59 Dose: 4 ml Aspirin (Aspirin Chewable) 81 mg PO DAILY [facility] Last Admin: 05/28/18 10:57 Dose: 81 mg Atorvastatin Calcium (Lipitor) 40 mg PO DIN [facility] Last Admin: 05/27/18 17:49 Dose: 40 mg Azithromycin (Zithromax) 250 mg PO DAILY [facility] Last Admin: 05/28/18 10:56 Dose: 250 mg Clopidogrel Bisulfate (Plavix) 75 mg PO DAILY [facility] Last Admin: 05/28/18 10:57 Dose: 75 mg Donepezil HCl (Aricept) 10 mg PO HS [facility] Last Admin: 05/27/18 22:24 Dose: 10 mg Fluoxetine HCl (Prozac) 10 mg PO DAILY [facility] Last Admin: 05/28/18 10:57 Dose: 10 mg Cefepime HCl (Maxipime 1gm) 1 gm in 100 mls @ 100 mls/hr IVPB Q8 [facility]; Protocol Last Admin: 05/28/18 06:10 Dose: 100 mls/hr Fluconazole (Diflucan Iv 200 Mg/100 Ml Ns) 100 mls @ 100 mls/hr IVPB DAILY [facility]; Protocol Last Admin: 05/28/18 10:57 Dose: 100 mls/hr Dextrose/Sodium Chloride (Dextrose 5%/0.45% Ns 1000 Ml) 1,000 mls @ 100 mls/hr IV .Q10H [facility] Last Admin: 05/27/18 16:13 Dose: Not Given Vancomycin HCl (Vancomycin 1gm) 1 gm in 250 mls @ 167 mls/hr IVPB Q12H [facility]; Protocol Last Admin: 05/28/18 10:57 Dose: 167 mls/hr Sodium Chloride (Sodium Chloride 0.45%) 1,000 mls @ 70 mls/hr IV .[id number] [facility] Last Admin: 05/28/18 10:15 Dose: 70 mls/hr Levalbuterol HCl (Xopenex) 0.63 mg IH [id number] [facility] Last Admin: 05/28/18 07:59 Dose: 0.63 mg Memantine (Namenda) 10 mg PO BID [facility] Last Admin: 05/28/18 10:56 Dose: 10 mg Metoprolol Tartrate (Lopressor) 25 mg PO BID [facility] Last Admin: 05/28/18 10:56 Dose: 25 mg Midodrine (Proamatine) 2.5 mg PO TID [facility] Last Admin: 05/28/18 10:55 Dose: 2.5 mg Mupirocin (Bactroban Ointment) 0 gm NS BID [facility] Stop: 05/31/18 18:01 Last Admin: 05/28/18 10:59 Dose: 1 applic Solifenacin Succinate [Vesicare] (Home Med) 1 tab PO DAILY [facility] Last Admin: 05/27/18 09:37 Dose: Not Given Ondansetron HCl (Zofran Inj) 4 mg IVP Q4H PRN PRN Reason: Nausea/Vomiting Pantoprazole Sodium (Protonix Ec Tab) 40 mg PO 0600 [facility] Last Admin: 05/28/18 06:10 Dose: 40 mg Tamsulosin HCl (Flomax) 0.4 mg PO HS [facility] Last Admin: 05/27/18 22:25 Dose: 0.4 mg Thiamine HCl (Vitamin B1 Tab) 100 mg PO DAILY [facility] Last Admin: 05/28/18 10:57 Dose: 100 mg Vancomycin HCl (Vancocin 25 Mg/Ml (Oral Use)) 250 mg PO QID [facility]; Protocol Last Admin: 05/28/18 11:00 Dose: 250 mg - Labs Labs: 05/28/18 07:15 02/19/19 07:15 PT 14.5 SECONDS (9.4-12.5) H 05/23/18 19:30 INR 1.31 05/23/18 19:30 APTT 33.0 Seconds (26.9-38.3) 05/23/18 19:30 - Constitutional Appears: Chronically Ill - Head Exam Head Exam: NORMAL INSPECTION - Respiratory Exam Respiratory Exam: Decreased Breath Sounds - Cardiovascular Exam Cardiovascular Exam: +S1, +S2 - GI/Abdominal Exam GI & Abdominal Exam: Soft. absent: Tenderness Assessment and Plan - Assessment and Plan (Free Text) Plan: Assessment Right middle lobe HCAP UTI with E. coli in this patient with BPH C. diff. associated diarrhea history of rectal bleeding history of methicillin-sensitive coagulase negative staph bacteremia HTN dyslipidemia depression dementia BPH history of rheumatic hear disease S/P aortic valve replacement Plan continue IV Vancomycin (since MRSA screen is positive) and continue Cefepime and Zithromax day 7 pending final blood cx, PCT; reviewed CT chest, abdomen and pelvis - RML infiltrate noted, as well as urinary bladder wall thickening - complete 7 days of therapy stool for C. diff Ag is positive and continue PO Vancomycin (day 4) for 10 days will continue to monitor clinically while the patient is in the hospital
--- NOTE | 2018-05-29 15:03 | PN ---
DATE: 05/29/2018 CARDIOLOGY FOLLOWUP SUBJECTIVE: The patient is comfortable in bed. PHYSICAL EXAMINATION VITAL SIGNS: Blood pressure 99/60 and heart rates in the 60s. NECK: Negative JVD. LUNGS: Without rales. HEART: Reveal S1 and S2. EXTREMITIES: Without edema. LABORATORY DATA: Hemoglobin is 10.6. BUN and creatinine is unremarkable. IMPRESSION: 1. Marked dementia. 2. History of transcatheter aortic valve replacement. 3. Anemia. 4. History of syncope. 5. History of cerebrovascular accident. Given these findings, the patient is currently hemodynamically stable. We will discontinue telemetry today. Deion John MD
--- NOTE | 2018-05-29 15:11 | CP.PCM.PN ---
Subjective - Date & Time of Evaluation Date of Evaluation: 05/29/18 Time of Evaluation: 09:29 - Subjective Subjective: MRI report stating large subacromial fluid collection measuring 7.6cm wide by 2cm height, consistent with right shoulder bursitis. Severe degenerative changes of the GH joint as well as AC joint. No fracture identified. MRI reviewed by Dr. Griffin. Patient alert and awake, sitting up in bed. Patient has history of dementia. Patient denies any pain to the right shoulder. Exam unchanged R shoulder Bursitis Per an orthopedic standpoint, patient ok for discharge Cont medical management Discussed above with Dr. Griffin, agrees with above. Objective - Vital Signs/Intake and Output Vital Signs (last 24 hours): Temp Pulse Resp BP Pulse Ox 98.0 F 66 20 96/54 L 96 05/29/18 06:00 05/29/18 06:00 05/29/18 06:00 05/29/18 06:00 05/29/18 06:00 Intake and Output: 05/29/18 05/29/18 06:59 18:59 Intake Total 2160 Output Total 0 Balance 2160 - Medications Medications: Current Medications Acetaminophen (Tylenol 325mg Tab) 650 mg PO Q6 PRN PRN Reason: TEMP>=99.5F Acetaminophen (Tylenol 650 Mg Supp) 650 mg RC Q6H PRN PRN Reason: TEMP>=99.5F Acetylcysteine (Acetylcysteine 20%) 4 ml IH [id number] [facility] Last Admin: 05/29/18 08:05 Dose: 4 ml Aspirin (Aspirin Chewable) 81 mg PO DAILY [facility] Last Admin: 05/28/18 10:57 Dose: 81 mg Atorvastatin Calcium (Lipitor) 40 mg PO DIN [facility] Last Admin: 05/28/18 17:16 Dose: 40 mg Azithromycin (Zithromax) 250 mg PO DAILY [facility] Last Admin: 05/28/18 10:56 Dose: 250 mg Clopidogrel Bisulfate (Plavix) 75 mg PO DAILY [facility] Last Admin: 05/28/18 10:57 Dose: 75 mg Donepezil HCl (Aricept) 10 mg PO HS [facility] Last Admin: 05/28/18 21:23 Dose: 10 mg Fluoxetine HCl (Prozac) 10 mg PO DAILY [facility] Last Admin: 05/28/18 10:57 Dose: 10 mg Cefepime HCl (Maxipime 1gm) 1 gm in 100 mls @ 100 mls/hr IVPB Q8 [facility]; Protocol Last Admin: 05/29/18 05:11 Dose: 100 mls/hr Fluconazole (Diflucan Iv 200 Mg/100 Ml Ns) 100 mls @ 100 mls/hr IVPB DAILY [facility]; Protocol Last Admin: 05/28/18 10:57 Dose: 100 mls/hr Dextrose/Sodium Chloride (Dextrose 5%/0.45% Ns 1000 Ml) 1,000 mls @ 100 mls/hr IV .Q10H [facility] Last Admin: 05/29/18 08:36 Dose: 100 mls/hr Vancomycin HCl (Vancomycin 1gm) 1 gm in 250 mls @ 167 mls/hr IVPB Q12H [facility]; Protocol Last Admin: 05/28/18 21:20 Dose: 167 mls/hr Levalbuterol HCl (Xopenex) 0.63 mg IH [id number] [facility] Last Admin: 05/29/18 08:05 Dose: 0.63 mg Memantine (Namenda) 10 mg PO BID [facility] Last Admin: 05/28/18 17:16 Dose: 10 mg Metoprolol Tartrate (Lopressor) 25 mg PO BID [facility] Last Admin: 05/28/18 17:16 Dose: 25 mg Midodrine (Proamatine) 2.5 mg PO TID [facility] Last Admin: 05/28/18 17:16 Dose: 2.5 mg Mupirocin (Bactroban Ointment) 0 gm NS BID [facility] Stop: 05/31/18 18:01 Last Admin: 05/28/18 17:22 Dose: 1 applic Solifenacin Succinate [Vesicare] (Home Med) 1 tab PO DAILY [facility] Last Admin: 05/28/18 10:00 Dose: Not Given Ondansetron HCl (Zofran Inj) 4 mg IVP Q4H PRN PRN Reason: Nausea/Vomiting Pantoprazole Sodium (Protonix Ec Tab) 40 mg PO 0600 [facility] Last Admin: 05/29/18 05:15 Dose: 40 mg Tamsulosin HCl (Flomax) 0.4 mg PO HS [facility] Last Admin: 05/28/18 21:23 Dose: 0.4 mg Thiamine HCl (Vitamin B1 Tab) 100 mg PO DAILY [facility] Last Admin: 05/28/18 10:57 Dose: 100 mg Vancomycin HCl (Vancocin 25 Mg/Ml (Oral Use)) 250 mg PO QID [facility]; Protocol Last Admin: 05/28/18 21:22 Dose: 250 mg - Labs Labs: 05/29/18 06:00 05/29/18 06:00 PT 14.5 SECONDS (9.4-12.5) H 05/23/18 19:30 INR 1.31 05/23/18 19:30 APTT 33.0 Seconds (26.9-38.3) 05/23/18 19:30
--- NOTE | 2018-05-29 15:21 | PN ---
DATE: 05/29/2018 SUBJECTIVE: The patient is seen, lying in the bed, in room 261, bed 1. Overnight nurse's notes were reviewed. PHYSICAL EXAMINATION: GENERAL: The patient is awake; oriented to self only; disoriented to year, date, month and place. The patient is seen lying in the bed. VITAL SIGNS: T-max 98. Telemetry shows sinus rhythm, heart rate 76, 66, 64, 66. Blood pressure is 109/61, 100/58, 124/76, 98/54. Respirations 20. O2 sat 96%. HEAD: Normocephalic, atraumatic. HEENT: Shows pinkish pale conjunctivae. Anicteric sclerae. Dry oral mucosa. NECK: No neck rigidity. CHEST: Kyphosis. LUNGS: Shows positive rhonchi bilaterally. Questionable decreased breath sounds at the bases. CARDIOVASCULAR: S1, S2, regular rhythm. Positive systolic murmur in left sternal border, right second intercostal space, left second intercostal space. ABDOMEN: Soft. Positive bowel sound. No palpable transverse splenomegaly. GENITALIA: Male. RECTAL: Deferred. EXTREMITIES: Show no pitting edema. No Chilel's or Homans sign. NEUROLOGIC: The patient is confused, disoriented. Gait examination is not tested. MUSCULOSKELETAL: 27.6. Cranial nerves II-XII limited. DIAGNOSTIC DATA: On 05/29/2018, hemoglobin and hematocrit 10.6 and 32.8, platelet count is 130,000. CMP is within normal limit. LFTs are within normal limit. Total protein 5.7, albumin 2.7. Repeat urine cultures are negative. Repeat C. difficile is still pending despite my orders. Urine culture, Escherichia coli. The patient's MRI of the right shoulders was reviewed. IMPRESSION: 1. Status post unwitnessed fall versus unwitnessed syncope. 2. Status post rhabdomyolysis. 3. Severe advanced dementia. 4. Community-acquired multilobar pneumonia. 5. Possible aspiration pneumonia. 6. Escherichia coli urinary tract infection. 7. Left bundle-branch block. 8. Sacral decubitus ulceration. 9. Hypotension. 10. Hypovolemia. 11. Anemia and thrombocytopenia. 12. Granulocytosis. 13. Acute renal failure and prerenal kidney injury. 14. Iron deficiency. 15. Protein malnutrition and hypoalbuminemia. 16. Proteinuria, microscopic hematuria, pyuria, bacteriuria, funguria with Escherichia coli urinary tract infection. 17. Clostridium difficile associated diarrhea with Clostridium difficile antigen positive, toxin negative. 18. Right shoulder large subacromial fluid collection with subcoracoid collection consistent with enlarged fluid-filled bursa. 19. 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 20. Degenerative joint disease of the right acromioclavicular joint. 21. Acute lacunar infarct with diffusion restriction of the right cerebellum and right mckeon radiata. 22. Cerebral cortical atrophy of the brain and chronic microvascular ischemic disease of the brain. 23. Cerebral cortical atrophy. 24. Left middle cerebral artery trifurcation, small aneurysm 3 mm. 25. Right middle lobe pneumonia and consolidation. 26. Questionable pulmonary vascular congestion. 27. Dilated thoracic aorta and 4.8 cm ascending thoracic aortic diameter and 3.5 cm descending thoracic aortic transverse diameter. 28. Status post transcatheter aortic valve replacement. 29. Diffuse esophageal mucosal thickening. 30. Aortic arch and descending thoracic aorta and atherosclerotic calcification. 31. Right-sided pleural thickening. 32. 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 33. An 8 mm nonobstructing left nephrolithiasis. 34. Circumferential bladder wall thickening. 35. 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 36. Gait dysfunction. 37. Deconditioning. PLAN: At this time, the patient is awaiting CT-guided aspiration of the right shoulder and right subacromial bursal collection. The patient has been ordered repeat CMP and CBC and manual platelet. Repeat C. difficile antigen is still pending. Current consultation, Hematology, Infectious Disease, Orthopedics, Neurology, Cardiology, Surgery, and Podiatry. Current medications: Mucomyst nebulizer every 6 hours 4 mL 20%, Aricept 10 mg at bedtime, Ecotrin 81 mg daily, Bactroban cream to affected area, D5 half normal at 100 mL an hour, fluconazole 200 mg daily, Flomax 0.4 mg daily, Lipitor 40 mg daily, Lopressor 25 mg twice a day, cefepime 1 g IV every 8 hours, Namenda 10 mg twice a day, Plavix 75 mg daily, midodrine 2.5 mg three times a day, Plavix, Protonix 40 mg daily, Prozac 10 mg daily, VESIcare 1 tablet daily, Tylenol p.r.n., vancomycin 250 mg p.o. four times each day, vancomycin 1 g IV every 12 hours, thiamine 100 mg daily, Xopenex nebulizer 0.63 every 6 hours, Zithromax 250 mg daily, Zofran 4 IV every 4 hours p.r.n. . EEG pending. Heart-healthy diet, out of bed, physical therapy, occupational therapy, ambulation therapy all ordered. The patient is awaiting for clearance by all subspecialty for possible discharge to [facility] as per the patient's son's request. Gaurav Ruvalcaba MD
--- NOTE | 2018-05-29 15:56 | CP.PCM.DIS ---
Provider - Provider Date of Admission: 05/23/18 22:05 Attending physician: Gaurav Ruvalcaba MD Primary care physician: Gaurav Ruvalcaba MD Consults: 05/23/18 22:33 Physician Consult Routine Comment: Consulting Provider: Yayo Thompson Consulting Physician: Yayo Thompson Reason for Consult: dementia Physician Consult Routine Comment: Consulting Provider: Hipolito Burch Consulting Physician: Hipolito Burch Reason for Consult: sacral decubitus Physician Consult Routine Comment: Consulting Provider: Deion John Consulting Physician: Deion John Reason for Consult: Aortic stenosis 05/24/18 01:48 Social Work Referral Routine Comment: admission assessment protocol Physician Instructions: Reason For Exam: Maia score 17 05/24/18 04:16 Nursing Referral for Wound Care Routine Comment: right hip wound Physician Instructions: Reason For Exam: admission assessment protocol 05/24/18 04:44 Nursing Referral for Wound Care Routine Comment: Physician Instructions: Reason For Exam: Protocol 05/24/18 09:51 Case Management Referral Routine Comment: Physician Instructions: Reason For Exam: Questionable whether pt is safe at home Reason for Referral: Discharge Planning 05/24/18 12:37 Wound Care [Nursing Referral for Wound Care] Routine Comment: Physician Instructions: Reason For Exam: pressure ulcer R scapular 05/24/18 14:23 Podiatry Consult Routine Comment: Consulting Provider: Sydni Subramanian Consulting Physician: Sydni Subramanian Reason for Consult: Right ankle scab and b/l foot care 05/24/18 15:38 Infectious Disease Consult Routine Comment: Consulting Provider: David Taylor Consulting Physician: David Taylor Reason for Consult: Sepsis HCAP? lung nodules? UTI? Skin? 05/25/18 00:05 Nursing Referral for Wound Care Routine Comment: Physician Instructions: Reason For Exam: evaluation 05/25/18 09:15 TCU [Evaluation for TRCU] DAILY Comment: TCU Physician Instructions: TCU Reason For Exam: TCU 05/26/18 07:21 Discharge Planning [Case Management Referral] Routine Comment: Physician Instructions: Reason For Exam: CHANTE Reason for Referral: Discharge Planning 05/26/18 09:15 TCU [Evaluation for TRCU] DAILY Comment: TCU Physician Instructions: TCU Reason For Exam: TCU 05/26/18 16:23 Orthopedic Consult Routine Comment: Consulting Provider: Collin Griffin Consulting Physician: Collin Griffin Reason for Consult: ABN.CT SHOULDER 05/27/18 08:16 Hematology Oncology Consult Routine Comment: Consulting Provider: Adrian Canales Consulting Physician: Adrian Canales Reason for Consult: ANEMIA/THROMBOCYTOPENIA 05/27/18 09:15 TCU [Evaluation for TRCU] DAILY Comment: TCU Physician Instructions: TCU Reason For Exam: TCU 05/28/18 09:15 TCU [Evaluation for TRCU] DAILY Comment: TCU Physician Instructions: TCU Reason For Exam: TCU 05/29/18 09:15 TCU [Evaluation for TRCU] DAILY Comment: TCU Physician Instructions: TCU Reason For Exam: TCU 05/30/18 09:15 TCU [Evaluation for TRCU] DAILY Comment: TCU Physician Instructions: TCU Reason For Exam: TCU 05/31/18 09:15 TCU [Evaluation for TRCU] DAILY Comment: TCU Physician Instructions: TCU Reason For Exam: TCU 06/01/18 09:15 TCU [Evaluation for TRCU] DAILY Comment: TCU Physician Instructions: TCU Reason For Exam: TCU 06/02/18 09:15 TCU [Evaluation for TRCU] DAILY Comment: TCU Physician Instructions: TCU Reason For Exam: TCU 06/03/18 09:15 TCU [Evaluation for TRCU] DAILY Comment: TCU Physician Instructions: TCU Reason For Exam: TCU 06/04/18 09:15 TCU [Evaluation for TRCU] DAILY Comment: TCU Physician Instructions: TCU Reason For Exam: TCU Time Spent in preparation of Discharge (in minutes): 40 Diagnosis - Discharge Diagnosis (1) Stroke Status: Acute (2) Dehydration Status: Acute (3) Fall Status: Acute (4) Pneumonia Status: Acute (5) Thrombocytopenia Status: Acute (6) UTI (urinary tract infection) Status: Acute Hospital Course - Lab Results Lab Results: Micro Results 05/27/18 18:00 Urine,Clean Catch Urine Culture - Final No Growth (<1,000 CFU/ML) 05/23/18 19:25 Blood Blood Culture - Final NO GROWTH AFTER 5 DAYS 05/23/18 19:25 Blood Gram Stain - Final TEST NOT PERFORMED 05/23/18 19:30 Blood Blood Culture - Final NO GROWTH AFTER 5 DAYS 05/23/18 19:30 Blood Gram Stain - Final TEST NOT PERFORMED 05/25/18 16:38 Stool C. difficile Antigen & Toxins A,B - Final 05/24/18 21:00 Naris MRSA Culture (Admit) - Final MRSA DETECTED 05/23/18 21:00 Urine,Clean Catch Urine Culture - Final Escherichia Coli Most Recent Lab Values WBC 7.9 10^3/uL (4.5-11.0) 05/29/18 06:00 RBC 3.68 10^6/uL (3.5-6.1) 05/29/18 06:00 Hgb 10.6 g/dL (14.0-18.0) L 05/29/18 06:00 Hct 32.8 % (42.0-52.0) L 05/29/18 06:00 MCV 89.1 fl (80.0-105.0) 05/29/18 06:00 MCH 28.8 pg (25.0-35.0) 05/29/18 06:00 MCHC 32.3 g/dl (31.0-37.0) 05/29/18 06:00 RDW 14.5 % (11.5-14.5) 05/29/18 06:00 Plt Count 92 10^3/uL (120.0-450.0) L 05/29/18 06:00 Manual Plt Count 130 K/mm3 (120-450) 05/29/18 06:00 MPV 10.8 fl (7.0-11.0) 05/29/18 06:00 Neut % (Auto) 70.8 % (50.0-68.0) H 05/29/18 06:00 Lymph % (Auto) 18.2 % (22.0-35.0) L 05/29/18 06:00 [place] % (Auto) 5.3 % (1.0-6.0) 05/29/18 06:00 Eos % (Auto) 5.4 % (1.5-5.0) H 05/29/18 06:00 Baso % (Auto) 0.3 % (0.0-3.0) 05/29/18 06:00 Lymph # (Auto) 1.4 (1.2-3.4) 05/29/18 06:00 [place] # (Auto) 0.4 (0.1-0.6) 05/29/18 06:00 Eos # (Auto) 0.4 (0.0-0.7) 05/29/18 06:00 Baso # (Auto) 0.02 K/mm3 (0.0-2.0) 05/29/18 06:00 Absolute Neuts (auto) 5.60 (1.4-6.5) 05/29/18 06:00 Retic Count 0.82 % (0.5-1.5) 05/27/18 09:41 PT 14.5 SECONDS (9.4-12.5) H 05/23/18 19:30 INR 1.31 05/23/18 19:30 APTT 33.0 Seconds (26.9-38.3) 05/23/18 19:30 pO2 52 mm/Hg (30-55) 05/24/18 17:39 VBG pH 7.36 (7.32-7.43) 05/24/18 17:39 VBG pCO2 41.0 (40-60) 05/24/18 17:39 VBG HCO3 23.2 mmol/l (21-28) 05/24/18 17:39 VBG Total CO2 24.5 mmol.L (22-28) 05/24/18 17:39 VBG O2 Sat (Calc) 87.9 % (40-65) H 05/24/18 17:39 VBG Base Excess -2.2 mmol/L (0.0-2.0) L 05/24/18 17:39 VBG Potassium 3.4 mmol/L (3.6-5.2) L 05/24/18 17:39 Sodium 149.0 mmol/L (132-148) H 05/24/18 17:39 Chloride 113.0 mmol/L (98-107) H 05/24/18 17:39 Glucose 98 mg/dl (75-110) 05/24/18 17:39 Lactate 1.8 mmol/L (0.7-2.1) 05/24/18 17:39 FiO2 21.0 % 05/24/18 17:39 Sodium 138 mmol/L (132-148) 05/29/18 06:00 Potassium 4.2 mmol/L (3.6-5.0) 05/29/18 06:00 Chloride 108 mmol/L (98-107) H 05/29/18 06:00 Carbon Dioxide 28 mmol/L (21-33) 05/29/18 06:00 Anion Gap 7 (10-20) L 05/29/18 06:00 BUN 17 mg/dL (7-21) 05/29/18 06:00 Creatinine 0.8 mg/dl (0.8-1.5) 05/29/18 06:00 Est GFR ( Amer) > 60 05/29/18 06:00 Est GFR (Non-Af Amer) > 60 05/29/18 06:00 POC Glucose (mg/dL) 118 mg/dL (65-110) H 05/25/18 11:52 Random Glucose 84 mg/dL (70-110) 05/29/18 06:00 Hemoglobin A1c 5.5 % (4.2-6.5) 05/26/18 06:00 Calcium 8.5 mg/dL (8.4-10.5) 05/29/18 06:00 Phosphorus 3.0 mg/dL (2.5-4.5) 05/29/18 06:00 Magnesium 2.0 mg/dL (1.7-2.2) 05/29/18 06:00 Iron 32 ug/dL (45-180) L 05/27/18 09:41 TIBC 207 ug/dL (261-462) L 05/27/18 09:41 % Saturation 15 % (20-55) L 05/27/18 09:41 Ferritin 138.0 ng/mL 05/27/18 09:41 Total Bilirubin 0.6 mg/dL (0.2-1.3) 05/29/18 06:00 Direct Bilirubin 0.1 mg/dL (0.0-0.4) 05/27/18 07:35 AST 39 U/L (17-59) 05/29/18 06:00 ALT 39 U/L (7-56) 05/29/18 06:00 Alkaline Phosphatase 77 U/L (38-126) 05/29/18 06:00 Lactate Dehydrogenase 791 U/L (333-699) H 05/23/18 19:30 Total Creatine Kinase 153 U/L (35-230) 05/25/18 01:07 CK-MB (CK-2) 4.1 ng/mL (0.0-3.6) H 05/24/18 08:00 CK-MB (CK-2) % 1.7 % (2.5-3.0) L 05/24/18 01:25 Troponin I 0.04 ng/mL 05/24/18 06:50 NT-Pro-B Natriuret Pep 1210 pg/mL (0-450) H 05/23/18 19:30 Total Protein 5.7 g/dL (5.8-8.3) L 05/29/18 06:00 Albumin 2.7 g/dL (3.0-4.8) L 05/29/18 06:00 Globulin 3.0 gm/dL 05/29/18 06:00 Albumin/Globulin Ratio 0.9 (1.1-1.8) L 05/29/18 06:00 Triglycerides 61 mg/dL (35-160) 05/24/18 13:00 Cholesterol 103 mg/dL (130-200) L 05/24/18 13:00 LDL Cholesterol Direct 67 mg/dL (0-129) 05/24/18 13:00 HDL Cholesterol 28 mg/dL (29-60) L 05/24/18 13:00 Vitamin B12 418 pg/mL (239-931) 05/28/18 07:15 Folate 10.6 ng/mL 05/28/18 07:15 Procalcitonin 0.11 NG/ML (0.19-0.49) L 05/24/18 19:08 Venous Blood Potassium 3.4 mmol/L (3.6-5.2) L 05/24/18 17:39 Urine Color Light brown (YELLOW) 05/23/18 19:45 Urine Appearance Cloudy (CLEAR) 05/23/18 19:45 Urine pH 6.0 (4.7-8.0) 05/23/18 19:45 Ur Specific [place] >= 1.030 (1.005-1.035) 05/23/18 19:45 Urine Protein 30 mg/dL (<30 mg/dL) H 05/23/18 19:45 Urine Glucose (UA) Negative mg/dL (NEGATIVE) 05/23/18 19:45 Urine Ketones Negative mg/dL (NEGATIVE) 05/23/18 19:45 Urine Blood Moderate (NEGATIVE) H 05/23/18 19:45 Urine Nitrate Negative (NEGATIVE) 05/23/18 19:45 Urine Bilirubin Small (NEGATIVE) H 05/23/18 19:45 Urine Urobilinogen 1.0 E.U./dL (<1 E.U./dL) H 05/23/18 19:45 Ur Leukocyte Esterase Moderate Dima/uL (NEGATIVE) H 05/23/18 19:45 Urine RBC Tntc /hpf (0-2) H 05/23/18 19:45 Urine WBC Tntc /hpf (0-6) H 05/23/18 19:45 Amorphous Sediment Moderate /hpf (NONE) 05/23/18 19:45 Urine Bacteria Large /hpf (NONE) 05/23/18 19:45 Urine Other Uyeast /hpf 05/23/18 19:45 Stool Occult Blood Negative (NEGATIVE) 05/25/18 16:38 Hepatitis A IgM Ab Negative (NEGATIVE) 05/28/18 07:15 Hep Bs Antigen Negative (NEGATIVE) 05/28/18 07:15 Hep B Core IgM Ab Negative (NEGATIVE) 05/28/18 07:15 Hepatitis C Antibody Negative (NEGATIVE) 05/28/18 07:15 HIV 1&2 Ag/Ab, 4th Gen Nonreactive (Nonreactive) 05/27/18 09:41 Influenza Typ A,B (EIA) Negative for flu a/b (NEGATIVE) 05/25/18 20:20 Ur L.pneumophila Ag Negative (NEGATIVE) 05/27/18 18:00 Mycoplasma pneumon IgG 4.97 (<=0.90) H 05/24/18 21:00 Mycoplasma pneumon IgM 301 U/mL (<770) 05/24/18 21:00 - Hospital Course Hospital Course: PGY-[address] Ruvalcaba Mr Mcdonough, 87M, with PMHx Alzheimer dementia, aortic stenosis s/p TAVR (Winter 2017), HTN/HLD, Hx GI bleed in 2016, alcohol abuse, depression, rheumatic heart disease as a child, presenting s/p fall and found on the ground at home. He has altered mental status. Per Son, after discharge from rehab 2 months ago, pt became more forgetful, neglectful in self-care, and not motivated to get out of the house. His baseline mentation was AAOx3. Per Neurology, pt has a transient confusion state secondary to transient cerebral hypotension to the brain, superimposed acute small lacunar infarcts in R cerebellum and R centrium semiovale as caused by diffuse atherosclerotic disease. He is put on ASA 81, plavix 75, lipitor for stroke prevention. Namenda and aricept dosage was increased, and thiamin is added Pt is Sesptic from RML HCAP and E-coli UTI with Hx BPH. CT abd/pelvis shows (1) right middle lobe infiltrates (2) Questionable tumor in lung but pneumonia may have obscured the view, pt needs to have a Follow-up CT chest in 1-3 months. (3) 5cm x 5cm mass in R humeral head/glenohumeral joint. MRSA snare screen is positive. He should be on 7 total days of vancomycin, cefepime, and azithromax (5 days received at hospital already, 2 days to be received in [facility]). He developed C. diff colitis and needs to be on vancomycin PO x 10 days. He has thrombocytopenia due to sepsis, which resolved while on antibiotics and on discharge. Pt is s/p fall. CT head shows no intracranial hemorrhage, moderate atrophy. CK 469 on admission, trending down to 100s while on gentle IVF. He has Azotemia with BUN 90s likely due to dehydration, Hb stable/likely from elevated Creatine kinase due to pressure ulcres or fall and dehydration. Not likely rhabdomyolysis. Stool hemeoccult neg. H&H stable. Pt has a possible Left bundle branch block. Troponins 0.04-0.05 x 3. Serial EKG no significant changes. ECHO from 04/2018: LVEF 55%. ECHO 05/24/18: Normal LVEF 53%. He is currently hemodynamically stable and ok by cardiology for discontinuation of telemetry. Pt has Decubitus ulcer and shoulder/sacral/heel. HE received wound care, podiatry care. No plan of surgery As for 5cm x 5cm mass in R humeral head/glenohumeral joint, MRI R arm was done. Pt should follow up with orthopedic surgeon outpatient. Discharge Exam - Head Exam Head Exam: ATRAUMATIC, NORMAL INSPECTION, NORMOCEPHALIC - Eye Exam Eye Exam: EOMI, Normal appearance, PERRL. absent: Scleral icterus Pupil Exam: NORMAL ACCOMODATION, PERRL - ENT Exam ENT Exam: Mucous Membranes Moist - Neck Exam Additional comments: supple - Respiratory Exam Respiratory Exam: Decreased Breath Sounds (R lung base), NORMAL BREATHING PATTERN - Cardiovascular Exam Cardiovascular Exam: REGULAR RHYTHM, +S1, +S2 - GI/Abdominal Exam GI & Abdominal Exam: Normal Bowel Sounds. absent: Firm, Guarding - Extremities Exam Extremities exam: pedal pulses present - Back Exam Back exam: absent: CVA tenderness (L), CVA tenderness (R) - Neurological Exam Neurological exam: Alert, CN II-XII Intact Additional comments: AAo x 1 to person, occasional to place no slurr speech motor sensory grossly intact - Psychiatric Exam Psychiatric exam: Flat Affect, Normal Mood - Skin Skin Exam: Dry, Warm Additional comments: multiple wounds are R arm/flank/hip Discharge Plan - Discharge Medications Prescriptions: Cefepime 1gm in NS 100ml [Maxipime 1gm] 1 gm IVPB Q8 2 Days bag Vancomycin [Vancomycin Inj] 1 gm IV Q12 2 Days vial - Follow Up Plan Condition: FAIR Disposition: REHAB FACILITY/REHAB UNIT Instructions: Urinary Tract Infection, Adult (DC), Pneumonia, Adult (DC), Altered Mental Status (DC), Syncope (Fainting) (DC), Preventing Falls Additional Instructions: Eye glasses were found. Please follow up with primary care doctor and specialists as discussed per phone conversation with son, 05/29, 3:30pm If any new symptoms, please call primary care doctor or go to nearest emergency room Rehab facility: contact precaution for MRSA in nares and C diff colitis Patient needs to have a CT chest repeated within 3 months Referrals: Collin Griffin MD [Staff Provider] - 4 Week Sydni Subramanian DPM [Staff Provider] - 1 Week Gaurav Ruvalcaba MD [Primary Care Provider] - 1 Week Yayo Thompson MD [Staff Provider] - 1 Week Deion John MD [Staff Provider] - 4 Week Clinical Quality Measures - CQM - Stroke Antithrombotic Prescribed: Yes Statin prescribed: Yes
[2018-05-29] MEDS: Sodium Chloride 0.45% 1,000 ML IV SCH (18:01)
[2018-05-29 18:15] VITALS: BP 121/79; PULSE 70; TEMP 98.2
== END 2018-05-29 20:09 | DRG 64 ==
LOC: ED 18:23 → ERH 22:05 → 2RNO 05-24 01:01 → 2RSO 05-26 06:55 → 2RNO 05-26 10:29
PROVIDERS: ADMIT Internal Medicine; ATTEND Internal Medicine
DX: I63.81 Other cerebral infarction due to occlusion or stenosis of small artery (principal); J18.1 Lobar pneumonia, unspecified organism; A41.9 Sepsis, unspecified organism; N39.0 Urinary tract infection, site not specified; M62.82 Rhabdomyolysis; E44.1 Mild protein-calorie malnutrition; E87.0 Hyperosmolality and hypernatremia; A04.72 Enterocolitis due to Clostridium difficile, not specified as recurrent; F02.80 Dementia in other diseases classified elsewhere, unspecified severity, without behavioral disturbance, psychotic disturbance, mood disturbance, and anxiety; E86.0 Dehydration; L89.019 Pressure ulcer of right elbow, unspecified stage; N40.0 Benign prostatic hyperplasia without lower urinary tract symptoms; L89.210 Pressure ulcer of right hip, unstageable; B96.20 Unspecified Escherichia coli [E. coli] as the cause of diseases classified elsewhere; I10 Essential (primary) hypertension; G30.9 Alzheimer's disease, unspecified; F32.9 Major depressive disorder, single episode, unspecified; D64.9 Anemia, unspecified; Z66 Do not resuscitate; E78.00 Pure hypercholesterolemia, unspecified; E78.5 Hyperlipidemia, unspecified; K56.41 Fecal impaction; I44.7 Left bundle-branch block, unspecified; I25.10 Atherosclerotic heart disease of native coronary artery without angina pectoris; N32.81 Overactive bladder; E87.6 Hypokalemia; R80.9 Proteinuria, unspecified; M19.011 Primary osteoarthritis, right shoulder; M19.012 Primary osteoarthritis, left shoulder; F10.10 Alcohol abuse, uncomplicated; D69.59 Other secondary thrombocytopenia; E86.1 Hypovolemia; M16.0 Bilateral primary osteoarthritis of hip; L89.159 Pressure ulcer of sacral region, unspecified stage; I36.1 Nonrheumatic tricuspid (valve) insufficiency; L89.609 Pressure ulcer of unspecified heel, unspecified stage; N28.1 Cyst of kidney, acquired; N20.0 Calculus of kidney; S20.319A Abrasion of unspecified front wall of thorax, initial encounter; S90.511A Abrasion, right ankle, initial encounter; M75.51 Bursitis of right shoulder; W19.XXXA Unspecified fall, initial encounter; Z91.81 History of falling; K57.90 Diverticulosis of intestine, part unspecified, without perforation or abscess without bleeding; Y95 Nosocomial condition; H91.90 Unspecified hearing loss, unspecified ear; Z91.14 Patient's other noncompliance with medication regimen; Z95.2 Presence of prosthetic heart valve; Z91.19 Patient's noncompliance with other medical treatment and regimen; Z87.891 Personal history of nicotine dependence